=== PATIENT | male | born 1960 | race Hispanic/Latino ===

== ENCOUNTER 2022-11-17 15:02 | Inpatient (IN) | payer OTHER ==
[2022-11-17 15:32] LABS: Absolute Lymphocytes (CBC) 1.7 K/uL (0.7-4.9); Hematocrit 28.4 % (39.6-49.0); Lymphocytes % 21.8 % (15.3-44.8); MCV 96.6 fL (80-100); MPV 7.3 fL (7.6-11.3); RBC Red Blood Cell Count 2.94 M/uL (4.33-5.43)
[2022-11-17 16:05] LABS: Potassium 3.5 mmol/L (3.5-5.1); Troponin High Sensitivity 45.4 pg/mL (<58.9)
--- NOTE | 2022-11-17 16:16 | RAD REPORT ---
EXAM DESCRIPTION: Herminia Single View11/17/2022 4:05 pm CLINICAL HISTORY: Chest pain COMPARISON: 2013 FINDINGS: Mild bilateral interstitial lung opacities. The heart is borderline enlarged IMPRESSION: Mild bilateral interstitial lung opacities probably mild interstitial pulmonary edema
--- NOTE | 2022-11-17 16:33 | EDPHYS ---
Physician Documentation [facility] Name: Gonzalez Adams Age: 62 yrs Sex: Male : 1960 Arrival Date: 11/17/2022 Time: 15:03 Bed 2 Private MD: ED Physician Sohail Peña HPI: 11/17 17:54 This 62 yrs old Male presents to ER via EMS with complaints of chest pain. kb 17:54 The patient or guardian reports chest pain that is located primarily in the substernal kb area. Onset: yesterday. The pain does not radiate. Associated signs and symptoms: The patient has no apparent associated signs or symptoms. The chest pain is described as a pressure. Duration: The patient or guardian reports a single episode. Modifying factors: The symptoms are alleviated by nothing. the symptoms are aggravated by nothing. Severity of pain: At its worst the pain was moderate in the emergency department the pain is unchanged. The patient has not experienced similar symptoms in the past. The patient has not recently seen a physician. Pt reports chest pain that started after dialysis yesterday. Pt had EKG yesterday that showed A.fib with SVR, the nurse spoke with the dr and was told to monitor him and send him to the ER if chest pain develops. Pt was sent to ER today because he told the nurse about the chest pain. . Historical: - Allergies: 15:08 No Known Allergies; ph - Home Meds: 15:08 ascorbic acid (vitamin C) 500 mg tab twice a day [Active]; aspirin 81 mg Oral cap 1 cap ph once daily [Active]; atorvastatin 80 mg oral tab 1 tab once daily [Active]; insulin glargine 100 unit/mL (3 mL) Sub-Q inpn 10 unit nightly [Active]; clopidogrel 75 mg oral tab 1 tab once daily [Active]; ergocalciferol (vitamin D2) (bulk) miscellaneous [Active]; fluoxetine 10 mg Oral cap 1 cap once daily [Active]; levetiracetam 500 mg oral tab 1 tab 2 times per day [Active]; metoprolol succinate 25 mg oral CSpX give 12.5 mg daily on Tue, [place], Sat, and Sun [Active]; ondansetron HCl 4 mg Oral tab 1 tab every 6 hours [Active]; Renvela 800 mg oral tab 2 tabs 3 times per day [Active]; - PMHx: 15:08 CKD stage 5; Depressive disorder; Hypertensive disorder; NSTEMI; CVA; w/ L sided ph deficits; CHF; Seizure; Hypercholesterolemia; Diabetes mellitus; Atrial Flutter; PVD; - Immunization history:: Adult Immunizations unknown. - Social history:: Smoking status: Patient denies any tobacco usage or history of. ROS: 17:54 Constitutional: Negative for fever, chills, and weight loss. kb 17:54 Cardiovascular: Positive for chest pain. 17:54 All other systems are negative. Exam: 15:43 Constitutional: This is a well developed, well nourished patient who is awake, alert, kb and in no acute distress. Head/Face: Normocephalic, atraumatic. ENT: Moist Mucous membranes Respiratory: Respirations even and unlabored. No increased work of breathing. Talking in full sentences Abdomen/GI: Soft, non-tender. No distention Skin: Warm, dry with normal turgor. Normal color. MS/ Extremity: Pulses equal, no cyanosis. Neurovascular intact. Full, normal range of motion. Neuro: Awake and alert, GCS 15, oriented to person, place, time, and situation. Moves all extremities. Normal gait. Psych: Awake, alert, with orientation to person, place and time. Behavior, mood, and affect are within normal limits. 15:43 Cardiovascular: Rate: bradycardic, Rhythm: irregularly irregular, Pulses: no pulse deficits are appreciated. 15:43 ECG was reviewed by the Attending Physician. Vital Signs: 15:03 BP 134 / 67; Pulse 47; Resp 16; Temp 97.5; Pulse Ox 100% on R/A; ph 15:07 Weight 83.91 kg; Height 5 ft. 10 in. (177.80 cm); Pain 0/10; ph 15:48 BP 135 / 65; Pulse 55; Resp 18; Pulse Ox 100% on R/A; ph 17:00 BP 144 / 83; Pulse 63; Resp 18; Pulse Ox 100% on R/A; ph 18:00 BP 149 / 83; Pulse 71; Resp 18; Pulse Ox 98% on R/A; ph 18:52 BP 139 / 80; Pulse 70; Resp 18; Pulse Ox 99% on R/A; ph 19:59 BP 137 / 77; Pulse 71; Resp 18; Pulse Ox 100% on R/A; jb4 15:07 Body Mass Index 26.54 (83.91 kg, 177.80 cm) ph MDM: 15:05 Patient medically screened. kb 16:31 Differential diagnosis: abnormal EKG, acute myocardial infarction, coronary artery kb disease. The patient was not given aspirin in the Emergency Department. Patient reports taking aspirin within the past 24 hours. Data reviewed: vital signs, nurses notes. Consideration of Admission/Observation Patient was admitted/placed on observation. Management of patient was discussed with the following: Hospitalist: Dr Mccloud accepts pt for admission. Historians other than the Patient: EMS: [facility]. Care significantly affected by the following chronic conditions: Diabetes, Hypertension, ESRD. Counseling: I had a detailed discussion with the patient and/or guardian regarding: the historical points, exam findings, and any diagnostic results supporting the discharge/admit diagnosis, lab results, radiology results, the need for further work-up and treatment in the hospital. 11/17 15:05 Order name: Basic Metabolic Panel; Complete Time: 16:24 kb 11/17 15:05 Order name: CBC with Diff; Complete Time: 15:34 kb 11/17 15:05 Order name: NT PRO-BNP; Complete Time: 16:24 kb 11/17 15:05 Order name: Troponin HS; Complete Time: 16:24 kb 11/17 15:05 Order name: XRAY Chest (1 view); Complete Time: 16:18 kb 11/17 16:31 Order name: SARS RAPID; Complete Time: 17:00 kb 11/17 15:05 Order name: EKG; Complete Time: 15:06 kb 11/17 15:05 Order name: Cardiac monitoring; Complete Time: 15:19 kb 11/17 15:05 Order name: EKG - Nurse/Tech; Complete Time: 15:48 kb 11/17 15:05 Order name: IV Saline Lock; Complete Time: 15:48 kb 11/17 15:05 Order name: Labs collected and sent; Complete Time: 15:48 kb 11/17 15:05 Order name: O2 Per Protocol; Complete Time: 15:19 kb 11/17 15:05 Order name: O2 Sat Monitoring; Complete Time: 15:19 kb EC:43 Rate is 51 beats/min. Rhythm is irregularly irregular. QRS [place] is Normal. QRS interval kb is normal at 100 msec. QT interval is normal at 455 msec. Clinical impression: Atrial Fibrillation. Administered Medications: No medications were administered Disposition Summary: 11/17/22 16:32 Hospitalization Ordered Hospitalization Status: Inpatient Admission kb Provider: Mac Mccloud Location: Telemetry/MedSurg (Inpatient) kb Condition: Stable kb Problem: new kb Symptoms: are unchanged kb Bed/Room Type: Standard Room Assignment: 407(11/17/22 19:42) mw Diagnosis - Chest pain, unspecified kb - Unspecified atrial fibrillation kb Forms: - Medication Reconciliation Form kb - SBAR form kb Signatures: Dispatcher [employer] EDJulia Stock FNP-C FNP-Ckb Webb, Martha, RN RN Bharati Shukla RN RN ph Corrections: (The following items were deleted from the chart) 19:42 16:32 kb mw
--- NOTE | 2022-11-17 16:33 | ER ---
Nurse's Notes [facility] Name: Gonzalez Adams Age: 62 yrs Sex: Male : 1960 Arrival Date: 11/17/2022 Time: 15:03 Bed 2 Private MD: Diagnosis: Chest pain, unspecified;Unspecified atrial fibrillation Presentation: 11/17 15:03 Chief complaint: EMS states: Pt from [place], had dialysis yesterday w/ normal amount ph of fluid removed, after returning from dialysis EKG showed that pt was in a-fib, pt reports having chest pain yesterday as well, denies pain at this time, 12 lead showed a-fib w/ rate 40s-60s, BP WNL, has hx of atrial flutter. Coronavirus screen: Vaccine status: Patient reports receiving the 2nd dose of the covid vaccine. Ebola Screen: No symptoms or risks identified at this time. 15:03 Method Of Arrival: EMS: [facility] 15:07 Initial Sepsis Screen: Does the patient meet any 2 criteria? No. Patient's initial ph sepsis screen is negative. Does the patient have a suspected source of infection? No. Patient's initial sepsis screen is negative. Risk Assessment: Do you want to hurt yourself or someone else? Patient reports no desire to harm self or others. Onset of symptoms was November 17, 2022. 15:07 Acuity: ROSA 3 ph Triage Assessment: 15:17 General: Appears in no apparent distress. Behavior is calm, cooperative, appropriate ph for age, Denies fever, feeling ill. Pain: Denies pain. Neuro: Level of Consciousness is awake, alert, obeys commands, Oriented to person, place, time, situation. Cardiovascular: Capillary refill < 3 seconds in bilateral fingers Patient's skin is warm and dry. Respiratory: Airway is patent Respiratory effort is even, unlabored, Respiratory pattern is regular, symmetrical. GI: No signs and/or symptoms were reported involving the gastrointestinal system. Derm: Skin is pink, warm \T\ dry. Historical: - Allergies: 15:08 No Known Allergies; ph - Home Meds: 15:08 ascorbic acid (vitamin C) 500 mg tab twice a day [Active]; aspirin 81 mg Oral cap 1 cap ph once daily [Active]; atorvastatin 80 mg oral tab 1 tab once daily [Active]; insulin glargine 100 unit/mL (3 mL) Sub-Q inpn 10 unit nightly [Active]; clopidogrel 75 mg oral tab 1 tab once daily [Active]; ergocalciferol (vitamin D2) (bulk) miscellaneous [Active]; fluoxetine 10 mg Oral cap 1 cap once daily [Active]; levetiracetam 500 mg oral tab 1 tab 2 times per day [Active]; metoprolol succinate 25 mg oral CSpX give 12.5 mg daily on e, [place], Sat, and Sun [Active]; ondansetron HCl 4 mg Oral tab 1 tab every 6 hours [Active]; Renvela 800 mg oral tab 2 tabs 3 times per day [Active]; - PMHx: 15:08 CKD stage 5; Depressive disorder; Hypertensive disorder; NSTEMI; CVA; w/ L sided ph deficits; CHF; Seizure; Hypercholesterolemia; Diabetes mellitus; Atrial Flutter; PVD; - Immunization history:: Adult Immunizations unknown. - Social history:: Smoking status: Patient denies any tobacco usage or history of. Screenin:18 [facility] ED Fall Risk Assessment (Adult) History of falling in the last 3 months, ph including since admission No falls in past 3 months (0 pts) Confusion or Disorientation No (0 pts) Intoxicated or Sedated No (0 pts) Impaired Gait Yes (1 pt) Mobility Assist Device Used Yes (1 pt) Altered Elimination Yes (1 pt) Score/Fall Risk Level 3 or more points = High Risk Oriented to surroundings, Maintained a safe environment, Hourly rounding (assess needs \T\ fall precautionary measures) done. Abuse screen: Denies threats or abuse. Denies injuries from another. Nutritional screening: No deficits noted. Tuberculosis screening: No symptoms or risk factors identified. Assessment: 15:49 General: SEE TRIAGE ASSESSMENT. ph 17:00 Reassessment: Patient appears in no apparent distress at this time. Patient and/or ph family updated on plan of care and expected duration. Pain level reassessed. Patient is alert, oriented x 3, equal unlabored respirations, skin warm/dry/pink. 18:52 Reassessment: Patient appears in no apparent distress at this time. Patient and/or ph family updated on plan of care and expected duration. Pain level reassessed. Patient is alert, oriented x 3, equal unlabored respirations, skin warm/dry/pink. 19:15 Reassessment: Patient appears in no apparent distress at this time. Patient and/or jb4 family updated on plan of care and expected duration. Pain level reassessed. Patient is alert, oriented x 3, equal unlabored respirations, skin warm/dry/pink. 20:28 Reassessment: Patient appears in no apparent distress at this time. Patient and/or jb4 family updated on plan of care and expected duration. Pain level reassessed. Patient is alert, oriented x 3, equal unlabored respirations, skin warm/dry/pink. Vital Signs: 15:03 BP 134 / 67; Pulse 47; Resp 16; Temp 97.5; Pulse Ox 100% on R/A; ph 15:07 Weight 83.91 kg; Height 5 ft. 10 in. (177.80 cm); Pain 0/10; ph 15:48 BP 135 / 65; Pulse 55; Resp 18; Pulse Ox 100% on R/A; ph 17:00 BP 144 / 83; Pulse 63; Resp 18; Pulse Ox 100% on R/A; ph 18:00 BP 149 / 83; Pulse 71; Resp 18; Pulse Ox 98% on R/A; ph 18:52 BP 139 / 80; Pulse 70; Resp 18; Pulse Ox 99% on R/A; ph 19:59 BP 137 / 77; Pulse 71; Resp 18; Pulse Ox 100% on R/A; jb4 15:07 Body Mass Index 26.54 (83.91 kg, 177.80 cm) ph ED Course: 15:03 Patient arrived in ED. eb 15:03 Bharati Shukla RN is Primary Nurse. ph 15:04 Julia Fallon FNP-C is PHCP. kb 15:04 Sohail Peña MD is Attending Physician. kb 15:08 Triage completed. ph 15:18 Arm band placed on Patient placed in an exam room, on a stretcher, on electronic device monitor, ph on pulse oximetry. 15:19 Patient has correct armband on for positive identification. Placed in gown. Bed in low ph position. Call light in reach. Side rails up X2. Client placed on continuous cardiac and pulse oximetry monitoring. NIBP monitoring applied. Door closed. Noise minimized. Warm blanket given. 15:48 Maintain EMS IV. Dressing intact. Good blood return noted. Site clean \T\ dry. Gauge \T\ ph site: 20 R hand. 16:06 XRAY Chest (1 view) In Process Unspecified. EDMS 16:32 Mac Mccloud MD is Hospitalizing Provider. kb 18:52 No provider procedures requiring assistance completed. Patient admitted, IV remains in ph place. Administered Medications: No medications were administered Medication: 15:18 VIS not applicable for this client. ph Outcome: 16:32 Decision to Hospitalize by Provider. kb 20:28 Admitted to Tele accompanied by tech, via stretcher, room 407, with chart, Report jb4 called to TERRI Portillo 20:28 Condition: stable 20:28 Discharge instructions given to patient, Instructed on the need for admit, Demonstrated understanding of instructions. 20:29 Patient left the ED. mohan Signatures: Dispatcher [employer] EDTN Julia Fallon, SPARK TESTER-C ALE-Bharati Collazo RN RN Zain Traore RN RN jb4 Batool Rosa
[2022-11-17 16:59] LABS: SARS-CoV-2 Antigen Rapid Res Negative (Negative)
[2022-11-17] MEDS ORDERED: ALBUTEROL 2.5 MG/3 ML NEB SOL NEB PRN (20:21)
[2022-11-17] MEDS ORDERED: ACETAMINOPHEN 500 MG TAB PO PRN (20:21)
--- NOTE | 2022-11-17 20:40 | P.HP ---
Certification for Inpatient Patient admitted to: Observation With expected LOS: <2 Midnights Patient will require the following post-hospital care: None Practitioner: I am a practitioner with admitting privileges, knowledge of patient current condition, hospital course, and medical plan of care. Services: Services provided to patient in accordance with Admission requirements found in Title 42 Section 412.3 of the Code of Federal Regulations Patient History Date of Service: 11/17/22 Reason for admission: CP r/o ACS; afib with SVR History of Present Illness: Patient is a 62-year-old gentleman who has a history of a stroke and lives at [facility] [place] who came into the hospital for further evaluation. Patient's not really able to give much information. Not really sure how they were able to tell he was having chest pain. He did have atrial fibrillation with slow ventricular response. His heart rate was in the 40s to 50s. Patient sent to the hospital for further evaluation. In the emergency room patient's troponins have been negative. Patient's heart rate has been stable. At this time, patient will be admitted for further treatment. Allergies No Known Allergies Allergy (Verified 06/09/19 15:12) Home Medications: Aspirin [Aspirin EC 81 MG] 81 mg PO DAILY 09/02/14 Clopidogrel Bisulfate [Plavix*] 75 mg PO DAILY #30 tablet 09/08/14 Atorvastatin Calcium [Lipitor*] 80 mg PO DAILY 06/09/19 Ascorbic Acid [Vitamin C] 500 mg PO BID 11/17/22 Ergocalciferol (Vitamin D2) [Drisdol] 1,250 mcg PO SEECOM 11/17/22 Fluoxetine HCl 10 mg PO DAILY 11/17/22 Folic Acid/Vit B Complex and C [Renal Vitamin Tablet] 0.8 mg PO DAILY 11/17/22 Insulin Glargine,Hum.rec.anlog [Jarrettaglar Kwikpen U-100] 10 unit SQ BEDTIME 11/17/22 Metoprolol Succinate 25 mg PO DAILY 11/17/22 Ondansetron HCl 4 mg PO Q6H PRN 11/17/22 Sevelamer Carbonate [Renvela] 2 tab PO TID 11/17/22 levETIRAcetam [Levetiracetam] 500 mg PO BID 11/17/22 - Past Medical/Surgical History Diabetic: Yes -: HTN -: HLD -: HX OF CVA/stroke -: CKD -: ANEMIA -: LYMPHOMA -: OBESITY -: DYSPHAGIA -: CHOLECYSTECTOMY -: PEG tube placement -: vascular surg. right leg -: hemodialysis - Family History Father Family History: Reviewed- Non-Contributory - Social History Smoking Status: Former smoker Alcohol use: No CD- Drugs: No Review of Systems 10-point ROS is otherwise unremarkable Physical Examination - Vital Signs Temperature: 97.5 F Blood Pressure: 149/83 Pulse: 71 Respirations: 18 - Physical Exam General: Alert, In no apparent distress, Oriented x3, Demented, Unresponsive HEENT: Atraumatic, PERRLA, Mucous membr. moist/pink, EOMI, Sclerae nonicteric Neck: Supple, 2+ carotid pulse no bruit, No LAD, Without JVD or thyroid abnormality Respiratory: Clear to auscultation bilaterally, Normal air movement Cardiovascular: No murmurs, Irregular heart rate/rhythm Gastrointestinal: Normal bowel sounds, Soft and benign, Non-distended, No tenderness Musculoskeletal: No tenderness Integumentary: No rashes Neurological: Sensation intact, Abnormal gait, Abnormal speech, Abnormal strength, Abnormal cranial nerve function - Studies Laboratory Data (last 24 hrs) 11/17/22 15:25: WBC 7.60, Hgb 9.5 L, Hct 28.4 L, Plt Count 322 11/17/22 15:25: Sodium 141, Potassium 3.5, BUN 30 H, Creatinine 6.15 H*, Glucose 121 H Assessment & Plan - Problems (Diagnosis) (1) Chest pain, rule out acute myocardial infarction Current Visit: Yes Status: Acute (2) Atrial fibrillation with slow ventricular response Current Visit: Yes Status: Acute (3) CVA (cerebral vascular accident) Current Visit: Yes Status: Acute (4) Seizure Current Visit: Yes Status: Acute (5) DM2 (diabetes mellitus, type 2) Current Visit: Yes Status: Acute (6) H/O lymphoma Current Visit: Yes Status: Acute (7) Diabetes mellitus Onset Date: 08/24/14 Current Visit: No Status: Acute (8) Hypertension Onset Date: 08/24/14 Current Visit: No Status: Acute - Plan -High-sensitivity troponin -Cardiology consultation -Echocardiogram and further evaluation per cardiology recommendation -Repeat EKG -Work-up for other etiologies of cardiac chest pain if troponins remain negative -Lipid profile -Antiepileptic -Feed with assistance - Discharge Plan: Halfway Plan to discharge in: Greater than 2 days - Advance Directives Does patient have a Living Will: No Does patient have a Durable POA for Healthcare: No - Code Status/Comfort Care Code Status Assessed: Yes Code Status: Full Code Critical Care: No Time Spent Managing PTS Care (In Minutes): 45
[2022-11-17] MEDS: INSULIN -REGULAR HUMAN 50 UNIT/0.5 ML ML SQ SCH (21:00)
[2022-11-17] MEDS: HEPARIN 5000 UNIT/ML 1 ML VIAL SQ SCH (21:40)
[2022-11-17] MEDS: ATORVASTATIN 40 MG TAB PO SCH (21:41)
[2022-11-17 22:04] VITALS: BMI 26.9
[2022-11-17] MEDS ORDERED: ONDANSETRON 4 MG/2 ML VIAL IV PRN (23:45)
[2022-11-18 04:14] LABS: Absolute Lymphocytes (CBC) 0.8 K/uL (0.7-4.9); Hematocrit 31.2 % (39.6-49.0); Lymphocytes % 6.9 % (15.3-44.8); MCV 97.9 fL (80-100); MPV 7.4 fL (7.6-11.3); RBC Red Blood Cell Count 3.18 M/uL (4.33-5.43)
[2022-11-18 04:49] LABS: Magnesium 2.4 mg/dL (1.6-2.4); Phosphorus 3.1 mg/dL (2.5-4.9); Potassium 4.4 mmol/L (3.5-5.1); Thyroid Stimulating Hormone 1.41 uIU/mL (0.358-3.740)
[2022-11-18 04:53] LABS: Troponin High Sensitivity 247.7 pg/mL (<58.9)
[2022-11-18] MEDS: INSULIN -REGULAR HUMAN 50 UNIT/0.5 ML ML SQ SCH ×4 (07:30→20:30)
[2022-11-18] MEDS: HEPARIN 5000 UNIT/ML 1 ML VIAL SQ SCH ×2 (08:26→20:29)
[2022-11-18] MEDS: ASPIRIN 81 MG CHEWABLE TABLET PO SCH (08:26)
[2022-11-18] MEDS ORDERED: HOME MED 1 EA UNK (Ondansetron Hcl [Ondansetron Hcl] 4 MG Tablet) PO PRN (14:09)
--- NOTE | 2022-11-18 14:25 | P.PN ---
Subjective Date of Service: 11/18/22 I have tried reaching family but have been unsuccessful. Tried to contact [facility] and waiting for callback. First 2 troponins were negative but repeat this AM was positive. Currently, we are awaiting cardiology input. I will go ahead and repeat the troponin as well. If this is negative and we will the setting of the first 2 being negative we can possibly discharge him home if cardiology is agreeable. Hopefully, I can talk with nursing facility and gets more information. Review of Systems 10-point ROS is otherwise unremarkable Physical Examination - Vital Signs Temperature: 97.5 F Blood Pressure: 149/83 Pulse: 71 Respirations: 18 Pulse Ox (%): 97 - Physical Exam General: Alert, In no apparent distress, Demented Respiratory: Clear to auscultation bilaterally, Normal air movement Cardiovascular: Normal S1 S2, Irregular heart rate/rhythm, Systolic murmur Gastrointestinal: Normal bowel sounds, Soft and benign, Non-distended, No tenderness Musculoskeletal: No clubbing, No swelling, No tenderness Neurological: Abnormal speech, Abnormal strength - Studies Laboratory Data (last 24 hrs) 11/17/22 15:25: WBC 7.60, Hgb 9.5 L, Hct 28.4 L, Plt Count 322 11/17/22 15:25: Sodium 141, Potassium 3.5, BUN 30 H, Creatinine 6.15 H*, Glucose 121 H Medications List Reviewed: Yes Assessment & Plan - Problems (Diagnosis) (1) Chest pain, rule out acute myocardial infarction Current Visit: Yes Status: Acute (2) Atrial fibrillation with slow ventricular response Current Visit: Yes Status: Acute (3) CVA (cerebral vascular accident) Current Visit: Yes Status: Acute (4) Seizure Current Visit: Yes Status: Acute (5) DM2 (diabetes mellitus, type 2) Current Visit: Yes Status: Acute (6) H/O lymphoma Current Visit: Yes Status: Acute (7) Diabetes mellitus Onset Date: 08/24/14 Current Visit: No Status: Acute (8) Hypertension Onset Date: 08/24/14 Current Visit: No Status: Acute - Plan -High-sensitivity troponin positive this a.m. -Cardiology consultation pending -Nephrology consult pending -Echocardiogram and further evaluation per cardiology recommendation -Repeat EKG -Plan to discuss patient's case with family try to contact- and daughter-as well as [facility]. I am placed on hold and I have been able to get in touch with anyone to discuss his care. If no aggressive intervention he may be able to go home. -Antiepileptic -Feed with assistance -cardiac cath in AM Discharge Plan: Long Term Plan to discharge in: Greater than 2 days - Advance Directives Does patient have a Living Will: No Does patient have a Durable POA for Healthcare: No - Code Status/Comfort Care Code Status: Full Code Critical Care: No Time Spent Managing PTS Care (In Minutes): 55
--- NOTE | 2022-11-18 15:52 | P.CNS ---
Date of Consult: 11/18/22 Chief Complaint: CP r/o ACS; afib with SVR Allergies No Known Allergies Allergy (Verified 06/09/19 15:12) Home Medications: Aspirin [Aspirin EC 81 MG] 81 mg PO DAILY 09/02/14 Clopidogrel Bisulfate [Plavix*] 75 mg PO DAILY #30 tablet 09/08/14 Atorvastatin Calcium [Lipitor*] 80 mg PO DAILY 06/09/19 Ascorbic Acid [Vitamin C] 500 mg PO BID 11/17/22 Ergocalciferol (Vitamin D2) [Drisdol] 1,250 mcg PO SEECOM 11/17/22 Fluoxetine HCl 10 mg PO DAILY 11/17/22 Folic Acid/Vit B Complex and C [Renal Vitamin Tablet] 0.8 mg PO DAILY 11/17/22 Insulin Glargine,Hum.rec.anlog [Basaglar Kwikpen U-100] 10 unit SQ BEDTIME 11/17/22 Metoprolol Succinate 25 mg PO DAILY 11/17/22 Ondansetron HCl 4 mg PO Q6H PRN 11/17/22 Sevelamer Carbonate [Renvela] 2 tab PO TID 11/17/22 levETIRAcetam [Levetiracetam] 500 mg PO BID 11/17/22 - Past Medical/Surgical History Diabetic: Yes -: HTN -: HLD -: HX OF CVA/stroke -: CKD -: ANEMIA -: LYMPHOMA -: OBESITY -: DYSPHAGIA -: CHOLECYSTECTOMY -: PEG tube placement -: vascular surg. right leg -: hemodialysis - Family History Father Family History: Reviewed- Non-Contributory - Social History Alcohol use: No CD- Drugs: No Caffeine use: Yes Place of Residence: [place] Physical Examination Temp Pulse Resp BP Pulse Ox 97.5 F 71 18 149/83 H 97 11/18/22 14:25 11/18/22 14:25 11/18/22 14:25 11/18/22 14:25 11/18/22 14:25 Laboratory Data (last 24 hrs) 11/17/22 15:25: Sodium 141, Potassium 3.5, BUN 30 H, Creatinine 6.15 H*, Glucose 121 H
[2022-11-18] MEDS ORDERED: FUROSEMIDE 40 MG/4 ML VIAL IV STA (16:09)
--- NOTE | 2022-11-18 17:40 | RAD REPORT ---
EXAM DESCRIPTION: US - Renal Ultrasound-Complete - 11/18/2022 5:29 pm CLINICAL HISTORY: maricel vs ckd, assess for hydroneph, ckd changes, BPH COMPARISON: Renal Ultrasound-Complete dated 10/04/2017; CT ABD PELVIS W CONTRAST dated 08/30/2014 FINDINGS: Increased cortical echogenicity bilaterally. Poorly assessed renal sinuses bilaterally. No definite hydronephrosis. Limited due to poor acoustic windows. The right kidney measures 9.9 cm. Hypoechoic lesion at the lower pole the right kidney measuring 1.9 x 1.8 cm. This is increased through transmission. This most likely represents a cyst which was also p resent on the CT from 08/30/2014. No large renal calculi identified. The left kidney measures 8 cm. Large left renal cyst measuring 9.2 cm in maximal dimension. This has some layering debris. . A simple appearing left upper pole renal cyst noted measuring 5 cm noted. No large renal calculi Bladder wall appears thick though is underdistended. IMPRESSION: 1. Limited by poor acoustic windows. Grossly, no hydronephrosis is noted. 2. Increased echogenicity of the cortices bilaterally suggesting medical renal disease. 3. Bilateral renal lesions noted which are most likely cysts. The right renal lesion is not as well a ssessed on this ultrasound but a cyst was present at a similar location on prior CT from 08/30/2014 . 4. Nonspecific mild bladder wall thickening (versus underdistention). If indeed thickened, this could be secondary to chronic bladder outlet obstruction.
[2022-11-18] MEDS: SEVELAMER CARBONATE 800 MG TABLET PO SCH (20:28)
[2022-11-18] MEDS: levETIRAcetam 500 MG TAB PO SCH (20:28)
[2022-11-18] MEDS: ATORVASTATIN 40 MG TAB PO SCH (20:28)
[2022-11-18] MEDS: INSULIN GLARGINE 100 UNIT/ML SQ SCH (20:30)
[2022-11-19] MEDS: INSULIN -REGULAR HUMAN 50 UNIT/0.5 ML ML SQ SCH ×4 (07:30→21:00)
[2022-11-19 07:59] LABS: Absolute Lymphocytes (CBC) 1.3 K/uL (0.7-4.9); Hematocrit 29.4 % (39.6-49.0); Lymphocytes % 14.5 % (15.3-44.8); MCV 97.7 fL (80-100); MPV 7.4 fL (7.6-11.3)
[2022-11-19 08:13] LABS: Potassium 4.2 mmol/L (3.5-5.1)
[2022-11-19] MEDS ORDERED: METOPROLOL XL 25 MG TAB PO SCH (09:00)
[2022-11-19] MEDS: HEPARIN 5000 UNIT/ML 1 ML VIAL SQ SCH (09:00)
[2022-11-19] MEDS: levETIRAcetam 500 MG TAB PO SCH ×2 (09:00→21:39)
[2022-11-19] MEDS: SEVELAMER CARBONATE 800 MG TABLET PO SCH ×3 (09:00→21:40)
[2022-11-19] MEDS: FLUOXETINE 10 MG CAP PO SCH (09:00)
[2022-11-19] MEDS ORDERED: ASPIRIN EC 81 MG TAB PO SCH (09:00)
[2022-11-19] MEDS ORDERED: ATORVASTATIN 20 MG TAB PO SCH (09:00)
[2022-11-19] MEDS: ASPIRIN 81 MG CHEWABLE TABLET PO SCH (09:35)
[2022-11-19] MEDS: CLOPIDOGREL 75 MG TABLET PO SCH (09:35)
--- NOTE | 2022-11-19 14:38 | P.PN ---
Subjective Date of Service: 11/19/22 Chief Complaint: CP r/o ACS; afib with SVR No acute events overnight. He states that he had a cardiac catheterization at [facility] last year and was told that he needs a CABG. However, he was told that he was not a good surgical candidate. Review of Systems 10-point ROS is otherwise unremarkable Cardiovascular: Chest Pain Physical Examination - Vital Signs Temperature: 97.7 F Blood Pressure: 135/65 Pulse: 55 Respirations: 16 Pulse Ox (%): 97 - Physical Exam General: Alert, In no apparent distress, Oriented x3 HEENT: Atraumatic, Mucous membr. moist/pink, EOMI, Sclerae nonicteric Neck: JVD not distended Respiratory: Clear to auscultation bilaterally, Normal air movement Cardiovascular: No gallops, No rubs, No murmurs, Edema (1-2+ BLE), Irregular heart rate/rhythm Gastrointestinal: Normal bowel sounds, Soft and benign, Non-distended, No tenderness, No rebound, No guarding Musculoskeletal: No clubbing Integumentary: No rashes Neurological: Normal speech, Cranial nerves 3-12 intact, Normal affect - Studies Medications List Reviewed: Yes Assessment And Plan - Plan # Chest Pain, concern for Acute Coronary Syndrome (Non-ST Segment Elevation Myocardial Infarction) # Coronary Artery Disease # History of Cerebrovascular Accident # Hypertension # Dyslipidemia - Evaluation thus far: - EKG: without reported STEMI criteria, trend - Serial troponin: 45.4 -> 47.3 -> 247.7 -> 2507.4 - Ordered transthoracic echocardiogram - Chest x-ray = "Mild bilateral interstitial lung opacities probably mild interstitial pulmonary edema" - Management plan: - Consult Cardiology - recommendations appreciated - Per Dr. Rolle hold off on cath given recent procedure at [facility] - Continue aspirin, atorvastatin, clopidogrel - Hold beta-randall given slow ventricular response - Hold COBY-inhibitor/ARB given ESRD # Hypervolemia secondary to Acute Congestive Heart Failure vs End-Stage Renal Disease on MWF iHD # Anemia of Chronic Kidney Disease - Nephrology consulted - recommendations appreciated - Renal ultrasound = "1. Limited by poor acoustic windows. Grossly, no hydronephrosis is noted. 2. Increased echogenicity of the cortices bilaterally suggesting medical renal disease. 3. Bilateral renal lesions noted which are most likely cysts. The right renal lesion is not as well assessed on this ultrasound but a cyst was present at a similar location on prior CT from 08/30/2014. 4. Nonspecific mild bladder wall thickening (versus underdistention). If indeed thickened, this could be secondary to chronic bladder outlet obstruction." - Continue sevelamer - Volume removal via hemodialysis - Monitor creatinine and urine output - Renally dose medications # Atrial Fibrillation with Slow Ventricular Response His [id number] = 5 (CHF=1, HTN=1, DM=1, CVA=1, CAD=1), which warrants anticoagulation. - Cardiology consulted - recommendations appreciated - Started apixaban # Type II Diabetes Mellitus - Continue insulin regimen # Seizure Disorder - Continue home levetiracetam # History of Lymphoma - Outpatient follow-up Conner Garcia M.D.
[2022-11-19] MEDS ORDERED: ALBUTEROL 2.5 MG/3 ML NEB SOL NEB PRN (16:00)
--- NOTE | 2022-11-19 16:59 | P.CNS ---
Date of Consult: 11/19/22 Reason for Consult: ESRD Requesting Physician: Conner Garcia Chief Complaint: CP r/o ACS; afib with SVR History of Present Illness: Patient is a 62-year-old gentleman who has a history of a stroke and lives at [facility] who came into the hospital for further evaluation. Patient's not really able to give much information. Not really sure how they were able to tell he was having chest pain. He did have atrial fibrillation with slow ventricular response. His heart rate was in the 40s to 50s. Patient sent to the hospital for further evaluation. In the emergency room patient's troponins have been negative. Patient's heart rate has been stable. At this time, patient will be admitted for further treatment. Allergies No Known Allergies Allergy (Verified 06/09/19 15:12) Home medications list reviewed: Yes Home Medications: Aspirin [Aspirin EC 81 MG] 81 mg PO DAILY 09/02/14 Clopidogrel Bisulfate [Plavix*] 75 mg PO DAILY #30 tablet 09/08/14 Atorvastatin Calcium [Lipitor*] 80 mg PO DAILY 06/09/19 Ascorbic Acid [Vitamin C] 500 mg PO BID 11/17/22 Ergocalciferol (Vitamin D2) [Drisdol] 1,250 mcg PO SEECOM 11/17/22 Fluoxetine HCl 10 mg PO DAILY 11/17/22 Folic Acid/Vit B Complex and C [Renal Vitamin Tablet] 0.8 mg PO DAILY 11/17/22 Insulin Glargine,Hum.rec.anlog [Basaglar Kwikpen U-100] 10 unit SQ BEDTIME 11/17/22 Metoprolol Succinate 25 mg PO DAILY 11/17/22 Ondansetron HCl 4 mg PO Q6H PRN 11/17/22 Sevelamer Carbonate [Renvela] 2 tab PO TID 11/17/22 levETIRAcetam [Levetiracetam] 500 mg PO BID 11/17/22 - Past Medical/Surgical History Diabetic: Yes -: HTN -: HLD -: HX OF CVA/stroke -: ESRD on HD followed by Dr. Zhang -: ANEMIA -: LYMPHOMA -: OBESITY -: DYSPHAGIA -: CHOLECYSTECTOMY -: PEG tube placement -: vascular surg. right leg -: hemodialysis - Family History Father Family History: Reviewed- Non-Contributory - Social History Alcohol use: No CD- Drugs: No Caffeine use: Yes [facility] Review of Systems 10-point ROS is otherwise unremarkable General: Weakness Respiratory: SOB with Excertion Physical Examination Temp Pulse Resp BP Pulse Ox 97.7 F 55 16 135/65 97 11/19/22 14:59 11/19/22 14:59 11/19/22 14:59 11/19/22 14:59 11/19/22 14:59 General: In no apparent distress, Oriented x3, Cooperative HEENT: Atraumatic Neck: Supple Respiratory: Clear to auscultation bilaterally Cardiovascular: No edema Gastrointestinal: Soft and benign, Non-distended Musculoskeletal: No clubbing, No contractures Integumentary: No rashes, No cyanosis Neurological: Normal speech Blood work reviewed in the chart. Imagings Data: EXAM DESCRIPTION: US - Renal Ultrasound-Complete - 11/18/2022 5:29 pm CLINICAL HISTORY: maricel vs ckd, assess for hydroneph, ckd changes, BPH COMPARISON: Renal Ultrasound-Complete dated 10/04/2017; CT ABD PELVIS W CONTRAST dated 08/30/2014 FINDINGS: Increased cortical echogenicity bilaterally. Poorly assessed renal sinuses bilaterally. No definite hydronephrosis. Limited due to poor acoustic windows. The right kidney measures 9.9 cm. Hypoechoic lesion at the lower pole the right kidney measuring 1.9 x 1.8 cm. This is increased through transmission. This most likely represents a cyst which was also present on the CT from 08/30/2014. No large renal calculi identified. The left kidney measures 8 cm. Large left renal cyst measuring 9.2 cm in maximal dimension. This has some layering debris. . A simple appearing left upper pole renal cyst noted measuring 5 cm noted. No large renal calculi Bladder wall appears thick though is underdistended. IMPRESSION: 1. Limited by poor acoustic windows. Grossly, no hydronephrosis is noted. 2. Increased echogenicity of the cortices bilaterally suggesting medical renal disease. 3. Bilateral renal lesions noted which are most likely cysts. The right renal lesion is not as well assessed on this ultrasound but a cyst was present at a similar location on prior CT from 08/30/2014 . 4. Nonspecific mild bladder wall thickening (versus underdistention). If indeed thickened, this could be secondary to chronic bladder outlet obstruction. EXAM DESCRIPTION: RADChest Single View11/17/2022 4:05 pm CLINICAL HISTORY: Chest pain COMPARISON: 2013 FINDINGS: Mild bilateral interstitial lung opacities. The heart is borderline enlarged IMPRESSION: Mild bilateral interstitial lung opacities probably mild interstitial pulmonary edema Conclusions/Impression: ESRD on HD -HD TIW HTN with CKD/ CHF -Consider ARB therapy as needed Diastolic CHF, chronic -HD with UF -Low sodium diet DM II with CKD -Continue Lantus -RISS Anemia in CKD -Retacrit X1 CKD MBD -Continue Renvela -Start Calcitriol Thank you kindly for the consultation.
--- NOTE | 2022-11-19 19:58 | CON ---
Date of Consultation: 11/19/2022 Reason For Consultation: Elevated troponin. History Of Present Illness: This is a 62-year-old male with history of CVA and known coronary artery disease that apparently is multivessel, dyslipidemia, hypertension, end-stage renal disease on hemod ialysis. He presented to the emergency room with chest pain. He was in atrial fibrillation, slow ve ntricular rate. Initially troponin was elevated; however, it went up to 2000 range. Past Medical History: As outlined above in HPI. Medications: Refer to reconciliation sheet for detailed list. Allergies: NO KNOWN DRUG ALLERGIES. Family History: No premature coronary artery disease or cancer. Social History: He is an ex-smoker. Does not drink or use any drugs. Review of Systems: All systems reviewed and they are negative except for mentioned in HPI. Physical Examination: Vital Signs: Temperature is 97.1, pulse 55, breathing at 16, blood pressure 155/70, and saturating 9 7% on room air. General: A pleasant middle-aged male, in no apparent distress. Head And Neck: Pupils are equal and reactive to light. Intact eye movements. No cervical lymphaden opathy. Positive JVD. Lungs: Decreased breathing sounds bilaterally. No rhonchi, wheezing, or crackles. Heart: Irregularly irregular. No extra sounds. Abdomen: Soft, nontender. Bowel sounds positive. No organomegaly. No masses or hernia. No rigidi ty or rebound. Extremities: No clubbing or cyanosis. Intact pulses. Skin: No rash. Neurologic: Alert, awake, and oriented x3. No new acute focal deficits appreciated. Investigations: Troponin peaked at 2507. Assessment And Recommendation: 1.Non-ST elevation myocardial infarction. Recommend IV heparin and baby aspirin. Discontinue the a pixaban and initially we were planning to do coronary angiogram on him; however, the patient will nee d coronary artery bypass surgery as reported by the family. I will have a long discussion with the joe pack when they are available and understand why the bypass has not been done yet. Meanwhile, add me toprolol 25 mg twice a day. 2.End-stage renal disease, on hemodialysis. Continue current management. 3.Dyslipidemia. Continue statin. 4.Atrial fibrillation, rate is controlled. He is on anticoagulation. I will heparinize him instead of the Eliquis in case a heart surgery is to be planned soon. SR/MODL Voice ID: [id number] Report ID: [id number]
[2022-11-19] MEDS: DOCUSATE NA 100 MG CAP PO SCH (21:00)
[2022-11-19] MEDS ORDERED: APIXABAN 2.5 MG TABLET PO SCH (21:00)
[2022-11-19] MEDS: ATORVASTATIN 80 MG TAB PO SCH (21:40)
[2022-11-19] MEDS: NEPRO SHAKE 237 ML CAN PO SCH (21:40)
[2022-11-19] MEDS: INSULIN GLARGINE 100 UNIT/ML SQ SCH (21:41)
[2022-11-20 04:36] LABS: Potassium 3.5 mmol/L (3.5-5.1)
[2022-11-20 06:07] LABS: Magnesium 2.4 mg/dL (1.6-2.4); Phosphorus 2.8 mg/dL (2.5-4.9)
[2022-11-20] MEDS ORDERED: HEPARIN/D5W 25,000 UNIT/500 ML BAG IV SCH (07:00)
[2022-11-20] MEDS: INSULIN -REGULAR HUMAN 50 UNIT/0.5 ML ML SQ SCH ×4 (07:30→20:40)
--- NOTE | 2022-11-20 08:37 | ECHO ---
HEIGHT: 5 ft 10 in WEIGHT: 188 lb 0 oz DATE OF STUDY: 11/19/[address]: Karin Slade 2-DIMENSIONAL: YES M.MODE: YES DOPPLER: YES COLOR FLOW: YES TDS: PORTABLE: YES DEFINITY: BUBBLE STUDY: DIAGNOSIS: ATRIAL FIBRILLATION CARDIAC HISTORY: CATHERIZATION: YES SURGERY: NO PROSTHETIC VALVE: NO PACEMAKER: NO MEASUREMENTS (cm) DIASTOLIC (NORMALS) SYSTOLIC (NORMALS) IVSd 1.1 (0.6-1.2) LA Diam 4.1 (1.9-4.0) LVEF 50-55% LVIDd 5.3 (3.5-5.7) LVIDs 4.0 (2.0-3.5) %FS 23% LVPWd 1.2 (0.6-1.2) Ao Diam 2.6 (2.0-3.7) 2 DIMENSIONAL ASSESSMENT: RIGHT ATRIUM: NORMAL LEFT ATRIUM: ENLARGED RIGHT VENTRICLE: NORMAL LEFT VENTRICLE: DEPRESSED EJECTION FRACTION TRICUSPID VALVE: TRICUSPID REGURGITATION MITRAL VALVE: MILD MITRAL REGURGITATION PULMONIC VALVE: NORMAL AORTIC VALVE: MILD AORTIC INSUFFICIENCY PERICARDIAL EFFUSION: NONE AORTIC ROOT: NORMAL LEFT VENTRICULAR WALL MOTION: MILD GIUSEPPE SEPTAL HYPOKINESIS DOPPLER/COLOR FLOW: SEE BELOW COMMENTS: 1. LOW NORMAL LEFT VENTRICULAR EJECTION FRACTION 50-55% 2. DISTAL GIUSEPPE SEPTAL HYPOKINESIS 3. LEFT ATRIAL ENLARGEMENT 4. DIASTOLIC DYSFUNCTION 5. MILD MITRAL REGURGITATION 6. TRACE TRICUSPID REGURGITATION/ TRACE AORTIC INSUFFICIENCY TECHNOLOGIST: NANDINI PEREZ
[2022-11-20] MEDS ORDERED: CALCITROL 0.25 MCG CAP PO SCH (09:00)
[2022-11-20] MEDS: NEPRO SHAKE 237 ML CAN PO SCH ×3 (09:00→21:32)
[2022-11-20] MEDS ORDERED: MULTIVITAMINS,THERAPEUT 1 TAB PO SCH (09:00)
[2022-11-20] MEDS ORDERED: EPOETIN ALFA 10,000 UNIT/ML VIAL SQ SCH (09:00)
[2022-11-20] MEDS: METOPROLOL TAR 25 MG TAB PO SCH ×2 (10:34→18:35)
[2022-11-20] MEDS: ASPIRIN 81 MG CHEWABLE TABLET PO SCH (10:34)
[2022-11-20] MEDS: levETIRAcetam 500 MG TAB PO SCH ×2 (10:34→20:35)
[2022-11-20] MEDS: SEVELAMER CARBONATE 800 MG TABLET PO SCH ×3 (10:35→20:35)
[2022-11-20] MEDS: DOCUSATE NA 100 MG CAP PO SCH ×2 (10:35→20:35)
[2022-11-20] MEDS: CLOPIDOGREL 75 MG TABLET PO SCH (10:59)
[2022-11-20] MEDS: FLUOXETINE 10 MG CAP PO SCH (10:59)
[2022-11-20 12:10] LABS: Absolute Lymphocytes (CBC) 1.4 K/uL (0.7-4.9); Hematocrit 32.3 % (39.6-49.0); Lymphocytes % 15.6 % (15.3-44.8); MPV 7.2 fL (7.6-11.3); RBC Red Blood Cell Count 3.29 M/uL (4.33-5.43)
[2022-11-20 12:16] LABS: Protime INR 1.22
[2022-11-20 16:26] VITALS: BP 146/72; TEMP 97.4
--- NOTE | 2022-11-20 16:57 | P.PN ---
Date of Service: 11/20/22 Vital Signs Temp Pulse Resp BP Pulse Ox 97.4 F 49 L 14 146/72 H 97 11/20/22 16:00 11/20/22 16:00 11/20/22 16:00 11/20/22 16:00 11/20/22 16:00 Medications Acetaminophen (Acetaminophen 500 Mg Tab) 500 mg PO Q4HP PRN PRN Reason: Pain scale 2-4 (Mild) Albuterol Sulfate (Albuterol 2.5 Mg/3 Ml Neb [place]) 2.5 mg NEB [id number] PRN PRN Reason: SHORTNESS OF BREATH Aspirin (Aspirin 81 Mg Chewable Tablet) 81 mg PO DAILY COUNTS INCLUDE 234 BEDS AT THE [facility] Last Admin: 11/20/22 10:34 Dose: 81 mg Atorvastatin Calcium (Atorvastatin 80 Mg Tab) 80 mg PO BEDTIME COUNTS INCLUDE 234 BEDS AT THE [facility] Last Admin: 11/19/22 21:40 Dose: 80 mg Calcitriol (Calcitrol 0.25 Mcg Cap) 0.5 mcg PO DAILY COUNTS INCLUDE 234 BEDS AT THE [facility] Last Admin: 11/20/22 10:34 Dose: 0.5 mcg Clopidogrel Bisulfate (Clopidogrel 75 Mg Tablet) 75 mg PO DAILY COUNTS INCLUDE 234 BEDS AT THE [facility] Last Admin: 11/20/22 10:59 Dose: 75 mg Docusate Sodium (Docusate Na 100 Mg Cap) 100 mg PO BID COUNTS INCLUDE 234 BEDS AT THE [facility] Last Admin: 11/20/22 10:35 Dose: 100 mg Enteral Nutritional Formula (Nepro Shake 237 Ml Can) 237 ml PO TID COUNTS INCLUDE 234 BEDS AT THE [facility] Last Admin: 11/20/22 14:00 Dose: 237 ml Fluoxetine HCl (Fluoxetine 10 Mg Cap) 10 mg PO DAILY COUNTS INCLUDE 234 BEDS AT THE [facility] Last Admin: 11/20/22 10:59 Dose: 10 mg Heparin Sodium (Porcine) (Heparin 1,000 Unit/Ml Vial) 0 unit IV PRN PRN PRN Reason: Heparin Re-Bolus Per Protocol Last Admin: 11/20/22 14:09 Dose: 5,000 unit Heparin Sodium/Dextrose (Heparin Drip 25,000 Units/5oo Ml Premix) 25,000 unit in 500 mls @ 20 mls/hr [place] [facility] Last Admin: 11/20/22 14:10 Dose: 500 mls Insulin Glargine (Insulin Glargine 100 Unit/Ml) 10 unit SQ BEDTIME COUNTS INCLUDE 234 BEDS AT THE [facility] Last Admin: 11/19/22 21:41 Dose: 10 unit Insulin Human Regular (Insulin -Regular Human 50 Unit/0.5 Ml Ml) 0 unit SQ ACHS COUNTS INCLUDE 234 BEDS AT THE [facility]; Protocol Last Admin: 11/20/22 11:30 Dose: Not Given Levetiracetam (Levetiracetam 500 Mg Tab) 500 mg PO BID COUNTS INCLUDE 234 BEDS AT THE [facility] Last Admin: 11/20/22 10:34 Dose: 500 mg Metoprolol Tartrate (Metoprolol Tar 25 Mg Tab) 25 mg PO BID 6AM 6PM COUNTS INCLUDE 234 BEDS AT THE [facility] Last Admin: 11/20/22 10:34 Dose: 25 mg Ondansetron HCl (Ondansetron 4 Mg/2 Ml Vial) 4 mg IV Q6H PRN PRN Reason: NAUSEA / VOMITING Last Admin: 11/17/22 23:49 Dose: 4 mg Sevelamer Carbonate (Sevelamer Carbonate 800 Mg Tablet) 1,600 mg PO TID COUNTS INCLUDE 234 BEDS AT THE [facility] Last Admin: 11/20/22 14:07 Dose: 1,600 mg Sodium Chloride (Flush Normal Saline 10 Ml) 10 ml IV BID COUNTS INCLUDE 234 BEDS AT THE [facility] Last Admin: 11/20/22 09:00 Dose: 10 ml Vitamin B Complex/Vit C/Folic Acid (Multivitamins,Therapeut 1 Tab) 1 tab PO DAILY COUNTS INCLUDE 234 BEDS AT THE [facility] Last Admin: 11/20/22 10:35 Dose: 1 tab Assessment/ Plan: Nephrology No CP or Dyspnea Fair appetite No acute events overnight Vitals, medications, blood work and imaging reviewed in the chart. General: In no apparent distress, Oriented x3, Cooperative HEENT: Atraumatic Neck: Supple Respiratory: Clear to auscultation bilaterally Cardiovascular: No edema Gastrointestinal: Soft and benign, Non-distended Musculoskeletal: No clubbing, No contractures Integumentary: No rashes, No cyanosis Neurological: Normal speech Blood work reviewed in the chart. Imagings Data: EXAM DESCRIPTION: US - Renal Ultrasound-Complete - 11/18/2022 5:29 pm CLINICAL HISTORY: maricel vs ckd, assess for hydroneph, ckd changes, BPH COMPARISON: Renal Ultrasound-Complete dated 10/04/2017; CT ABD PELVIS W CONTRAST dated 08/30/2014 FINDINGS: Increased cortical echogenicity bilaterally. Poorly assessed renal sinuses bilaterally. No definite hydronephrosis. Limited due to poor acoustic windows. The right kidney measures 9.9 cm. Hypoechoic lesion at the lower pole the right kidney measuring 1.9 x 1.8 cm. This is increased through transmission. This most likely represents a cyst which was also present on the CT from 08/30/2014. No large renal calculi identified. The left kidney measures 8 cm. Large left renal cyst measuring 9.2 cm in maximal dimension. This has some layering debris. . A simple appearing left upper pole renal cyst noted measuring 5 cm noted. No large renal calculi Bladder wall appears thick though is underdistended. IMPRESSION: 1. Limited by poor acoustic windows. Grossly, no hydronephrosis is noted. 2. Increased echogenicity of the cortices bilaterally suggesting medical renal disease. 3. Bilateral renal lesions noted which are most likely cysts. The right renal lesion is not as well assessed on this ultrasound but a cyst was present at a similar location on prior CT from 08/30/2014 . 4. Nonspecific mild bladder wall thickening (versus underdistention). If indeed thickened, this could be secondary to chronic bladder outlet obstruction. EXAM DESCRIPTION: [place] Single View11/17/2022 4:05 pm CLINICAL HISTORY: Chest pain COMPARISON: 2013 FINDINGS: Mild bilateral interstitial lung opacities. The heart is borderline enlarged IMPRESSION: Mild bilateral interstitial lung opacities probably mild interstitial pulmonary edema Conclusions/Impression: ESRD on HD -HD TIW HTN with CKD/ CHF -Start Losartan 25mg BID -Caution with beta blockade due to bradycardia Diastolic CHF, chronic -HD with UF TIW -Low sodium diet DM II with CKD -Continue Lantus -RISS Anemia in CKD -Retacrit PRN CKD MBD -Continue Renvela -Continue Calcitriol
--- NOTE | 2022-11-20 17:06 | EKG ---
Test Date: 2022-11-17 Test Time: 15:39:21 Bureau Chief: PH MEASUREMENT RESULTS: Intervals: Rate: 51 NC: QRSD: 100 QT: 494 QTc: 455 Suring: P: NC: QRS: -5 T: 94 INTERPRETIVE STATEMENTS: Atrial fibrillation with slow ventricular response ST & T wave abnormality, consider lateral ischemia or digitalis effect Abnormal ECG No previous ECG available for comparison Electronically Signed On 11-20-22 16:59:18 PROGRAM ASSOCIATE by Gonzalo Rolle
--- NOTE | 2022-11-20 20:06 | P.PN ---
Subjective Date of Service: 11/20/22 Chief Complaint: CP r/o ACS; afib with SVR No acute events overnight. He denies any chest pain, palpitations, or shortness of breath. Per Dr. Rolle, he recommends transfer back to [facility] for Cardiothoracic Surgery evaluation and re-consideration for CABG, since his last evaluation was November 2021. Review of Systems 10-point ROS is otherwise unremarkable Physical Examination - Vital Signs Temperature: 97.4 F Blood Pressure: 146/72 Pulse: 49 Respirations: 14 Pulse Ox (%): 97 - Studies Medications List Reviewed: Yes Assessment And Plan - Plan - Physical Exam General: Alert, In no apparent distress, Oriented x3 HEENT: Atraumatic, Mucous membr. moist/pink, Sclerae nonicteric Neck: JVD not distended Respiratory: Clear to auscultation bilaterally, Normal air movement Cardiovascular: No gallops, No rubs, No murmurs, Edema (1-2+ BLE), Irregular heart rate/rhythm Gastrointestinal: Soft and benign, Non-distended, No tenderness Musculoskeletal: No clubbing Integumentary: No rashes Neurological: Normal speech, Normal affect # Chest Pain, concern for Acute Coronary Syndrome (Non-ST Segment Elevation Myocardial Infarction) # Coronary Artery Disease # History of Cerebrovascular Accident # Hypertension # Dyslipidemia - Evaluation thus far: - EKG: without reported STEMI criteria, trend - Serial troponin: 45.4 -> 47.3 -> 247.7 -> 2507.4 - Ordered transthoracic echocardiogram - Chest x-ray = "Mild bilateral interstitial lung opacities probably mild interstitial pulmonary edema" - Management plan: - Consult Cardiology - recommendations appreciated - Per Dr. Rolle, recommended transfer to [facility] for Cardiothoracic Surgery evaluation - I discussed with him and his family, who are in agreement - transfer request has been initiated - Continue aspirin, atorvastatin, clopidogrel - Hold beta-randall given slow ventricular response - Hold COBY-inhibitor/ARB given ESRD # Hypervolemia secondary to Acute Congestive Heart Failure vs End-Stage Renal Disease on MWF iHD # Anemia of Chronic Kidney Disease - Nephrology consulted - recommendations appreciated - Renal ultrasound = "1. Limited by poor acoustic windows. Grossly, no hydronephrosis is noted. 2. Increased echogenicity of the cortices bilaterally suggesting medical renal disease. 3. Bilateral renal lesions noted which are most likely cysts. The right renal lesion is not as well assessed on this ultrasound but a cyst was present at a similar location on prior CT from 08/30/2014. 4. Nonspecific mild bladder wall thickening (versus underdistention). If indeed thickened, this could be secondary to chronic bladder outlet obstruction." - Continue sevelamer - Volume removal via hemodialysis - Monitor creatinine and urine output - Renally dose medications # Atrial Fibrillation with Slow Ventricular Response His [id number] = 5 (CHF=1, HTN=1, DM=1, CVA=1, CAD=1), which warrants anticoagulation. - Cardiology consulted - recommendations appreciated - Started apixaban # Type II Diabetes Mellitus - Continue insulin regimen # Seizure Disorder - Continue home levetiracetam # History of Lymphoma - Outpatient follow-up Conner Garcia M.D.
[2022-11-20] MEDS: ATORVASTATIN 80 MG TAB PO SCH (20:35)
[2022-11-20] MEDS ORDERED: LOSARTAN POTASSIUM 50 MG TABLET PO SCH (21:00)
[2022-11-20] MEDS: INSULIN GLARGINE 100 UNIT/ML SQ SCH (21:32)
--- NOTE | 2022-11-20 22:21 | P.DS ---
Admission Date: 11/17/22 Discharge Date: 11/20/22 Disposition: TRANSFER TO [facility] Reason for Admission: CP r/o ACS; afib with SVR Consultations: Cardiology Nephrology Procedures: CXR 11/17/22 EXAM DESCRIPTION: Herminia Single View11/17/2022 4:05 pm CLINICAL HISTORY: Chest pain COMPARISON: 2013 FINDINGS: Mild bilateral interstitial lung opacities. The heart is borderline enlarged IMPRESSION: Mild bilateral interstitial lung opacities probably mild interstitial pulmonary edema Renal US 11/18/22 COMPARISON: Renal Ultrasound-Complete dated 10/04/2017; CT ABD PELVIS W CONTRAST dated 08/30/2014 FINDINGS: Increased cortical echogenicity bilaterally. Poorly assessed renal sinuses bilaterally. No definite hydronephrosis. Limited due to poor acoustic windows. The right kidney measures 9.9 cm. Hypoechoic lesion at the lower pole the right kidney measuring 1.9 x 1.8 cm. This is increased through transmission. This most likely represents a cyst which was also present on the CT from 08/30/2014. No large renal calculi identified. The left kidney measures 8 cm. Large left renal cyst measuring 9.2 cm in maximal dimension. This has some layering debris. . A simple appearing left upper pole renal cyst noted measuring 5 cm noted. No large renal calculi Bladder wall appears thick though is underdistended. IMPRESSION: 1. Limited by poor acoustic windows. Grossly, no hydronephrosis is noted. 2. Increased echogenicity of the cortices bilaterally suggesting medical renal disease. 3. Bilateral renal lesions noted which are most likely cysts. The right renal lesion is not as well assessed on this ultrasound but a cyst was present at a similar location on prior CT from 08/30/2014 . 4. Nonspecific mild bladder wall thickening (versus underdistention). If indeed thickened, this could be secondary to chronic bladder outlet obstruction. Dictated By: Han Mosher MD 11/18/22 [id number] Echo 11/19/22 COMMENTS: 1. LOW NORMAL LEFT VENTRICULAR EJECTION FRACTION 50-55% 2. DISTAL GIUSEPPE SEPTAL HYPOKINESIS 3. LEFT ATRIAL ENLARGEMENT 4. DIASTOLIC DYSFUNCTION 5. MILD MITRAL REGURGITATION 6. TRACE TRICUSPID REGURGITATION/ TRACE AORTIC INSUFFICIENCY Brief History of Present Illness: HPI Patient is a 62-year-old gentleman who has a history of a stroke and lives at [facility] who came into the hospital for further evaluation. Patient's not really able to give much information. Not really sure how they were able to tell he was having chest pain. He did have atrial fibrillation with slow ventricular response. His heart rate was in the 40s to 50s. Patient sent to the hospital for further evaluation. In the emergency room patient's troponins have been negative. Patient's heart rate has been stable. At this time, patient will be admitted for further treatment. Hospital Course: Patient with history of CAD, CVA, ESRD, hypertension, hyperlipidemia, A. fib on chronic anticoagulation, insulin-dependent diabetes, seizure disorder presented to the emergency department for chest pain, troponin trended up from 45.4- 2507.4, case was discussed with cardiology and family. Family reports patient was previously instructed that he needed a CABG, cardiology recommended transfer to tertiary center for bypass surgery. Attending physician spoke with cardiology at [facility] who is excepted the patient for further evaluation/management at [facility]. Patient to continue with further care at [facility]. # Chest Pain, concern for Acute Coronary Syndrome (Non-ST Segment Elevation Myocardial Infarction) # Coronary Artery Disease # History of Cerebrovascular Accident # Hypertension # Dyslipidemia - Evaluation thus far: - EKG: without reported STEMI criteria, trend - Serial troponin: 45.4 -> 47.3 -> 247.7 -> 2507.4 - Ordered transthoracic echocardiogram - Chest x-ray = "Mild bilateral interstitial lung opacities probably mild interstitial pulmonary edema" - Management plan: - Consult Cardiology - recommendations appreciated - Per Dr. Rolle, recommended transfer to [facility] for Cardiothoracic Surgery evaluation - I discussed with him and his family, who are in agreement - Patient now accepted by cardiology Dr. Klein at [facility]. - Continue aspirin, atorvastatin, clopidogrel - Hold beta-randall given slow ventricular response - Hold COBY-inhibitor/ARB given ESRD # Hypervolemia secondary to Acute Congestive Heart Failure vs End-Stage Renal Di sease on MWF iHD # Anemia of Chronic Kidney Disease - Nephrology consulted - recommendations appreciated - Renal ultrasound = "1. Limited by poor acoustic windows. Grossly, no hydronephrosis is noted. 2. Increased echogenicity of the cortices bilaterally suggesting medical renal disease. 3. Bilateral renal lesions noted which are most likely cysts. The right renal lesion is not as well assessed on this ultrasound but a cyst was present at a similar location on prior CT from 08/30/2014. 4. Nonspecific mild bladder wall thickening (versus underdistention). If indeed thickened, this could be secondary to chronic bladder outlet obstruction." - Continue sevelamer - Volume removal via hemodialysis - Monitor creatinine and urine output - Renally dose medications # Atrial Fibrillation with Slow Ventricular Response His [id number] = 5 (CHF=1, HTN=1, DM=1, CVA=1, CAD=1), which warrants anticoagulation. - Cardiology consulted - recommendations appreciated - Started apixaban # Type II Diabetes Mellitus - Continue insulin regimen # Seizure Disorder - Continue home levetiracetam # History of Lymphoma - Outpatient follow-up Vital Signs/Physical Exam: Temp Pulse Resp BP Pulse Ox 97.4 F 49 L 14 146/72 H 97 11/20/22 20:08 11/20/22 20:08 11/20/22 20:08 11/20/22 20:08 11/20/22 20:08 Laboratory Data at Discharge: WBC 9.10 K/uL (4.3-10.9) 11/20/22 12:03 Hgb 10.6 g/dL (13.6-17.9) L 11/20/22 12:03 Hct 32.3 % (39.6-49.0) L 11/20/22 12:03 Plt Count 338 K/uL (152-406) 11/20/22 12:03 PT 13.4 SECONDS (9.5-12.5) H 11/20/22 12:03 INR 1.22 11/20/22 12:03 APTT 102.7 SECONDS (24.3-36.9) H* 11/20/22 18:31 Sodium 143 mmol/L (136-145) 11/20/22 03:17 Potassium 3.5 mmol/L (3.5-5.1) D 11/20/22 03:17 BUN 40 mg/dL (7-18) H 11/20/22 03:17 Creatinine 6.58 mg/dL (0.70-1.30) H* 11/20/22 03:17 Glucose 79 mg/dL (74-106) 11/20/22 03:17 Phosphorus 2.8 mg/dL (2.5-4.9) 11/20/22 03:17 Magnesium 2.4 mg/dL (1.6-2.4) 11/20/22 03:17 Triglycerides 94 mg/dL (<150) 11/18/22 03:58 Cholesterol 61 mg/dL (<200) 11/18/22 03:58 HDL Cholesterol 35 mg/dL (40-60) L 11/18/22 03:58 Cholesterol/HDL Ratio 1.74 11/18/22 03:58 Home Medications: Aspirin [Aspirin EC 81 MG] 81 mg PO DAILY 09/02/14 Clopidogrel Bisulfate [Plavix*] 75 mg PO DAILY #30 tablet 09/08/14 Atorvastatin Calcium [Lipitor*] 80 mg PO DAILY 06/09/19 Ascorbic Acid [Vitamin C] 500 mg PO BID 11/17/22 Ergocalciferol (Vitamin D2) [Drisdol] 1,250 mcg PO SEECOM 11/17/22 Fluoxetine HCl 10 mg PO DAILY 11/17/22 Folic Acid/Vit B Complex and C [Renal Vitamin Tablet] 0.8 mg PO DAILY 11/17/22 Insulin Glargine,Hum.rec.anlog [Kay Zaman U-100] 10 unit SQ BEDTIME 11/17/22 Metoprolol Succinate 25 mg PO DAILY 11/17/22 Ondansetron HCl 4 mg PO Q6H PRN 11/17/22 Sevelamer Carbonate [Renvela] 2 tab PO TID 11/17/22 levETIRAcetam [Levetiracetam] 500 mg PO BID 11/17/22 Followup: Hiram Rich MD [Primary Care Provider] -
[2022-11-20 22:56] VITALS: O2SAT 97
== END 2022-11-21 00:05 | disposition short-term general hospital (02) | DRG 280 ==
LOC: ER 15:02 → ERHOLD 19:33 → 4TH 20:11
PROVIDERS: ADMIT Hospitalist; ATTEND Internal Medicine
PROC: 5A1D70Z Performance of Urinary Filtration, Intermittent, Less than 6 Hours Per Day (ICD-10-PCS; principal; 2022-11-19)
DX: I21.4 Non-ST elevation (NSTEMI) myocardial infarction (principal); I50.33 Acute on chronic diastolic (congestive) heart failure; N18.6 End stage renal disease; I13.2 Hypertensive heart and chronic kidney disease with heart failure and with stage 5 chronic kidney disease, or end stage renal disease; I48.91 Unspecified atrial fibrillation; E11.22 Type 2 diabetes mellitus with diabetic chronic kidney disease; D63.1 Anemia in chronic kidney disease; N28.1 Cyst of kidney, acquired; E78.5 Hyperlipidemia, unspecified; G40.909 Epilepsy, unspecified, not intractable, without status epilepticus; I25.10 Atherosclerotic heart disease of native coronary artery without angina pectoris; I25.2 Old myocardial infarction; Z79.4 Long term (current) use of insulin; Z99.2 Dependence on renal dialysis; Z86.73 Personal history of transient ischemic attack (TIA), and cerebral infarction without residual deficits; Z79.02 Long term (current) use of antithrombotics/antiplatelets; Z79.82 Long term (current) use of aspirin; Z85.72 Personal history of non-Hodgkin lymphomas; Z90.49 Acquired absence of other specified parts of digestive tract; Z87.891 Personal history of nicotine dependence; Z79.899 Other long term (current) drug therapy; Z20.822 Contact with and (suspected) exposure to COVID-19
CPT/HCPCS: 36415; 71045; 76770; 80048; 80061; 82306; 82550; 82947; 83036; 83735; 83880; 83970; 84100; 84443; 84484; 85025; 85610; 85730; 87811; 90935; 93005; 93306; 94760; 99285; J1644; J2250; J2405

== ENCOUNTER 2023-09-10 14:22 | Inpatient (IN) | payer OTHER ==
--- OUTSIDE RECORDS SUMMARY | 2023-09-10 14:38 | XMS REPORT | Continuity of Care Document ---
:1960 Author Organization [facility] t Address [address] [place] [address] [address] [place] [address] Care Team Providers Name Role Phone Jose Cruz Infante MD Primary Care Physician GUDELIA RIVERA Attending Clinician Unavailable CAREN SHEPHERD Attending Clinician Unavailable CAREN SHEPHERD Attending Clinician Unavailable Doctor Unassigned, [place] Attending Clinician Unavailable Germain Peralta MD Attending Clinician Isabel Williamson RN Attending Clinician Unavailable GERMAIN PERALTA Attending Clinician Unavailable Ernie WIGGINS, Arleen Lebron Attending Clinician Jermaine Martinez Attending Clinician [phone] Bernardino Wolff MD Attending Clinician JOSE CRUZ INFANTE Attending Clinician Unavailable Cruzito Carmen MD Attending Clinician Laura Newsome DO Attending Clinician SHANE MCNEILL Attending Clinician Unavailable Pam Guadalupe Attending Clinician Cynthia WIGGINS, Baljinder Rodriguez Attending Clinician Antionette WIGGINS, Teresa Patton Attending Clinician [phone] Marium WIGGINS, Shane [place] Attending Clinician Arelis WIGGINS, Jose Cruz Attending Clinician Candida WIGGINS, Ar Attending Clinician BALJINDER MARIE Attending Clinician Jennifer swetha Chou RN, Jina Boswell Attending Clinician Unavailable Thakkar PAC, Kenna S Attending Clinician Tyler WIGGINS, Jonathan Attending Clinician Enoch WOODS Attending Clinician Unavailable Peggy PAC, Enoch Navarro Attending Clinician ADDISON VELEZ Attending Clinician Unavailable 2, Adc Lab Attending Clinician Unavailable Martin NAVARRETESWMichelle Attending Clinician RODRIGUE AQUINO Attending Clinician Unavailable MODESTO SANDOVAL Attending Clinician Unavailable Alber WIGGINS, Modesto Garcia Attending Clinician CRUZITO CARMEN Attending Clinician Unavailable Gudelia Rivera MD Attending Clinician Jasmeet Aguillon Attending Clinician JASMEET PANDA Attending Clinician Unavailable Rodrigue Yeboah Attending Clinician ANAMARIA CHURCH Attending Clinician Unavailable Faculty, Vascular Surg Attending Clinician Unavailable Paige Lloyd NP Attending Clinician ERIKA ZAMORA K.H. Attending Clinician Unavailable EMILIANO DE LA GARZA JR Attending Clinician Unavailable Rajiv Victor MD Attending Clinician KEVIN ARANDA Attending Clinician Unavailable Shashank Myrick DO Attending Clinician Mike Saxena MD Attending Clinician Ranjit WIGGINS, Anamaria Attending Clinician Norberto Gtz MD Attending Clinician NORBERTO GTZ Attending Clinician Unavailable Winsome Trevizo DO Attending Clinician Lon RAMIREZW, Johanny Attending Clinician Visit, [facility] Nurse Attending Clinician Unavailable Neurology Attending Clinician Unavailable Becky WIGGINS, Anmol Attending Clinician ANMOL PENA Attending Clinician Unavailable Taiwo Steele RN Attending Clinician Unavailable Margarita WIGGINS, Gisele Gilbert Attending Clinician Jenna Gandhi Attending Clinician Ajibade_O_AH Attending Clinician Unavailable Juan Manuel WIGGINS, Tim Attending Clinician Capri Curtis Attending Clinician Unavailable Alejandro Mccall MD Attending Clinician Lab, Pcp Covid Attending Clinician Unavailable Only, [facility] Test Attending Clinician Unavailable Yasmine WIGGINS, David Talbot Attending Clinician Unknown, Attending Attending Clinician Unavailable Alem Morrell MD Attending Clinician Kaitlynn WIGGINS, Emiliano Ervin Attending Clinician Letha Doss MD Attending Clinician Yayo Fuentes DO Attending Clinician Rey WIGGINS, Johny Attending Clinician Ige-Odunuga_J_AH Attending Clinician Unavailable Odalis Almazan RN Attending Clinician Evelina Draper MD Attending Clinician Joseph Hanley Attending Clinician Alfredo WIGGINS, Caprice Attending Clinician Curt Goodwin MD Attending Clinician GUDELIA RIVERA Admitting Clinician Unavailable CAREN SHEPHERD Admitting Clinician Unavailable BERNARDINO WOLFF Admitting Clinician Unavailable Bernardino Wolff MD Admitting Clinician BALJINDER MARIE Admitting Clinician Jennifer swetha Marie MD, Baljinder Rodriguez Admitting Clinician JONATHAN CORTEZ Admitting Clinician Unavailable Tyler WIGGINS, Jonathan Admitting Clinician Miguel WIGGINS, Gudelia Admitting Clinician Hemanth WIGGINS, Mike Admitting Clinician Tresa WIGGINS, Norberto Martin Admitting Clinician Ajibade_O_AH Admitting Clinician Unavailable SELAM, LETHA Admitting Clinician Unavailable Selam WIGGINS, Letha Admitting Clinician Ige-Odunuga_J_AH Admitting Clinician Unavailable Bonny WIGGINS, March Cong Admitting Clinician Curt Goodwin MD Admitting Clinician Payers Payer Name Policy Type Policy Number Effective Date Expiration Date S denise [employer] [place] [id number] 2019 PLUS CLASSIC/VALUE 00:00:00 [place] [place] - [id number] [place] 00:00[place]00 (MEDICARE REPLACEMENT/ADVANT AGE - HMO) Problems Condition Condition Condition Status Onset Resolution Last Treating Co mments Source Name Details Category Date Date Treatment Clinician Date Symptomati Symptomati Disease Active Overview : Univers c c 11-20 Formattin ity of bradycardi bradycardi 00:00: g of this [place] a a 00 note Medical might be Branch different from the original. Added automatic ally from request for surgery [id number] Weakness Weakness Disease Active Unive rs 2-14 ity of 00:00: Medical Branch Dizziness Dizziness Disease Active Uni vers 2-09 ity of 00:00: [place] [facility] Need for Need for Disease Active Unive rs hepatitis hepatitis 1-20 ity of C C 00:00: [place] screening screening 00 Medi nidia test test Branch Eye exam, Eye exam, Disease Active 2020-10 Uni vers routine routine 0-23 ity of 00:00: [place] 00 Medical Branch Wheelchair Wheelchair Disease Active 2020-10 U nivers bound bound 0-14 ity of 00:00: [place] [facility] Wheelchair Wheelchair Disease Active 2020-10 U nivers bound bound 0-14 ity of 00:00: [place] [facility] PAD PAD Disease Active Univers (periphera (periphera 4-22 it y of l artery l artery 00:00: [place] disease) disease) 00 Medica l Branch Cellulitis Cellulitis Disease Active U nivers of great of great 4-15 ity of toe, left toe, left 00:00[place] Diabetic Diabetic Disease Active Unive rs ulcer of ulcer of 4-15 ity of heel heel 00:00: [place] associated associated 00 Me dical with with Branch diabetes diabetes mellitus mellitus due to due to underlying underlying condition, condition, with fat with fat layer layer exposed, exposed, unspecifie unspecifie d d laterality laterality Non-healin Non-healin Disease Active U nivers g ulcer of g ulcer of 4-15 it y of foot, foot, 00:00: [place] left, with left, with 00 Me dical fat layer fat layer Bran ch exposed exposed Seizure Seizure Disease Active Univers 3-11 ity of 00:00: [place] [facility] Multiple Multiple Disease Active Unive rs falls falls 3-11 ity of 00:00: [place] [facility] Chronic Chronic Disease Active Univers atrial atrial 3-11 ity of flutter flutter 00:00: [place] [facility] Left-sided Left-sided Disease Active U nivers weakness weakness 3-11 ity of 00:00: [place] [facility] Abnormalit Abnormalit Disease Active U nivers y of gait y of gait 3-11 ity of as late as late 00:00: [place] effect of effect of 00 Medi nidia cerebrovas cerebrovas Br anch cular cular accident accident (CVA) (CVA) ESRD (end ESRD (end Disease Active Uni vers stage stage 1-21 ity of renal renal 00:00: [place] disease) disease) 00 Medica l on on Branch dialysis dialysis NSTEMI NSTEMI Disease Active Univers (non-ST (non-ST 1-21 ity of elevated elevated 00:00: [place] myocardial myocardial 00 Me dical infarction infarction Br anch ) ) Lightheade Lightheade Disease Active U nivers d d 1-20 ity of 00:00: [place] 00 Medical Branch Subdural Subdural Disease Active Unive rs hematoma hematoma 9-18 ity of 00:00: [place] 00 Medical Branch Wound Wound Disease Active Univers infection infection 9-03 ity of 00:00: [place] [facility] Gangrene Gangrene Disease Active Overview: Un sharita of right of right 8-11 Formattin ity of foot foot 00:00: g of this [place] 00 note Medical might be Branch different from the original. Added automatic ally from request for surgery [id number] Wound Wound Disease Active Univers dehiscence dehiscence 7-14 it y of 00:00: [place] 00 Medical Branch Osteomyeli Osteomyeli Disease Active U nivers tis tis 4-22 ity of 00:00: [place] [facility] Pain of Pain of Disease Active Overview: Univ ers toe of toe of 4-21 Formattin ity of right foot right foot 00:00: g of this [place] 00 note Medical might be Branch different from the original. Added automatic ally from request for surgery [id number] Diabetic Diabetic Disease Active Unive rs wet wet 7- ity of gangrene gangrene 00:00: [place] of the of the 00 Medical foot foot Branch PVD PVD Disease Active Overview: Univer s (periphera (periphera 7- Formattin ity of l vascular l vascular 00:00: g of this [place] disease) disease) 00 note Medica l might be Branch different from the original. Added automatic ally from request for surgery [id number] Obesity Obesity Disease Active Univers (BMI (BMI 3-13 ity of 30-39.9) 30-39.9) 00:00: [place] 00 Medical Branch Obesity Obesity Disease Active Univers 3-13 ity of 00:00: [place] 00 Medical Branch Intracrani Intracrani Disease Active U nivers al al 3-11 ity of hemorrhage hemorrhage 00:00: [place] Nontraumat Nontraumat Disease Active U nivers ic acute ic acute 3-11 ity of hemorrhage hemorrhage 00:00: [place] of basal of basal 00 Medica l ganglia ganglia Branch Demand Demand Disease Active Univers ischemia ischemia 311 ity of of of 00:00: [place] myocardium myocardium 00 Me dical Branch CKD CKD Disease Recurre Univers (chronic (chronic nce 3 ity of kidney kidney 00:00: [place] disease) disease) 00 Medica l stage 5, stage 5, Branch GFR less GFR less than 15 than 15 ml/min ml/min Diabetes Diabetes Disease Active Unive rs mellitus mellitus 3-11 ity of due to due to 00:00: [place] underlying underlying 00 Me dical condition condition Bran ch with with hyperosmol hyperosmol arity arity without without coma, with coma, with long-term long-term current current use of use of insulin insulin Stroke Stroke Disease Recurre Overview: Unive rs nce 3- Formattin ity of 00:00: g of this 00 note Medical might be Branch different from the original. left sided deficit At risk At risk Disease Active Univers for for 311 ity of intracrani intracrani 00:00: [place] 00 Medical hemorrhage hemorrhage Br anch Essential Essential Disease Active Uni vers hypertensi hypertensi 3-11 it y of on on 00:00: [place] 00 Medical Branch At risk At risk Disease Active Univers for for 311 ity of intracrani intracrani 00:00: [place] 00 Medical hemorrhage hemorrhage Br anch Allergies, Adverse Reactions, Alerts Allergy Allergy Status Severity Reaction(s) Onset Inactive Treating Comm ents Source Name Type Date Date Clinician NO KNOWN Drug Active Univers ALLERGIE Class ity of S [facility] Social History Social Habit Start Date Stop Date Quantity Comments Source History SDOH Social Unive rsity of [facility] Med ical Together Branch History SDOH Social Unive rsity of [facility] Medical Branch History SDOH Social Unive rsity of [facility] Medical Membership Branch History SDOH Social Unive rsity of [facility] Medical Meetings Branch Gender identity Universit y of [facility] Sexual orientation Method ist Hospital Exposure to 2022-12-24 2023-01-03 Not sure University of SARS-CoV-2 (event) 00:00:00 11:04:00 [place] [facility] Alcohol intake 2022-12-11 2022-12-11 Ex-drinker University of 00:00:00 00:00:00 (finding) [place] [facility] History SDOH 2022-11-21 2022-11-21 5 University o f Financial 00:00:00 00:00:00 [place] [facility] History SDOH Food 2022-11-21 2022-11-21 1 Univers ity of Worry 00:00:00 00:00:00 [place] [facility] History SDOH Food 2022-11-21 2022-11-21 1 Univers ity of Scarcity 00:00:00 00:00:00 [place] [facility] History SDOH 2022-11-21 2022-11-21 2 University o f Transport Med 00:00:00 00:00:00 [place] Medic al Branch History SDOH 2022-11-21 2022-11-21 2 University o f Transport Non-Med 00:00:00 00:00:00 [place] M edical [facility] History SDOH 2022-11-21 2022-11-21 1 University o f Alcohol Frequency 00:00:00 00:00:00 [place] M edical Branch History SDOH 2022-11-21 2022-11-21 0 University o f Alcohol Std Drinks 00:00:00 00:00:00 [place] [facility] History SDOH 2022-11-21 2022-11-21 1 University o f Alcohol Binge 00:00:00 00:00:00 [place] Medic al Branch History SDOH Social 2022-11-21 2022-11-21 5 Unive rsity of Connections Phone 00:00:00 00:00:00 [place] M edical Branch History SDOH Social 2022-11-21 2022-11-21 3 Unive rsity of Connections Living 00:00:00 00:00:00 [place] [facility] History SDOH 2022-11-21 2022-11-21 0 University o f Physical Activity 00:00:00 00:00:00 [facility] edical DPW Branch History SDOH 2022-11-21 2022-11-21 0 University o f Physical Activity 00:00:00 00:00:00 [facility] edical MPS Branch History of Social 2021-08-03 2021-08-03 Univers ity of function 00:00:00 00:00:00 [facility] Education 2020-10-04 2020-10-04 7 University of 00:00:00 00:00:00 [facility] Tobacco use and 2019-10-27 2019-10-27 Smokeless tobacco Un iversity of exposure 00:00:00 00:00:00 non-user [facility] Tobacco Comment 2019-10-22 2019-10-22 quit 30 years Univer sity of 00:00:00 00:00:00 ago, occasional [place] Med ical smoker Branch History of tobacco 1999-10-27 Cigarette Smoker University of use 00:00:00 [facility] Sex Ass[birth year] At [birth year] [facility] 00:00:[facility] 00:[facility]00 [facility] Smoking Status Start Date Stop Date Source Tobacco smoking [facility] consumption unknown Ex-smoker 2019-10-27 00:00:00 2019-10-27 [place] [facility] [place] 00:00:00 [facility] Medications Ordered Filled Start Stop Current Ordering Indication Dosage Frequency Signature Comments Components Source Medication Medication Date Date Medication? Clinician (SIG) Name Name NaCl 0.9% 202- No 5mL 5 mL, Slow U nivers (NS) 11-28-08 IV Push, ity of injection 5 21:00: 21:00 ONCE, 1 [place] mL 00 :00 dose, On Medical 11/28/22 Branch at 1500, Routine heparin Yes 2000U 2,000 Univers 1,000 2-08 Units, ity of unit/mL (10 20:45: Slow IV Martin as mL) - 46 Push, PRN Medical dialysis - SEE Branch catheter INSTRUCTIO care NS, Starting on 11/28/22 at 1445, Until Discontinu ed, Routine, dialysis catheter care heparin 2022- No 2000U PRN - SEE Uni vers 1,000 11-28-09 INSTRUCTIO ity of unit/mL (10 20:45: 07:19 NS, [place] mL) - 46 :41 Starting Medical dialysis on Sat Branch catheter 11/28/22 at care 1445, Until [place] 11/29/22 at 0119, Routine
For Priming of Ports:&nbs p; &n bsp; After initial saline flush, prime each port with heparin according to the priming volume listed on each catheter port for catheter lock.<br&g t; aspirin 81 2022-2022- No [id number] 81mg Take 1 Univers mg chewable 2-08 05-10 tablet by it y of tablet 00:00: 04:59 mouth [place] 00 :00 daily for Medical 90 days. Branch clopidogreL 2022-2022- No [id number] 75mg Take 1 Univers (PLAVIX) 75 2-08 05-10 tablet by it y of mg tablet 00:00: 04:59 mouth [place] 00 :00 daily for Medical 90 days. Branch aspirin 81 2022- No [id number] 81mg Take 1 Univers mg chewable 2-08 05-10 tablet by it y of tablet 00:00: 04:59 mouth [place] 00 :00 daily for Medical 90 days. Branch clopidogreL 2022-2022- No [id number] 75mg Take 1 Univers (PLAVIX) 75 2-08 05-10 tablet by it y of mg tablet 00:00: 04:59 mouth [place] 00 :00 daily for Medical 90 days. Branch aspirin 81 2022- No [id number] 81mg Take 1 Univers mg chewable 2-08 05-10 tablet by it y of tablet 00:00: 04:59 mouth [place] 00 :00 daily for Medical 90 days. Branch clopidogreL 2022-2022- No [id number] 75mg Take 1 Univers (PLAVIX) 75 2-08 05-10 tablet by it y of mg tablet 00:00: 04:59 mouth [place] 00 :00 daily for Medical 90 days. Branch aspirin 81 2022-2022- No [id number] 81mg Take 1 Univers mg chewable 2-08 05-10 tablet by it y of tablet 00:00: 04:59 mouth [place] 00 :00 daily for Medical 90 days. Branch clopidogreL 2022-2022- No [id number] 75mg Take 1 Univers (PLAVIX) 75 2-08 05-10 tablet by it y of mg tablet 00:00: 04:59 mouth [place] 00 :00 daily for Medical 90 days. Branch aspirin 81 2022-2022- No [id number] 81mg Take 1 Univers mg chewable 2-08 05-10 tablet by it y of tablet 00:00: 04:59 mouth [place] 00 :00 daily for Medical 90 days. Branch clopidogreL 2022- No [id number] 75mg Take 1 Univers (PLAVIX) 75 2-08 05-10 tablet by it y of mg tablet 00:00: 04:59 mouth [place] 00 :00 daily for Medical 90 days. Branch aspirin 81 2022- No [id number] 81mg Take 1 Univers mg chewable 2-08 05-10 tablet by it y of tablet 00:00: 04:59 mouth [place] 00 :00 daily for Medical 90 days. Branch clopidogreL 2022- No [id number] 75mg Take 1 Univers (PLAVIX) 75 2-08 05-10 tablet by it y of mg tablet 00:00: 04:59 mouth [place] 00 :00 daily for Medical 90 days. Branch aspirin 81 2022- No [id number] 81mg Take 1 Univers mg chewable 2-08 05-10 tablet by it y of tablet 00:00: 04:59 mouth [place] 00 :00 daily for Medical 90 days. Branch clopidogreL 2022- No [id number] 75mg Take 1 Univers (PLAVIX) 75 2-08 05-10 tablet by it y of mg tablet 00:00: 04:59 mouth [place] 00 :00 daily for Medical 90 days. Branch cholecalcif 2022-2022- No [id number] 1000U Take 1 Univers jose d, 2-05 23-11 tablet by ity of vitamin D3, 00:00: 05:59 [place] 25 mcg 00 :00 daily for Medical (1,000 30 days. Branch unit) tablet vitamin 2022-2022- No [id number] 1000ug Take 1 Univers B-12 1,000 2- 03-11 tablet by ity of mcg tablet 00:00: 05:59 mouth [place] 00 :00 daily for Medical 30 days. Branch cholecalcif 2022- No [id number] 1000U Take 1 Univers jose d, 2-08 03-11 tablet by ity of vitamin D3, 00:00: 05:59 [place] 25 mcg 00 :00 daily for Medical (1,000 30 days. Branch unit) tablet vitamin 2022-0 2022- No [id number] 1000ug Take 1 Univers B-12 1,000 2-08 03-11 tablet by ity of mcg tablet 00:00: 05:59 mouth [place] 00 :00 daily for Medical 30 days. [place] cholecalcif 2022-0 2022- No [id number] 1000U Take 1 Univers jose d, 11-28 tablet by ity of vitamin D3, 00:00: 05:59 mouth [place] 25 mcg 00 :00 daily for Medical (1,000 30 days. Branch unit) tablet vitamin 2022-0 2022- No [id number] 1000ug Take 1 Univers B-12 1,000 11-28 tablet by ity of mcg tablet 00:00: 05:59 mouth [place] 00 :00 daily for Medical 30 days. [place] cholecalcif 2022-0 2022- No [id number] 1000U Take 1 Univers jose d, 11-28 tablet by ity of vitamin D3, 00:00: 05:59 mouth [place] 25 mcg 00 :00 daily for Medical (1,000 30 days. Branch unit) tablet vitamin 2022-0 2022- No [id number] 1000ug Take 1 Univers B-12 1,000 11-28 tablet by ity of mcg tablet 00:00: 05:59 mouth [place] 00 :00 daily for Medical 30 days. [place] cholecalcif 2022-0 2022- No [id number] 1000U Take 1 Univers jose d, 11-28 tablet by ity of vitamin D3, 00:00: 05:59 mouth [place] 25 mcg 00 :00 daily for Medical (1,000 30 days. Branch unit) tablet vitamin 2022-0 2022- No [id number] 1000ug Take 1 Univers B-12 1,000 11-28 tablet by ity of mcg tablet 00:00: 05:59 mouth [place] 00 :00 daily for Medical 30 days. [place] metoprolol 2022-0 Yes 25mg 25 mg, Unive rs succinate 2-07 Oral, ity of XL (TOPROL 15:00: DAILY, [place] XL) tablet 00 First dose Med ical 25 mg (after Branch last modificati on) on Sat11/27/22 at 0900, Until Discontinu ed, Routine metoprolol 2022-0 Yes 25mg 25 mg, Unive rs succinate 2-07 Oral, ity of XL (TOPROL 15:00: DAILY, [place] XL) tablet 00 First dose Med ical 25 mg (after Branch last modificati on) on Sat11/27/22 at 0900, Until Discontinu ed, Routine metoprolol 2022- No 25mg 25 mg, Univ ers succinate 11-27 Oral, ity of XL (TOPROL 15:00: 07:19 DAILY, [place] XL) tablet 00 :41 First dose Med ical 25 mg (after Branch last modificati on) on Sat11/27/22 at 0900, Until Discontinu ed, Routine heparin Yes 2000U PRN - SEE [facility] ers 1,000 2- INSTRUCTIO ity of unit/mL (10 15:36: NS, [place] mL) - 06 Starting Medical dialysis on [facility] Branch catheter 11/26/22 at care 0936, Until Discontinu ed, Routine
For Priming of Ports:&nbs p; &n bsp; After initial saline flush, prime each port with heparin according to the priming volume listed on each catheter port for catheter lock.
heparin Yes 2000U PRN - SEE [facility] ers 1,000 2-06 INSTRUCTIO ity of unit/mL (10 15:36: NS, [place] mL) - 06 Starting Medical dialysis on Mon Branch catheter 11/26/22 at care 0936, Until Discontinu ed, Routine
For Priming of Ports:&nbs p; &n bsp; After initial saline flush, prime each port with heparin according to the priming volume listed on each catheter port for catheter lock.
heparin 2022- No 2000U PRN - SEE Uni vers 1,000 2-03 22-09 INSTRUCTIO ity of unit/mL (10 15:36: 07:19 NS, [place] mL) - 06 :41 Starting Medical dialysis on Mon Branch catheter 11/26/22 at care 0936, Until [place] 11/29/22 at 0119, Routine
For Priming of Ports:&nbs p; &n bsp; After initial saline flush, prime each port with heparin according to the priming volume listed on each catheter port for catheter lock.<br&g t; Sliding Yes Subcutaneo Univ ers Scale 2-05 us, TID ity of Insulin - 14:00: MEALS+HS, [place] as Lispro 00 First dose Medical (HumaLOG) + on [facility] 11/25/22 at Testing 0800, Until Discontinu ed, Routine [facility] ers Scale 2-05 us, TID ity of Insulin - 14:00: MEALS+HS, [place] as Lispro 00 First dose Medical (HumaLOG) + on [facility] 11/25/22 at Testing 0800, Until Discontinu ed, Routine Sliding 2022- No Subcutaneo [facility] vers Scale 2-05 02-09 us, TID ity of Insulin - 14:00: 07:19 MEALS+HS, [place] Lispro 00 :41 First dose Medical (HumaLOG) + on [facility]sbg 11/25/22 at Testing 0800, Until Discontinu ed, Routine heparin Yes 5000U 5,000 Univers (porcine) 2-05 Units, ity of injection 02:00: Subcutaneo [place] 5,000 Units 00 us, Q12H, Med ical First dose Branch on 11/24/22 at 2000, Until Discontinu ed, Routine heparin Yes 5000U 5,000 Univers (porcine) 2-05 Units, ity of injection 02:00: Subcutaneo [place] 5,000 Units 00 us, Q12H, Med ical First dose Branch on 11/24/22 at 1999, Until Discontinu ed, Routine heparin 2022- No 5000U 5,000 Univers (porcine) 2-05 -09 Units, ity of injection 02:00: 07:19 Subcutaneo [place] 5,000 Units 00 :41 us, Q12H, Med ical First dose Branch on 11/24/22 at 1999, Until Discontinu ed, Routine metoprolol 2022- No 12.5mg 12.5 mg, Univers succinate 11-24-06 Oral, ity of XL (TOPROL 15:15: 16:51 DAILY, [place] XL) tablet 00 :10 First dose Med ical 12.5 mg on Sat Branch 11/24/22 at 0915, Until Discontinu ed, Routine epoetin 2022- No 8000U 8,000 Univers gertrude-epbx 11-24-04 Units, ity of (RETACRIT) 14:00: 15:31 Slow IV [place] as injection 00 :00 Push, Medical 8,000 Units DIALYSIS Bran ch ONCE - ERENDIRA DSU, 1 dose, On 11/24/22 at 0800, Routine
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 Restricted medication : NAT KRUGER lidocaine 2022- No ONCE INTRA U nivers 1% (PF) 11-23 PROCEDURE, ity o f (XYLOCAINE) 14:26: 15:41 [place] injection 02 :44 on Fri Medical 11/23/22 at Branch 0826, Until 11/23/22 at 0941, Routine, CV Intraproce dure lidocaine 2022- No ONCE INTRA U nivers 1% (PF) 11-23 PROCEDURE, ity o f (XYLOCAINE) 14:26: 15:41 Starting [place] injection 02 :44 on Fri Medical 11/23/22 at Branch 0826, Until 11/23/22 at 0941, Routine, CV Intraproce dure NaCl 0.9% 2022- No 5mL 5 mL, Slow U nivers (NS) 11-22 IV Push, ity of injection 5 22:30: 02:03 ONCE, 1 [place] mL 00 :00 dose, On Medical [place] 11/22/22 Branch at 1630, Routine heparin Yes 2000U PRN - SEE Univ ers 1,000 2- INSTRUCTIO ity of unit/mL (10 22:19: NS, [place] mL) - 45 Starting Medical dialysis on [place] catheter 11/22/22 at care 1619, Until Discontinu ed, Routine
For Priming of Ports:&nbs p; &n bsp; After initial saline flush, prime each port with heparin according to the priming volume listed on each catheter port for catheter lock.
heparin Yes 2000U PRN - SEE Univ ers 1,000 2-02 INSTRUCTIO ity of unit/mL (10 22:19: NS, [place] mL) - 45 Starting Medical dialysis on [place] Branch catheter 11/22/22 at care 1619, Until Discontinu ed, Routine
For Priming of Ports:&nbs p; &n bsp; After initial saline flush, prime each port with heparin according to the priming volume listed on each catheter port for catheter lock.
heparin 2022- No 2000U PRN - SEE Uni vers 1,000 11-22 INSTRUCTIO ity of unit/mL (10 22:19: 07:19 NS, [place] mL) - 45 :41 Starting Medical dialysis on [place] [facility] catheter 11/22/22 at care 1619, Until [place] 11/29/22 at 0119, Routine
For Priming of Ports:&nbs p; &n bsp; After initial saline flush, prime each port with heparin according to the priming volume listed on each catheter port for catheter lock.<br&g t; epoetin 2022- No 8000U 8,000 [facility] gertrude-epbx 11-22 Units, ity of (RETACRIT) 21:15: 23:15 Slow IV [place] injection 00 :00 Push, Medical 8,000 Units DIALYSIS Bran ch ONCE - ERENDIRA DSU, 1 dose, On [place] 11/22/22 at 1515, Routine
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 Restricted medication : NAT KRUGER vitamin Yes 1000ug 1,000 mcg, Un [facility] B-12 11-22 Oral, ity of (CYANOCOBAL 15:00: DAILY[place] GARCIA[place] 00 First dose Medical tablet on [place] [facility] 1,000 mcg 11/22/22 at 0900, Until Discontinu ed, Routine vitamin Yes 1000ug 1,000 mcg, Un [facility] B-12 11-22 Oral, ity of (CYANOCOBAL 15:00: DAILY[place] GARC[place] 00 First dose Medical tablet on [place] [facility] 1,000 mcg 11/22/22 at 0900, Until Discontinu ed, Routine vitamin 0 2022- No 1000ug 1,000 mcg, U nivers B-12 11-22 Oral, ity of (CYANOCOBAL 15:00: 07:19 DAILY, [place] GARCIA) 00 :41 First dose Medical tablet on [place] [facility] 1,000 mcg 11/22/22 at 0900, Until Discontinu ed, Routine D5W IV 2022- No 1000mL at 50 Univers infusion 11-22 0204 mL/hr, IV ity o f 1,000 mL 14:00: 15:55 Infusion, [place] 00 :04 CONTINUOUS Medical , Starting Branch on [place] 11/22/22 at 0800, Until 11/24/22 at 0955, Routine magnesium No 4g 4 g, IV Univ ers sulfate in 11-22 Piggyback, it y of water 4 12:54: 17:02 at 25 [place] gram/50 mL 00 :00 mL/hr Medical (8 %) IV Administer Branc h Piggyback 4 over 120 g Minutes, ONCE, 1 dose, On [facility] 11/22/22 at 0700, Routine atorvastati Yes 80mg 80 mg, Univ ers n (LIPITOR) 11-22 Oral, QHS, it y of tablet 80 03:00: First dose [place] mg [address] [facility] 11/21/22 at Branch 2100, Until Discontinu ed, Routine atorvastati Yes 80mg 80 mg, Univ ers n (LIPITOR) 11-22 Oral, QHS, it y of tablet 80 03:00: First dose [place] mg 00 on Sat [facility] 11/21/22 at Branch 2100, Until Discontinu ed, Routine atorvastati 2022- No 80mg 80 mg, Uni vers n (LIPITOR) 11-2209 Oral, QHS, i ty of tablet 80 03:00: 07:19 First dose [place] mg 00 :[address] [facility] 11/21/22 at Branch 2100, Until Discontinu ed, Routine perflutren 2022- No [id number] 2mL 2 mL, IV Univers lipid 11-21 Push, ity of microsphere 18:15: 18:15 ONCE, 1 [place] 00 :[place] dose, On Medical (DEFINITY) Sat11/21/22 Bra nch injection 2 at 1215, mL Routine clopidogreL Yes 75mg 75 mg, Univ ers (PLAVIX) 75 11-21 Oral, ity of mg tablet 15:00: DAILY, [place] 75 mg 00 First dose Medical on Sat11/21/22 at 0900, Until Discontinu ed, Routine cholecalcif 3-0 Yes 1000U 1,000 [facility] ers jose d 2 Units, ity of (vitamin 15:00: Oral, [place] D3) tablet 00 DAILY, Medical 1,000 Units First dose Br anch on Sat11/21/22 at 0900, Until Discontinu ed, Routine aspirin 3-0 Yes 81mg 81 mg, Univers chewable 11-21 Oral, ity of tablet 81 15:00: DAILY, [place] mg 00 First dose Medical on Sat11/21/22 at 0900, Until Discontinu ed, Routine clopidogreL 2022-0 Yes 75mg 75 mg, [facility] ers (PLAVIX) 75 11-21 Oral, ity of mg tablet 15:00: DAILY, [place] 75 mg 00 First dose Medical on Sat11/21/22 at 0900, Until Discontinu ed, Routine cholecalcif 2022-0 Yes 1000U 1,000 [facility] jose d 11-21 Units, ity of (vitamin 15:00: Oral, [place] D3) tablet 00 DAILY, Medical 1,000 Units First dose Br anch on Sat11/21/22 at 0900, Until Discontinu ed, Routine aspirin 2022-0 Yes 81mg 81 mg, Univers chewable 11-21 Oral, ity of tablet 81 15:00: DAILY, [place] mg 00 First dose Medical on Sat11/21/22 at 0900, Until Discontinu ed, Routine clopidogreL 2022-0 2022- No 75mg 75 mg, Uni vers (PLAVIX) 75 11-21- Oral, ity of mg tablet 15:00: 07:19 DAILY, [place] 75 mg 00 :41 First dose Medical on Sat11/21/22 at 0900, Until Discontinu ed, Routine cholecalcif 3-0 2023- No 1000U 1,000 Uni vers jose d 11-21-09 Units, ity of (vitamin 15:00: 07:19 Oral, [place] D3) tablet 00 :41 DAILY, Medical 1,000 Units First dose Br anch on Sat11/21/22 at 0900, Until Discontinu ed, Routine aspirin 2023-0 2023- No 81mg 81 mg, Univers chewable 201 02-09 Oral, ity of tablet 81 15:00: 07:19 DAILY, [place] mg 00 :41 First dose Medical on Sat [place] 11/21/22 at 0900, Until Discontinu ed, Routine sevelamer 3-0 Yes 1600mg 1,600 mg, U nivers (RENVELA) 11-21 Oral, TID ity o f tablet 14:00: MEALS, [place] 1,600 mg 00 First dose Medic al on Sat [place] 11/21/22 at 0800, Until Discontinu ed, Routine levETIRAcet 2022-0 Yes 500mg 500 mg, Un sharita am (KEPPRA) 11-21 Oral, BID, it y of tablet 500 14:00: First dose [place] mg 00 on Sat [facility] 11/21/22 at Branch 0800, Until Discontinu ed, Routine sevelamer 2022-0 Yes 1600mg 1,600 mg, U nivers (RENVELA) 11-21 Oral, TID ity o f tablet 14:00: MEALS, [place] 1,600 mg 00 First dose Medic al on Sat [place] 11/21/22 at 0800, Until Discontinu ed, Routine levETIRAcet 2022-0 Yes 500mg 500 mg, Un sharita am (KEPPRA) 11-21 Oral, BID, it y of tablet 500 14:00: First dose [place] mg 00 on Sat [facility] 11/21/22 at Branch 0800, Until Discontinu ed, Routine sevelamer 2022-0 2023- No 1600mg 1,600 mg, Univers (RENVELA) 11-21 Oral, TID ity of tablet 14:00: 07:19 MEALS, [place] 1,600 mg 00 :41 First dose Medic al on Sat [place] 11/21/22 at 0800, Until Discontinu ed, Routine levETIRAcet 3-0 2023- No 500mg 500 mg, U nivers am (KEPPRA) 11-21 Oral, BID, i ty of tablet 500 14:00: 07:19 First dose [place] mg 00 :41 on Sat [facility] 11/21/22 at Branch 0800, Until Discontinu ed, Routine atropine 2022-0 Yes 1mg 1 mg, IV Unive rs injection 1 11-21 Push, PRN, it y of mg 09:24: Starting [place] 45 on Sat Medical 11/21/22 at Branch 0324, Until Discontinu ed, Routine, Symptomati c Bradycardi a atropine Yes 1mg 1 mg, IV Unive rs injection 1 11-21 Push, PRN, it y of mg 09:24: Starting [place] 45 on Sat Medical 11/21/22 at Branch 0324, Until Discontinu ed, Routine, Symptomati c Bradycardi a atropine 0 2022- No 1mg 1 mg, IV Univ ers injection 1 11-21 02- Push, PRN, i ty of mg 09:24: 07:19 Starting [place] 45 :41 on Sat [facility] 11/21/22 at Branch 0324, Until [place] 11/29/22 at 0119, Routine, Symptomati c Bradycardi a heparin 2022- No 1000U/h 1,000 Unive rs 25,000 11-21 02-03 Units/hr ity of Units/250 08:57: 16:30 (10 [place] mL 57 :17 mL/hr), IV Medical (Premixed Infusion, Branc h Bag) in TITRATE, 0.45 % NS Parameters in Admin. Instr., Starting on Sat11/21/22 at 0257
CA UTION - If LMWH given in ER, AVOID bolus and start next dose/drip 12 hrs after ER dosage.&nb sp; M ust program rate using programmab le infusion pump.&nbsp ; Vilma ck with the ordering provider first prior to any administra tion should the patient be on existing/a dditional anticoagul ant therapy.&n bsp; Range, Dosing and Testing&nb sp; - aPTT < 40: & nbsp;Bolus 3000 units, increase rate 100 units/hr.& nbsp;- aPTT 40-49:&nbs p; In crease rate 50 units/hr. - aPTT 50-70:&nbs p; NO CHANGE.&am p;nbsp;- aPTT 71-85:&nbs p; De crease rate 50 units/hr.& nbsp;- aPTT 86-100:&nb sp; H old 30 minutes, decrease rate 100 units/hr.& nbsp;- aPTT 101-150:&n bsp; Hold 60 minutes, decrease rate 150 units/hr.& nbsp;- aPTT > 150: Hold 60 minutes, decrease rate 300 units/hr.& nbsp;&nbsp ;Check aPTT 6 hours after initiation , then Q6H after every change, aPTT Q12H once therapeuti c levels are reached.&n bsp; DO NOT ADJUST INITIAL BOLUS OR INITIAL INFUSION RATE.
heparin 2022- No 3000U FOR Univers (1,000 11-21 REBOLUSING ity of unit/mL, 10 07:57: 16:30 , Starting [place] mL vial) 57 :17 on Sat Medical for 11/21/22 at Branch Rebolusing 0157, Until Sat11/23/22 at 1030, Routine
Dosing based on aPTT testing parameters (refer to continuous heparin drip order).
dextrose Yes 250mL 250 mL, IV Un sharita 10% (D10W) 11-21 Infusion, ity of bolus 07:55: PRN - SEE [place] infusion 45 INSTRUCTIO Medic al 250 mL , Branch Administer over 60 Minutes, Other, If blood glucose is < or = 70 mg/dL and patient is unable to swallow or has mental status changes, Starting on Sat11/21/22 at 0155
If blood glucose is < or = 70 mg/dL and patient is unable to swallow or has mental status changes (Give glucagon order if patient needs fluid restrictio n): IF IV access available: Dextrose 10%. 1. 125 mL (? bag) of D10W IV infusion - equivalent to 12.5 g dextrose 2. Blood glucose - draw blood glucose 15 minutes after D10W Administra tion. 3. If blood glucose is < 80 mg/dL, repeat.
dextrose Yes 250mL 250 mL, IV Un [place] 10% (D10W) 11-21 Infusion, ity of bolus 07:55: PRN - SEE [place] infusion 45 INSTRUCTIO Medic al 250 mL NS, Branch Administer over 60 Minutes, Other, If blood glucose is < or = 70 mg/dL and patient is unable to swallow or has mental status changes, Starting on Sat11/21/22 at 0155
If blood glucose is < or = 70 mg/dL and patient is unable to swallow or has mental status changes (Give glucagon order if patient needs fluid restrictio n): IF IV access available: Dextrose 10%. 1. 125 mL (? bag) of D10W IV infusion - equivalent to 12.5 g dextrose 2. Blood glucose - draw blood glucose 15 minutes after D10W Administra tion. 3. If blood glucose is < 80 mg/dL, repeat.
dextrose 2022-0 2022- No 250mL 250 mL, IV U nivers 10% (D10W) 11-21 02- Infusion, ity of bolus 07:55: 07:19 PRN - SEE [place] infusion 45 :41 INSTRUCTIO Medic al 250 mL NS, Branch Administer over 60 Minutes, Other, If blood glucose is < or = 70 mg/dL and patient is unable to swallow or has mental status changes, Starting on Sat11/21/22 at 0155
If blood glucose is < or = 70 mg/dL and patient is unable to swallow or has mental status changes (Give glucagon order if patient needs fluid restrictio n): IF IV access available: Dextrose 10%. 1. 125 mL (? bag) of D10W IV infusion - equivalent to 12.5 g dextrose 2. Blood glucose - draw blood glucose 15 minutes after D10W Administra tion. 3. If blood glucose is < 80 mg/dL, repeat.
glucagon 2022-0 Yes 1mg 1 mg, Univers (GLUCAGEN 11-21 Intramuscu ity of DIAGNOSTIC 07:55: lar, PRN, [place] KIT) 43 Starting Medical injection 1 on Sat Branch mg 11/21/22 at 0155, Until Discontinu ed, JOSE, Blood Glucose < or = 70 mg/dL and patient is NPO, unable to swallow or has mental changes. glucagon 2022-0 Yes 1mg 1 mg, Univers (GLUCAGEN 11-21 Intramuscu ity of DIAGNOSTIC 07:55: lar, PRN, [place] KIT) 43 Starting Medical injection 1 on Wed Branch mg 11/21/22 at 0155, Until Discontinu ed, JOSE, Blood Glucose < or = 70 mg/dL and patient is NPO, unable to swallow or has mental changes. glucagon 2022-0 2022- No 1mg 1 mg, Univers (GLUCAGEN 11-2109 Intramuscu ity of DIAGNOSTIC 07:55: 07:19 lar, PRN, [place] KIT) 43 :41 Starting Medical injection 1 on Sat Branch mg 11/21/22 at 0155, Until [place] 11/29/22 at 0119, JOSE, Blood Glucose < or = 70 mg/dL and patient is NPO, unable to swallow or has mental changes. acetaminoph 0 Yes 650mg 650 mg, Un shairta en 11-21 Oral, ity of (TYLENOL) 07:54: Q6HPRN, [place] tablet 650 11 Starting Medic al mg on Sat Branch 11/21/22 at 0154, Until Discontinu ed, Routine, Pain (scale 1-3) acetaminoph 0 Yes 650mg 650 mg, Un sharita en 11-21 Oral, ity of (TYLENOL) 07:54: Q6HPRN, [place] tablet 650 11 Starting Medic al mg on Sat Branch 11/21/22 at 0154, Until Discontinu ed, Routine, Pain (scale 1-3) acetaminoph 0 2022- No 650mg 650 mg, U nivers en 11-2109 Oral, ity of (TYLENOL) 07:54: 07:19 Q6HPRN, [place] tablet 650 11 :41 Starting Medic al mg on Sat Branch 11/21/22 at 0154, Until [place] 11/29/22 at 0119, Routine, Pain (scale 1-3) metoprolol 2021-0 Yes 12.5mg Take 0.5 U nivers succinate 2-25 tablets by ity of XL 25 mg 24 00:00: mouth [place] hr tablet 00 daily. Medical Branch clopidogreL 2021-0 Yes 75mg Take 1 Univ ers 75 mg 2-25 tablet by ity of tablet 00:00: mouth [place] 00 daily. Medical Branch metoprolol 2021-0 Yes 12.5mg Take 0.5 U nivers succinate 2-25 tablets by ity of XL 25 mg 24 00:00: mouth [place] hr tablet 00 daily. Medical Branch clopidogreL 2-0 Yes 75mg Take 1 Univ ers 75 mg 2-25 tablet by ity of tablet 00:00: mouth [place] 00 daily. Medical Branch metoprolol 2021-0 Yes 12.5mg Take 0.5 U nivers succinate 2-25 tablets by ity of XL 25 mg 24 00:00: mouth [place] hr tablet 00 daily. Medical Branch clopidogreL 2021-0 Yes 75mg Take 1 Univ ers 75 mg 2-25 tablet by ity of tablet 00:00: mouth [place] 00 daily. Medical Branch metoprolol 2021-0 Yes 12.5mg Take 0.5 U nivers succinate 2-25 tablets by ity of XL 25 mg 24 00:00: mouth [place] hr tablet 00 daily. Medical Branch clopidogreL 2021-0 Yes 75mg Take 1 Univ ers 75 mg 2-25 tablet by ity of tablet 00:00: mouth [place] 00 daily. Medical Branch metoprolol 2021-0 Yes 12.5mg Take 0.5 U nivers succinate 2-25 tablets by ity of XL 25 mg 24 00:00: mouth [place] hr tablet 00 daily. Medical Branch clopidogreL 2021-0 Yes 75mg Take 1 Univ ers 75 mg 2-25 tablet by ity of tablet 00:00: mouth [place] 00 daily. Medical Branch metoprolol 2021-0 Yes 12.5mg Take 0.5 U nivers succinate 2-25 tablets by ity of XL 25 mg 24 00:00: mouth [place] hr tablet 00 daily. Medical Branch clopidogreL 2-0 Yes 75mg Take 1 Univ ers 75 mg 2-25 tablet by ity of tablet 00:00: mouth [place] 00 daily. Medical Branch metoprolol 2021-0 Yes 12.5mg Take 0.5 U nivers succinate 2-25 tablets by ity of XL 25 mg 24 00:00: mouth [place] hr tablet 00 daily. Medical Branch clopidogreL 2-0 Yes 75mg Take 1 Univ ers 75 mg 2-25 tablet by ity of tablet 00:00: mouth [place] 00 daily. Medical Branch metoprolol 2021-0 Yes 12.5mg Take 0.5 U nivers succinate 2-25 tablets by ity of XL 25 mg 24 00:00: mouth [place] hr tablet 00 daily. Medical Branch clopidogreL 2-0 Yes 75mg Take 1 Univ ers 75 mg 2-25 tablet by ity of tablet 00:00: mouth [place] 00 daily. Medical Branch metoprolol 2-0 Yes 12.5mg Take 0.5 U nivers succinate 2-25 tablets by ity of XL 25 mg 24 00:00: mouth [place] hr tablet 00 daily. Medical Branch clopidogreL 2-0 Yes 75mg Take 1 Univ ers 75 mg 2-25 tablet by ity of tablet 00:00: mouth [place] 00 daily. Medical Branch metoprolol 2021-0 Yes 12.5mg Take 0.5 U nivers succinate 2-25 tablets by ity of XL 25 mg 24 00:00: mouth [place] hr tablet 00 daily. Medical Branch clopidogreL 2021-0 Yes 75mg Take 1 Univ ers 75 mg 2-25 tablet by ity of tablet 00:00: mouth [place] 00 daily. Medical Branch metoprolol 2021-0 Yes 12.5mg Take 0.5 U nivers succinate 2-25 tablets by ity of XL 25 mg 24 00:00: mouth [place] hr tablet 00 daily. Medical Branch clopidogreL 2-0 Yes 75mg Take 1 Univ ers 75 mg 2-25 tablet by ity of tablet 00:00: mouth [place] 00 daily. Medical Branch metoprolol 2-0 Yes 12.5mg Take 0.5 U nivers succinate 2-25 tablets by ity of XL 25 mg 24 00:00: mouth [place] hr tablet 00 daily. Medical Branch clopidogreL 2-0 Yes 75mg Take 1 Univ ers 75 mg 2-25 tablet by ity of tablet 00:00: mouth [place] 00 daily. Medical Branch metoprolol 2-0 Yes 12.5mg Take 0.5 U nivers succinate 2-25 tablets by ity of XL 25 mg 24 00:00: mouth [place] hr tablet 00 daily. Medical Branch clopidogreL 2-0 Yes 75mg Take 1 Univ ers 75 mg 2-25 tablet by ity of tablet 00:00: mouth [place] 00 daily. Medical Branch metoprolol 2-0 Yes 12.5mg Take 0.5 U nivers succinate 2-25 tablets by ity of XL 25 mg 24 00:00: mouth [place] hr tablet 00 daily. Medical Branch clopidogreL 2021-0 Yes 75mg Take 1 Univ ers 75 mg 2-25 tablet by ity of tablet 00:00: mouth [place] 00 daily. Medical Branch metoprolol 2021-0 Yes 12.5mg Take 0.5 U nivers succinate 2-25 tablets by ity of XL 25 mg 24 00:00: mouth [place] hr tablet 00 daily. Medical Branch clopidogreL 2021-0 Yes 75mg Take 1 Univ ers 75 mg 2-25 tablet by ity of tablet 00:00: mouth [place] 00 daily. Medical Branch metoprolol 2021-0 Yes 12.5mg Take 0.5 U nivers succinate 2-25 tablets by ity of XL 25 mg 24 00:00: mouth [place] hr tablet 00 daily. Medical Branch clopidogreL 2021-0 Yes 75mg Take 1 Univ ers 75 mg 2-25 tablet by ity of tablet 00:00: mouth [place] 00 daily. Medical Branch metoprolol 2021-0 Yes 12.5mg Take 0.5 U nivers succinate 2-25 tablets by ity of XL 25 mg 24 00:00: mouth [place] hr tablet 00 daily. Medical Branch clopidogreL 2021-0 Yes 75mg Take 1 Univ ers 75 mg 2-25 tablet by ity of tablet 00:00: mouth [place] 00 daily. Medical Branch metoprolol 2021-0 Yes 12.5mg Take 0.5 U nivers succinate 2-25 tablets by ity of XL 25 mg 24 00:00: mouth [place] hr tablet 00 daily. Medical Branch clopidogreL 2021-0 Yes 75mg Take 1 Univ ers 75 mg 2-25 tablet by ity of tablet 00:00: mouth [place] 00 daily. Medical Branch clopidogreL 2021-0 2021- No 75mg Take 1 Uni vers 75 mg 2-25 -24 tablet by ity of tablet 00:00: 00:00 mouth [place] 00 :00 daily. Medical Branch KCL 2021-0 2021- No 40meq 40 mEq, Univers (KLOR-CON -14 12- Oral, ity of M20) tablet 14:00: 15:31 ONCE, 1 [place] 40 mEq 00 :00 dose, On Medical [place] Branch 12/14/21 at 0800, Routine sevelamer 2021-0 Yes 1600mg Take 2 Univ ers 800 mg 2-24 tablets by ity of tablet 00:00: mouth 3 [place] 00 (three) Medical times Branch daily with meals. atorvastati 2022-0 Yes 80mg Take 1 Univ ers n 80 mg 2-24 tablet by ity of tablet 00:00: mouth at [place] bedtime. Medical Branch sevelamer 2022-0 Yes 1600mg Take 2 Univ ers 800 mg 2-24 tablets by ity of tablet 00:00: mouth 3 (three) Medical times Branch daily with meals. atorvastati 2022-0 Yes 80mg Take 1 Univ ers n 80 mg 2-24 tablet by ity of tablet 00:00: mouth at [place] bedtime. Medical Branch sevelamer 2022-0 Yes 1600mg Take 2 Univ ers 800 mg 2-24 tablets by ity of tablet 00:00: mouth 3 (three) Medical times Branch daily with meals. atorvastati 2022-0 Yes 80mg Take 1 Univ ers n 80 mg 2-24 tablet by ity of tablet 00:00: mouth at [place] bedtime. Medical Branch sevelamer 2022-0 Yes 1600mg Take 2 Univ ers 800 mg 2-24 tablets by ity of tablet 00:00: mouth 3 (three) Medical times Branch daily with meals. atorvastati 2022-0 Yes 80mg Take 1 Univ ers n 80 mg 2-24 tablet by ity of tablet 00:00: mouth at [place] bedtime. Medical Branch sevelamer 2022-0 Yes 1600mg Take 2 Univ ers 800 mg 2-24 tablets by ity of tablet 00:00: mouth [place] (three) Medical times Branch daily with meals. atorvastati 2022-0 Yes 80mg Take 1 Univ ers n 80 mg 2-24 tablet by ity of tablet 00:00: mouth at [place] bedtime. Medical Branch sevelamer 2022-0 Yes 1600mg Take 2 Univ ers 800 mg 2-24 tablets by ity of tablet 00:00: mouth 3 (three) Medical times Branch daily with meals. atorvastati 2022-0 Yes 80mg Take 1 Univ ers n 80 mg 2-24 tablet by ity of tablet 00:00: mouth at [place] [id number] bedtime. Medical Branch sevelamer 2022-0 Yes 1600mg Take 2 Univ ers 800 mg 2-24 tablets by ity of tablet 00:00: mouth 3 (three) Medical times Branch daily with meals. atorvastati 2022-0 Yes 80mg Take 1 Univ ers n 80 mg 2-24 tablet by ity of tablet 00:00: mouth at [place] bedtime. Medical Branch sevelamer 2022-0 Yes 1600mg Take 2 Univ ers 800 mg 2-24 tablets by ity of tablet 00:00: mouth 3 (three) Medical times Branch daily with meals. atorvastati 2022-0 Yes 80mg Take 1 Univ ers n 80 mg 2-24 tablet by ity of tablet 00:00: mouth at [place] bedtime. Medical Branch sevelamer 2022-0 Yes 1600mg Take 2 Univ ers 800 mg 2-24 tablets by ity of tablet 00:00: mouth 3 (three) Medical times Branch daily with meals. atorvastati 2022-0 Yes 80mg Take 1 Univ ers n 80 mg 2-24 tablet by ity of tablet 00:00: mouth at [place] bedtime. Medical Branch sevelamer 2022-0 Yes 1600mg Take 2 Univ ers 800 mg 2-24 tablets by ity of tablet 00:00: mouth (three) Medical times Branch daily with meals. atorvastati 2022-0 Yes 80mg Take 1 Univ ers n 80 mg 2-24 tablet by ity of tablet 00:00: mouth at [place] bedtime. Medical Branch sevelamer 2022-0 Yes 1600mg Take 2 Univ ers 800 mg 2-24 tablets by ity of tablet 00:00: mouth (three) Medical times Branch daily with meals. atorvastati 2022-0 Yes 80mg Take 1 Univ ers n 80 mg 2-24 tablet by ity of tablet 00:00: mouth at [place] bedtime. Medical Branch sevelamer 2022-0 Yes 1600mg Take 2 Univ ers 800 mg 2-24 tablets by ity of tablet 00:00: mouth 3 (three) Medical times Branch daily with meals. atorvastati 2022-0 Yes 80mg Take 1 Univ ers n 80 mg 2-24 tablet by ity of tablet 00:00: mouth at [place] [address] bedtime. Medical Branch sevelamer 2022-0 Yes 1600mg Take 2 Univ ers 800 mg 2-24 tablets by ity of tablet 00:00: mouth 3 (three) Medical times Branch daily with meals. atorvastati 2021-0 Yes 80mg Take 1 Univ ers n 80 mg 2-24 tablet by ity of tablet 00:00: mouth at [place] bedtime. Medical Branch sevelamer 2021-0 Yes 1600mg Take 2 Univ ers 800 mg 2-24 tablets by ity of tablet 00:00: mouth 3 (three) Medical times Branch daily with meals. atorvastati 2021-0 Yes 80mg Take 1 Univ ers n 80 mg 2-24 tablet by ity of tablet 00:00: mouth at [place] bedtime. Medical Branch sevelamer 2021-0 Yes 1600mg Take 2 Univ ers 800 mg 2-24 tablets by ity of tablet 00:00: mouth 3 (three) Medical times Branch daily with meals. atorvastati 2021-0 Yes 80mg Take 1 Univ ers n 80 mg 2-24 tablet by ity of tablet 00:00: mouth at [place] bedtime. Medical Branch sevelamer 2021-0 Yes 1600mg Take 2 Univ ers 800 mg 2-24 tablets by ity of tablet 00:00: mouth 3 (three) Medical times Branch daily with meals. atorvastati 2021-0 Yes 80mg Take 1 Univ ers n 80 mg 2-24 tablet by ity of tablet 00:00: mouth at [place] bedtime. Medical Branch sevelamer 2021-0 Yes 1600mg Take 2 Univ ers 800 mg 2-24 tablets by ity of tablet 00:00: mouth 3 (three) Medical times Branch daily with meals. atorvastati 2021-0 Yes 80mg Take 1 Univ ers n 80 mg 2-24 tablet by ity of tablet 00:00: mouth at [place] bedtime. Medical Branch sevelamer 2021-0 Yes 1600mg Take 2 Univ ers 800 mg 2-24 tablets by ity of tablet 00:00: mouth 3 (three) Medical times Branch daily with meals. atorvastati 2-0 Yes 80mg Take 1 Univ ers n 80 mg 2-24 tablet by ity of tablet 00:00: mouth at [place] [address] bedtime. Medical Branch epoetin 2021- No 8000U 8,000 [facility] gertrude-epbx -13 12-23 Units, ity of (RETACRIT) 15:30: 18:37 Slow IV [place] injection 00 :00 Push, Medical 8,000 Units DIALYSIS Bran ch ONCE - ERENDIRA DSU, 1 dose, On Sat12/13/21 at 0930, Routine
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 Restricted medication : JOHNY KOWALSKI metoprolol 0 Yes 12.5mg 12.5 mg, U nivers succinate 2-22 Oral, ity of XL (TOPROL 15:00: DAILY, [place] XL) tablet 00 First dose Med ical 12.5 mg on Sat12/12/21 at 0900, Until Discontinu ed, Routine insulin 2021-0 Yes 8U 8 Units, Univer s glargine 12-12 Subcutaneo ity o f (LANTUS 03:00: us, [facility], [place] U-100) 00 First dose Medical injection 8 (after Branch Units last modificati on) on Sat12/11/21 at 2100, Until Discontinu ed insulin 2021-0 Yes 8U 8 Units, Univer s glargine 12-12 Subcutaneo ity o f (LANTUS 03:00: us, [facility], [place] U-100) 00 First dose Medical injection 8 (after Branch Units last modificati on) on Sat12/11/21 at 2100, Until Discontinu ed metoprolol 0 Yes 12.5mg 12.5 mg, U nivers tartrate 2-20 Oral, BID, ity o f (LOPRESSOR) 02:00: First dose [place] tablet 12.5 00 (after Medica l mg last Branch modificati on) on Sat12/09/21 at 2000, Until Discontinu ed, Routine metoprolol 0 2021- No 12.5mg 12.5 mg, Univers tartrate 2-20 02-21 Oral, BID, ity of (LOPRESSOR) 02:00: 22:33 First dose [place] tablet 12.5 00 :22 (after Medica l mg last Branch modificati on) on Sat12/09/21 at 2000, Until Discontinu ed, Routine clopidogreL 2021-0 Yes 75mg 75 mg, Univ ers (PLAVIX) 75 2-19 Oral, ity of mg tablet 15:15: DAILY, [place] 75 mg 00 First dose Medical on Sat Branch 12/09/21 at 0915, Until Discontinu ed, Routine clopidogreL Yes 75mg 75 mg, Univ ers (PLAVIX) 75 19 Oral, ity of mg tablet 15:15: DAILY, [place] 75 mg 00 First dose Medical on Sat Branch 12/09/21 at 0915, Until Discontinu ed, Routine clopidogreL 2021- No 300mg 300 mg, U nivers (PLAVIX) 12-08 Oral, ity of 300 mg 20:45: 03:59 ONCE, 1 [place] tablet 300 00 :00 dose, On Medic al mg Sat Branch 12/08/21 at 1445, Routine sulfur 2021- No [id number] 5mL 5 mL, Univ ers hexafluorid 12-08 Intravenou i ty of e microsphr 17:15: 17:15 s, ONCE, 1 [place] (LUMASON) 00 :00 dose, On Medica l injection 5 Fri Branch 12/08/21 at 1115, Routine
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 Restricted medication : EDGAR CONN sevelamer Yes 1600mg 1,600 mg, U nivers (RENVELA) 2-16 Oral, TID ity o f tablet 18:00: MEALS, [place] 1,600 mg 00 First dose Medic al (after Branch last modificati on) on Sat12/06/21 at 1200, Until Discontinu ed, Routine sevelamer Yes 1600mg 1,600 mg, U nivers (RENVELA) 2-16 Oral, TID ity o f tablet 18:00: MEALS, [place] 1,600 mg 00 First dose Medic al (after Branch last modificati on) on Sat12/06/21 at 1200, Until Discontinu ed, Routine mupirocin 2021- No Nasal, Unive rs (BACTROBAN 16 02-17 Q12H, 10 ity of NASAL OINT) 14:00: 22:20 doses, [place] 2 % nasal 00 :49 First dose Medi nidia ointment on Sat Branch 12/06/21 at 0800, Last dose on Sat12/10/21 at 2000, Routine heparin 2021-0 Yes 2000U PRN - SEE Univ ers 1,000 2-16 INSTRUCTIO ity of unit/mL 13:55: NS, [place] injection 53 Starting Medica l 2,000 Units on Sat12/06/21 at 0755, Until Discontinu ed, Routine
For Priming of Ports:&nbs p; &n bsp; After initial saline flush, prime each port with heparin according to the priming volume listed on each catheter port for catheter lock.
heparin Yes 2000U PRN - SEE Univ ers 1,000 12-06 INSTRUCTIO ity of unit/mL 13:55: NS, [place] injection 53 Starting Medica l 2,000 Units on Sat12/06/21 at 0755, Until Discontinu ed, Routine
For Priming of Ports:&nbs p; &n bsp; After initial saline flush, prime each port with heparin according to the priming volume listed on each catheter port for catheter lock.
atorvastati Yes 80mg 80 mg, Univ ers n (LIPITOR) 216 Oral, QHS, it y of tablet 80 03:00: First dose [place] mg 00 (after Medical last Branch modificati on) on Sat12/05/21 at 2100, Until Discontinu ed, Routine atorvastati Yes 80mg 80 mg, Univ ers n (LIPITOR) -16 Oral, QHS, it y of tablet 80 03:00: First dose [place] mg 00 (after Medical last Branch modificati on) on Sat12/05/21 at 2100, Until Discontinu ed, Routine insulin 2021- No 10U 10 Units, [facility] ers glargine 12-06 Subcutaneo ity of (LANTUS 03:00: 14:58 us, QHS, [place] U-100) 00 :09 First dose Medical injection on Sat 10 Units 12/05/21 at 2100, Until Discontinu ed metoprolol 2021- No 25mg 25 mg, Univ ers tartrate 12-06 Oral, BID, ity of (LOPRESSOR) 02:00: 19:28 First dose [place] tablet 25 00 :40 on Sat Medical mg 2/15/22 at Branch 2000, Until Discontinu ed, Routine iohexol 2021- No Intravenou Uni vers (OMNIPAQUE 12-05- s, TITRATE it y of 300-100 mL) 19:38: 19:38 - FOR [place] injection 33 :33 PROCEDURE Medic al USE, 1 Branch dose, Starting on Sat12/05/21 at 1338, Until Sat12/05/21 at 1338, Routine heparin 2021- No TITRATE - Univ ers 1,000 12-05 FOR ity of unit/mL 18:44: 18:44 PROCEDURE [place] injection 15 :15 USE, 1 Medical dose, Branch Starting on Sat12/05/21 at 1244, Until Sat12/05/21 at 1244, Routine, CV Intraproce dure lidocaine 2021- No TITRATE - Un shar[facility] 1% (PF) 12-05 FOR ity of (XYLOCAINE) 18:05: 18:05 PROCEDURE [place] injection 57 :57 USE, 1 Medical dose, Branch Starting on Sat12/05/21 at 1205, Until Sat12/05/21 at 1205, Routine, CV Intraproce dure midazolam 2021- No TITRATE - Un shar[facility] (VERSED) 12-05 FOR ity of injection 18:02: 18:02 PROCEDURE [place] 35 :35 USE, 1 Medical dose, Branch Starting on Sat12/05/21 at 1202, Until Sat12/05/21 at 1202, Routine, CV Intraproce dure FENTanyl PF 2021- No TITRATE - Univers (SUBLIMAZE 12-05 FOR ity of (PF)) 18:02: 18:02 PROCEDURE [place] injection 21 :21 USE, 1 Medical dose, Branch Starting on Sat12/05/21 at 1202, Until Sat12/05/21 at 1202, Routine, CV Intraproce dure FLUoxetine Yes 20mg 20 mg, Unive rs (PROZAC) 2-15 Oral, ity of capsule 20 15:00: DAILY, [place] mg 00 First dose Medical on Sat Branch 12/05/21 at 0900, Until Discontinu ed, Routine aspirin Yes 81mg 81 mg, Univers chewable 2-15 Oral, ity of tablet 81 15:00: DAILY, [place] mg 00 First dose Medical on [facility] 12/05/21 at 0900, Until Discontinu ed, Routine polyethylen Yes 17g 17 g, Unive rs e glycol 2-15 Oral, ity of 3350 powder 15:00: DAILY, [place] 17 g 00 First dose Medical on [facility] 12/05/21 at 0900, Until Discontinu ed, Routine sennosides Yes 8.6mg 8.6 mg, Uni vers (SENOKOT) 2-15 Oral, ity of tablet 8.6 15:00: DAILY, [place] mg 00 First dose Medical on [facility] 12/05/21 at 0900, Until Discontinu ed, Routine FLUoxetine Yes 20mg 20 mg, Unive rs (PROZAC) 2-15 Oral, ity of capsule 20 15:00: DAILY, [place] mg 00 First dose Medical on [facility] 12/05/21 at 0900, Until Discontinu ed, Routine aspirin Yes 81mg 81 mg, Univers chewable 2-15 Oral, ity of tablet 81 15:00: DAILY, [place] mg 00 First dose Medical on [facility] 12/05/21 at 0900, Until Discontinu ed, Routine polyethylen Yes 17g 17 g, Unive rs e glycol 2-15 Oral, ity of 3350 powder 15:00: DAILY, [place] 17 g 00 First dose Medical on [facility] 12/05/21 at 0900, Until Discontinu ed, Routine sennosides Yes 8.6mg 8.6 mg, Uni vers (SENOKOT) 2-15 Oral, ity of tablet 8.6 15:00: DAILY, [place] mg 00 First dose Medical on [facility] 12/05/21 at 0900, Until Discontinu ed, Routine levETIRAcet Yes 500mg 500 mg, Un sharita am (KEPPRA) 2-15 Oral, BID, it y of tablet 500 14:00: First dose [place] mg 00 on [facility] 12/05/21 at Branch 0800, Until Discontinu ed, Routine calcium 2022-0 Yes 667mg 667 mg, Univer s acetate(severino 2-15 Oral, TID ity of sphat bind) 14:00: MEALS, [place] (PHOSLO) 00 First dose Medic al capsule 667 on [facility] mg 12/05/21 at 0800, Until Discontinu ed, Routine levETIRAcet Yes 500mg 500 mg, Un sharita am (KEPPRA) 2-15 Oral, BID, it y of tablet 500 14:00: First dose [place] mg 00 on [facility] 12/05/21 at Branch 0800, Until Discontinu ed, Routine calcium Yes 667mg 667 mg, Univer s acetate(severino 2-15 Oral, TID ity of sphat bind) 14:00: MEALS, [place] (PHOSLO) 00 First dose Medic al capsule 667 on [facility] mg 12/05/21 at 0800, Until Discontinu ed, Routine KCL 2021- No 40meq 40 mEq, Univers (KLOR-CON 12-05-15 Oral, ity of M20) tablet 07:45: 07:03 ONCE, 1 [place] 40 mEq 00 :00 dose, On [facility] 12/05/21 at 0145, Routine aspirin 2021- No 325mg 325 mg, Unive rs tablet 325 12-05-15 Oral, ity of mg 07:15: 07:03 ONCE, 1 [place] 00 :00 dose, On [facility] 12/05/21 at 0115, Routine HEPARIN 2021- No 4000U 4,000 Univers SODIUM 12-05-15 Units, IV ity of (PORCINE) 06:15: 07:10 Push, [place] 1,000 00 :00 ONCE, 1 Medical UNIT/ML dose, On [place] BOLUS ACS Tu ORDER SET 12/05/21 at 0015, JOSE heparin 2021- No 12U/kg/ 12 Univer s 25,000 12-05 02-15 h Units/kg/h ity of Units/250 06:06: 13:04 r ?75.5 kg [place] mL 03 :50 (9.06 Medical (Premixed mL/hr), IV Bran ch Bag) in Infusion, 0.45 % NS TITRATE, Parameters in Admin. Instr., Starting on Sat12/05/21 at 0006
CA UTION - If LMWH given in ER, AVOID bolus and start next dose/drip 12 hrs after ER dosage.&nb sp; M ust program rate using programmab le infusion pump.&nbsp ;&nbsp ;Check with the ordering provider first prior to any administra tion should the patient be on existing/a dditional anticoagul ant therapy.&n bsp; Range, Dosing and Testing&nb sp;&nb sp;- aPTT < 40: & nbsp;Bolus 3000 units, increase rate 100 units/hr.& nbsp;- aPTT 40-49:&nbs p; In crease rate 50 units/hr. - aPTT 50-70:&nbs p; NO CHANGE.&nb sp;- aPTT 71-85:&nbs p; De crease rate 50 units/hr.& nbsp;- aPTT 86-100:&nb sp; H old 30 minutes, decrease rate 100 units/hr.& nbsp;- aPTT 101-150:&n bsp; Hold 60 minutes, decrease rate 150 units/hr.& nbsp;- aPTT > 150: Hold 60 minutes, decrease rate 300 units/hr.& nbsp;&nbsp ;Check aPTT 6 hours after initiation , then Q6H after every change, aPTT Q12H once therapeuti c levels are reached.&n bsp; DO NOT ADJUST INITIAL BOLUS OR INITIAL INFUSION RATE.
ondansetron 2-0 Yes 4mg 4 mg, Unive rs (ZOFRAN-ODT 2-15 Oral, ity of ) 04:42: Q8HPRN, [place] disintegrat 12 Starting Medi nidia ing tablet on Sat Branch 4 mg 12/04/21 at 2242, Until Discontinu ed, Routine, Nausea and Vomiting (N/V) ondansetron 2021-0 Yes 4mg 4 mg, Unive rs (ZOFRAN-ODT 2-15 Oral, ity of ) 04:42: Q8HPRN, [place] disintegrat 12 Starting Medi nidia ing tablet on Mon Branch 4 mg 12/04/21 at 2242, Until Discontinu ed, Routine, Nausea and Vomiting (N/V) acetaminoph Yes 650mg 650 mg, Un sharita en 2-15 Oral, ity of (TYLENOL) 04:19: Q6HPRN, [place] tablet 650 41 Starting Medic al mg on Mon Branch 12/04/21 at 2219, Until Discontinu ed, Routine, Pain (scale 1-3) acetaminoph Yes 650mg 650 mg, Un sharita en 2-15 Oral, ity of (TYLENOL) 04:19: Q6HPRN, [place] tablet 650 41 Starting Medic al mg on Mon Branch 12/04/21 at 2219, Until Discontinu ed, Routine, Pain (scale 1-3) atorvastati 2021- No [id number] 40mg Take 1 Univers n 40 mg 2-10 05-12 tablet by ity of tablet 00:00: 04:59 mouth at [place] 00 :00 bedtime Medical for 90 Branch days. atorvastati 2021- No [id number] 40mg Take 1 Univers n 40 mg 2-10 05-12 tablet by ity of tablet 00:00: 04:59 mouth at [place] 00 :00 bedtime Medical for 90 Branch days. atorvastati 2021- No [id number] 40mg Take 1 Univers n 40 mg 2-10 05-12 tablet by ity of tablet 00:00: 04:59 mouth at [place] 00 :00 bedtime Medical for 90 Branch days. atorvastati 2021- No [id number] 40mg Take 1 Univers n 40 mg 2-10 05-12 tablet by ity of tablet 00:00: 04:59 mouth at [place] 00 :00 bedtime Medical for 90 Branch days. atorvastati 2021- No [id number] 40mg Take 1 Univers n 40 mg 2-10 05-12 tablet by ity of tablet 00:00: 04:59 mouth at [place] 00 :00 bedtime Medical for 90 Branch days. FLUoxetine 2021- No [id number] 20mg Take 1 Univers 20 mg 2-10 04-12 capsule by ity of capsule 00:00: 04:59 mouth [place] 00 :00 daily for Medical 60 days. [place] FLUoxetine 2021- No [id number] 20mg Take 1 Univers 20 mg 2-10 04-12 capsule by ity of capsule 00:00: 04:59 mouth [place] 00 :00 daily for Medical 60 days. [place] FLUoxetine 2021- No [id number] 20mg Take 1 [facility] 20 mg 2-10 -12 capsule by ity of capsule 00:00: 04:59 mouth [place] 00 :00 daily for Medical 60 days. [place] FLUoxetine 2021- No [id number] 20mg Take 1 Univers 20 mg 2-10 04-12 capsule by ity of capsule 00:00: 04:59 mouth [place] 00 :00 daily for Medical 60 days. [place] FLUoxetine 2021- No [id number] 20mg Take 1 [facility] 20 mg 2-10 -12 capsule by ity of capsule 00:00: 04:59 mouth [place] 00 :00 daily for Medical 60 days. [place] FLUoxetine 2021- No [id number] 20mg Take 1 [facility] 20 mg 2-10 04-12 capsule by ity of capsule 00:00: 04:59 mouth [place] 00 :00 daily for Medical 60 days. [place] FLUoxetine 2021- No [id number] 20mg Take 1 [facility] 20 mg 2-10 -12 capsule by ity of capsule 00:00: 04:59 mouth [place] 00 :00 daily for Medical 60 days. [place] FLUoxetine 2021- No [id number] 20mg Take 1 [facility] 20 mg 2-10 -12 capsule by ity of capsule 00:00: 04:59 mouth [place] 00 :00 daily for Medical 60 days. [place] FLUoxetine 2021- No [id number] 20mg Take 1 [facility] 20 mg 2-10 04-12 capsule by ity of capsule 00:00: 04:59 mouth [place] 00 :00 daily for Medical 60 days. [place] atorvastati 2021- No [id number] 40mg Take 1 Univers n 40 mg 2-10 02-24 tablet by ity of tablet 00:00: 00:00 mouth at [place] 00 :00 bedtime Medical for 90 Branch days. Insulin Yes [id number] 10U inject 10 Un shar[facility] Glargine 1-21 Units ity of (BASAGLAR 00:00: under the [place] KWIKPEN 00 skin at Medical U-100 bedtime. Branch INSULIN) 100 unit/mL (3 mL) injection Insulin Yes [id number] 10U inject 10 Un [facility] Glargine 1-21 Units ity of (BASAGLAR 00:00: under the [place] KWIKPEN 00 skin at Medical U-100 bedtime. Branch INSULIN) 100 unit/mL (3 mL) injection Insulin Yes [id number] 10U inject 10 Un [facility] Glargine 1-21 Units ity of (BASAGLAR 00:00: under the [place] KWIKPEN 00 skin at Medical U-100 bedtime. Branch INSULIN) 100 unit/mL (3 mL) injection Insulin Yes [id number] 10U inject 10 Un [facility] Glargine 1-21 Units ity of (BASAGLAR 00:00: under the [place] KWIKP[place] 00 skin at Medical U-100 bedtime. Branch INSULIN) 100 unit/mL (3 mL) injection Insulin Yes [id number] 10U inject 10 Un [facility] Glargine 1-21 Units ity of (BASAGLAR 00:00: under the [place] KWIKPEN 00 skin at Medical U-100 bedtime. Branch INSULIN) 100 unit/mL (3 mL) injection Insulin Yes [id number] 10U inject 10 Un [facility] Glargine 1-21 Units ity of (BASAGLAR 00:00: under the [place] KWIKPEN 00 skin at Medical U-100 bedtime. Branch INSULIN) 100 unit/mL (3 mL) injection Insulin Yes [id number] 10U inject 10 Un [place] Glargine 1-21 Units ity of (BASAGLAR 00:00: under the [place] KWIKP[place] 00 skin at Medical U-100 bedtime. Branch INSULIN) 100 unit/mL (3 mL) injection Insulin Yes [id number] 10U inject 10 Un [facility] Glargine 1-21 Units ity of (BASAGLAR 00:00: under the [place] KWIKPEN 00 skin at Medical U-100 bedtime. Branch INSULIN) 100 unit/mL (3 mL) injection Insulin Yes [id number] 10U inject 10 Un [facility] Glargine 1-21 Units ity of (BASAGLAR 00:00: under the [place] KWIKPEN 00 skin at Medical U-100 bedtime. Branch INSULIN) 100 unit/mL (3 mL) injection Insulin Yes [id number] 10U inject 10 Un [place] Glargine 1-21 Units ity of (BASAGLAR 00:00: under the [place] KWIKPEN 00 skin at Medical U-100 bedtime. Branch INSULIN) 100 unit/mL (3 mL) injection Insulin Yes [id number] 10U inject 10 Un sa[place] Glargine 1-21 Units ity of (BASAGLAR 00:00: under the [place] KWIKPEN 00 skin at Medical U-100 bedtime. Branch INSULIN) 100 unit/mL (3 mL) injection Insulin Yes [id number] 10U inject 10 Un [place] Glargine 1-21 Units ity of (BASAGLAR 00:00: under the [place] KWIKPEN 00 skin at Medical U-100 bedtime. Branch INSULIN) 100 unit/mL (3 mL) injection Insulin Yes [id number] 10U inject 10 Un [place] Glargine 1-21 Units ity of (BASAGLAR 00:00: under the [place] KWIKPEN 00 skin at Medical U-100 bedtime. Branch INSULIN) 100 unit/mL (3 mL) injection Insulin Yes [id number] 10U inject 10 Un [facility] Glargine 1-21 Units ity of (BASAGLAR 00:00: under the [place] KWIKPEN 00 skin at Medical U-100 bedtime. Branch INSULIN) 100 unit/mL (3 mL) injection Insulin Yes [id number] 10U inject 10 Un [place] Glargine 1-21 Units ity of (BASAGLAR 00:00: under the [place] KWIKPEN 00 skin at Medical U-100 bedtime. Branch INSULIN) 100 unit/mL (3 mL) injection Insulin Yes [id number] 10U inject 10 Un [place] Glargine 1-21 Units ity of (BASAGLAR 00:00: under the [place] KWIKPEN 00 skin at Medical U-100 bedtime. Branch INSULIN) 100 unit/mL (3 mL) injection Insulin Yes [id number] 10U inject 10 Un [place] Glargine 1-21 Units ity of (BASAGLAR 00:00: under the [place] KWIKPEN 00 skin at Medical U-100 bedtime. Branch INSULIN) 100 unit/mL (3 mL) injection Insulin Yes [id number] 10U inject 10 Un [place] Glargine 1-21 Units ity of (BASAGLAR 00:00: under the [place] 00 skin at Medical U-100 bedtime. Branch INSULIN) 100 unit/mL (3 mL) injection Insulin Yes [id number] 10U inject 10 Un [place] Glargine 1-21 Units ity of (BASAGLAR 00:00: under the [place] 00 skin at Medical U-100 bedtime. Branch INSULIN) 100 unit/mL (3 mL) injection Insulin Yes [id number] 10U inject 10 Un [place] Glargine 1-21 Units ity of (BASAGLAR 00:00: under the [place] KWIKPEN 00 skin at Medical U-100 bedtime. Branch INSULIN) 100 unit/mL (3 mL) injection Insulin Yes [id number] 10U inject 10 Un [place] Glargine 1-21 Units ity of (BASAGLAR 00:00: under the [place]WIKPEN 00 skin at Medical U-100 bedtime. Branch INSULIN) 100 unit/mL (3 mL) injection Insulin Yes [id number] 10U inject 10 Un [place] Glargine 1-21 Units ity of (BASAGLAR 00:00: under the [place]WIKP[place] 00 skin at Medical U-100 bedtime. Branch INSULIN) 100 unit/mL (3 mL) injection Insulin Yes [id number] 10U inject 10 Un [facility] Glargine 1-21 Units ity of (BASAGLAR 00:00: under the [place] KWIKPEN 00 skin at Medical U-100 bedtime. Branch INSULIN) 100 unit/mL (3 mL) injection lanolin Yes [id number] Apply to U nivers alcohol-mo- 1-20 area(s) 2 ity of w.pet-ceres 00:00: (two) [place] Crea cream 00 times Medical daily. Branch levETIRAcet 2022-0 Yes [id number] 500mg Take 1 Univers am 500 mg 1-20 tablet by ity o f tablet 00:00: mouth 2 [place] 00 (two) Medical times Branch daily. lanolin 2022-0 Yes [id number] Apply to U nivers alcohol-mo- 1-20 area(s) 2 ity of w.pet-ceres 00:00: (two) [place] Crea cream 00 times Medical daily. Branch levETIRAcet 2-0 Yes [id number] 500mg Take 1 Univers am 500 mg 1-20 tablet by ity o f tablet 00:00: mouth 2 (two) Medical times Branch daily. lanolin 2022-0 Yes [id number] Apply to U nivers alcohol-mo- 1-20 area(s) 2 ity of w.pet-ceres 00:00: (two) [place] Crea cream 00 times Medical daily. Branch levETIRAcet 2-0 Yes [id number] 500mg Take 1 Univers am 500 mg 1-20 tablet by ity o f tablet 00:00: mouth 2 (two) Medical times Branch daily. lanolin 2-0 Yes [id number] Apply to U nivers alcohol-mo- 1-20 area(s) 2 ity of w.pet-ceres 00:00: (two) [place] Crea cream 00 times Medical daily. Branch levETIRAcet 2-0 Yes [id number] 500mg Take 1 [facility] am 500 mg 1-20 tablet by ity o f tablet 00:00: mouth 2 (two) Medical times Branch daily. lanolin 2022-0 Yes [id number] Apply to U nivers alcohol-mo- 1-20 area(s) 2 ity of w.pet-ceres 00:00: (two) [place] Crea cream 00 times Medical daily. Branch levETIRAcet 2022-0 Yes [id number] 500mg Take 1 [facility] am 500 mg 1-20 tablet by ity o f tablet 00:00: mouth 2 00 (two) Medical times Branch daily. lanolin 2022-0 Yes [id number] Apply to U nivers alcohol-mo- 1-20 area(s) 2 ity of w.pet-ceres 00:00: (two) [place] Crea cream 00 times Medical daily. Branch levETIRAcet 2022-0 Yes [id number] 500mg Take 1 [facility] am 500 mg 1-20 tablet by ity o f tablet 00:00: mouth 2 [place] 00 (two) Medical times Branch daily. lanolin 2022-0 Yes [id number] Apply to U nivers alcohol-mo- 1-20 area(s) 2 ity of w.pet-ceres 00:00: (two) [place] Crea cream 00 times Medical daily. Branch levETIRAcet 2-0 Yes [id number] 500mg Take 1 [facility] am 500 mg 1-20 tablet by ity o f tablet 00:00: mouth 2 (two) Medical times Branch daily. lanolin 2022-0 Yes [id number] Apply to U nivers alcohol-mo- 1-20 area(s) 2 ity of w.pet-ceres 00:00: (two) [place] Crea cream 00 times Medical daily. Branch levETIRAcet 2-0 Yes [id number] 500mg Take 1 [facility] am 500 mg 1-20 tablet by ity o f tablet 00:00: mouth 2 (two) Medical times Branch daily. lanolin 2-0 Yes [id number] Apply to U nivers alcohol-mo- 1-20 area(s) 2 ity of w.pet-ceres 00:00: (two) [place] Crea cream 00 times Medical daily. Branch levETIRAcet 2-0 Yes [id number] 500mg Take 1 [facility] am 500 mg 1-20 tablet by ity o f tablet 00:00: mouth 2 (two) Medical times Branch daily. lanolin 2022-0 Yes [id number] Apply to U nivers alcohol-mo- 1-20 area(s) 2 ity of w.pet-ceres 00:00: (two) [place] Crea cream 00 times Medical daily. Branch levETIRAcet 2022-0 Yes [id number] 500mg Take 1 [facility] am 500 mg 1-20 tablet by ity o f tablet 00:00: mouth 2 00 (two) Medical times Branch daily. lanolin 2022-0 Yes [id number] Apply to U nivers alcohol-mo- 1-20 area(s) 2 ity of w.pet-ceres 00:00: (two) [place] Crea cream 00 times Medical daily. Branch levETIRAcet 2022-0 Yes [id number] 500mg Take 1 [facility] am 500 mg 1-20 tablet by ity o f tablet 00:00: mouth 2 [place] 00 (two) Medical times Branch daily. lanolin 2022-0 Yes [id number] Apply to U nivers alcohol-mo- 1-20 area(s) 2 ity of w.pet-ceres 00:00: (two) [place] Crea cream 00 times Medical daily. Branch levETIRAcet 2-0 Yes [id number] 500mg Take 1 [facility] am 500 mg 1-20 tablet by ity o f tablet 00:00: mouth 2 (two) Medical times Branch daily. lanolin 2022-0 Yes [id number] Apply to U nivers alcohol-mo- 1-20 area(s) 2 ity of w.pet-ceres 00:00: (two) [place] Crea cream 00 times Medical daily. Branch levETIRAcet 2-0 Yes [id number] 500mg Take 1 [facility] am 500 mg 1-20 tablet by ity o f tablet 00:00: mouth 2 (two) Medical times Branch daily. lanolin 2-0 Yes [id number] Apply to U nivers alcohol-mo- 1-20 area(s) 2 ity of w.pet-ceres 00:00: (two) [place] Crea cream 00 times Medical daily. Branch levETIRAcet 2-0 Yes [id number] 500mg Take 1 [facility] am 500 mg 1-20 tablet by ity o f tablet 00:00: mouth 2 (two) Medical times Branch daily. lanolin 2022-0 Yes [id number] Apply to U nivers alcohol-mo- 1-20 area(s) 2 ity of w.pet-ceres 00:00: (two) [place] Crea cream 00 times Medical daily. Branch levETIRAcet 2022-0 Yes [id number] 500mg Take 1 [facility] am 500 mg 1-20 tablet by ity o f tablet 00:00: mouth 2 00 (two) Medical times Branch daily. lanolin 2022-0 Yes [id number] Apply to U nivers alcohol-mo- 1-20 area(s) 2 ity of w.pet-ceres 00:00: (two) [place] Crea cream 00 times Medical daily. Branch levETIRAcet 2022-0 Yes [id number] 500mg Take 1 [facility] am 500 mg 1-20 tablet by ity o f tablet 00:00: mouth 2 [place] 00 (two) Medical times Branch daily. lanolin 2022-0 Yes [id number] Apply to U nivers alcohol-mo- 1-20 area(s) 2 ity of w.pet-ceres 00:00: (two) [place] Crea cream 00 times Medical daily. Branch levETIRAcet 2-0 Yes [id number] 500mg Take 1 [facility] am 500 mg 1-20 tablet by ity o f tablet 00:00: mouth 2 (two) Medical times Branch daily. lanolin 2022-0 Yes [id number] Apply to U nivers alcohol-mo- 1-20 area(s) 2 ity of w.pet-ceres 00:00: (two) [place] Crea cream 00 times Medical daily. Branch levETIRAcet 2-0 Yes [id number] 500mg Take 1 [facility] am 500 mg 1-20 tablet by ity o f tablet 00:00: mouth 2 (two) Medical times Branch daily. lanolin 2-0 Yes [id number] Apply to U nivers alcohol-mo- 1-20 area(s) 2 ity of w.pet-ceres 00:00: (two) [place] Crea cream 00 times Medical daily. Branch levETIRAcet 2-0 Yes [id number] 500mg Take 1 [facility] am 500 mg 1-20 tablet by ity o f tablet 00:00: mouth 2 (two) Medical times Branch daily. lanolin 2022-0 Yes [id number] Apply to U nivers alcohol-mo- 1-20 area(s) 2 ity of w.pet-ceres 00:00: (two) [place] Crea cream 00 times Medical daily. Branch levETIRAcet 2022-0 Yes [id number] 500mg Take 1 [facility] am 500 mg 1-20 tablet by ity o f tablet 00:00: mouth 2 00 (two) Medical times Branch daily. lanolin 2022-0 Yes [id number] Apply to U nivers alcohol-mo- 1-20 area(s) 2 ity of w.pet-ceres 00:00: (two) [place] Crea cream 00 times Medical daily. Branch levETIRAcet 2021-0 Yes [id number] 500mg Take 1 [facility] am 500 mg 1-20 tablet by ity o f tablet 00:00: mouth 2 [place] 00 (two) Medical times Branch daily. lanolin 2021-0 Yes [id number] Apply to U nivers alcohol-mo- 1-20 area(s) 2 ity of w.pet-ceres 00:00: (two) [place] Crea cream 00 times Medical daily. Branch levETIRAcet 0 Yes [id number] 500mg Take 1 [facility] am 500 mg 1-20 tablet by ity o f tablet 00:00: mouth 2 00 (two) Medical times Branch daily. lanolin 2021-0 Yes [id number] Apply to [facility] [place] alcohol-mo- 1-20 area(s) 2 ity of w.pet-ceres 00:00: (two) [place] Crea cream 00 times Medical daily. Branch levETIRAcet 2021-0 Yes [id number] 500mg Take 1 [facility] am 500 mg 1-20 tablet by ity o f tablet 00:00: mouth 2 00 (two) Medical times Branch daily. aspirin 81 2020- Yes 81mg Take 1 Unive rs mg chewable 0-14 tablet by ity of tablet 00:00: mouth [place] 00 daily. Medical Branch aspirin 81 2020- Yes 81mg Take 1 Unive rs mg chewable 0-14 tablet by ity of tablet 00:00: mouth [place] 00 daily. Medical Branch aspirin 81 2020- Yes 81mg Take 1 Unive rs mg chewable 0-14 tablet by ity of tablet 00:00: mouth [place] 00 daily. Medical Branch aspirin 81 2020- Yes 81mg Take 1 Unive rs mg chewable 0-14 tablet by ity of tablet 00:00: mouth [place] 00 daily. Medical Branch aspirin 81 2020- Yes 81mg Take 1 Unive rs mg chewable 0-14 tablet by ity of tablet 00:00: mouth [place] 00 daily. Medical Branch aspirin 81 2020- Yes 81mg Take 1 Unive rs mg chewable 0-14 tablet by ity of tablet 00:00: mouth [place] 00 daily. Medical Branch aspirin 81 2020-1 Yes 81mg Take 1 Unive rs mg chewable 0-14 tablet by ity of tablet 00:00: mouth [place] 00 daily. Medical Branch aspirin 81 2020-10 Yes 81mg Take 1 Unive rs mg chewable 0-14 tablet by ity of tablet 00:00: mouth [place] 00 daily. Medical Branch aspirin 81 2020-10 Yes 81mg Take 1 Unive rs mg chewable 0-14 tablet by ity of tablet 00:00: mouth [place] 00 daily. Medical Branch aspirin 81 2020-10 Yes 81mg Take 1 [facility] mg chewable 0-14 tablet by ity of tablet 00:00: mouth [place] 00 daily. [facility] aspirin 81 2020-10 Yes 81mg Take 1 [facility] mg chewable 0-14 tablet by ity of tablet 00:00: mouth [place] 00 daily. [facility] aspirin 81 2020-10 Yes 81mg Take 1 [facility] mg chewable 0-14 tablet by ity of tablet 00:00: mouth [place] 00 daily. [facility] aspirin 81 2020-10 Yes 81mg Take 1 [facility] mg chewable 0-14 tablet by ity of tablet 00:00: mouth [place] 00 daily. [facility] aspirin 81 2020-10 Yes 81mg Take 1 [facility] mg chewable 0-14 tablet by ity of tablet 00:00: mouth [place] 00 daily. [facility] aspirin 81 2020-10 Yes 81mg Take 1 [facility] mg chewable 0-14 tablet by ity of tablet 00:00: mouth [place] 00 daily. [facility] aspirin 81 2020-10 Yes 81mg Take 1 [facility] mg chewable 0-14 tablet by ity of tablet 00:00: mouth [place] 00 daily. [facility] aspirin 81 2020- Yes 81mg Take 1 [facility] mg chewable 0-14 tablet by ity of tablet 00:00: mouth [place] 00 daily. [facility] aspirin 81 2020- Yes 81mg Take 1 [facility] mg chewable 0-14 tablet by ity of tablet 00:00: mouth [place] 00 daily. [facility] aspirin 81 2020- Yes 81mg Take 1 [facility] mg chewable 0-14 tablet by ity of tablet 00:00: mouth [place] 00 daily. [facility] aspirin 81 2020- Yes 81mg Take 1 [facility] mg chewable 0-14 tablet by ity of tablet 00:00: mouth [place] 00 daily. [facility] aspirin 81 2020-10 Yes 81mg Take 1 [facility] mg chewable 0-14 tablet by ity of tablet 00:00: mouth [place] 00 daily. [facility] aspirin 81 2020-10 Yes 81mg Take 1 [facility] mg chewable 0-14 tablet by ity of tablet 00:00: mouth [place] 00 daily. [facility] aspirin 81 2020-10 Yes 81mg Take 1 [facility] mg chewable 0-14 tablet by ity of tablet 00:00: mouth [place] 00 daily. [facility] aspirin 81 2020-10 Yes 81mg Take 1 [facility] mg chewable 0-14 tablet by ity of tablet 00:00: mouth [place] 00 daily. [facility] ondansetron 0 Yes [id number] 4mg Take 1 [facility] (ZOFRAN 5-30 tablet by ity of ODT) 4 mg 00:00: mouth [place] disintegrat 00 every 8 Medic al ing tablet (eight) Branch hours as needed for Nausea and Vomiting (N/V). ondansetron 0 Yes [id number] 4mg Take 1 [facility] (ZOFRAN 5-30 tablet by ity of ODT) 4 mg 00:00: mouth [place] disintegrat 00 every 8 Medic al ing tablet (eight) Branch hours as needed for Nausea and Vomiting (N/V). ondansetron Yes [id number] 4mg Take 1 [facility] (ZOFRAN 5-30 tablet by ity of ODT) 4 mg 00:00: mouth [place] disintegr[facility] 00 every 8 Medic al ing tablet (eight) Branch hours as needed for Nausea and Vomiting (N/V). ondansetron 0 Yes [id number] 4mg Take 1 [facility] (ZOFRAN 5-30 tablet by ity of ODT) 4 mg 00:00: mouth [place] dis[facility] 00 every 8 Medic al ing tablet (eight) Branch hours as needed for Nausea and Vomiting (N/V). ondansetron 2020-0 Yes [id number] 4mg Take 1 [facility] (ZOFRAN 5-30 tablet by ity of ODT) 4 mg 00:00: mouth [place] disintegr[facility] 00 every 8 Medic al ing tablet (eight) Branch hours as needed for Nausea and Vomiting (N/V). ondansetron 0 Yes [id number] 4mg Take 1 [facility] (ZOFRAN 5-30 tablet by ity of ODT) 4 mg 00:00: mouth [place] disintegrat 00 every 8 Medic al ing tablet (eight) Branch hours as needed for Nausea and Vomiting (N/V). ondansetron 2021-0 Yes [id number] 4mg Take 1 [facility] (ZOFRAN 5-30 tablet by ity of ODT) 4 mg 00:00: mouth [place] disintegrat 00 every 8 Medic al ing tablet (eight) Branch hours as needed for Nausea and Vomiting (N/V). ondansetron 2021-0 Yes [id number] 4mg Take 1 [facility] (ZOFRAN 5-30 tablet by ity of ODT) 4 mg 00:00: mouth [place] disintegrat 00 every 8 Medic al ing tablet (eight) Branch hours as needed for Nausea and Vomiting (N/V). ondansetron 2021-0 Yes [id number] 4mg Take 1 [facility] (ZOFRAN 5-30 tablet by ity of ODT) 4 mg 00:00: mouth [place] disintegrat 00 every 8 Medic al ing tablet (eight) Branch hours as needed for Nausea and Vomiting (N/V). ondansetron 1-0 Yes [id number] 4mg Take 1 [facility] (ZOFRAN 5-30 tablet by ity of ODT) 4 mg 00:00: mouth [place] disintegrat 00 every 8 Medic al ing tablet (eight) Branch hours as needed for Nausea and Vomiting (N/V). ondansetron 2021-0 Yes [id number] 4mg Take 1 [facility] (ZOFRAN 5-30 tablet by ity of ODT) 4 mg 00:00: mouth [place] disintegrat 00 every 8 Medic al ing tablet (eight) Branch hours as needed for Nausea and Vomiting (N/V). ondansetron 2021-0 Yes [id number] 4mg Take 1 [facility] (ZOFRAN 5-30 tablet by ity of ODT) 4 mg 00:00: mouth [place] disintegrat 00 every 8 Medic al ing tablet (eight) Branch hours as needed for Nausea and Vomiting (N/V). ondansetron 2021-0 Yes [id number] 4mg Take 1 [facility] (ZOFRAN 5-30 tablet by ity of ODT) 4 mg 00:00: mouth [place] disintegrat 00 every 8 Medic al ing tablet (eight) Branch hours as needed for Nausea and Vomiting (N/V). ondansetron 2021-0 Yes [id number] 4mg Take 1 [facility] (ZOFRAN 5-30 tablet by ity of ODT) 4 mg 00:00: mouth [place] disintegrat 00 every 8 Medic al ing tablet (eight) Branch hours as needed for Nausea and Vomiting (N/V). ondansetron 2021-0 Yes [id number] 4mg Take 1 [facility] (ZOFRAN 5-30 tablet by ity of ODT) 4 mg 00:00: mouth [place] disintegr[facility] 00 every 8 Medic al ing tablet (eight) Branch hours as needed for Nausea and Vomiting (N/V). ondansetron 2021-0 Yes [id number] 4mg Take 1 [facility] (ZOFRAN 5-30 tablet by ity of ODT) 4 mg 00:00: mouth [place] disintegrat 00 every 8 Medic al ing tablet (eight) Branch hours as needed for Nausea and Vomiting (N/V). ondansetron 2021-0 Yes [id number] 4mg Take 1 [facility] (ZOFRAN 5-30 tablet by ity of ODT) 4 mg 00:00: mouth [place] disintegrat 00 every 8 Medic al ing tablet (eight) Branch hours as needed for Nausea and Vomiting (N/V). ondansetron 1-0 Yes [id number] 4mg Take 1 [facility] (ZOFRAN 5-30 tablet by ity of ODT) 4 mg 00:00: mouth [place] disintegrat 00 every 8 Medic al ing tablet (eight) Branch hours as needed for Nausea and Vomiting (N/V). ondansetron 2021-0 Yes [id number] 4mg Take 1 [facility] (ZOFRAN 5-30 tablet by ity of ODT) 4 mg 00:00: mouth [place] disintegrat 00 every 8 Medic al ing tablet (eight) Branch hours as needed for Nausea and Vomiting (N/V). ondansetron 2021-0 Yes [id number] 4mg Take 1 [facility] (ZOFRAN 5-30 tablet by ity of ODT) 4 mg 00:00: mouth [place] disintegrat 00 every 8 Medic al ing tablet (eight) Branch hours as needed for Nausea and Vomiting (N/V). ondansetron 2021-0 Yes [id number] 4mg Take 1 [facility] (ZOFRAN 5-30 tablet by ity of ODT) 4 mg 00:00: mouth [place] disintegrat 00 every 8 Medic al ing tablet (eight) Branch hours as needed for Nausea and Vomiting (N/V). ondansetron 2020-0 Yes [id number] 4mg Take 1 [facility] (ZOFRAN 5-30 tablet by ity of ODT) 4 mg 00:00: mouth [place] disintegrat 00 every 8 Medic al ing tablet (eight) Branch hours as needed for Nausea and Vomiting (N/V). ondansetron 2020-0 Yes [id number] 4mg Take 1 [facility] (ZOFRAN 5-30 tablet by ity of ODT) 4 mg 00:00: mouth [place] disintegrat 00 every 8 Medic al ing tablet (eight) Branch hours as needed for Nausea and Vomiting (N/V). ondansetron 2020-0 Yes [id number] 4mg Take 1 [facility] (ZOFRAN 5-30 tablet by ity of ODT) 4 mg 00:00: mouth [place] disintegrat 00 every 8 Medic al ing tablet (eight) Branch hours as needed for Nausea and Vomiting (N/V). ergocalcife 2020-0 Yes [id number] [facility]ENN[facility] rol, 3-11 CAPSULA ity of vitamin d2, 00:00: [place]CE [place]250 mcg 00 WEEK [facility] (50,000 Branch unit) capsule calcium 2020-0 Yes [id number] 667mg Take 1 [facility] ers acetate,severino 3-11 capsule by it y of sphat bind, 00:00: mouth 3 [place] 667 mg 00 (three) Medical capsule times Branch daily with meals. ergocalcife 2020-0 Yes [id number] [facility] rol, 3-11 CAPSULA ity of vitamin d2, 00:00: [place]CE [place] 1[place]250 mcg 00 WEEK [facility] (50,000 Branch unit) capsule calcium 2020-0 Yes [id number] 667mg Take 1 [facility] ers acetate,severino 3-11 capsule by it y of sphat bind, 00:00: mouth [facility] [place] 667 mg 00 (three) Medical capsule times Branch daily with meals. ergocalcife 2020-0 Yes [id number] [employer] [employer] rol, 3-11 CAPSULA ity of vitamin d2, 00:00: [place]CE [place] 1,250 mcg 00 WEEK Medical (50,000 Branch unit) capsule calcium 2020-0 Yes 667mg Take 1 [facility] ers acetate,severino 3-11 capsule by it y of sphat bind, 00:00: mouth [place] 667 mg 00 (three) Medical capsule times Branch daily with meals. ergocalcife 0 Yes [id number] [facility] rol, 3-11 CAPSULA ity of vitamin d2, 00:00: [place]CE [place] 1,250 mcg 00 WEEK Medical (50,000 Branch unit) capsule calcium 2020-0 Yes 667mg Take 1 [facility] ers acetate,severino 3-11 capsule by it y of sphat bind, 00:00: mouth [place] 667 mg 00 (three) Medical capsule times Branch daily with meals. ergocalcife 0 Yes [id number] [facility] [employer] rol, 3-11 CAPSULA ity of vitamin d2, 00:00: [place]CE [place] 1,250 mcg 00 WEEK Medical (50,000 Branch unit) capsule calcium 2020-0 Yes 667mg Take 1 [facility] ers acetate,severino 3-11 capsule by it y of sphat bind, 00:00: mouth [place] 667 mg 00 (three) Medical capsule times Branch daily with meals. ergocalcife 0 Yes [id number] [facility] rol, 3-11 CAPSULA ity of vitamin d2, 00:00: ONCE [place] 1,250 mcg 00 WEEK Medical (50,000 Branch unit) capsule calcium 2020-0 Yes 667mg Take 1 [facility] ers acetate,severino 3-11 capsule by it y of sphat bind, 00:00: mouth [place] 667 mg 00 (three) Medical capsule times Branch daily with meals. ergocalcife 0 Yes [id number] [facility] rol, 3-11 CAPSULA ity of vitamin d2, 00:00: ONCE [place] 1,250 mcg 00 WEEK Medical (50,000 Branch unit) capsule calcium 2020-0 Yes 667mg Take 1 [facility] ers acetate,severino 3-11 capsule by it y of sphat bind, 00:00: mouth 3 [place] 667 mg 00 (three) Medical capsule times Branch daily with meals. ergocalcife 2021-0 Yes [id number] [facility] [employer] rol, 3-11 CAPSULA ity of vitamin d2, 00:00: ONCE [place] 1,250 mcg 00 WEEK Medical (50,000 Branch unit) capsule calcium 2020-0 Yes 667mg Take 1 [facility] ers acetate,severino 3-11 capsule by it y of sphat bind, 00:00: mouth [facility] [place] 667 mg 00 (three) Medical capsule times Branch daily with meals. ergocalcife 0 Yes [id number] [facility] rol, 3-11 CAPSULA ity of vitamin d2, 00:00: ONCE [place] 1,250 mcg 00 WEEK Medical (50,000 Branch unit) capsule calcium 2020-0 Yes 667mg Take 1 [facility] ers acetate,severino 3-11 capsule by it y of sphat bind, 00:00: mouth 3 [place] 667 mg 00 (three) Medical capsule times Branch daily with meals. ergocalcife 0 Yes [id number] [facility] rol, 3-11 CAPSULA ity of vitamin d2, 00:00: ONCE [place] 1,250 mcg 00 WEEK Medical (50,000 Branch unit) capsule calcium 2020-0 Yes 667mg Take 1 [facility] ers acetate,severino 3-11 capsule by it y of sphat bind, 00:00: mouth 3 [place] 667 mg 00 (three) Medical capsule times Branch daily with meals. ergocalcife 0 Yes [id number] [facility] [employer] rol, 3-11 CAPSULA ity of vitamin d2, 00:00: ONCE [place] 1,250 mcg 00 WEEK Medical (50,000 Branch unit) capsule calcium 2020-0 Yes 667mg Take 1 [facility] ers acetate,severino 3-11 capsule by it y of sphat bind, 00:00: mouth 3 [place] 667 mg 00 (three) Medical capsule times Branch daily with meals. ergocalcife 2020-0 Yes [id number] [facility] rol, 3-11 CAPSULA ity of vitamin d2, 00:00: ONCE [place] 1,250 mcg 00 WEEK Medical (50,000 Branch unit) capsule calcium 2020-0 Yes 667mg Take 1 [facility] ers acetate,severino 3-11 capsule by it y of sphat bind, 00:00: mouth 3 [place] 667 mg 00 (three) Medical capsule times Branch daily with meals. ergocalcife 2020-0 Yes [id number] [facility] rol, 3-11 CAPSULA ity of vitamin d2, 00:00: ONCE [place] 1,250 mcg 00 WEEK Medical (50,000 Branch unit) capsule calcium 2020-0 Yes [id number] 667mg Take 1 [facility] ers acetate,severino 3-11 capsule by it y of sphat bind, 00:00: mouth 3 [place] 667 mg 00 (three) Medical capsule times Branch daily with meals. ergocalcife 2020-0 Yes [id number] [facility] rol, 3-11 CAPSULA ity of vitamin d2, 00:00: ONCE [place] 1,250 mcg 00 WEEK Medical (50,000 Branch unit) capsule calcium 2020-0 Yes [id number] 667mg Take 1 [facility] ers acetate,severino 3-11 capsule by it y of sphat bind, 00:00: mouth 3 [place] 667 mg 00 (three) Medical capsule times Branch daily with meals. ergocalcife 0 Yes [id number] [facility] rol, 3-11 CAPSULA ity of vitamin d2, 00:00: ONCE [place] 1,250 mcg 00 WEEK Medical (50,000 Branch unit) capsule calcium 2020-0 Yes [id number] 667mg Take 1 [facility] ers acetate,severino 3-11 capsule by it y of sphat bind, 00:00: mouth 3 [place] 667 mg 00 (three) Medical capsule times Branch daily with meals. ergocalcife 2020-0 Yes [id number] [facility] rol, 3-11 CAPSULA ity of vitamin d2, 00:00: ONCE [place] 1,250 mcg 00 WEEK Medical (50,000 Branch unit) capsule calcium 2020-0 Yes [id number] 667mg Take 1 [facility] ers acetate,severino 3-11 capsule by it y of sphat bind, 00:00: mouth 3 [place] 667 mg 00 (three) Medical capsule times Branch daily with meals. ergocalcife 2020-0 Yes [id number] [facility] rol, 3-11 CAPSULA ity of vitamin d2, 00:00: ONCE [place] 1,250 mcg 00 WEEK Medical (50,000 Branch unit) capsule calcium 2020-0 Yes 667mg Take 1 [facility] ers acetate,severino 3-11 capsule by it y of sphat bind, 00:00: mouth 3 [place] 667 mg 00 (three) Medical capsule times Branch daily with meals. ergocalcife 0 Yes [id number] [facility] rol, 3-11 CAPSULA ity of vitamin d2, 00:00: ONCE A [place] 1,250 mcg 00 WEEK Medical (50,000 Branch unit) capsule calcium 2020-0 Yes 667mg Take 1 [facility] ers acetate,severino 3-11 capsule by it y of sphat bind, 00:00: mouth 3 [place] 667 mg 00 (three) Medical capsule times Branch daily with meals. ergocalcife Yes [id number] [facility] rol, 3-11 CAPSULA ity of vitamin d2, 00:00: ONCE A [place] 1,250 mcg 00 WEEK Medical (50,000 Branch unit) capsule calcium 2020-0 Yes 667mg Take 1 [facility] ers acetate,severino 3-11 capsule by it y of sphat bind, 00:00: mouth 3 [place] 667 mg 00 (three) Medical capsule times Branch daily with meals. ergocalcife 0 Yes [id number] [facility] rol, 3-11 CAPSULA ity of vitamin d2, 00:00: ONCE [place] 1,250 mcg 00 WEEK Medical (50,000 Branch unit) capsule calcium 2020-0 Yes 667mg Take 1 [facility] ers acetate,severino 3-11 capsule by it y of sphat bind, 00:00: mouth 3 [place] 667 mg 00 (three) Medical capsule times Branch daily with meals. ergocalcife 0 Yes [id number] [facility] rol, 3-11 CAPSULA ity of vitamin d2, 00:00: ONCE [place] 1,250 mcg 00 WEEK Medical (50,000 Branch unit) capsule calcium 2020-0 Yes 667mg Take 1 [facility] ers acetate,severino 3-11 capsule by it y of sphat bind, 00:00: mouth 3 [place] 667 mg 00 (three) Medical capsule times Branch daily with meals. ergocalcife 2020-0 Yes [id number] [facility] rol, 3-11 CAPSULA ity of vitamin d2, 00:00: ONCE [place] 1,250 mcg 00 WEEK Medical (50,000 Branch unit) capsule calcium 2020-0 Yes [id number] 667mg Take 1 Univ ers acetate,severino 3-11 capsule by it y of sphat bind, 00:00: mouth 3 [place] 667 mg 00 (three) Medical capsule times Branch daily with meals. ergocalcife 0 Yes [id number] [facility] rol, 3-11 CAPSULA ity of vitamin d2, 00:00: ONCE A [place] 1,250 mcg 00 WEEK Medical (50,000 Branch unit) capsule calcium 2020-0 Yes [id number] 667mg Take 1 [facility] ers acetate,severino 3-11 capsule by it y of sphat bind, 00:00: mouth 3 [place] 667 mg 00 (three) Medical capsule times Branch daily with meals. ergocalcife Yes [id number] [facility] rol, 3-11 CAPSULA ity of vitamin d2, 00:00: ONCE [place] 1,250 mcg 00 WEEK Medical (50,000 Branch unit) capsule calcium 2020-0 Yes [id number] 667mg Take 1 Univ ers acetate,severino 3-11 capsule by it y of sphat bind, 00:00: mouth 3 [place] 667 mg 00 (three) Medical capsule times Branch daily with meals. Immunizations Ordered Filled Date Status Comments Source Immunization Name Immunization Name Influenza Virus 2021-08-07 Completed [facility] Vaccine 00:00:00 [facility] Influenza Virus 2021-08-07 Completed [facility] y of Vaccine 00:00:00 [facility] Influenza Virus 2021-08-07 Completed [facility] y of Vaccine 00:00:00 [facility] Influenza Virus 2021-08-07 Completed [facility] y of Vaccine 00:00:00 [facility] Influenza Virus 2021-08-07 Completed [facility] y of Vaccine 00:00:00 [facility] Influenza Virus 2021-08-07 Completed Universit y of Vaccine 00:00:00 [facility] Influenza Virus 2021-08-07 Completed [facility] y of Vaccine 00:00:00 [facility] Influenza Virus 2021-08-07 Completed [facility] y of Vaccine 00:00:00 [place] [facility] Influenza Virus 2021-08-07 Completed [facility] y of Vaccine 00:00:00 [facility] Influenza Virus 2021-08-07 Completed [facility] y of Vaccine 00:00:00 [facility] Influenza Virus 2021-08-07 Completed [facility] y of Vaccine 00:00:00 [facility] Influenza Virus 2021-08-07 Completed [facility]it y of Vaccine 00:00:00 [facility] Influenza Virus 2021-08-07 Completed [facility]it y of Vaccine 00:00:00 [facility] Influenza Virus 2021-08-07 Completed [facility] y of Vaccine 00:00:00 [facility] Influenza Virus 2021-08-07 Completed [facility] y of Vaccine 00:00:00 [facility] Influenza Virus 2021-08-07 Completed Universit y of Vaccine 00:00:00 [facility] Influenza Virus 2021-08-07 Completed [facility]it y of Vaccine 00:00:00 [facility] Influenza Virus 2021-08-07 Completed Univers[facility] y of Vaccine 00:00:00 [facility] Influenza Virus 2021-08-07 Completed Universit y of Vaccine 00:00:00 [facility] Influenza Virus 2021-08-07 Completed Universit y of Vaccine 00:00:00 [facility] Influenza Virus 2021-08-07 Completed Universit y of Vaccine 00:00:00 [facility] Influenza Virus 2021-08-07 Completed Univers[facility] y of Vaccine 00:00:00 [facility] SARS-COV-2 COVID-19 2021-02-17 Completed Unive rsity of PFIZER VACCINE 00:00:00 [facility] [place] [facility] SARS-COV-2 COVID-19 2021-02-17 Completed Unive rsity of PFIZER VACCINE 00:00:00 [facility] [place] [facility] SARS-COV-2 COVID-19 2021-02-17 Completed Unive rsity of PFIZER VACCINE 00:00:00 [facility] [place] [facility] SARS-COV-2 COVID-19 2021-02-17 Completed Unive rsity of PFIZER VACCINE 00:00:00 [facility] [place] [facility] SARS-COV-2 COVID-19 2021-02-17 Completed Unive rsity of PFIZER VACCINE 00:00:00 [facility] [place] [facility] SARS-COV-2 COVID-19 2021-02-17 Completed Unive rsity of PFIZER VACCINE 00:00:00 [place] [facility] SARS-COV-2 COVID-19 2021-02-17 Completed Unive rsity of PFIZER VACCINE 00:00:00 [facility] Branch SARS-COV-2 COVID-19 2021-02-17 Completed Unive rsity of PFIZER VACCINE 00:00:00 [facility] Branch SARS-COV-2 COVID-19 2021-02-17 Completed Unive rsity of PFIZER VACCINE 00:00:00 [facility] Branch SARS-COV-2 COVID-19 2021-02-17 Completed Unive rsity of PFIZER VACCINE 00:00:00 [facility] Branch SARS-COV-2 COVID-19 2021-02-17 Completed Unive rsity of PFIZER VACCINE 00:00:00 [facility] Branch SARS-COV-2 COVID-19 2021-02-17 Completed Unive rsity of PFIZER VACCINE 00:00:00 [facility] Branch SARS-COV-2 COVID-19 2021-02-17 Completed Unive rsity of PFIZER VACCINE 00:00:00 [facility] Branch SARS-COV-2 COVID-19 2021-02-17 Completed Unive rsity of PFIZER VACCINE 00:00:00 [facility] Branch SARS-COV-2 COVID-19 2021-02-17 Completed Unive rsity of PFIZER VACCINE 00:00:00 [facility] Branch SARS-COV-2 COVID-19 2021-02-17 Completed Unive rsity of PFIZER VACCINE 00:00:00 [facility] Branch SARS-COV-2 COVID-19 2021-02-17 Completed Unive rsity of PFIZER VACCINE 00:00:00 [facility] Branch SARS-COV-2 COVID-19 2021-02-17 Completed Unive rsity of PFIZER VACCINE 00:00:00 [facility] Branch SARS-COV-2 COVID-19 2021-02-17 Completed Unive rsity of PFIZER VACCINE 00:00:00 [facility] Branch SARS-COV-2 COVID-19 2021-02-17 Completed Unive rsity of PFIZER VACCINE 00:00:00 [facility] Branch SARS-COV-2 COVID-19 2021-02-17 Completed Unive rsity of PFIZER VACCINE 00:00:00 [facility] Branch SARS-COV-2 COVID-19 2021-02-17 Completed Unive rsity of PFIZER VACCINE 00:00:00 [facility] Branch SARS-COV-2 COVID-19 2021-01-27 Completed Unive rsity of PFIZER VACCINE 00:00:00 [facility] Branch SARS-COV-2 COVID-19 2021-01-27 Completed Unive rsity of PFIZER VACCINE 00:00:00 [facility] [place] [facility] SARS-COV-2 COVID-19 2021-01-27 Completed Unive rsity of PFIZER VACCINE 00:00:00 [facility] Branch SARS-COV-2 COVID-19 2021-01-27 Completed Unive rsity of PFIZER VACCINE 00:00:00 [facility] Branch SARS-COV-2 COVID-19 2021-01-27 Completed Unive rsity of PFIZER VACCINE 00:00:00 [facility] Branch SARS-COV-2 COVID-19 2021-01-27 Completed Unive rsity of PFIZER VACCINE 00:00:00 [facility] Branch SARS-COV-2 COVID-19 2021-01-27 Completed Unive rsity of PFIZER VACCINE 00:00:00 [facility] Branch SARS-COV-2 COVID-19 2021-01-27 Completed Unive rsity of PFIZER VACCINE 00:00:00 [facility] Branch SARS-COV-2 COVID-19 2021-01-27 Completed Unive rsity of PFIZER VACCINE 00:00:00 [facility] Branch SARS-COV-2 COVID-19 2021-01-27 Completed Unive rsity of PFIZER VACCINE 00:00:00 [facility] [place] [facility] SARS-COV-2 COVID-19 2021-01-27 Completed Unive rsity of PFIZER VACCINE 00:00:00 [facility] Branch SARS-COV-2 COVID-19 2021-01-27 Completed Unive rsity of PFIZER VACCINE 00:00:00 [facility] Branch SARS-COV-2 COVID-19 2021-01-27 Completed Unive rsity of PFIZER VACCINE 00:00:00 [facility] Branch SARS-COV-2 COVID-19 2021-01-27 Completed Unive rsity of PFIZER VACCINE 00:00:00 [facility] [place] [facility] SARS-COV-2 COVID-19 2021-01-27 Completed Unive rsity of PFIZER VACCINE 00:00:00 [facility] [place] [facility] SARS-COV-2 COVID-19 2021-01-27 Completed Unive rsity of PFIZER VACCINE 00:00:00 [facility] [place] [facility] SARS-COV-2 COVID-19 2021-01-27 Completed Unive rsity of PFIZER VACCINE 00:00:00 [facility] SARS-COV-2 COVID-19 2021-01-27 Completed Unive rsity of PFIZER VACCINE 00:00:00 [facility] [place] [facility] SARS-COV-2 COVID-19 2021-01-27 Completed Unive rsity of PFIZER VACCINE 00:00:00 [facility] SARS-COV-2 COVID-19 2021-01-27 Completed Unive rsity of PFIZER VACCINE 00:00:00 [facility] SARS-COV-2 COVID-19 2021-01-27 Completed Unive rsity of PFIZER VACCINE 00:00:00 [facility] SARS-COV-2 COVID-19 2021-01-27 Completed Unive rsity of PFIZER VACCINE 00:00:00 [facility] PPD (TB) 2020-12-19 Completed University of 00:00:00 [facility] PPD (TB) 2020-12-19 Completed University of 00:00:00 [facility] PPD (TB) 2020-12-19 Completed University of 00:00:00 [facility] PPD (TB) 2020-12-19 Completed University of 00:00:00 [facility] PPD (TB) 2020-12-19 Completed University of 00:00:00 [facility] PPD (TB) 2020-12-19 Completed University of 00:00:00 [facility] PPD (TB) 2020-12-19 Completed University of 00:00:00 [facility] PPD (TB) 2020-12-19 Completed University of 00:00:00 [facility] PPD (TB) 2020-12-19 Completed University of 00:00:00 [facility] PPD (TB) 2020-12-19 Completed University of 00:00:00 [facility] PPD (TB) 2020-12-19 Completed University of 00:00:00 [facility] PPD (TB) 2020-12-19 Completed [facility] 00:00:00 [facility] PPD (TB) 2020-12-19 Completed [facility] 00:00:00 [facility] PPD (TB) 2020-12-19 Completed [facility] 00[facility]00:00 [facility] PPD (TB) 2020-12-19 Completed [facility] 00:00:00 [facility] PPD (TB) 2020-12-19 Completed [facility] 00:00:00 [facility] PPD (TB) 2020-12-19 Completed [facility] 00:00:00 [facility] PPD (TB) 2020-12-19 Completed [facility] 00:00:00 [facility] PPD (TB) 2020-12-19 Completed [facility] 00:00:00 [facility] PPD (TB) 2020-12-19 Completed [facility] 00:00:00 [facility] PPD (TB) 2020-12-19 Completed [facility] 00:00:00 [facility] PPD (TB) 2020-12-19 Completed [facility] 00:00:00 [facility] Influenza Virus 2020-07-29 Completed [facility]it y [facility] Vaccine 00:00:00 [facility] Influenza Virus 2020-07-29 Completed [facility] Vaccine 00:00:00 [facility] Influenza Virus 2020-07-29 Completed [facility] Vaccine 00:00:00 [facility] Influenza Virus 2020-07-29 Completed [facility] Vaccine 00:00:00 [facility] Influenza Virus 2020-07-29 Completed [facility] Vaccine 00:00:00 [facility] Influenza Virus 2020-07-29 Completed [facility] Vaccine 00:00:00 [facility] Influenza Virus 2020-07-29 Completed [facility] Vaccine 00:00:00 [facility] Influenza Virus 2020-07-29 Completed [facility] Vaccine 00:00:00 [facility] Influenza Virus 2020-07-29 Completed [facility] Vaccine 00:00:00 [facility] Influenza Virus 2020-07-29 Completed [facility] Vaccine 00:00:00 [facility] Influenza Virus 2020-07-29 Completed [facility] Vaccine 00:00:00 [facility] Influenza Virus 2020-07-29 Completed [facility] Vaccine 00:00:00 [facility] Influenza Virus 2020-07-29 Completed [facility] Vaccine 00:00:00 [facility] Influenza Virus 2020-07-29 Completed [facility] Vaccine 00:00:00 [facility] Influenza Virus 2020-07-29 Completed [facility] Vaccine 00:00:00 [facility] Influenza Virus 2020-07-29 Completed [facility] of Vaccine 00:00:00 [facility] Influenza Virus 2020-07-29 Completed [facility] of Vaccine 00:00:00 [facility] Influenza Virus 2020-07-29 Completed [facility] Vaccine 00:00:00 [facility] Influenza Virus 2020-07-29 Completed [facility] Vaccine 00:00:00 [facility] Influenza Virus 2020-07-29 Completed [facility] Vaccine 00:00:00 [facility] Influenza Virus 2020-07-29 Completed [facility] Vaccine 00:00:00 [facility] Influenza Virus 2020-07-29 Completed [facility] Vaccine 00:00:00 [facility] PPD (TB) 2020-01-25 Completed [facility] 00:00:00 [facility] PPD (TB) 2020-01-25 Completed [facility] 00:00:00 [facility] PPD (TB) 2020-01-25 Completed [facility] 00:00:00 [facility] PPD (TB) 2020-01-25 Completed [facility] 00:00:00 [facility] PPD (TB) 2020-01-25 Completed [facility] 00:00:00 [facility] PPD (TB) 2020-01-25 Completed [facility] 00:00:00 [facility] PPD (TB) 2020-01-25 Completed [facility] 00:00:00 [facility] PPD (TB) 2020-01-25 Completed [facility] 00:00:00 [facility] PPD (TB) 2020-01-25 Completed [facility] 00:00:00 [facility] PPD (TB) 2020-01-25 Completed [facility] 00:00:00 [facility] PPD (TB) 2020-01-25 Completed [facility] 00:00:00 [facility] PPD (TB) 2020-01-25 Completed [facility] 00:00:00 [facility] PPD (TB) 2020-01-25 Completed [facility] 00:00:00 [facility] PPD (TB) 2020-01-25 Completed [facility] 00:00:00 [facility] PPD (TB) 2020-01-25 Completed [facility] 00:00:00 [facility] PPD (TB) 2020-01-25 Completed [facility] 00:00:00 [facility] PPD (TB) 2020-01-25 Completed [facility] 00:00:00 [facility] PPD (TB) 2020-01-25 Completed [facility] 00:00:00 [facility] PPD (TB) 2020-01-25 Completed [facility] 00:00:00 [facility] PPD (TB) 2020-01-25 Completed [facility] 00:00:00 [facility] PPD (TB) 2020-01-25 Completed [facility] 00:00:00 [facility] PPD (TB) 2020-01-25 Completed [facility] 00:00:00 [facility] Influenza Virus 2019-08-07 Completed [facility] of Vaccine 00:00:00 [facility] Influenza Virus 2019-08-07 Completed [facility] Vaccine 00:00:00 [facility] Influenza Virus 2019-08-07 Completed [facility] Vaccine 00:00:00 [facility] Influenza Virus 2019-08-07 Completed [facility] of Vaccine 00:00:00 [facility] Influenza Virus 2019-08-07 Completed [facility] Vaccine 00:00:00 [facility] Influenza Virus 2019-08-07 Completed [facility] Vaccine 00:00:00 [facility] Influenza Virus 2019-08-07 Completed [facility] Vaccine 00:00:00 [facility] Influenza Virus 2019-08-07 Completed [facility] of Vaccine 00:00:00 [facility] Influenza Virus 2019-08-07 Completed [facility] Vaccine 00:00:00 [facility] Influenza Virus 2019-08-07 Completed [facility] Vaccine 00:00:00 [facility] Influenza Virus 2019-08-07 Completed [facility] of Vaccine 00:00:00 [facility] Influenza Virus 2019-08-07 Completed [facility] Vaccine 00:00:00 [facility] Influenza Virus 2019-08-07 Completed [facility] Vaccine 00:00:00 [facility] Influenza Virus 2019-08-07 Completed [facility] of Vaccine 00:00:00 [facility] Influenza Virus 2019-08-07 Completed [facility] of Vaccine 00:00:00 [facility] Influenza Virus 2019-08-07 Completed [facility] of Vaccine 00:00:00 [facility] Influenza Virus 2019-08-07 Completed [facility] of Vaccine 00:00:00 [facility] Influenza Virus 2019-08-07 Completed [facility] of Vaccine 00:00:00 [facility] Influenza Virus 2019-08-07 Completed [facility] of Vaccine 00:00:00 [facility] Influenza Virus 2019-08-07 Completed [facility] Vaccine 00:00:00 [facility] Influenza Virus 2019-08-07 Completed [facility] Vaccine 00:00:00 [facility] Influenza Virus 2019-08-07 Completed [facility] of Vaccine 00:00:00 [facility] Hep B, Dialysis 2019-07-29 Completed [facility] of Dosage 00:00:00 [facility] Hep B, Dialysis 2019-07-29 Completed [facility] Dosage 00:00:00 [facility] Hep B, Dialysis 2019-07-29 Completed [facility] of Dosage 00:00:00 [facility] Hep B, Dialysis 2019-07-29 Completed [facility] Dosage 00:00:00 [facility] Hep B, Dialysis 2019-07-29 Completed [facility] Dosage 00:00:00 [facility] Hep B, Dialysis 2019-07-29 Completed [facility] Dosage 00:00:00 [facility] Hep B, Dialysis 2019-07-29 Completed [facility] of Dosage 00:00:00 [facility] Hep B, Dialysis 2019-07-29 Completed [facility] Dosage 00:00:00 [facility] Hep B, Dialysis 2019-07-29 Completed [facility] Dosage 00:00:00 [facility] Hep B, Dialysis 2019-07-29 Completed [facility] of Dosage 00:00:00 [facility] Hep B, Dialysis 2019-07-29 Completed [facility] of Dosage 00:00:00 [facility] Hep B, Dialysis 2019-07-29 Completed [facility] Dosage 00:00:00 [facility] Hep B, Dialysis 2019-07-29 Completed [facility] Dosage 00:00:00 [facility] Hep B, Dialysis 2019-07-29 Completed [facility] of Dosage 00:00:00 [facility] Hep B, Dialysis 2019-07-29 Completed [facility] Dosage 00:00:00 [facility] Hep B, Dialysis 2019-07-29 Completed [facility] Dosage 00:00:00 [facility] Hep B, Dialysis 2019-07-29 Completed [facility] Dosage 00:00:00 [facility] Hep B, Dialysis 2019-07-29 Completed [facility] Dosage 00:00:00 [facility] Hep B, Dialysis 2019-07-29 Completed [facility] Dosage 00:00:00 [facility] Hep B, Dialysis 2019-07-29 Completed [facility] Dosage 00:00:00 [facility] Hep B, Dialysis 2019-07-29 Completed [facility] Dosage 00:00:00 [facility] Hep B, Dialysis 2019-07-29 Completed [facility] Dosage 00:00:00 [facility] Hep B, Dialysis 2019-03-23 Completed [facility] Dosage 00:00:00 [facility] Hep B, Dialysis 2019-03-23 Completed [facility] Dosage 00:00:00 [facility] Hep B, Dialysis 2019-03-23 Completed [facility] Dosage 00:00:00 [facility] Hep B, Dialysis 2019-03-23 Completed [facility] Dosage 00:00:00 [facility] Hep B, Dialysis 2019-03-23 Completed [facility] Dosage 00:00:00 [facility] Hep B, Dialysis 2019-03-23 Completed [facility] Dosage 00:00:00 [facility] Hep B, Dialysis 2019-03-23 Completed [facility] Dosage 00:00:00 [facility] Hep B, Dialysis 2019-03-23 Completed [facility] of Dosage 00:00:00 [facility] Hep B, Dialysis 2019-03-23 Completed [facility] Dosage 00:00:00 [facility] Hep B, Dialysis 2019-03-23 Completed [facility] Dosage 00:00:00 [facility] Hep B, Dialysis 2019-03-23 Completed [facility] Dosage 00:00:00 [facility] Hep B, Dialysis 2019-03-23 Completed [facility] Dosage 00:00:00 [facility] Hep B, Dialysis 2019-03-23 Completed [facility] of Dosage 00:00:00 [facility] Hep B, Dialysis 2019-03-23 Completed [facility] Dosage 00:00:00 [facility] Hep B, Dialysis 2019-03-23 Completed [facility] Dosage 00:00:00 [facility] Hep B, Dialysis 2019-03-23 Completed [facility] Dosage 00:00:00 [facility] Hep B, Dialysis 2019-03-23 Completed [facility] Dosage 00:00:00 [facility] Hep B, Dialysis 2019-03-23 Completed [facility] Dosage 00:00:00 [facility] Hep B, Dialysis 2019-03-23 Completed [facility] Dosage 00:00:00 [facility] Hep B, Dialysis 2019-03-23 Completed [facility] Dosage 00:00:00 [facility] Hep B, Dialysis 2019-03-23 Completed [facility] Dosage 00:00:00 [facility] Hep B, Dialysis 2019-03-23 Completed [facility] Dosage 00:00:00 [facility] Hep B, Dialysis 2019-02-23 Completed [facility] Dosage 00:00:00 [facility] Hep B, Dialysis 2019-02-23 Completed [facility] Dosage 00:00:00 [facility] Hep B, Dialysis 2019-02-23 Completed [facility] Dosage 00:00:00 [facility] Hep B, Dialysis 2019-02-23 Completed [facility] Dosage 00:00:00 [facility] Hep B, Dialysis 2019-02-23 Completed [facility] Dosage 00:00:00 [facility] Hep B, Dialysis 2019-02-23 Completed [facility] Dosage 00:00:00 [facility] Hep B, Dialysis 2019-02-23 Completed [facility] Dosage 00:00:00 [facility] Hep B, Dialysis 2019-02-23 Completed [facility] Dosage 00:00:00 [facility] Hep B, Dialysis 2019-02-23 Completed [facility] Dosage 00:00:00 [facility] Hep B, Dialysis 2019-02-23 Completed [facility] Dosage 00:00:00 [facility] Hep B, Dialysis 2019-02-23 Completed [facility] Dosage 00:00:00 [facility] Hep B, Dialysis 2019-02-23 Completed [facility] Dosage 00:00:00 [facility] Hep B, Dialysis 2019-02-23 Completed [facility] Dosage 00:00:00 [facility] Hep B, Dialysis 2019-02-23 Completed [facility] Dosage 00:00:00 [facility] Hep B, Dialysis 2019-02-23 Completed [facility] Dosage 00:00:00 [facility] Hep B, Dialysis 2019-02-23 Completed [facility] Dosage 00:00:00 [facility] Hep B, Dialysis 2019-02-23 Completed [facility] Dosage 00:00:00 [facility] Hep B, Dialysis 2019-02-23 Completed [facility] Dosage 00:00:00 [facility] Hep B, Dialysis 2019-02-23 Completed [facility] Dosage 00:00:00 [facility] Hep B, Dialysis 2019-02-23 Completed [facility] Dosage 00:00:00 [facility] Hep B, Dialysis 2019-02-23 Completed [facility] of Dosage 00:00:00 [facility] Hep B, Dialysis 2019-02-23 Completed [facility] Dosage 00:00:00 [facility] PPD (TB) 2019-01-28 Completed [facility] 00:00:00 [facility] PPD (TB) 2019-01-28 Completed [facility] 00:00:00 [facility] PPD (TB) 2019-01-28 Completed [facility] 00:00:00 [facility] PPD (TB) 2019-01-28 Completed [facility] 00:00:00 [facility] PPD (TB) 2019-01-28 Completed [facility] 00:00:00 [facility] PPD (TB) 2019-01-28 Completed [facility] 00:00:00 [facility] PPD (TB) 2019-01-28 Completed [facility] 00:00:00 [facility] PPD (TB) 2019-01-28 Completed [facility] 00:00:00 [facility] PPD (TB) 2019-01-28 Completed [facility] 00:00:00 [facility] PPD (TB) 2019-01-28 Completed [facility] 00:00:00 [facility] PPD (TB) 2019-01-28 Completed [facility] 00:00:00 [facility] PPD (TB) 2019-01-28 Completed [facility] 00:00:00 [facility] PPD (TB) 2019-01-28 Completed [facility] 00:00:00 [facility] PPD (TB) 2019-01-28 Completed [facility] 00:00:00 [facility] PPD (TB) 2019-01-28 Completed [facility] 00:00:00 [facility] PPD (TB) 2019-01-28 Completed [facility] 00:00:00 [facility] PPD (TB) 2019-01-28 Completed [facility] 00:00:00 [facility] PPD (TB) 2019-01-28 Completed [facility] 00:00:00 [facility] PPD (TB) 2019-01-28 Completed [facility] 00:00:00 [facility] PPD (TB) 2019-01-28 Completed [facility] 00:00:00 [facility] PPD (TB) 2019-01-28 Completed [facility] 00:00:00 [facility] PPD (TB) 2019-01-28 Completed [facility] 00:00:00 [facility] Hep B, Dialysis 2019-01-19 Completed [facility] Dosage 00:00:00 [facility] Hep B, Dialysis 2019-01-19 Completed [facility] Dosage 00:00:00 [facility] Hep B, Dialysis 2019-01-19 Completed [facility] Dosage 00:00:00 [facility] Hep B, Dialysis 2019-01-19 Completed [facility] Dosage 00:00:00 [facility] Hep B, Dialysis 2019-01-19 Completed [facility] Dosage 00:00:00 [facility] Hep B, Dialysis 2019-01-19 Completed [facility] Dosage 00:00:00 [facility] Hep B, Dialysis 2019-01-19 Completed [facility] Dosage 00:00:00 [facility] Hep B, Dialysis 2019-01-19 Completed [facility] Dosage 00:00:00 [facility] Hep B, Dialysis 2019-01-19 Completed [facility] Dosage 00:00:00 [facility] Hep B, Dialysis 2019-01-19 Completed [facility] of Dosage 00:00:00 [facility] Hep B, Dialysis 2019-01-19 Completed [facility] Dosage 00:00:00 [facility] Hep B, Dialysis 2019-01-19 Completed [facility] Dosage 00:00:00 [facility] Hep B, Dialysis 2019-01-19 Completed [facility] of Dosage 00:00:00 [facility] Hep B, Dialysis 2019-01-19 Completed [facility] of Dosage 00:00:00 [facility] Hep B, Dialysis 2019-01-19 Completed [facility] of Dosage 00:00:00 [facility] Hep B, Dialysis 2019-01-19 Completed [facility] Dosage 00:00:00 [facility] Hep B, Dialysis 2019-01-19 Completed [facility] of Dosage 00:00:00 [facility] Hep B, Dialysis 2019-01-19 Completed [facility] of Dosage 00:00:00 [facility] Hep B, Dialysis 2019-01-19 Completed [facility] Dosage 00:00:00 [facility] Hep B, Dialysis 2019-01-19 Completed [facility] Dosage 00:00:00 [facility] Hep B, Dialysis 2019-01-19 Completed [facility] of Dosage 00:00:00 [facility] Hep B, Dialysis 2019-01-19 Completed [facility] Dosage 00:00:00 [facility] Pneumococcal 13 2019-01-16 Completed [facility] y of Conjugate, PCV13 00:00:00 [facility] (Prevnar 13) [facility] Pneumococcal 13 2019-01-16 Completed [facility] Conjugate, PCV13 00:00:00 [facility] (Prevnar 13) [facility] Pneumococcal 13 2019-01-16 Completed [facility] Conjugate, PCV13 00:00:00 [facility] (Prevnar 13) [facility] Pneumococcal 13 2019-01-16 Completed [facility] of Conjugate, PCV13 00:00:00 [facility] (Prevnar 13) [facility] Pneumococcal 13 2019-01-16 Completed [facility] of Conjugate, PCV13 00:00:00 [facility] (Prevnar 13) [facility] Pneumococcal 13 2019-01-16 Completed [facility] of Conjugate, PCV13 00:00:00 [facility] (Prevnar 13) [facility] Pneumococcal 13 2019-01-16 Completed [facility] of Conjugate, PCV13 00:00:00 [facility] (Prevnar 13) [facility] Pneumococcal 13 2019-01-16 Completed [facility] of Conjugate, PCV13 00:00:00 [facility] (Prevnar 13) [facility] Pneumococcal 13 2019-01-16 Completed [facility] of Conjugate, PCV13 00:00:00 [facility] (Prevnar 13) [facility] Pneumococcal 13 2019-01-16 Completed [facility] of Conjugate, PCV13 00:00:00 [facility] (Prevnar 13) [facility] Pneumococcal 13 2019-01-16 Completed [facility] of Conjugate, PCV13 00:00:00 [facility] (Prevnar 13) [facility] Pneumococcal 13 2019-01-16 Completed [facility] of Conjugate, PCV13 00:00:00 [facility] (Prevnar 13) [facility] Pneumococcal 13 2019-01-16 Completed [facility] of Conjugate, PCV13 00:00:00 [facility] (Prevnar 13) [facility] Pneumococcal 13 2019-01-16 Completed [facility] of Conjugate, PCV13 00:00:00 [facility] (Prevnar 13) [facility] Pneumococcal 13 2019-01-16 Completed [facility] Conjugate, PCV13 00:00:00 [facility] (Prevnar 13) [facility] Pneumococcal 13 2019-01-16 Completed [facility] of Conjugate, PCV13 00:00:00 [facility] (Prevnar 13) [facility] Pneumococcal 13 2019-01-16 Completed [facility] Conjugate, PCV13 00:00:00 [facility] (Prevnar 13) [facility] Pneumococcal 13 2019-01-16 Completed [facility] Conjugate, PCV13 00:00:00 [facility] (Prevnar 13) [facility] Pneumococcal 13 2019-01-16 Completed [facility] of Conjugate, PCV13 00:00:00 [facility] (Prevnar 13) [facility] Pneumococcal 13 2019-01-16 Completed [facility] of Conjugate, PCV13 00:00:00 [facility] (Prevnar 13) [facility] Pneumococcal 13 2019-01-16 Completed [facility] Conjugate, PCV13 00:00:00 [facility] (Prevnar 13) [facility] Pneumococcal 13 2019-01-16 Completed [facility] of Conjugate, PCV13 00:00:00 [facility]ical (Prevnar 13) Branch PPD (TB) 2019-01-14 Completed [facility] 00:00:00 [facility] PPD (TB) 2019-01-14 Completed [facility] 00:00:00 [facility] PPD (TB) 2019-01-14 Completed [facility] 00:00:00 [facility] PPD (TB) 2019-01-14 Completed [facility] 00:00:00 [facility] PPD (TB) 2019-01-14 Completed [facility] 00:00:00 [facility] PPD (TB) 2019-01-14 Completed [facility] 00:00:00 [facility] PPD (TB) 2019-01-14 Completed [facility] 00:00:00 [facility] PPD (TB) 2019-01-14 Completed [facility] 00:00:00 [facility] PPD (TB) 2019-01-14 Completed [facility] 00:00:00 [facility] PPD (TB) 2019-01-14 Completed [facility] 00:00:00 [facility] PPD (TB) 2019-01-14 Completed [facility] 00:00:00 [facility] PPD (TB) 2019-01-14 Completed [facility] 00:00:00 [facility] PPD (TB) 2019-01-14 Completed [facility] 00:00:00 [facility] PPD (TB) 2019-01-14 Completed [facility] 00:00:00 [facility] PPD (TB) 2019-01-14 Completed [facility] 00:00:00 [facility] PPD (TB) 2019-01-14 Completed [facility] 00:00:00 [facility] PPD (TB) 2019-01-14 Completed [facility] 00:00:00 [facility] PPD (TB) 2019-01-14 Completed [facility] 00:00:00 [facility] PPD (TB) 2019-01-14 Completed [facility] 00:00:00 [facility] PPD (TB) 2019-01-14 Completed [facility] 00:00:00 [facility] PPD (TB) 2019-01-14 Completed [facility] 00:00:00 [facility] PPD (TB) 2019-01-14 Completed [facility] 00:00:00 [facility] Influenza Virus 2019-01-13 Completed [facility] y of Vaccine Quad .5 mL 00:00:00 [facility] 6+ [facility] Influenza Virus 2019-01-13 Completed [facility] y of Vaccine 00:00:00 [facility] Influenza Virus 2019-01-13 Completed [facility] of Vaccine Quad .5 mL 00:00:00 [facility] 6+ MO [place] Influenza Virus 2019-01-13 Completed [facility] y of Vaccine 00:00:00 [facility] Influenza Virus 2019-01-13 Completed [facility] of Vaccine Quad .5 mL 00:00:00 [facility] 6+ [place] Influenza Virus 2019-01-13 Completed [facility] y of Vaccine 00:00:00 [facility] Influenza Virus 2019-01-13 Completed [facility] of Vaccine Quad .5 mL 00:00:00 [facility] 6+ MO Branch Influenza Virus 2019-01-13 Completed [facility] y of Vaccine 00:00:00 [facility] Influenza Virus 2019-01-13 Completed [facility] of Vaccine Quad .5 mL 00:00:00 [facility] 6+ [facility] Influenza Virus 2019-01-13 Completed [facility] of Vaccine 00:00:00 [facility] Influenza Virus 2019-01-13 Completed [facility] of Vaccine Quad .5 mL 00:00:00 [facility] Influenza Virus 2019-01-13 Completed [facility] y of Vaccine 00:00:00 [facility] Influenza Virus 2019-01-13 Completed [facility] of Vaccine Quad .5 mL 00:00:00 [facility] 6+ MO Branch Influenza Virus 2019-01-13 Completed [facility] y of Vaccine 00:00:00 [facility] Influenza Virus 2019-01-13 Completed [facility] of Vaccine Quad .5 mL 00:00:00 [facility] 6+ MO Branch Influenza Virus 2019-01-13 Completed [facility] y of Vaccine 00:00:00 [facility] Influenza Virus 2019-01-13 Completed [facility] of Vaccine Quad .5 mL 00:00:00 [facility] 6 [place] Influenza Virus 2019-01-13 Completed [facility] y of Vaccine 00:00:00 [facility] Influenza Virus 2019-01-13 Completed [facility] of Vaccine Quad .5 mL 00:00:00 [facility] 6 [place] Influenza Virus 2019-01-13 Completed [facility] y of Vaccine 00:00:00 [facility] Influenza Virus 2019-01-13 Completed [facility] of Vaccine Quad .5 mL 00:00:[address] [place] Influenza Virus 2019-01-13 Completed [facility] of Vaccine 00:00:00 [facility] Influenza Virus 2019-01-13 Completed [facility] of Vaccine Quad .5 mL 00:00:[address] Influenza Virus 2019-01-13 Completed [facility] of Vaccine 00:00:00 [facility] Influenza Virus 2019-01-13 Completed [facility] of Vaccine Quad .5 mL 00:00:[address] [place] Influenza Virus 2019-01-13 Completed [facility] of Vaccine 00:00:00 [facility] Influenza Virus 2019-01-13 Completed [facility] of Vaccine Quad .5 mL 00:00:[address] [place] Influenza Virus 2019-01-13 Completed [facility] Vaccine 00:00:00 [facility] Influenza Virus 2019-01-13 Completed [facility] of Vaccine Quad .5 mL 00:00:00 [facility] 6 [place] Influenza Virus 2019-01-13 Completed [facility] of Vaccine 00:00:00 [facility] Influenza Virus 2019-01-13 Completed [facility] of Vaccine Quad .5 mL 00:00:00 [facility] 6 [place] Influenza Virus 2019-01-13 Completed Universit y of Vaccine 00:00:00 [facility] Influenza Virus 2019-01-13 Completed Universit y of Vaccine Quad .5 mL 00:00:[address] [place] Influenza Virus 2019-01-13 Completed Universit y of Vaccine 00:00:00 [facility] Influenza Virus 2019-01-13 Completed Universit y of Vaccine Quad .5 mL 00:00:00 [facility] 6+ [facility] Influenza Virus 2019-01-13 Completed Universit y of Vaccine 00:00:00 [facility] Influenza Virus 2019-01-13 Completed Universit y of Vaccine Quad .5 mL 00:00:00 [facility] 6+ MO Branch Influenza Virus 2019-01-13 Completed Universit y of Vaccine 00:00:00 [facility] Influenza Virus 2019-01-13 Completed Universit y of Vaccine Quad .5 mL 00:00:00 [facility] 6+ MO Branch Influenza Virus 2019-01-13 Completed Universit y of Vaccine 00:00:00 [facility] Influenza Virus 2019-01-13 Completed Universit y of Vaccine Quad .5 mL 00:00:00 [facility] 6+ MO Branch (FLUZONE/FLULAVAL/F LUARIX) Influenza Virus 2019-01-13 Completed Universit y of Vaccine 00:00:00 [facility] Influenza Virus 2019-01-13 Completed Universit y of Vaccine Quad .5 mL 00:00:00 [facility] 6+ MO Branch (FLUZONE/FLULAVAL/F LUARIX) Influenza Virus 2019-01-13 Completed Universit y of Vaccine 00:00:00 [facility] Influenza Virus Unknown Completed Universit y of Vaccine Quad .5 mL [facility] 6+ MO Branch (FLUZONE/FLULAVAL/F LUARIX) Influenza Virus Unknown Completed Universit y of Vaccine [facility] Influenza Virus Unknown Completed Universit y of Vaccine [facility] Pneumococcal 13 Unknown Completed Universit y of Conjugate, PCV13 [facility] (Prevnar 13) Branch PPD (TB) Unknown Completed [facility] PPD (TB) Unknown Completed [facility] PPD (TB) Unknown Completed [facility] Hep B, Dialysis Unknown Completed Universit y of Dosage [facility] Hep B, Dialysis Unknown Completed [facility]it [facility] of Dosage [facility] Hep B, Dialysis Unknown Completed [facility]it y of Dosage [facility] Hep B, Dialysis Unknown Completed [facility]it y of Dosage [facility] Influenza Virus Unknown Completed Universit y of Vaccine [facility] PPD (TB) Unknown Completed [facility] SARS-COV-2 COVID-19 Unknown Completed Unive rsity of PFIZER VACCINE [facility] SARS-COV-2 COVID-19 Unknown Completed Unive rsity of PFIZER VACCINE [facility] Influenza Virus Unknown Completed Universit y of Vaccine [facility] Influenza Virus Unknown Completed Universit y of Vaccine Quad .5 mL [facility] 6+ MO Branch (FLUZONE/FLULAVAL/F LUARIX) Influenza Virus Unknown Completed Universit y of Vaccine [facility] Influenza Virus Unknown Completed Universit y of Vaccine [facility] Pneumococcal 13 Unknown Completed Universit y of Conjugate, PCV13 [facility] (Prevnar 13) Branch PPD (TB) Unknown Completed [facility] PPD (TB) Unknown Completed [facility] PPD (TB) Unknown Completed [facility] Hep B, Dialysis Unknown Completed Universit y of Dosage [facility] Hep B, Dialysis Unknown Completed Universit y of Dosage [facility] Hep B, Dialysis Unknown Completed Universit y of Dosage [facility] Hep B, Dialysis Unknown Completed Universit y of Dosage [facility] Influenza Virus Unknown Completed Universit y of Vaccine [facility] PPD (TB) Unknown Completed [facility] SARS-COV-2 COVID-19 Unknown Completed Unive rsity of PFIZER VACCINE [facility] SARS-COV-2 COVID-19 Unknown Completed Unive rsity of PFIZER VACCINE [facility] Influenza Virus Unknown Completed Universit y of Vaccine [facility] Vital Signs Vital Name Observation Time Observation Value Comments Source Systolic blood 2022-11-29 05:05:00 132 mm[Hg] Univer sity of [facility] Diastolic blood 2022-11-29 05:05:00 68 mm[Hg] Unive rsity of [facility] Heart rate 2022-11-29 05:05:00 60 /min [facility] Body temperature 2022-11-29 05:05:00 36.67 Lizbeth [facility] Respiratory rate 2022-11-29 05:05:00 18 /min [facility] Oxygen saturation in 2022-11-29 05:05:00 100 /min [facility] Arterial blood by [facility] Pulse oximetry Branch Body weight 2022-11-29 01:00:00 81 kg [facility] BMI 2022-11-29 01:00:00 26.45 kg/m2 [facility] Body height 2022-11-21 08:36:00 175 cm [facility] Systolic blood 2022-11-23 13:00:00 135 mm[Hg] Univer sit of [facility] Medical Branch Diastolic blood 2022-11-23 13:00:00 79 mm[Hg] Unive rsity of [facility] Heart rate 2022-11-23 13:00:00 51 /min [facility] [place] [facility] Respiratory rate 2022-11-23 13:00:00 10 /min Univ ers[facility] [place] [facility] Oxygen saturation in 2022-11-23 13:00:00 97 /min University of Arterial blood by [place] [facility] Pulse oximetry Branch Body temperature 2022-11-23 10:00:00 36.33 Lizbeth [facility] [place] [facility] Body weight 2022-11-21 21:31:00 88.5 kg [facility] [place] [facility] BMI 2022-11-21 21:31:00 26.45 kg/m2 [facility] [place] [facility] Body height 2022-11-21 08:36:00 175 cm [facility] [place] [facility] Systolic blood 2021-12-14 14:09:00 124 mm[Hg] Univer sity of pressure [facility] Diastolic blood 2021-12-14 14:09:00 61 mm[Hg] Unive rsity of pressure [facility] Heart rate 2021-12-14 14:09:00 59 /min [facility] [place] [facility] Body temperature 2021-12-14 14:09:00 36.28 Lizbeth [facility] [place] [facility] Respiratory rate 2021-12-14 14:09:00 20 /min [facility] [place] [facility] Oxygen saturation in 2021-12-14 14:09:00 100 /min University of Arterial blood by [place] [facility] [facility] Pulse oximetry Branch Body weight 2021-12-13 19:05:00 79.5 kg [facility] [place] [facility] BMI 2021-12-13 19:05:00 24.44 kg/m2 [facility] [place] [facility] Body height 2021-12-08 17:03:00 180.3 cm [facility] [place] [facility] Systolic blood 2021-12-05 18:50:31 128 mm[Hg] Univer sity of [facility] [place] [facility] Diastolic blood 2021-12-05 18:50:31 38 mm[Hg] Unive rsity of pressure [facility] Respiratory rate 2021-12-05 18:50:31 18 /min [facility] [place] [facility] Oxygen saturation in 2021-12-05 18:50:31 100 /min [facility] Arterial blood by [facility] Pulse oximetry [place] Heart rate 2021-12-05 13:58:00 65 /min [facility] Body temperature 2021-12-05 13:58:00 36.39 Lizbeth [facility] Body height 2021-12-05 03:42:00 177.8 cm [facility] Body weight 2021-12-05 03:42:00 75.5 kg [facility] BMI 2021-12-05 03:42:00 23.21 kg/m2 [facility] Procedures Procedure Date / Time Performing Clinician Source Performed ASSIGNMENT OF BENEFITS 2023-01-03 [facility] POCT GLUCOSE (AUTOMATED) 2022-11-29 Jermaine Summers [facility] [place] 01:30:00 Medical Branch POCT GLUCOSE (AUTOMATED) 2022-11-29 Jermaine Summers [facility] [place] 01:30:00 Medical Branch POCT GLUCOSE (AUTOMATED) 2022-11-28 Jermaine Summers [facility] [place] 23:57:00 Medical Branch POCT GLUCOSE (AUTOMATED) 2022-11-28 Jermaine Summers [facility] [place] 23:57:00 Medical Branch COVID-19 (ID NOW RAPID 2022-11-28 Taya Estrdaa [facility] TESTING) 20:07:00 Medical Branch LAB ONLY COVID 2022-11-28 Taya Estrada [facility] INTERPRETATION 20:07:00 Medical Branch COVID-19 (ID NOW RAPID 2022-11-[address] [facility] TESTING) 20:07:00 Medical Branch LAB ONLY COVID 2022-11-28 Taya Estrada [facility] INTERPRETATION 20:07:00 Medical Branch POCT GLUCOSE (AUTOMATED) 2022-11-28 [facility] Branch POCT GLUCOSE (AUTOMATED) 2022-11-28 Melina, Jermaine Parker [facility] [place] 18:09:00 Medical Branch POCT GLUCOSE (AUTOMATED) 2022-11-28 Melina, Jermaine Parker [facility] [place] 15:17:00 Medical Branch POCT GLUCOSE (AUTOMATED) 2022-11-28 Melina, Jermaine Parker [facility] [place] 15:17:00 Medical Branch MAGNESIUM 2022-11-28 [facility], [facility] ex 09:55:00 Medical Branch BASIC METABOLIC PANEL (NA, 2022-11-28 [facility], [facility] K, CL, CO2, GLUCOSE, BUN, 09:55:00 Medica l Branch CREATININE, CA) CBC WITH DIFF 2022-11-28 [facility] ex 09:55:00 Medical Branch MAGNESIUM 2022-11-28 [facility] ex 09:55:00 Medical Branch BASIC METABOLIC PANEL (NA, 2022-11-28 [facility], [facility] K, CL, CO2, GLUCOSE, BUN, 09:55:00 Medica l Branch CREATININE, CA) CBC WITH DIFF 2022-11-28 [facility] ex 09:55:00 Medical Branch POCT GLUCOSE (AUTOMATED) 2022-11-28 Melina, Jermaine Parker [facility] [place] 02:07:00 Medical Branch POCT GLUCOSE (AUTOMATED) 2022-11-28 Melina, Jermaine Hurstwin [facility] [place] 02:07:00 Medical Branch POCT GLUCOSE (AUTOMATED) 2022-11-27 Melina, Jermaine Parker [facility] [place] 23:53:00 Medical Branch POCT GLUCOSE (AUTOMATED) 2022-11-27 Melina, Jermaine Parker [facility] [place] 23:53:00 Medical Branch POCT GLUCOSE (AUTOMATED) 2022-11-27 Melina, Jermaine Parker [facility] [place] 18:15:00 Medical Branch POCT GLUCOSE (AUTOMATED) 2022-11-27 Melina, Jermaine Hurstwin [facility] [place] 18:15:00 Medical Branch POCT GLUCOSE (AUTOMATED) 2022-11-27 MelinaJermaine [facility] [place] 14:45:00 Medical Branch POCT GLUCOSE (AUTOMATED) 2022-11-27 Melina, Jermaine Parker [facility] [place] 14:45:00 Medical Branch MAGNESIUM 2022-11-27 [facility] FERRITIN SERUM 2022-11-27 [facility] 10:00:00 [facility] BASIC METABOLIC PANEL (NA, 2022-11-[facility], CO2, GLUCOSE, BUN, 10:00:00 Medica [facility] CREATININE, CA) MAGNESIUM 2022-11-27 [facility]00 [facility] Branch FERRITIN SERUM 2022-11-27 [facility] 10:00:00 [facility] BASIC METABOLIC PANEL (NA, 2022-11-27 [facility], CL, CO2, GLUCOSE, BUN, 10:00[facility] CREATININE, CA) POCT GLUCOSE (AUTOMATED) 2022-11-27 Melina, Jermaine Parker [facility] [place] 03:26:00 Medical Branch POCT GLUCOSE (AUTOMATED) 2022-11-27 Melina, Jermaine Parker [facility] [place] 03:26:00 Medical Branch POCT GLUCOSE (AUTOMATED) 2022-11-27 MelinaJermaine [facility] [place] 00:24:00 Medical Branch POCT GLUCOSE (AUTOMATED) 2022-11-27 Melina, Jermaine Parker [facility] [place] 00:24:00 Medical Branch POCT GLUCOSE (AUTOMATED) 2022-11-26 Melina, Jermaine Parker [facility] [place] 21:26:00 Medical Branch POCT GLUCOSE (AUTOMATED) 2022-11-26 Melina, Jermaine Parker [facility] [place] 21:26:00 Medical Branch POCT GLUCOSE (AUTOMATED) 2022-11-26 Melina, Jermaine Parker [facility] [place] 18:20:00 Medical Branch POCT GLUCOSE (AUTOMATED) 2022-11-26 Melina, Jermaine Parker [facility] [place] 18:20:00 Medical Branch MAGNESIUM 2022-11-26 [facility], [facility] exas 10:35:00 Medical Branch BASIC METABOLIC PANEL (NA, 2022-11-26 [facility], [facility] K, CL, CO2, GLUCOSE, BUN, 10:35:00 Medica l Branch CREATININE, CA) CBC WITH DIFF 2022-11-26 [facility], [facility] ex 10:35:00 Medical Branch MAGNESIUM 2022-11-26 [facility], [facility] 10:35:00 Medical Branch BASIC METABOLIC PANEL (NA, 2022-11-26 [facility], [facility] K, CL, CO2, GLUCOSE, BUN, 10:35:00 Medica l Branch CREATININE, CA) CBC WITH DIFF 2022-11-26 [facility], [facility] 10:35:00 Medical Branch POCT GLUCOSE (AUTOMATED) 2022-11-26 MelinaJermaine [facility] [place] 02:54:00 Medical Branch POCT GLUCOSE (AUTOMATED) 2022-11-26 MelinaJermaine [facility] [place] 02:54:00 Medical Branch POCT GLUCOSE (AUTOMATED) 2022-11-25 Melina, Jeramine Parker [facility] [place] 22:30:00 Medical Branch POCT GLUCOSE (AUTOMATED) 2022-11-25 Melina, Jermaine Parker [facility] [place] 22:30:00 Medical Branch POCT GLUCOSE (AUTOMATED) 2022-11-25 Melina, Jermaine Parker [facility] [place] 18:40:00 Medical Branch POCT GLUCOSE (AUTOMATED) 2022-11-25 Melina, Jermaine Parker [facility] [place] 18:40:00 Medical Branch POCT GLUCOSE (AUTOMATED) 2022-11-25 Melina, Jermaine Parker [facility] [place] 15:04:00 Medical Branch POCT GLUCOSE (AUTOMATED) 2022-11-25 Melina, Jermaine Parker [facility] [place] 15:04:00 Medical Branch MAGNESIUM 2022-11-25 [facility] 10:49:00 Medical Branch BASIC METABOLIC PANEL (NA, 2022-11-25 [facility] K, CL, CO2, GLUCOSE, BUN, 10:49:00 Medica Branch CREATININE, CA) CBC WITH DIFF 2022-11-25 [facility] exas 10:49:00 Medical Branch MAGNESIUM 2022-11-25 [facility] ex 10:49:00 Medical Branch BASIC METABOLIC PANEL (NA, 2022-11-25 [facility] K, CL, CO2, GLUCOSE, BUN, 10:49:00 Medica l Branch CREATININE, CA) CBC WITH DIFF 2022-11-25 [facility] ex 10:49:00 Medical Branch POCT GLUCOSE (AUTOMATED) 2022-11-25 Melina, Jermaine Parker [facility] [place] 10:10:00 Medical Branch POCT GLUCOSE (AUTOMATED) 2022-11-25 Melina, Jermaine Parker [facility] [place] 10:10:00 Medical Branch POCT GLUCOSE (AUTOMATED) 2022-11-25 MelinaJermaine [facility] [place] 05:34:00 Medical Branch POCT GLUCOSE (AUTOMATED) 2022-11-25 MelinaJermaine [facility] [place] 05:34:00 Medical Branch POCT GLUCOSE (AUTOMATED) 2022-11-25 MelinaJermaine [facility] [place] 02:38:00 Medical Branch POCT GLUCOSE (AUTOMATED) 2022-11-25 Melina, Jermaine Parker [facility] [place] 02:38:00 Medical Branch POCT GLUCOSE (AUTOMATED) 2022-11-24 MelinaJermaine [facility] [place] 22:53:00 Medical Branch POCT GLUCOSE (AUTOMATED) 2022-11-24 MelinaJermaine [facility] [place] 22:53:00 Medical Branch POCT GLUCOSE (AUTOMATED) 2022-11-24 Melina, Jermaine Parker [facility] [place] 14:26:00 Medical Branch POCT GLUCOSE (AUTOMATED) 2022-11-24 MelinaJermaine [facility] [place] 14:26:00 Medical Branch XR CHEST 1 VW 2022-11-24 [facility] xas 10:45:00 Medical Branch XR CHEST 1 VW 2022-11-24 Angora, [facility] [place] 10:45:00 Medical Branch MAGNESIUM 2022-11-24 Shefali, [facility] [place] 10:18:00 Medical Branch BASIC METABOLIC PANEL (NA, 2022-11-24 Angora, [facility] K, CL, CO2, GLUCOSE, BUN, 10:18:[facility] CREATININE, CA) CBC WITHOUT DIFF 2022-11-24 [facility] exas 10:18:00 Medical Branch MAGNESIUM 2022-11-24 Shefali, [facility] [place] 10:18:00 Medical Branch BASIC METABOLIC PANEL (NA, 2022-11-24 Angora, [facility] K, CL, CO2, GLUCOSE, BUN, 10:18:[address] [facility] CREATININE, CA) CBC WITHOUT DIFF 2022-11-24 Angora, [facility] exas 10:18:00 Medical Branch POCT GLUCOSE (AUTOMATED) 2022-11-24 Melina, Jermaine Parker [facility] [place] 09:19:00 Medical Branch POCT GLUCOSE (AUTOMATED) 2022-11-24 Melina, Jermaine Parker [facility] [place] 09:19:00 Medical Branch POCT GLUCOSE (AUTOMATED) 2022-11-24 Melina, Jermaine Parker [facility] [place] 06:23:00 Medical Branch POCT GLUCOSE (AUTOMATED) 2022-11-24 Melina, Jermaine Parker [facility] [place] 06:23:00 Medical Branch POCT GLUCOSE (AUTOMATED) 2022-11-24 Melina, Jermaine Parker [facility] [place] 03:24:00 Medical Branch POCT GLUCOSE (AUTOMATED) 2022-11-24 Melina, Jermaine Parker [facility] [place] 03:24:00 Medical Branch POCT GLUCOSE (AUTOMATED) 2022-11-23 Bernardino Wolff [facility] 22:13:00 Medical Branch POCT GLUCOSE (AUTOMATED) 2022-11-23 [facility] 22:13:00 Medical Branch POCT GLUCOSE (AUTOMATED) 2022-11-23 Bernardino Wolff [facility] 17:47:00 Medical Branch POCT GLUCOSE (AUTOMATED) 2022-11-23 Bernardino Wolff [facility] 17:47:00 Medical Branch ELECTROPHYSIOLOGY PROCEDURE 2022-11-23 [facility] 15:27:55 [facility] ELECTROPHYSIOLOGY PROCEDURE 2022-11-23 [facility] 15:27:55 [facility]OM[facility]) 2022-11-23 Bernardino Wolff [facility] 14:10:00 Medical Branch POCT GLUCOSE (AUTOMATED) 2022-11-23 Bernardino Wolff [facility] 14:10:00 Medical Branch MAGNESIUM 2022-11-23 [facility] [place] 10:22:00 Medical Branch BASIC METABOLIC PANEL (NA, 2022-11-23 [facility] K, CL, CO2, GLUCOSE, BUN, 10:22:[facility] CREATININE, CA) CBC WITHOUT DIFF 2022-11-23 [facility] [place] 10:22:00 Medical Branch PROTHROMBIN TIME / INR 2022-11-23 [facility] 10:22:00 Medical Branch ACTIVATED PARTIAL THRMPLAS 2022-11-23 [facility] SEKOU 10:22:00 Medical Branch MAGNESIUM 2022-11-23 [facility] [place] 10:22:00 Medical Branch BASIC METABOLIC PANEL (NA, 2022-11-23 [facility], [facility], CO2, GLUCOSE, BUN, 10:22:00 Medica [facility] CREATININE, CA) IRON PANEL 2022-11-23 Ludwin Juan [facility] 10:22:00 Maciel [facility] CBC WITHOUT DIFF 2022-11-23 [facility] exas 10:22:00 Medical Branch PROTHROMBIN TIME / INR 2022-11-23 Angora, [facility] 10:22:00 Medical Branch ACTIVATED PARTIAL THRMPLAS 2022-11-23 [facility] SEKOU 10:22:00 Medical Branch IRON PANEL 2022-11-23 Ludwin Juan [facility] 10:22:00 [facility] Branch MAGNESIUM 2022-11-23 [facility] [place] 07:48:00 Medical Branch MAGNESIUM 2022-11-23 [facility] 07:48:00 Medical Branch POCT GLUCOSE (AUTOMATED) 2022-11-23 MelinaJermaine [facility] [place] 01:36:00 Medical Branch POCT GLUCOSE (AUTOMATED) 2022-11-23 MelinaJermaine [facility] [place] 01:36:00 Medical Branch POCT GLUCOSE (AUTOMATED) 2022-11-22 MelinaJermaine [facility] [place] 22:12:00 Medical Branch POCT GLUCOSE (AUTOMATED) 2022-11-22 MelinaJermaine [facility] [place] 22:12:00 Medical Branch NUNU AURIS SURVEILLANCE 2022-11-22 [facility] BY PCR (INFECTION CONTROL 21:32:00 Medica l Branch PURPOSES) NUNU AURIS SURVEILLANCE 2022-11-22 [facility] BY PCR (INFECTION CONTROL 21:32:00 Medica l Branch PURPOSES) ACTIVATED PARTIAL THRMPLAS 2022-11-22 [facility] 20:59:00 Medical Branch ACTIVATED PARTIAL THRMPLAS 2022-11-22 [facility] SEKOU 20:59:00 Medical Branch ACTIVATED PARTIAL THRMPLAS 2022-11-22 [facility] SEKOU 19:08:00 Medical Branch VITAMIN D, 25-[place] 2022-11-22 Ludwin Juan [facility] 19:08:00 [facility] ACTIVATED PARTIAL THRMPLAS 2022-11-22 [facility] 19:08:00 Medical Branch VITAMIN D, 25-[place] 2022-11-22 Ludwin Juan [facility] 19:08:00 [facility] Medical Branch POCT GLUCOSE (AUTOMATED) 2022-11-22 Melina, Jermaine Parker [facility] [place] 17:51:00 Medical Branch POCT GLUCOSE (AUTOMATED) 2022-11-22 Melina, Jermaine Parker [facility] [place] 17:51:00 Medical Branch POCT GLUCOSE (AUTOMATED) 2022-11-22 Melina, Jermaine Parker [facility] [place] 13:13:00 Medical Branch POCT GLUCOSE (AUTOMATED) 2022-11-22 Melina, Jermaine Parker [facility] [place] 13:13:00 Medical Branch POCT GLUCOSE (AUTOMATED) 2022-11-22 Melina, Jermaine Parker [facility] [place] 12:49:00 Medical Branch POCT GLUCOSE (AUTOMATED) 2022-11-22 Melina, Jermaine Parker [facility] [place] 12:49:00 Medical Branch MAGNESIUM 2022-11-22 [facility] 12:18:00 Medical Branch BASIC METABOLIC PANEL (NA, 2022-11-22 [facility] K, CL, CO2, GLUCOSE, BUN, 12:18:00 Medica l Branch CREATININE, CA) CBC WITH DIFF 2022-11-22 [facility] 12:18:00 Medical Branch ACTIVATED PARTIAL THRMPLAS 2022-11-22 [facility] SEKOU 12:18:00 Medical Branch MAGNESIUM 2022-11-22 [facility] 12:18:00 Medical Branch BASIC METABOLIC PANEL (NA, 2022-11-22 [facility] K, CL, CO2, GLUCOSE, BUN, 12:18:00 Medica l Branch CREATININE, CA) CBC WITH DIFF 2022-11-22 [facility] 12:18:00 Medical Branch ACTIVATED PARTIAL THRMPLAS 2022-11-22 [facility] SEKOU 12:18:00 Medical Branch ACTIVATED PARTIAL THRMPLAS 2022-11-22 [facility] SEK[facility] 04:40:00 Medical Branch MRSA / MSSA SCREEN BY PCR, 2022-11-22 [facility] NARES 04:40:00 Medical Branch ACTIVATED PARTIAL THRMPLAS 2022-11-22 [facility] 04:40:00 Medical Branch MRSA / MSSA SCREEN BY PCR, 2022-11-22 [facility] NARES 04:40:00 Medical Branch POCT GLUCOSE (AUTOMATED) 2022-11-22 Jermaine Summers [facility] [place] 02:13:00 Medical Branch POCT GLUCOSE (AUTOMATED) 2022-11-22 Jermaine Summers [facility] [place] 02:13:00 Medical Branch HB ECG ROUTINE & RHYTHM 2022-11-22 [facility] STRIP 02:01:17 Medical Branch HB ECG ROUTINE & RHYTHM 2022-11-22 [facility] STRIP 02:01:17 Medical Branch POCT GLUCOSE (AUTOMATED) 2022-11-21 [facility] 22[facility]00 Medical Branch POCT GLUCOSE (AUTOMATED) 2022-11-21 Arleen Kleinaled U niversity [facility] 22:43:00 Medical Branch TROPONIN I 2022-11-21 [facility] 19:47:00 Medical Branch NUNU AURIS SURVEILLANCE 2022-11-21 [facility] BY PCR (INFECTION CONTROL 19:47:00 Medica l Branch PURPOSES) TROPONIN I 2022-11-21 [facility] 19:47:00 Medical Branch NUNU AURIS SURVEILLANCE 2022-11-21 [facility] BY PCR (INFECTION CONTROL 19:47:00 Medica l Branch PURPOSES) POCT GLUCOSE (AUTOMATED) 2022-11-21 Arleen Kleinaled [facility] 19:02:00 Medical Branch POCT GLUCOSE (AUTOMATED) 2022-11-21 Arleen Kleinaled U niversity [facility] 19:02:00 Medical Branch TRANSTHORACIC ECHO (TTE) 2022-11-21 Queenie [facility] COMPLETE W/ CONTRAST 18:00:55 [facility] TRANSTHORACIC ECHO (TTE) 2022-11-21 [facility] W/ CONTRAST 18:00:55 [facility] ACTIVATED PARTIAL THRMPLAS 2022-11-21 Maticatie [facility] SEKOU 16:03:00 Medical [place] ACTIVATED PARTIAL THRMPLAS 2022-11-21 [facility] SEKOU 16:03:00 Medical [place] PHOSPHORUS 2022-11-21 [facility] [place] [facility] [place] 09[facility]04:00 [facility] MAGNESIUM 2022-11-21 [facility] [place] 09:04:00 [facility] VITAMIN B12, LEVEL 2022-11-21 [facility] [address] [facility] [place] 09:04:00 [facility] FOLATE 2022-11-21 [facility] [place] 09:04:00 [facility] TROPONIN I 2022-11-21 [facility] [place] 09:04:00 [facility] THYROID STIMULATING HORMONE 2022-11-21 [facility] 09:04:00 [facility] HEPATIC FUNCTION PANEL 2022-11-21 [facility] ([id number]) (ALB,T.PRO,BILI 09:04:00 [facility] T,BU/BC,ALT,AST,ALK PHOS) BASIC METABOLIC PANEL (NA, 2022-11-21 [facility] K, CL, CO2, GLUCOSE, BUN, 09:04:00 Medica l [place] CREATININE, CA) LIPID PANEL (06737)(TOTAL 2022-11-21 Health system CHOLESTEROL, TRIGLYCERIDES, 09:04:00 [facility] HDL) CBC WITH DIFF 2022-11-21 [facility] [place] 09:04:00 [facility] GLYCOSYLATED HEMOGLOBIN 2022-11-21 [facility] (A1C) 09:04:00 Medical [place] PROTHROMBIN TIME / INR 2022-11-21 [facility] 09:04:00 Medical Branch ACTIVATED PARTIAL THRMPLAS 2022-11-21 [facility] SEK[facility] 09:04:00 Medical Branch PHOSPHORUS 2022-11-21 [facility] [place] 09:04:00 Medical Branch MAGNESIUM 2022-11-21 [facility] [place] 09:04:00 [facility] VITAMIN B12, LEVEL 2022-11-21 [facility] [address] [facility] [place] 09:04:00 Medical Branch FOLATE 2022-11-21 [facility], [facility] [place] 09:04:00 [facility] TROPONIN I 2022-11-21 [facility], [facility] [place] 09:04:00 [facility] THYROID STIMULATING HORMONE 2022-11-21 [facility] 09:04:00 Medical Branch HEPATIC FUNCTION PANEL 2022-11-21 [facility] ([id number]) (ALB,T.PRO,BILI 09:04:00 [facility] T,BU/BC,ALT,AST,ALK PHOS) BASIC METABOLIC PANEL (NA, 2022-11-21 [facility] K, CL, CO2, GLUCOSE, BUN, 09:04:00 Medica Branch CREATININE, CA) LIPID PANEL (57733)(TOTAL 2022-11-21 Health system CHOLESTEROL, TRIGLYCERIDES, 09:04:00 [facility] HDL) CBC WITH DIFF 2022-11-21 [facility] [place] 09:04:00 [facility] GLYCOSYLATED HEMOGLOBIN 2022-11-21 [facility] (A1C) 09:04:00 [facility] PROTHROMBIN TIME / INR 2022-11-21 [facility] 09:04:00 Medical Branch ACTIVATED PARTIAL THRMPLAS 2022-11-21 [facility] SEKOU 09:04:00 Medical Branch HB ECG ROUTINE & RHYTHM 2022-11-21 [facility] 08:39:40 Medical Branch HB ECG ROUTINE & RHYTHM 2022-11-21 [facility] STRIP 08:39:40 Medical Branch HOSPITAL ADMISSION 2022-11-21 Doctor Unassigned, No [facility] [place] 06:01:00 Name Medical Branch EMERGENCY DEPARTMENT 2022-11-20 Doctor Unassigned, No [facility] [place] DOCUMENTS 06:01:00 Name Medical Branch EMERGENCY DEPARTMENT 2022-11-20 Doctor Unassigned, No [facility] [place] DOCUMENTS 06:01:00 Name Medical Branch HOME HEALTH - OTHER 2022-01-24 Doctor Unassigned, No [facility] [place] 05:01:00 Name Medical Branch HOME HEALTH - OTHER 2021-12-22 Doctor Unassigned, No [facility] [place] 06:01:00 [facility] Medical Branch POCT GLUCOSE (AUTOMATED) 2021-12-14 [facility] [place] 14:33:00 Julio Cesar Rodriguez Medical Bran ch MAGNESIUM 2021-12-14 Lilian [facility] [place] 10:56:00 [facility] BASIC METABOLIC PANEL (NA, 2021-12-14 Estrellita Quintana [facility] K, CL, CO2, GLUCOSE, BUN, 10:56:00 [facility] CREATININE, CA) POCT GLUCOSE (AUTOMATED) 2021-12-14 [facility] [place] 03:56:00 Julio Cesar Rodriguez Medical [facility] POCT GLUCOSE (AUTOMATED) 2021-12-13 [facility] sity [facility] 22:57:00 Julio Cesar Rodriguez Medical [facility] COVID-19 (ID NOW RAPID 2021-12-13 [facility] TESTING) 22:34:00 Medical Branch LAB ONLY COVID 2021-12-13 [facility] xa INTERPRETATION 22:34:00 Medical Branch POCT GLUCOSE (AUTOMATED) 2021-12-13 [facility] [place] 20:29:00 Julio Cesarjen Rodriguez [facility] POCT GLUCOSE (AUTOMATED) 2021-12-13 [facility] 13:42:00 Julio Cesar Rodriguez Medical Bran ch MAGNESIUM 2021-12-13 Laura Newsome [facility] [place] 09:33:00 Medical Branch BASIC METABOLIC PANEL (NA, 2021-12-13 [facility], CL, CO2, GLUCOSE, BUN, 09:33:00 Medica l Branch CREATININE, CA) CBC WITHOUT DIFF 2021-12-13 Jerod [facility] [place] 09:33:00 Medical Branch POCT GLUCOSE (AUTOMATED) 2021-12-13 Cynthia, [facility] [place] 02:32:00 Julio Cesar Ahmarisa Mohjeanie Medical Bran ch POCT GLUCOSE (AUTOMATED) 2021-12-12 Cynthia, [facility] [place] 22:46:00 Julio Cesarjen Rodriguez Medical Bran ch PHOSPHORUS 2021-12-12 [facility] xa 21:39:00 Medical Branch POCT GLUCOSE (AUTOMATED) 2021-12-12 Cynthia, [facility] [place] 17:36:00 Julio Cesar Ahmarisa Mohjeanie Medical Bran ch POCT GLUCOSE (AUTOMATED) 2021-12-12 Cynthia, [facility] [place] 13:44:00 Julio Cesarjen Logan Mohjeanie Medical Bran ch BASIC METABOLIC PANEL (NA, 2021-12-12 [facility] K, CL, CO2, GLUCOSE, BUN, 12:07:00 Medica l Branch CREATININE, CA) REFERRAL- REQUEST/RESPONSE 2021-12-12 Doctor Unassigned, [facility] 06:01:00 Name Medical Branch POCT GLUCOSE (AUTOMATED) 2021-12-12 Cynthia, [facility] [place] 03:31:00 Julio Cesar Ahmarisa Mohjeanie Medical Bran ch POCT GLUCOSE (AUTOMATED) 2021-12-11 Cynthia, [facility] [place] 22:19:00 Julio Cesar Ahmed Mohamed Medical Bran ch POCT GLUCOSE (AUTOMATED) 2021-12-11 Cynthia, [facility] [place] 18:50:00 Julio Cesar Ahmed Mohjeanie Medical Bran ch POCT GLUCOSE (AUTOMATED) 2021-12-11 Cynthia, [facility] [place] 18:50:00 Julio Cesarjen Rodriguez Medical Bran ch PHOSPHORUS 2021-12-11 [facility] [place] 10:34:00 Medical Branch MAGNESIUM 2021-12-11 Sunku, [facility] [place] 10:34:00 Medical Branch BASIC METABOLIC PANEL (NA, 2021-12-11 [facility] K, CL, CO2, GLUCOSE, BUN, 10:34:00 Medica l Branch CREATININE, CA) CBC WITH DIFF 2021-12-11 [facility], [facility] [place] 10:34:00 Medical Branch PHOSPHORUS 2021-12-11 Sunku, [facility] [place] 10:34:00 Medical Branch MAGNESIUM 2021-12-11 Sunku, [facility] [place] 10:34:00 Medical Branch BASIC METABOLIC PANEL (NA, 2021-12-11 [facility], [facility] K, CL, CO2, GLUCOSE, BUN, 10:34:00 Medica Branch CREATININE, CA) CBC WITH DIFF 2021-12-11 [facility], [facility] [place] 10:34:00 Medical Branch POCT GLUCOSE (AUTOMATED) 2021-12-11 [facility] 02:21:00 Julio Cesar Ahmed Mohamed Medical Bran ch POCT GLUCOSE (AUTOMATED) 2021-12-11 [facility] 02:21:00 Julio Cesar Ahmed Mohamed Medical Bran ch POCT GLUCOSE (AUTOMATED) 2021-12-10 [facility] 14:26:00 Julio Cesar Ahmed Mohamed Medical Bran ch POCT GLUCOSE (AUTOMATED) 2021-12-10 [facility] 14:26:00 Julio Cesar Ahmed Mohamed Medical Bran ch POCT GLUCOSE (AUTOMATED) 2021-12-10 [facility] 01:58:00 Julio Cesar Ahmed Mohamed Medical Bran ch POCT GLUCOSE (AUTOMATED) 2021-12-10 [facility] 01:58:00 Julio Cesar Ahmed Mohamed Medical Bran ch POCT GLUCOSE (AUTOMATED) 2021-12-09 [facility] 18:43:00 Julio Cesar Ahmed Mohamed Medical Bran ch POCT GLUCOSE (AUTOMATED) 2021-12-09 [facility] 18:43:00 Julio Cesarjen Rodriguez Medical Bran ch POCT GLUCOSE (AUTOMATED) 2021-12-09 [facility] 15:56:00 Julio Cesarjen Rodriguez Medical Bran ch POCT GLUCOSE (AUTOMATED) 2021-12-09 [facility] 15:56:00 Julio Cesarejn Rodriguez Medical Bran ch MAGNESIUM 2021-12-09 [facility] 11:10:00 Medical Branch BASIC METABOLIC PANEL (NA, 2021-12-09 [facility] K, CL, CO2, GLUCOSE, BUN, 11:10:00 [facility] CREATININE, CA) MAGNESIUM 2021-12-09 [facility] 11:10:00 Medical Branch BASIC METABOLIC PANEL (NA, 2021-12-09 [facility] K, CL, CO2, GLUCOSE, BUN, 11:10:00 [facility] CREATININE, CA) POCT GLUCOSE (AUTOMATED) 2021-12-09 [facility] 03:47:00 Julio Cesarjen Rodriguez Medical Bran ch POCT GLUCOSE (AUTOMATED) 2021-12-09 [facility] 03:47:00 Julio Cesar Rodriguez Medical Bran ch TRANSTHORACIC ECHO (TTE) 2021-12-08 Emiliano Christian [facility] COMPLETE W/ CONTRAST 16:57:00 Medical [facility] TRANSTHORACIC ECHO (TTE) 2021-12-08 Emiliano Christian [facility] COMPLETE W/ CONTRAST 16:57:00 [facility] POCT GLUCOSE (AUTOMATED) 2021-12-08 [facility] 15:31:00 Julio Cesarjen Rodriguez Medical Bran ch POCT GLUCOSE (AUTOMATED) 2021-12-08 [facility] 15:31:00 Julio Cesarjen Rodriguez Medical Bran ch PHOSPHORUS 2021-12-08 [facility] 10:32:00 Medical Branch MAGNESIUM 2021-12-08 Sunku, [facility] x[place] 10:32:00 Medical Branch BASIC METABOLIC PANEL (NA, 2021-12-08 [facility], [facility] [place] K, CL, CO2, GLUCOSE, BUN, 10:32:00 Medica l Branch CREATININE, CA) CBC WITH DIFF 2021-12-08 [facility], [facility] [place] 10:32:00 Medical Branch PHOSPHORUS 2021-12-08 [facility], [facility] [place] 10:32:00 Medical Branch MAGNESIUM 2021-12-08 Hovenku, [facility] x[place] 10:32:00 Medical Branch BASIC METABOLIC PANEL (NA, 2021-12-08 [facility], [facility] [place] K, CL, CO2, GLUCOSE, BUN, 10:32:00 Medica l Branch CREATININE, CA) CBC WITH DIFF 2021-12-08 [facility], [facility] xa 10:32:00 Medical Branch POCT GLUCOSE (AUTOMATED) 2021-12-08 [facility] 05:08:00 [facility] POCT GLUCOSE (AUTOMATED) 2021-12-08 [facility] 05:08:00 [facility] Medical Bran ch MAGNESIUM 2021-12-07 [facility], [facility] [place] 11:10:00 Medical Branch BASIC METABOLIC PANEL (NA, 2021-12-07 [facility], [facility] [place] K, CL, CO2, GLUCOSE, BUN, 11:10:00 Medica l Branch CREATININE, CA) INTACT PTH CALCIUM GROUP 2021-12-07 [facility], [facility] 11:10:00 Medical Branch CBC WITH DIFF 2021-12-07 [facility], [facility] [place] 11:10:00 Medical Branch MAGNESIUM 2021-12-07 [facility], [facility] [place] 11:10:00 Medical Branch BASIC METABOLIC PANEL (NA, 2021-12-07 [facility], [facility] [place] K, CL, CO2, GLUCOSE, BUN, 11:10:00 Medica Branch CREATININE, CA) INTACT PTH CALCIUM GROUP 2021-12-07 [facility] 11:10:00 Medical Branch CBC WITH DIFF 2021-12-07 [facility] [place] 11:10:00 Medical Branch POCT GLUCOSE (AUTOMATED) 2021-12-07 [facility] 06:28:00 Julio Cesar Rodriguez Medical Bran POCT GLUCOSE (AUTOMATED) 2021-12-07 [facility] 06:28:00 Julio Cesar Rodriguez Medical [facility] HOME HEALTH - OTHER 2021-12-07 Doctor Unassigned, [facility] 06:01:00 Name Medical Branch POCT GLUCOSE (AUTOMATED) 2021-12-07 [facility] 04:12:00 Julio Cesar Logan [facility] POCT GLUCOSE (AUTOMATED) 2021-12-07 [facility] 04:12:00 [facility] IRON PANEL 2021-12-06 [facility] [place] 19:54:00 Medical Branch IRON PANEL 2021-12-06 [facility] [place] 19:54:00 [facility] MRSA / MSSA SCREEN BY PCR, 2021-12-06 [facility] NARES 19:43:00 Medical Branch MRSA / MSSA SCREEN BY PCR, 2021-12-06 [facility] NARES 19:43:00 Medical Branch HB ECG ROUTINE & RHYTHM 2021-12-06 [facility] STRIP 13:31:14 [facility] HB ECG ROUTINE & RHYTHM 2021-12-06 [facility] STRIP 13:31:14 [facility] PHOSPHORUS 2021-12-06 Emiliano Christian [facility] [place] 10:40:00 Medical Branch MAGNESIUM 2021-12-06 Karthikeyan [facility] [place] 10:40:00 Medical Branch BASIC METABOLIC PANEL (NA, 2021-12-06 Karthikeyan [facility] K, CL, CO2, GLUCOSE, BUN, 10:40:00 Medica l [place] CREATININE, CA) INTACT PTH CALCIUM GROUP 2021-12-06 Naif [facility] 10:40:00 Medical Branch CBC WITHOUT DIFF 2021-12-06 Karthikeyan [facility] [place] 10:40:00 Medical Branch HEPATITIS B SURFACE 2021-12-06 [place] Ronit R [place] [facility] [place] ANTIBODY 10:40:00 Medical Branch HEPATITIS B SURFACE ANTIGEN 2021-12-06 Ronit Slade [facility] 10:40:00 Medical Branch PHOSPHORUS 2021-12-06 [facility] [place] 10:40:00 Medical Branch MAGNESIUM 2021-12-06 Karthikeyan [facility] [place] 10:40:00 Medical Branch BASIC METABOLIC PANEL (NA, 2021-12-06 Karthikeyan [facility] K, CL, CO2, GLUCOSE, BUN, 10:40:00 Medica [facility] CREATININE, CA) INTACT PTH CALCIUM GROUP 2021-12-06 Naif [facility] 10:40:00 Medical Branch CBC WITHOUT DIFF 2021-12-06 Karthikeyan [facility] [place] 10:40:00 Medical Branch HEPATITIS B SURFACE 2021-12-06 Ronit Slade [place] [facility] [place] ANTIBODY 10:40:00 Medical Branch HEPATITIS B SURFACE ANTIGEN 2021-12-06 Ronit Slade [facility] 10:40:00 Medical Branch POCT GLUCOSE (AUTOMATED) 2021-12-06 [facility] 01:48:00 Julio Cesarjen Logan [facility] Medical Bran POCT GLUCOSE (AUTOMATED) 2021-12-06 [facility] 01:48:00 Julio Cesar Ahmed Mohamed Medical Bran ch CARDIAC CATHETERIZATION 2021-12-05 [facility] 19:15:00 Julio Cesar Ahmed Mohamed Medical [facility] CARDIAC CATHETERIZATION 2021-12-05 [facility] 19:15:00 Julio Cesar Ahmed Mohamed Medical Bran ch CARDIAC CATHETERIZATION 2021-12-05 [facility] 19:15:00 Julio Cesar Rodriguez [facility] CARDIAC CATHETERIZATION 2021-12-05 [facility] 19:15:00 Julio Cesar Rodriguez [facility] PHOSPHORUS 2021-12-05 Karthikeyan [facility] [place] 12:14:00 Medical Branch MAGNESIUM 2021-12-05 Karthikeyan, [facility] [place] 12:14:00 Medical Branch TROPONIN I 2021-12-05 Karthikeyan, [facility] [place] 12:14:00 Medical Branch BASIC METABOLIC PANEL (NA, 2021-12-05 Karthikeyan [facility] K, CL, CO2, GLUCOSE, BUN, 12:14:00 Medica l Branch CREATININE, CA) ACTIVATED PARTIAL THRMPLAS 2021-12-05 Karthikeyan [facility] SEKOU 12:14:00 Medical Branch PHOSPHORUS 2021-12-05 Karthikeyan [facility] [place] 12:14:00 Medical Branch MAGNESIUM 2021-12-05 Karthikeyan, [facility] [place] 12:14:00 Medical Branch TROPONIN I 2021-12-05 Karthikeyan, [facility] [place] 12:14:00 Medical Branch BASIC METABOLIC PANEL (NA, 2021-12-05 Karthikeyan [facility] K, CL, CO2, GLUCOSE, BUN, 12:14:00 Medica l Branch CREATININE, CA) ACTIVATED PARTIAL THRMPLAS 2021-12-05 Karthikeyan [facility] SEKOU 12:14:00 Medical Branch CBC WITHOUT DIFF 2021-12-05 Karthikeyan [facility] [place] 12:13:00 Medical Branch CBC WITHOUT DIFF 2021-12-05 Karthikeyan [facility] [place] 12:13:00 Medical Branch PROTHROMBIN TIME / INR 2021-12-05 Karthikeyan [facility] 07:08:00 Medical Branch ACTIVATED PARTIAL THRMPLAS 2021-12-05 Karthikeyan [facility] 07:08:00 Medical Branch HEPARIN ANTI-XA, 2021-12-05 Karthikeyan [facility] UNFRACTIONATED HEPARIN 07:08:00 Medical B ranch PROTHROMBIN TIME / INR 2021-12-05 Karthikeyan [facility] 07:08:00 Medical Branch ACTIVATED PARTIAL THRMPLAS 2021-12-05 Karthikeyan [facility] SEKOU 07:08:00 Medical Branch HEPARIN ANTI-XA, 2021-12-05 Karthikeyan [facility] UNFRACTIONATED HEPARIN 07:08:00 Medical B ranch TROPONIN I 2021-12-05 Karthikeyan [facility] [place] 05:00:00 Medical Branch TROPONIN I 2021-12-05 Karthikeyan, [facility] [place] 05:00:00 Medical Branch HB ECG ROUTINE & RHYTHM 2021-12-05 Karthikeyan [facility] STRIP 04:53:21 Medical Branch HB ECG ROUTINE & RHYTHM 2021-12-05 Karthikeyan [facility] STRIP 04:53:21 Medical Branch XR CHEST 1 VW 2021-12-04 Pam Garcia [facility] 22:14:58 Medical Branch XR RIBS 4+ VW RIGHT 2021-12-04 [facility] 22:14:58 Medical Branch XR TIBIA FIBULA 2 VW LEFT 2021-12-04 Pam Garcia [facility] 22:14:58 Medical Branch XR CHEST 1 VW 2021-12-04 Pam Garcia [facility] 22:14:58 Medical Branch XR RIBS 4+ VW RIGHT 2021-12-04 Bessy Garciana Antione [facility] 22:14:58 Medical Branch XR TIBIA FIBULA 2 VW LEFT 2021-12-04 Pam Garcia [facility] 22:14:58 Medical Branch MAGNESIUM 2021-12-04 Karthikeyan [facility] [place] 22:12:00 Medical Branch TROPONIN I 2021-12-04 Pam Garcia [facility] 22:12:00 Medical Branch COMP. METABOLIC PANEL 2021-12-04 Pam Garcia [facility] ([id number]) 22:12:00 Medical Branch CBC WITH DIFF 2021-12-04 Cacace, [facility] ex 22:12:00 Medical Branch PROTHROMBIN TIME / INR 2021-12-04 Jose [facility] 22:12:00 Medical Branch N-TERMINAL PRO-BNP 2021-12-04 Jose [facility] 22:12:00 Medical Branch COVID-19 (ID NOW RAPID 2021-12-04 Jose [facility] TESTING) 22:12:00 Medical Branch LAB ONLY COVID 2021-12-04 Jose [facility] ex INTERPRETATION 22:12:00 Medical Branch MAGNESIUM 2021-12-04 [facility] 22:12[facility]00 [facility] TROPONIN I 2021-12-04 Jose [facility] ex 22:12:00 Medical Branch COMP. METABOLIC PANEL 2021-12-04 Jose [facility] ([id number]) 22:12:00 Medical Branch CBC WITH DIFF 2021-12-04 Jose [facility] ex 22:12:00 Medical Branch PROTHROMBIN TIME / INR 2021-12-04 Jose [facility] 22:12:00 Medical Branch N-TERMINAL PRO-BNP 2021-12-04 Jose [facility] 22:12:00 Medical Branch COVID-19 (ID NOW RAPID 2021-12-04 Jose [facility] TESTING) 22:12:00 Medical Branch LAB ONLY COVID 2021-12-04 Jose [facility] ex INTERPRETATION 22:12:00 Medical Branch HB ECG ROUTINE & RHYTHM 2021-12-04 Pam Garcia [facility] STRIP 21:36:05 [facility] HB ECG ROUTINE & RHYTHM 2021-12-04 Jose [facility] STRIP 21:36:05 [facility] EMERGENCY DEPARTMENT 2021-12-04 Doctor Unassigned, [facility] 06:01:00 Name Medical [place] EMERGENCY DEPARTMENT 2021-12-04 Doctor Unassigned, No Unive [facility] DOCUMENTS 06:01:00 Name Medical [place] HOME HEALTH - OTHER 2021-12-01 Doctor Unassigned, No [facility] [place] 06:01:00 Name [facility] HOME HEALTH 485 2021-11-06 Doctor Unassigned, No [facility] 06:01:00 [facility] Plan of Care Planned Activity Planned Date Details Comments Source Future Scheduled 2023-08-17 [facility] 22:07:27 malignant neoplasm of colon (procedure) [code = 021792078] Future Scheduled 2023-08-17 SHINGLES VACCINES (1 Met [facility] Test 22:07:27 of 2) [code = SHINGLES VACCINES (1 of 2)] Future Scheduled 2023-08-17 65+ [facility]AL [facility] 22:07:27 VACCINE (1 - PCV) [code = 65+ PNEUMOCOCCAL VACCINE (1 - PCV)] Future Scheduled 2023-08-17 INFLUENZA VACCINE (#1) [facility] Test 22:07:27 [code = INFLUENZA VACCINE (#1)] Future Scheduled 2023-08-17 [facility] Test 22:07:27 malignant neoplasm of colon (procedure) [code = 392769591] Future Scheduled 2023-08-17 [facility] 22:07:27 malignant neoplasm of colon (procedure) [code = 127341462] Future Scheduled 2023-08-17 [facility] 22:07:27 malignant neoplasm of colon (procedure) [code = 821083162] Future Scheduled 2023-08-17 COVID-19 VACCINE (#1) [facility] Test 22:07:27 [code = COVID-19 VACCINE (#1)] Future Scheduled 2023-08-17 [facility] Test 22:07:27 malignant neoplasm of colon (procedure) [code = 989072799] Future Scheduled 2023-01-21 COVID-19 VACCINE (#1) [facility] Test 15:54:41 [code = COVID-19 VACCINE (#1)] Future Scheduled 2023-01-21 COLONOSCOPY SCREENING [facility] Test 15:54:41 [code = COLONOSCOPY SCREENING] Future Scheduled 2023-01-21 SHINGLES VACCINES (1 Met [facility] Test 15:54:41 of 2) [code = SHINGLES VACCINES (1 of 2)] Future Scheduled 2023-01-21 65+ PNEUMOCOCCAL [facility] Hospital Test 15:54:41 VACCINE (1 - PCV) [code = 65+ PNEUMOCOCCAL VACCINE (1 - PCV)] Future Scheduled 2023-01-21 INFLUENZA VACCINE Method [facility] Hospital Test 15:54:41 [code = INFLUENZA VACCINE] Future Scheduled 2022-11-15 INFLUENZA VACCINE Method [facility] Hospital Test 03:07:42 [code = INFLUENZA VACCINE] Future Scheduled 2022-11-15 COVID-19 VACCINE (#1) [facility] Test 03:07:42 [code = COVID-19 VACCINE (#1)] Future Scheduled 2022-11-15 COLONOSCOPY SCREENING [facility] Test 03:07:42 [code = COLONOSCOPY SCREENING] Future Scheduled 2022-11-15 SHINGLES VACCINES (1 Met [facility] Test 03:07:42 of 2) [code = SHINGLES VACCINES (1 of 2)] Future Scheduled 2022-06-13 COVID-19 VACCINE (#1) [facility] Test 00:32:28 [code = COVID-19 VACCINE (#1)] Future Scheduled 2022-06-13 COLONOSCOPY SCREENING [facility] Test 00:32:28 [code = COLONOSCOPY SCREENING] Future Scheduled 2022-06-13 SHINGLES VACCINES (1 Met [facility] Test 00:32:28 of 2) [code = SHINGLES VACCINES (1 of 2)] Future Scheduled 2022-06-13 INFLUENZA VACCINE Method [facility] Test 00:32:28 [code = INFLUENZA VACCINE] Future Scheduled 2022-06-13 HEPATITIS B VACCINES Met [facility] Test 00:32:28 (1 of 3 - 3-dose series) [code = HEPATITIS B VACCINES (1 of 3 - 3-dose series)] Future Scheduled 2022-06-13 COVID-19 VACCINE (#1) [facility] Test 00:32:28 [code = COVID-19 VACCINE (#1)] Future Scheduled 2022-06-13 COLONOSCOPY SCREENING [facility] Test 00:32:28 [code = COLONOSCOPY SCREENING] Future Scheduled 2022-06-13 SHINGLES VACCINES (1 Met [facility] Test 00:32:28 of 2) [code = SHINGLES VACCINES (1 of 2)] Future Scheduled 2022-06-13 INFLUENZA VACCINE Method [facility] Test 00:32:28 [code = INFLUENZA VACCINE] Future Scheduled 2022-06-13 HEPATITIS B VACCINES Met [facility] Test 00:32:28 (1 of 3 - 3-dose series) [code = HEPATITIS B VACCINES (1 of 3 - 3-dose series)] Encounters Start End Encounter Admission Attending Care Care Encounter Source Date/Time Date/Time Type Type Clinicians Facility Department ID 2023-02-12 Outpatient [facility] [id number] [place] 14:17:17 [id number] Health 2023-02-07 Outpatient [facility] [id number] [place] 15:10:46 [id number] [facility] 2022-12-04 Outpatient [facility] [id number] [place] 12:57:26 [id number] [facility] 2021-08-21 Outpatient [facility] [id number] Univers 01:00:19 GUDELIA denny [facility] 2021-08-20 Emergency [facility] [id number] Univers 22:11:52 ity of [facility] 2021-08-19 Emergency [facility] [id number] Univers 18:20:13 ity of [facility] 2021-08-19 Emergency [facility] [id number] Univers 11:22:57 ity of [facility] 2021-08-19 Emergency [facility] [id number] Univers 02:23:05 ity of [facility] 2021-08-18 [facility] [id number] Univers 18:11:36 ity of [facility] 2021-08-18 Emergency [facility] [id number] Univers 15:52:13 ity of [facility] 2021-08-18 Outpatient R MIGUEL [facility] CLAUDIO [id number] Univers 11:51:53 GUDELIA denny [facility] 2021-08-17 Emergency [facility] [id number] Univers 18:38:42 ity of [facility] 2023-08-07 2023-08-07 Telephone Joao [facility] 1.2.840.114 [id number] Univers 00:00:00 00:00:00 Xavier PARISH 350.1.13.10 ity of jason CARLOS 4.2.7.2.686 [place] SANCHEZESSIO [phone] Nc dical NAL 059 [facility] 2023-07-04 2023-07-04 Outpatient R JOAO CAREN [facility] [id number] Univers 10:40:00 10:40:00 CAREN SHEPHERD ity [facility] 2023-06-19 2023-06-19 Telephone Joao [facility] 1.2.840.114 [id number] Univers 00:00:00 00:00:00 Xavier ANGLEBINA 350.1.13.10 ity of [facility] [place]2.7.[place] [phone] [place] dic[place] [id number] [facility] 2023-01-03 2023-01-03 Outpatient R CAREN SHEPHERD [facility] [id number] Univers 11:07:27 23:59:00 CAREN SHEPHERD ity [facility] 2023-01-03 2023-01-03 Hospital ROSSY Shepherd 1.2.840.114 [id number] Univers 11:00:00 23:59:00 Encounter Xavier LAW 350.1.13.10 ity of [facility] 4.2.7.2.686 [place] as [phone] [facility] [address] 2023-01-03 2023-01-03 Orders Doctor BESSY 1.2.840.114 [id number] Univers 00:00:00 00:00:00 Only Unassigned, BO 350.1.13.10 ity of [place] [facility] 4.2.7.2.686 [place] as [phone] [facility] [address] 2022-12-18 2022-12-18 Letter ROSSY Peralta 1.2.840.114 [id number] Univers 00:00:00 00:00:00 (Out) Germain LAW 350.1.13.10 it y of [facility] 4.2.7.2.686 [place] as [id number] [facility] [address] 2022-12-06 2022-12-06 Outpatient R CAREN SHEPHERD [facility] [id number] Univers 14:57:10 23:59:00 CAREN SHEPHERD ity of [facility] 2022-12-06 2022-12-06 Hospital Joao ROSSY 1.2.840.114 [id number] Univers 14:57:10 23:59:00 Encounter Xavier LAW 350.1.13.10 ity of [facility] 4.2.7.2.686 [place] as [phone] [facility] [address] 2022-11-29 2022-11-29 Transition JANICE Williamson 1.2.840.114 [id number] Univers 00:00:00 00:00:00 of Care Isabel TOPETE 350.1.13.10 it y of [place].2.7.2.[place] [id number] [facility] [address] 2022-11-21 2022-11-28 Inpatient U [facility] [id number] Univers 01:46:00 23:19:00 GERMAIN ity [facility] 2022-11-21 2022-11-28 [facility] SAM 1.2 .840.114 [id number] Univers 01:46:00 23:19:00 Encounter Jermaine Summers 350.1.1 3.10 ity of [facility] aleksandar [facility] 4.2.7.2.686 [facility] Germain [facility] [id number] Medical [address] 2022-11-23 2022-11-23 Surgery Joao ROSSY 1.2.840.114 [id number] Univers 07:30:00 08:30:00 Xavier MARSHY 350.1.13.10 ity of [facility] 4.2.7.2.686 [place] as [id number] [facility] [address] 2022-05-23 2022-05-23 Outpatient Margaret INFANTE [facility] [id number] Univers 14:40:00 14:40:00 JOSE CRUZ baldwin [facility] 2022-05-22 2022-05-22 Outpatient Margaret IFNANTE [facility] [id number] Univers 15:40:00 15:40:00 JOSE CRUZ bladwin [facility] 2022-05-10 2022-05-10 [facility] [id number] Univers 15:40:00 15:40:00 JOSE CRUZ baldwin [facility] 2022-05-10 2022-05-10 [facility] [id number] Univers 15:40:00 15:40:00 JOSE CRUZ baldwin [facility] 2022-05-10 2022-05-10 [facility] [id number] Univers 15:40:00 15:40:00 JOSE CRUZ baldwin [facility] 2022-01-24 2022-01-24 Orders Doctor BESSY 1.2.840.114 [id number] Univers 00:00:00 00:00:00 Only Unassigned, BO 350.1.13.10 ity of [place] [facility] 4.2.7.2.686 [place] as [id number] [facility] [address] 2022-01-23 2022-01-23 [facility] 1.2.840.114 [id number] Univers 00:00:00 00:00:00 Cruzito SPECIALTY 350.1.13.10 [place]2.[place] [id number] [facility] [address] 2021-12-27 2021-12-27 [facility] 1.2.840.114 [id number] Univers 00:00:00 00:00:00 Laura PRIMARY 350.1.13.10 it y of [place] 4[place]2.7.2.[place] [id number] Nc dical [address] 2021-12-22 2021-12-22 Orders Doctor BESSY 1.2.840.114 [id number] Univers 00:00:00 00:00:00 Only Unassigned, BO 350.1.13.10 ity of [place] [facility] 4.2.7.2.686 [place] as [id number] [facility] [address] 2021-12-15 2021-12-15 [facility] 1.2.840.114 [id number] Univers 00:00:00 00:00:00 Cruzito SPECIALTY 350.1.13.10 ity of [place] 4.2.7.2.[place] [id number] [facility] [address] 2021-12-04 2021-12-14 Inpatient X SHANE MCNEILL [facility] [id number] Univers 15:27:00 11:58:00 ity of [facility] 2021-12-04 2021-12-14 Hospital Pam Garcia 1.2.840. 114 [id number] Univers 15:27:00 11:58:00 Encounter Baljinder Marie 350.1.13.10 ity [facility] 4.2 .7.2.686 [place] Jermaine Summers [phone] Medical Shane Mcneill 089 Bra [facility] 2021-12-07 2021-12-07 Telephone [facility] 1.2.840.114 [id number] Univers 00:00:00 00:00:00 Jose Cruz PARISH 350.1.13.10 i ty of [place] [phone] Nc dical NAL 044 [facility] 2021-12-07 2021-12-07 Telephone [facility] 1.2.840.114 [id number] Univers 00:00:00 00:00:00 Jose Cruz PARISH 350.1.13.10 i ty of [place] 4.2.7.2.[place] [id number] Nc dical NAL 044 [facility] 2021-12-05 2021-12-05 Surgery ROSSY Tirado 1.2.679.241 [id number] Univers 11:54:00 12:54:00 Afez LAW 350.1.13.10 it y of [facility] 4.2.7.2.686 [place] as [id number] [facility] [address] 2021-12-05 2021-12-05 Telephone [facility] 1.2.840.114 [id number] Univers 00:00:00 00:00:00 Jose Cruz PARISH 350.1.13.10 i ty of [place] 4.2.7.2.[place] [id number] Nc dical NAL 044 [facility] 2021-12-04 2021-12-04 [facility] [id number] Univers 15:27:00 15:27:00 MOSTAFA ity [facility] 2021-12-04 2021-12-04 [facility] 1.2.840.114 [id number] Univers 00:00:00 00:00:00 Jose Cruz PARIHS 350.1.13.10 i ty of [place].2.[place] [phone] Nc dical NAL 044 [facility] 2021-12-01 2021-12-01 Transition JANICE Chou 1.2.840.114 [id number] Univers 00:00:00 00:00:00 of Care Jina TOPETE 350.1.13.10 i ty of [place] 4.2.7.2.[place] [phone] [facility] [address] 2021-12-01 2021-12-01 Orders Doctor BESSY 1.2.840.114 [id number] Univers 00:00:00 00:00:00 Only Unassigned, BO 350.1.13.10 ity of [place] [facility] 4.2.7.2.686 [place] as [id number] [facility] [address] 2021-11-29 2021-11-30 Outpatient U [facility] [id number] Univers 16:41:00 23:56:00 AFA ity [facility] 2021-11-29 2021-11-30 [facility] Kenna Thakkar 1.2.840.11 [id number] Univers 16:41:00 23:56:00 Encounter Baljinder Marie 350.1.13.10 ity of [facility] 4.2.7.2.686 [place] [phone] [facility] [address] 2021-11-29 2021-11-30 Outpatient U [facility] [id number] Univers 16:41:00 23:56:00 MOSTAFA ity [facility] 2021-11-29 2021-11-29 Telephone [facility] 1.2.840.114 [id number] Univers 00:00:00 00:00:00 Cruzito FLOWERS 350.1.13.10 ity [facility] 4.2.7.2.[place] [phone] [facility] [address] 2021-11-28 2021-11-28 Emergency X Enoch WOODS [facility] ERT [id number] Univers 16:38:00 20:42:00 ity [facility] 2021-11-28 2021-11-28 Emergency Enoch Woods [facility] 1.2.840.114 [id number] Univers 16:38:00 20:42:00 Melanie PARISH 350.1.13.10 i ty of [place] 4.2.7.2.[place] [id number] [facility] [address] 2021-11-28 2021-11-28 Outpatient [facility] [id number] Univers 16:00:00 16:00:00 [facility] 2021-11-28 2021-11-28 Outpatient Margaret [facility] [id number] Univers 16:00:00 16:00:00 [facility] 2021-11-23 2021-11-23 Telephone [facility] 1.2.840.114 [id number] Univers 00:00:00 00:00:00 Jose Cruz PARISH 350.1.13.10 i ty of [place] 4.2.7.2.[place] [phone] Nc dical NAL 044 [facility] 2021-11-23 2021-11-23 Telephone [facility] 1.2.840.114 [id number] Univers 00:00:00 00:00:00 Cruzito FLOWERS 350.1.13.10 ity [facility] 4.2.7.2.[place] [id number] [address] 2021-11-23 2021-11-23 Orders Doctor DOHERTY 1.2.840.114 [id number] Univers 00:00:00 00:00:00 Only Unassigned, BO 350.1.13.10 ity of [place] [facility] 4.2.7.2.686 [place] as [phone] [facility] [address] 2021-11-21 2021-11-21 Outpatient Margaret [facility] [id number] Univers 08:45:00 08:45:00 [facility] 2021-11-21 2021-11-21 Outpatient Margaret [facility] [id number] Univers 08:45:00 08:45:00 [facility] 2021-11-17 2021-11-17 [facility] 1.2.840.114 [id number] Univers 00:00:00 00:00:00 Cruzito SPECIALTY 350.1.13.10 ity of [place] 4.2.7.2.686 [place] [id number] [facility] [address] 2021-11-15 2021-11-15 [facility] 1.2.840.114 [id number] Univers 00:00:00 00:00:00 Cruzito SPECIALTY 350.1.13.10 ity of [place] 4.2.7.2.[place] [id number] [facility] [address] 2021-11-15 2021-11-15 [facility] 1.2.840.114 [id number] Univers 00:00:00 00:00:00 Cruzito SPECIALTY 350.1.13.10 ity of [place] 4.2.7.2.[place] [id number] [facility] [address] 2021-11-15 2021-11-15 [facility] 1.2.840.114 [id number] Univers 00:00:00 00:00:00 Cruzito SPECIALTY 350.1.13.10 ity of [place] 4.2.7.2.[place] [id number] [address] 2021-11-15 2021-11-15 Orders Doctor DOHERTY 1.2.840.114 [id number] Univers 00:00:00 00:00:00 Only Unassigned, BO 350.1.13.10 ity of [place] [facility] 4.2.7.2.686 [place] as [id number] [address] 2021-11-14 2021-11-14 Outpatient R ARELIS [facility] [id number] Univers 09:15:00 09:15:00 JOSE CRZU baldwin [facility] 2021-11-14 2021-11-14 Outpatient R ARELIS [facility] [id number] Univers 09:15:00 09:15:00 JOSE CRUZ denny [facility] 2021-11-14 2021-11-14 Directional Drill Operator 2, Adc Lab [facility] 1.2.840.114 [id number] Univers 09:15:00 09:15:00 Visit Jose Cruz Infante 350.1.13.10 ity of [place]2.7.2.[place] [id number] [facility] 353 [facility] 2021-11-10 2021-11-10 Telephone [facility] 1.2.840.114 [id number] Univers 00:00:00 00:00:00 Jose Cruz PARISH 350.1.13.10 i ty of [place] 4.2.7.2.[place] [id number] Nc dical NAL 044 [facility] 2021-11-09 2021-11-09 Office [facility] 1.2.840.114 [id number] Univers 15:20:00 16:28:16 Visit Jose Cruz PARISH 350.1.13.10 i ty of [place] 4.2.7.2.[place] [id number] Nc dical NAL [address] [place] [address] 2021-11-09 2021-11-09 Office [facility] 1.2.840.114 [id number] Univers 15:20:00 16:28:16 Visit Jose Cruz PARISH 350.1.13.10 i ty of [place] 4.2.7.2.[place] [id number] Nc dic[address] 2021-11-09 2021-11-09 Outpatient R ARELIS [facility] [id number] Univers 15:20:00 16:28:16 JOSE CRUZ baldwin [facility] 2021-11-09 2021-11-09 Outpatient R ARELIS [facility] [id number] Univers 15:20:00 15:20:00 JOSE CRUZ baldwin [facility] 2021-11-09 2021-11-09 Patient Martin [facility] 1.2.840.114 [id number] Univers 00:00:00 00:00:00 Outreach Michelle PARISH 350.1.13.10 ity of [facility] 4.2.7.2.[place] [phone] Nc dical NAL [address] [place] [address] 2021-11-09 2021-11-09 Telephone [facility] 1.2.840.114 [id number] Univers 00:00:00 00:00:00 Cruzito KRISTIE 350.1.13.10 ity of [place] 4.2.7.2.[place] [phone] [address] 2021-11-09 2021-11-09 [facility] 1.2.840.114 [id number] Univers 00:00:00 00:00:00 Jose Cruz PARISH 350.1.13.10 i ty of [facility] 4.2.7.2.[place] [id number] Nc dical NAL [address] [place] [address] 2021-11-09 2021-11-09 Patient Martin [facility] 1.2.840.114 [id number] Univers 00:00:00 00:00:00 Outreach Michelle PARISH 350.1.13.10 ity of [facility] 4.2.7.2.[place] [phone] Nc dical NAL [address] [place] [address] 2021-11-09 2021-11-09 Patient Martin [facility] 1.2.840.114 [id number] Univers 00:00:00 00:00:00 Outreach Michelle PARISH 350.1.13.10 ity of [facility] 4.2.7.2.[place] [phone] Nc dical NAL 044 [facility] 2021-11-06 2021-11-06 Orders Doctor DOHERTY 1.2.840.114 [id number] Univers 00:00:00 00:00:00 Only Unassigned, BO 350.1.13.10 ity of [place] [facility] 4.2.7.2.686 [place] as [id number] [facility] [address] 2021-11-02 2021-11-02 [facility] 1.2.840.114 [id number] Univers 00:00:00 00:00:00 Cruzito SPECIALTY 350.1.13.10 [place] of [place].2.[place] [id number] [facility] [address] 2021-10-30 2021-10-30 [facility] 1.2.840.114 [id number] Univers 00:00:00 00:00:00 Cruzito SPECIALTY 350.1.13.10 [place].2.[place] [id number] [facility] [address] 2021-10-12 2021-10-12 Orders Doctor DOHERTY 1.2.840.114 [id number] Univers 00:00:00 00:00:00 Only Unassigned, BO 350.1.13.10 ity of [place] [facility] 4.2.7.2.686 [place] as [id number] [address] 2021-10-11 2021-10-11 [facility] 1.2.840.114 [id number] Univers 00:00:00 00:00:00 Cruzito SPECIALTY 350.1.13.10 [place].2.[place] [id number] [address] 2021-10-03 2021-10-03 [facility] 1.2.840.114 [id number] Univers 00:00:00 00:00:00 Cruzito SPECIALTY 350.1.13.10 [place].2.[place] [id number] [address] 2021-10-03 2021-10-03 Orders Doctor DOHERTY 1.2.840.114 [id number] Univers 00:00:00 00:00:00 Only Unassigned, BO 350.1.13.10 ity of [place] [facility] 4.2.7.2.686 [place] as [id number] [facility] [address] 2021-09-21 2021-09-21 Outpatient R RODRIGUE AQUINO [facility] [id number] Univers 16:30:00 16:30:00 ity of [facility] 2021-09-21 2021-09-21 [facility] 1.2.840.114 [id number] Univers 00:00:00 00:00:00 Cruzito SPECIALTY 350.1.13.10 ity of [place] 4.2.7.2.[place] [id number] [facility] [address] 2021-09-20 2021-09-20 Orders Doctor BESSY 1.2.840.114 [id number] Univers 00:00:00 00:00:00 Only Unassigned, BO 350.1.13.10 ity of [place] [facility] 4.2.7.2.686 [place] as [id number] [address] 2021-09-13 2021-09-13 [facility] 1.2.840.114 [id number] Univers 00:00:00 00:00:00 Cruzito SPECIALTY 350.1.13.10 ity of [place] 4.2.7.2.[place] [id number] [facility] [address] 2021-09-12 2021-09-12 Orders Doctor BESSY 1.2.840.114 [id number] Univers 00:00:00 00:00:00 Only Unassigned, BO 350.1.13.10 ity of [place] [facility] 4.2.7.2.686 [place] as [id number] [address] 2021-09-11 2021-09-11 [facility] 1.2.840.114 [id number] Univers 00:00:00 00:00:00 Cruzito SPECIALTY 350.1.13.10 ity of [place] 4.2.7.2.[place] [id number] [facility] [address] 2021-08-31 2021-08-31 Outpatient R MODESTO SANDOVAL [facility] [id number] Univers 14:00:00 14:00:00 ity of [facility] 2021-08-31 2021-08-31 Outpatient R MODESTO SANDOVAL [facility] [id number] Univers 14:00:00 14:00:00 ity of [facility] 2021-08-31 2021-08-31 Office AlberModesto tsai [facility] 1.2.840.114 [id number] Univers 13:22:30 13:37:30 Visit Jose Y 350.1.13.10 it y of [facility] 4.2.7.2.686 [place] as BANK [id number] [facility] BLDG. [address] 2021-08-31 2021-08-31 Telephone [facility] 1.2.840.114 [id number] Univers 00:00:00 00:00:00 Cruzito SPECIALTY 350.1.13.10 ity of [place].2.[place] [id number] [facility] [address] 2021-08-24 2021-08-24 [facility] 1.2.840.[id number] [place] [address] 16:13:42 16:43:42 Visit Cruzito SPECIALTY 350.1.13.10 [place].2.[place] [id number] [address] 2021-08-24 2021-08-24 [facility] 1.2.840.114 [id number] Univers 16:13:42 16:43:42 Visit Cruzito SPECIALTY 350.1.13.10 ity of [place] 4.2.[place].2.[place] [id number] [address] 2021-08-24 2021-08-24 [facility] 1.2.840.114 [id number] Univers 16:13:42 16:43:42 Visit Cruzito SPECIALTY 350.1.13.10 ity of [place] 4.2.7.2.[place] [id number] [address] 2021-08-24 2021-08-24 Outpatient R [facility] [id number] Univers 16:30:00 16:30:00 CRUZITO itmarissa [facility] 2021-08-08 2021-08-08 Outpatient R [facility] [id number] Univers 16:00:00 16:00:00 CRUZITO ity of [facility] 2021-08-08 2021-08-08 Office [facility], [facility] 1.2.840.114 [id number] Univers 15:14:15 15:44:15 Visit Cruzito SPECIALTY 350.1.13.10 ity of [place] 4.2.[place].2.[place] [id number] [address] 2021-08-08 2021-08-08 Office [facility] 1.2.840.114 [id number] Univers 15:14:15 15:44:15 Visit Cruzito SPECIALTY 350.1.13.10 ity of [place] 4.2.[place].2.[place] [id number] [address] 2021-08-08 2021-08-08 Orders Doctor BESSY 1.2.840.114 [id number] Univers 00:00:00 00:00:00 Only Unassigned, BO 350.1.13.10 ity of [place] [facility] 4.2.7.2.686 Maritn as [phone] [facility] [address] [place] 2021-08-04 2021-08-04 [facility] 1.2.840.114 [id number] Univers 00:00:00 00:00:00 Outreach [place] [id number] [place] [phone] [place] [address] [place] [address] 2021-08-04 2021-08-04 Patient Martin [facility] 1.2.840.114 [id number] Univers 00:00:00 00:00:00 Outreach [place] 350.1.13.10 [place] [phone] [place] 044 [facility] 2021-08-04 2021-08-04 Patient Martin [facility] 1.2.840.114 [id number] Univers 00:00:00 00:00:00 Outreach [place] 350.1.13.10 [place] [phone] [place] [address] [place] [address] 2021-08-04 2021-08-04 Patient Martin, [facility] 1.2.840.114 [id number] Univers 00:00:00 00:00:00 Outreach Michelle [place] 350.1.13.10 [facility] [place] [phone] [facility] NAL [address] [place] [address] 2021-08-04 2021-08-04 Patient Martin [facility] 1.2.840.114 [id number] Univers 00:00:00 00:00:00 Outreach Michelle [place] 350.1.13.10 [facility] [place] [phone] [address] 2021-08-03 2021-08-03 [facility] 1.2.840.114 [id number] Univers 17:31:11 17:31:22 Visit Jose Cruz Xuan 350.1.13.10 i [place] [phone] [address] 2021-08-03 2021-08-03 Office [facility] 1.2.840.114 [id number] Univers 14:25:32 17:03:20 Visit Jose [place] 350.1.13.10 i [place] [phone] [address] 2021-08-03 2021-08-03 Outpatient R [facility] [id number] Univers 15:00:00 15:00:00 JOSE CRUZ [facility] 2021-07-20 2021-07-20 [facility] [id number] Univers 15:30:00 15:30:00 CRUZITO [facility] 2021-07-20 2021-07-20 [facility] 1.2.840.114 [id number] Univers 14:59:43 15:29:43 Visit Cruzito FLOWERS 350.1.13.10 ity of [place] [id number] [facility] [address] 2021-07-06 2021-07-06 Office Gudelia Rivera [facility] 1.2.84 0.114 [id number] Univers 09:50:51 10:20:51 Visit Jasmeet Panda [facility] 350.1.1 3.10 ity of CL[place] [id number] [facility] [address] 2021-07-06 2021-07-06 [facility] [id number] [facility] 10:00:00 10:00:00 JASMEET ity [facility] 2021-06-29 2021-06-29 Office [facility] 1.2.840.114 [id number] [facility] 14:50:24 15:20:24 Visit Cruzito SPECIALTY 350.1.13.10 it[place] of [place] [id number] [address] 2021-06-29 2021-06-29 Outpatient R [facility] [id number] [facility] 15:00:00 15:00:00 CRUZITO ity of [facility] 2021-06-16 2021-06-16 Orders Doctor DOHERTY 1.2.840.114 [id number] Univers 00:00:00 00:00:00 Only Unassigned, BO 350.1.13.10 ity of [place] [facility] 4.2.7.2.686 [place] [id number] [address] 2021-06-16 2021-06-16 Orders Doctor DOHERTY 1.2.840.114 [id number] Univers 00:00:00 00:00:00 Only Unassigned, BO 350.1.13.10 ity of [place] [facility] 4.2.7.2.686 [place] [phone] [address] 2021-06-15 2021-06-15 [facility] 1.2.840.114 [id number] Univers 16:06:23 16:36:23 Visit Cruzito SPECIALTY 350.1.13.10 it[place] of [place] [id number] [address] 2021-06-15 2021-06-15 Outpatient R KERMIT [facility] [id number] Univers 16:30:00 16:30:00 CRUZITO y [facility] 2021-06-01 2021-06-01 [facility] [id number] Univers 15:30:00 15:30:00 CRUZITO [facility] 2021-05-25 2021-05-25 Office KARISSA Panda 1.2.840.114 [id number] Univers 10:24:31 11:13:01 Visit [facility] 350.1.13.10 ity of [facility] 4.2.7.2.[place] [id number] [address] 2021-05-25 2021-05-25 Outpatient R TOM [facility] [id number] Univers 11:00:00 11:00:00 [facility] 2021-05-16 2021-05-16 Office Kenia Rodrigue [facility] 1.2.840.114 [id number] Univers 15:47:32 16:17:32 Visit SPECIALTY 350.1.13.10 it[place] of [place] [id number] [address] 2021-05-16 2021-05-16 Outpatient Margaret AQUINO RODRIGUE [facility] [id number] Univers 16:00:00 16:00:00 ity [facility] 2021-05-09 2021-05-09 Outpatient R KENIA RODRIGUE [facility] [id number] Univers 15:30:00 15:30:00 ity [facility] 2021-05-09 2021-05-[address] [facility] 1.2.840.114 [id number] Univers 14:47:10 15:17:10 Visit SPECIALTY 350.1.13.10 ity of [place] [id number] [address] 2021-05-03 2021-05-03 Office KARISSA Panda 1.2.840.114 [id number] Univers 11:20:07 11:50:29 Visit Jasmeet R Y HEALTH 350.1.13.10 ity of [facility] 4.2.7.2.[place] [id number] [facility] [address] 2021-05-03 2021-05-03 Outpatient R TOM [facility] [id number] Univers 11:30:00 11:30:00 JASMEET ity [facility] 2021-04-26 2021-04-26 Outpatient R TOM [facility] [id number] Univers 10:30:00 10:30:00 JASMEET ity [facility] 2021-04-25 2021-04-[address] [facility] 1.2.840.114 [id number] Univers 15:00:50 15:30:50 Visit SPECIALTY 350.1.13.10 ity of [place] [id number] [facility] [address] 2021-04-25 2021-04-25 Outpatient R RODIRGUE AQUINO [facility] [id number] Univers 15:30:00 15:30:00 ity [facility] 2021-04-19 2021-04-19 Outpatient R RANJIT [facility] [id number] Univers 14:20:00 14:20:00 ANAMARIA baldwin o f [facility] 2021-04-18 2021-04-18 Hospital Rossy Rivera 1.2.810.789 [id number] Univers 09:18:00 21:14:00 Encounter Gudelia Law 350.1.13.10 ity [facility] 4.2.7.2.686 [place] [phone] [facility] [address] 2021-04-18 2021-04-18 Surgery Rossy Rivera 1.2.840.114 [id number] Univers 11:42:00 16:30:00 Gudelia Law 350.1.13.10 i ty [facility] 4.2.7.2.686 [place] [phone] [facility] [address] 2021-04-18 2021-04-18 Orders Doctor DOHERTY 1.2.840.114 [id number] Univers 00:00:00 00:00:00 Only Unassigned, BO 350.1.13.10 ity of [place] [facility] 4.2.7.2.686 [place] [phone] [facility] [address] 2021-04-11 2021-04-11 Office Rodrigue Aquino [facility] 1.2.840.114 [id number] Univers 15:31:23 16:01:23 Visit SPECIALTY 350.1.13.10 it[place] of [place] [id number] [facility] [address] 2021-04-11 2021-04-11 Outpatient R RODRIGUE AQUINO [facility] [id number] Univers 15:30:00 15:30:00 ity of [facility] 2021-04-06 2021-04-06 Outpatient [facility] [id number] Univers 15:30:00 15:30:00 CRUZITO [facility] 2021-04-03 2021-04-03 Office Faculty, Vascular Surg [facility]ERSIT 1 .2.840.114 [id number] Univers 08:04:25 08:19:25 Visit Miguel, Gudelia [facility] 350.1.13.10 ity of [facility] 4.2.7.2.[place] [id number] [facility] [address] 2021-04-03 2021-04-03 Outpatient R [facility] [id number] Univers 08:00:00 08:00:00 ity of [facility] 2021-03-23 2021-03-23 Outpatient [facility] [id number] Univers 11:00:00 11:00:00 CRUZITO [facility] 2021-03-19 2021-03-20 Emergency [facility] 1.2.322.670 [id number] Univers 20:54:00 00:08:00 Paige Parish 350.1.13.10 ity of [place] [phone] [facility] [address] 2021-03-16 2021-03-16 Outpatient R SERA [facility] [id number] Univers 00:00:00 00:00:00 SENDIL ity [facility] 2021-03-092021-03-09 Outpatient Margaret CARMEN [facility] [id number] Univers 16:30:00 16:30:00 CRUZITO marissa [facility] 2021-02-28 2021-02-28 Outpatient RODRIGUE WOODSON [facility] [id number] Univers 14:00:00 14:00:00 ity [facility] 2021-02-28 2021-02-28 Office Rodrigue Aquino [facility] 1.2.840.114 [id number] Univers 12:59:54 13:29:54 Visit SPECIALTY 350.1.13.10 ity [facility] [place] [phone] [address] 2021-02-22 2021-02-22 Outpatient Margaret [facility] [id number] Univers 16:00:00 16:00:00 CRUZITO [facility] 2021-02-21 2021-02-21 Outpatient Margaret CHURCH [facility] [id number] Univers 13:00:00 13:00:00 ANAMARIA diaz [facility] 2021-02-17 2021-02-17 [facility] 1.2.840.114 [id number] Univers 09:36:23 10:50:50 Visit Gudelia Parish 350.1.13.10 ity [facility] [place].2.[place] [id number] [address] 2021-02-17 2021-02-17 Outpatient R MIGUEL [facility] [id number] Univers 09:45:00 09:45:00 GUDELIA diaz [facility] 2021-02-14 2021-02-14 Outpatient Margaret AQUINO RODRIGUE [facility] [id number] Univers 14:30:00 14:30:00 [facility] 2021-02-09 2021-02-09 Outpatient R KAITLYNN LUCERO [facility] [id number] Univers 11:30:00 11:30:00 EMILIANO baldwin [facility] 2021-02-02 2021-02-02 Outpatient Margaret CARMEN [facility] [id number] Univers 14:30:00 14:30:00 CRUZITO ity [facility] 2021-02-02 2021-02-02 Orders Doctor BESSY 1.2.840.114 [id number] Univers 00:00:00 00:00:00 Only Unassigned, BO 350.1.13.10 ity of [place] [facility] 4.2.7.2.686 [place] [phone] [address] 2021-01-24 2021-01-24 [facility] 1.2.840.114 [id number] Univers 00:00:00 00:00:00 (Out) Rajiv Parish 350.1.13.10 ity of [place] [phone] [place] dical [place]al 092 [facility] 2021-01-19 2021-01-19 Outpatient Margaret ARANDA [facility] [id number] [facility] 15:50:00 15:50:00 KEVIN ity [facility] 2021-01-17 2021-01-17 Telephone [facility] 1.2.840.114 [id number] Univers 00:00:00 00:00:00 Jose Cruz Parish 350.1.13.10 i ty of [place] [phone] [facility] 231 [facility] 2020-12-29 2020-12-29 Outpatient Margaret ARANDA [facility] [id number] Univers 17:50:00 17:50:00 KEVIN ity [facility] 2020-12-29 2020-12-29 Office [facility] 1.2.840.114 [id number] Univers 16:27:09 17:36:27 Visit Jose Cruz [place] 350.1.13.10 i ty of [place].2.[place] [phone] [place] dical nal 044 [facility] 2020-12-29 2020-12-29 Office [facility] 1.2.840.114 [id number] Univers 15:43:36 17:32:15 Visit Jose Cruz [place] 350.1.13.10 i ty of [place].2.[place] [phone] [place] dical nal 044 [facility] 2020-12-29 2020-12-29 Outpatient R LEJERRY [facility] [id number] Univers 16:20:00 16:20:00 JOSE CRUZ baldwin [facility] 2020-12-16 2020-12-16 Outpatient R LEJERRY [facility] [id number] Univers 15:20:00 15:20:00 JOSE CRUZ denny [facility] 2020-11-14 2020-11-14 Transition Janice Williamson 1.2.840.114 [id number] Univers 00:00:00 00:00:00 of Gege Topete 350.1.13.10 it y of [place].2.[place] [phone] [facility] [address] 2020-11-09 2020-11-12 [facility] Shashank Myrick [facility] 1.2.840.1 14 [id number] Univers 13:33:00 18:50:00 Encounter Mike Saxena 350.1.13.10 ity of [place] [phone] [facility] [address] 2020-11-10 2020-11-10 Outpatient R LEJERRY [facility] [id number] Univers 15:40:00 15:40:00 JOSE CRUZ denny [facility] 2020-11-01 2020-11-01 Office [facility] 1.2.840.114 [id number] Univers 08:55:27 10:04:58 Visit Anamaria Parish 350.1.13.10 [place] [phone] [place] dical nal 059 [facility] 2020-11-01 2020-11-01 Office Miguel [facility] 1.2.840.114 [id number] Univers 08:02:51 08:54:06 Visit Gudelia Parish 350.1.13.10 ity of [place].2.[place] [phone] [place] dical [place]al 205 [facility] 2020-11-01 2020-11-01 [facility] [id number] Univers 08:15:00 08:15:00 GUDELIA denny juanita diaz [facility] 2020-10-31 2020-10-31 Outpatient R RANJIT, [facility] [id number] Univers 11:40:00 11:40:00 ANAMARIA denny grant joe [facility] 2020-10-25 2020-10-25 Outpatient R VELEZ, [facility] [id number] Univers 15:00:00 15:00:00 ADDISON baldwin [facility] 2020-10-17 2020-10-17 [facility] [id number] Univers 09:00:00 09:00:00 [facility] 2020-10-11 2020-10-11 [facility] 1.2.840.114 [id number] Univers 16:08:07 23:59:00 Encounter Norberto Parish 350.1.13.10 ity of [place] 4.2.7.2.686 [facility] [phone] [facility] [address] 2020-10-11 2020-10-11 Outpatient [facility] [id number] Univers 00:00:00 00:00:00 NORBERTO baldwin [facility] 2020-10-06 2020-10-06 Transition Janice Williamson 1.2.840.114 [id number] Univers 00:00:00 00:00:00 of Gege Topete 350.1.13.10 it y of [place] 4.2.7.2.686 [place] [id number] [facility] [address] 2020-10-04 2020-10-05 Emergency Winsome Trevizo [facility] 1.2.8 40.114 [id number] Univers 11:41:00 18:41:00 Mike Saxena 350.1.13.10 ity of [place] 4.2.7.2.686 [place] [facility] [phone] [facility] [address] 2020-10-04 2020-10-04 Office [facility] 1.2.840.114 [id number] Univers 09:24:09 11:35:49 Visit Gudelia Parish 350.1.13.10 ity of [place] [phone] [address] 2020-10-04 2020-10-04 Outpatient R [facility] [id number] Univers 09:30:00 09:30:00 GUDELIA denny o f [facility] 2020-10-04 2020-10-04 Refill [facility] 1.2.840.114 [id number] Univers 00:00:00 00:00:00 Gudelia Parish 350.1.13.10 ity of [place] [phone] [address] 2020-09-30 2020-09-30 Office Raghavr, [facility] 1.2.884.858 [id number] Univers 08:14:02 08:29:02 Visit [facility] Y HEALTH 350.1.13.10 i ty of [place] [phone] [address] 2020-09-30 2020-09-30 Outpatient [facility] [id number] Univers 08:15:00 08:15:00 NORBERTO baldwin [facility] 2020-09-30 2020-09-30 Patient Lon, [facility] 1.2.413.787 [id number] Univers 00:00:00 00:00:00 Outreach Johanny Y HEALTH 350.1.13.10 ity [place] [phone] [address] 2020-08-23 2020-08-23 Office [facility] 1.2.840.114 [id number] Univers 15:48:57 16:24:09 Visit Anamaria Parish 350.1.13.10 ity of [place].2.[place] [phone] [facility] 059 [facility] 2020-08-23 2020-08-23 Out[facility] [id number] Univers 16:00:00 16:00:00 ANAMARIA acunamarissa o f [facility] 2020-08-22 2020-08-22 Emergency Winsome Trevizo [facility] 1.2.8 40.114 [id number] Univers 09:30:00 12:02:00 Winsome Trevizo 350.1.13.1 0 ity of [place] 4.2.7.2.686 [facility] [phone] [facility] [address] 2020-08-22 2020-08-22 Orders Doctor BESSY 1.2.840.114 [id number] Univers 00:00:00 00:00:00 Only Unassigned, BO 350.1.13.10 ity of [place] [facility] 4.2.7.2.686 [place] [phone] [facility] [address] 2020-08-16 2020-08-16 Outpatient [facility] [id number] Univers 08:40:00 08:40:00 MERARIODIN denny diaz [facility] 2020-08-11 2020-08-11 [facility] 1.2.840.114 [id number] Univers 08:50:01 23:59:00 Encounter Norberto Parihs 350.1.13.10 ity of [place] 4.2.7.2.686 [facility] [phone] [facility] [address] 2020-08-11 2020-08-11 Nurse Visit, [facility] Nurse [facility] 1.2.840.1 14 [id number] Univers 15:41:18 16:25:47 Visit Norberto Gtz 350.1.13.10 ity of Sybil Churchluciodin [place] 4.2.7.2.686 [facility] [phone] N[place] dical nal 059 [facility] 2020-08-11 2020-08-11 Outpatient [facility] [id number] Univers 00:00:00 00:00:00 NORBERTO baldwin of [facility] 2020-08-10 2020-08-10 Letter Neurology [facility] 1.2.840.114 [id number] Univers 00:00:00 00:00:00 (Out) Y HEALTH 350.1.13.10 i ty of CLINICS 4.2.7.2.686 [facility] [phone] [address] 2020-08-09 2020-08-09 Orders Doctor BESSY 1.2.840.114 [id number] Univers 00:00:00 00:00:00 Only Unassigned, BO 350.1.13.10 ity of [place] [facility] 4.2.7.2.686 [place] [phone] [address] 2020-08-05 2020-08-05 Office [facility] 1.2.840.114 [id number] Univers 08:47:30 09:54:47 Visit Gudelia Parish 350.1.13.10 ity of [place].2.[place] [phone] [facility] 205 [facility] 2020-08-05 2020-08-05 Outpatient R [facility] [id number] [facility] 09:30:00 09:30:00 GUDELIA baldwin o f [facility] 2020-08-01 2020-08-01 Orders Doctor BESSY 1.2.840.114 [id number] Univers 00:00:00 00:00:00 Only Unassigned, BO 350.1.13.10 ity of [place] [facility] 4.2.7.2.686 [place] [phone] [address] 2020-07-28 2020-07-28 [facility] 1.2.018.385 [id number] Univers 00:00:00 00:00:00 Anamaria Parish 350.1.13.10 ity of [place]2.7.2.[place] [phone] [place] dicks nal 059 [facility] 2020-07-12 2020-07-12 Office [facility] 1.2.840.114 [id number] Univers 12:51:23 13:11:23 Visit Anmol Parish 350.1.13.10 i ty of [place] 4.2.7.2.[place] [phone] [place] dicks nal 059 [facility] 2020-07-12 2020-07-12 Outpatient [facility] [id number] Univers 13:00:00 13:00:00 ANMOL ity of [facility] 2020-07-12 2020-07-12 Transition Janice Steele 1.2.840.114 [id number] Univers 00:00:00 00:00:00 of Care Taiwo Fraustoy 350.1.13.10 ity of [place] 4.2.7.2.[place] [phone] [facility] [address] 2020-07-07 2020-07-10 [facility] Gisele Avila 1.2.840. 114 [id number] Univers 20:05:00 17:52:00 Encounter Norberto Gtz 350.1.13.10 ity of [facility] 4.2.7.2.686 [place] [phone] [facility] [address] 2020-07-08 2020-07-08 Outpatient R [facility] [id number] Univers 09:00:00 09:00:00 GUDELIA diaz [facility] 2020-06-28 2020-06-28 Transition Yuridia Williamsondevyn 1.2.840.114 [id number] Univers 00:00:00 00:00:00 of Care Isabel Fraustoy 350.1.13.10 it y of [place].2.7.2.[place] [id number] [facility] [address] 2020-06-23 2020-06-24 [facility] Jenna Barone [facility] 1.2.840.1 14 [id number] Univers 17:21:00 17:40:00 Encounter Mike Saxena 350.1.13.10 ity of [place] 4[place].2.[place] [phone] [facility] [address] 2020-06-23 2020-06-23 Orders Doctor BESSY 1.2.840.114 [id number] Univers 00:00:00 00:00:00 Only Unassigned, BO 350.1.13.10 ity of [place] [facility] 4.2.7.2.686 [place] [id number] [facility] [address] 2020-06-10 2020-06-22 Office [facility] 1.2.840.114 [id number] Univers 10:47:38 09:00:38 Visit Gudelia Parish 350.1.13.10 it[place] of [place].2.[place] [phone] [facility] 205 [facility] 2020-06-16 2020-06-16 Outpatient Ajibade_O_A VFP VFP 799 [id number] [facility] 03:35:00 03:35:00 H [id number] Family Practic e 2020-06-14 2020-06-14 Out[facility] [id number] Univers 09:40:00 09:40:00 ANMOL ity of [facility] 2020-06-10 2020-06-10 Outpatient R [facility] [id number] Univers 11:00:00 11:00:00 GUDELIA baldwin o f [facility] 2020-06-06 2020-06-06 [facility] 1.2.840.114 [id number] Univers 00:00:00 00:00:00 Tim Parish 350.1.13.10 i ty [place].2.[place] [phone] [facility] 204 [facility] 2020-06-06 2020-06-06 [facility] 1.2.840.114 [id number] Univers 00:00:00 00:00:00 Outreach Capri Parish 350.1.13.10 ity of [place] 4.[place].2.[place] [phone] [facility] 231 [facility] 2020-06-02 2020-06-02 [facility] 1.2.283.926 [id number] Univers 11:16:00 15:30:00 Encounter Gudelia Xuan 350.1.13.10 ity of [place] 4.2.7.2.[place] Surgical [phone] [facility] [address] 2020-06-02 2020-06-02 Abstract [facility] 1.2.840.114 [id number] Univers 00:00:00 00:00:00 Alejandro Parish 350.1.13.10 i ty of [place] 4.[place].2.[place] [phone] [place] dical nal 205 [facility] 2020-06-02 2020-06-02 Orders Doctor BESSY 1.2.840.114 [id number] Univers 00:00:00 00:00:00 Only Unassigned, BO 350.1.13.10 ity of [place] [facility] 4.2.7.2.686 [place] [phone] [facility] [address] 2020-06-02 2020-06-02 Telephone Lab, Pcp BESSY 1.2.840.114 [id number] Univers 00:00:00 00:00:00 Covid BO 350.1.13.10 it y of HOSPITAL 4.2.7.2.686 [place] [phone] [facility] [address] 2020-06-01 2020-06-01 Laboratory Only, Adc Test [facility] 1.2.840. 114 [id number] Univers 11:47:10 12:02:10 Only Gudelia Rivera 350.1.13.10 ity of [place] 4[place].2.[place] [phone] [facility] [address] 2020-06-01 2020-06-01 Outpatient R [facility] [id number] Univers 12:00:00 12:00:00 ity of [facility] 2020-05-30 2020-05-30 Outpatient [facility] [id number] Univers 00:00:00 00:00:00 ity of [facility] 2020-05-27 2020-05-27 Office Miguel [facility] 1.2.840.114 [id number] Univers 10:51:37 12:05:38 Visit Gudelia Parish 350.1.13.10 ity [facility] 4.2.7.2.686 [place] [facility] [phone] [place] dical nal 205 [facility] 2020-05-27 2020-05-27 Outpatient R MIGUEL [facility] [id number] Univers 11:00:00 11:00:00 GUDELIA baldwin o f [facility] 2020-05-27 2020-05-27 Orders Doctor DOHERTY 1.2.840.114 [id number] Univers 00:00:00 00:00:00 Only Unassigned, BO 350.1.13.10 ity of [place] [facility] 4.2.7.2.686 [place] [phone] [facility] [address] 2020-05-12 2020-05-12 Office [facility] 1.2.840.114 [id number] Univers 08:03:15 08:39:23 Visit Gudelia Parish 350.1.13.10 ity of [place] 4.2.7.2.[place] ess[place] [phone] N[place] dical [facility] 205 [facility] 2020-05-12 2020-05-12 Outpatient R [facility] [id number] Univers 08:00:00 08:00:00 GUDELIA armandy o f [facility] 2020-05-10 2020-05-10 Outpatient [facility] [id number] Univers 00:00:00 00:00:00 ity of [facility] 2020-05-10 2020-05-10 Transition Janice Williamson 1.2.840.114 [id number] Univers 00:00:00 00:00:00 of Care Isabelbarbara Topete 350.1.13.10 [place] [phone] [facility] [address] 2020-05-03 2020-05-07 Hospital Rossy Rivera [id number] Univers 15:15:00 18:30:00 Encounter Gudelia Law 350.1.13.10 ity of [facility] 4.2.7.2.686 [place] as [phone] [facility] [address] 2020-05-03 2020-05-03 Office Faculty, Vascular Surg UNIVERSIT 1 .2.840.114 [id number] Univers 09:53:28 11:22:47 Visit David Underwood [facility] 350.1.13.1 0 ity of Jasmeet Panda R CLINICS 4.2.7.2.68 6 [place] [phone] [facility] [address] 2020-05-03 2020-05-03 Outpatient R [facility] [id number] Univers 10:30:00 10:30:00 ity of [facility] 2020-04-26 2020-04-26 [facility] 1.2.840.114 [id number] Univers 09:19:33 10:01:26 Visit [place] 350.1.13.10 [place] [phone] [place] [facility] [facility] 059 [facility] 2020-04-26 2020-04-26 Outpatient R RANJIT, [facility] [id number] Univers 09:20:00 09:20:00 ANAMARIA ity o f [facility] 2020-04-26 2020-04-26 Orders Doctor BESSY 1.2.840.114 [id number] Univers 00:00:00 00:00:00 Only Unassigned, BO 350.1.13.10 ity of [place] [facility] 4.2.7.2.686 [place] as [phone] [address] 2020-04-18 2020-04-18 Orders Doctor DOHERTY 1.2.840.114 [id number] Univers 00:00:00 00:00:00 Only Unassigned, BO 350.1.13.10 ity of [place] [facility] 4.2.7.2.686 [place] [phone] [address] 2020-04-12 2020-04-12 Office Faculty, Vascular Surg UNIVERSIT 1 .2.840.114 [id number] Univers 12:59:33 14:18:53 Visit Jasmeet Panda R HEALTH 350.1.1 3.10 ity of [place] [phone] [facility] 205 [place] 2020-04-12 2020-04-12 Outpatient R TOM, [facility] [id number] Univers 13:00:00 13:00:00 JASMEET ity of [facility] 2020-04-11 2020-04-11 Outpatient R [facility] [id number] Univers 16:30:00 16:30:00 ity of [facility] 2020-03-21 2020-03-21 Outpatient R [facility] [id number] Univers 10:15:00 10:15:00 ity of [facility] 2020-03-07 2020-03-15 Office Faculty, Vascular Surg UNIVERSIT 1 .2.840.114 [id number] Univers 10:18:59 09:36:29 Visit Gudelia Rivera Y HE[facility] 350.1.13.10 [place] [phone] [address] 2020-03-08 2020-03-08 Orders Doctor BESSY 1.2.840.114 [id number] Univers 00:00:00 00:00:00 Only Unassigned, BO 350.1.13.10 ity of [facility] 4.2.7.2.686 [place] as [id number] [address] 2020-03-07 2020-03-07 Outpatient R [facility] [id number] Univers 10:00:00 10:00:00 ity of [facility] 2020-03-01 2020-03-01 Telephone Miguel [facility] 1.2.840.114 [id number] Univers 00:00:00 00:00:00 Gudelia [place] 350.1.13.10 ity [place] Profess[place] [id number] [address] 2020-02-25 2020-02-25 Orders Doctor BESSY 1.2.840.114 [id number] Univers 00:00:00 00:00:00 Only Unassigned, BO 350.1.13.10 ity of [facility] 4.2.7.2.686 [place] [id number] [address] 2020-02-24 2020-02-24 Transition Janice Williamson 1.2.840.114 [id number] Univers 00:00:00 00:00:00 of Care Isabel Topete 350.1.13.10 it [place] [phone] [address] [address] 2020-02-23 2020-02-23 Telephone Unknown, UNIVERSIT 1.2.840.114 [id number] Univers 00:00:00 00:00:00 Attending Y HEALTH 350.1.13.10 [place] [id number] [address] 2020-02-09 2020-02-22 Inpatient [facility] [id number] Univers 22:42:04 18:36:00 [facility]-09 2020-02-22 Hospital Gisele Avilanie 1.2.840. 114 [id number] Univers 22:42:04 18:36:00 Encounter Alem Morrell 350.1.13 .10 ity [facility] 4.2.7.2.686 [place] Lynn Dsosza [id number] [place] [address] [place] 2020-02-11 2020-02-11 Anesthesia Yayo Fuentes Rossy 1.2.840.114 [id number] Univers 10:50:00 16:32:00 Johny Le 350.1.13.10 ity [facility] 4.2.7.2.686 [facility] [id number] [place] [address] [address] 2020-02-11 2020-02-11 Outpatient Margaret RIVERA [facility] [id number] Univers 08:00:00 08:00:00 GUDELIA diaz [facility] 2020-01-14 2020-01-14 Outpatient Margaret RIVERA [facility] [id number] Univers 08:00:00 08:00:00 GUDELIA diaz [facility] 2019-12-09 2019-12-09 [id number] [facility] 07:28:00 07:28:00 _J_AH 30571 Family Practic e 2019-09-10 2019-09-10 Outpatient Margaret RIVERA [facility] [id number] Univers 09:15:00 09:57:24 GUDELIA diaz [facility] 2019-08-07 2019-08-07 Outpatient Margaret RIVERA [facility] [id number] Univers 09:15:00 10:19:32 GUDELIA diaz [facility] 2019-07-21 2019-07-21 Outpatient Margaret CHURCH [facility] [id number] Univers 13:00:00 13:32:31 ANAMARIA diaz [facility] 2019-07-17 2019-07-17 Outpatient Margaret CHURCH [facility] [id number] Univers 13:00:00 13:00:00 ANAMARIA diaz [facility] 2019-07-14 2019-07-14 [facility] [id number] Univers 09:45:00 10:18:03 GUDELIA denny grant joe [facility] 2019-06-18 2019-06-18 Transition Janice Almazan 1.2.840.114 [id number] Univers 00:00:00 00:00:00 of Care Odalis Topete 350.1.13.10 it [place] [id number] [facility] [address] 2019-06-14 2019-06-17 Hospital Winsome Trevizo 1.2.84 0.114 [id number] Univers 22:07:45 16:00:00 Encounter NikkiEvelina lucio Avelino Law 350.1.1 3.10 ity of [facility] 4.2.7.2.686 [place] [phone] [facility] [address] 2019-06-02 2019-06-02 Transition Janice Almazan 1.2.840.114 [id number] Univers 00:00:00 00:00:00 of Care Odalis Topete 350.1.13.10 it y [place] [id number] [place] [address] [address] 2019-06-01 2019-06-01 Transition Janice Almazan 1.2.840.114 [id number] Univers 00:00:00 00:00:00 of Care Odalis Topete 350.1.13.10 it y [place] [id number] [facility] [address] 2019-05-15 2019-05-29 [facility] Shashank Myrick 1.2.840.1 [id number] Univers 09:20:43 22:00:00 Encounter Joseph Hanley 350.1.13. 10 ity of [facility] 4.2.7.2.686 [place] Curt Goodwin [id number] [place] [address] 2019-05-15 2019-05-15 Office [facility] 1.2.840.114 [id number] Univers 08:02:33 09:07:18 Visit Gudelia [place] 350.1.13.10 ity of [place] 4.2.7.2.686 [place] Professio [phone] N[place] dical nal [address] [facility] 2019-05-15 2019-05-15 Orders Doctor BESSY 1.2.840.114 [id number] Univers 00:00:00 00:00:00 Only Unassigned, BO 350.1.13.10 ity of [place] [facility] 4.2.7.2.686 [place] [id number] [address] Results Test Description Test Time Test Comments Results Result Comments Source POCT GLUCOSE (AUTOMATED) 2022-11-29 01:31:38 Test Item Value Reference Range Interpretation Comme nts POCT GLU (test code = 1932524251) 90 mg/dL 70-110 Lab Interpretation (test code = 53007-8) Normal [facility] GLUCOSE (AUTOMATED)2022-11-29 01:31:38 Test Item Value Reference Range Interpretation Comments POCT GLU (test code = 1779901940) 90 mg/dL 70-110 Lab Interpretation (test code = Normal 63469-4) [facility] GLUCOSE (AUTOMATED)2022-11-28 23:58:57 Test Item Value Reference Range Interpretation Comments POCT GLU (test code = 9556299628) 101 mg/dL 70-110 Lab Interpretation (test code = Normal 86611-6) [facility] GLUCOSE (AUTOMATED)2022-11-28 23:58:57 Test Item Value Reference Range Interpretation Comments POCT GLU (test code = 7158706169) 101 mg/dL 70-110 Lab Interpretation (test code = Normal 09576-2) [facility] GLUCOSE (AUTOMATED)2022-11-28 18:29:25 Test Item Value Reference Range Interpretation Comments POCT GLU (test code = 8985261084) 140 mg/dL 70-110 H Lab Interpretation (test code = Abnormal 63397-7) [facility] GLUCOSE (AUTOMATED)2022-11-28 18:29:25 Test Item Value Reference Range Interpretation Comments POCT GLU (test code = 9273666961) 140 mg/dL 70-110 H Lab Interpretation (test code = Abnormal 55165-9) [facility] GLUCOSE (AUTOMATED)2022-11-28 15:26:07 Test Item Value Reference Range Interpretation Comments POCT GLU (test code = 6983141271) 81 mg/dL 70-110 Lab Interpretation (test code = Normal 95954-8) [facility] GLUCOSE (AUTOMATED)2022-11-28 15:26:07 Test Item Value Reference Range Interpretation Comments POCT GLU (test code = 9963127040) 81 mg/dL 70-110 Lab Interpretation (test code = Normal 12147-5) [facility] [id number] 04:47:39 Test Item Value Reference Range Interpretation Comments IRON (test code = 4275517912) 67 ug/dL 50-160 TIBC (test code = 9152907690) 239 ug/dL 250-410 L % FE SAT (test code = 6259662916) 28 % 20-50 Lab Interpretation (test code = Abnormal 06624-8) [facility] [id number] 04:47:39 Test Item Value Reference Range Interpretation Comments IRON (test code = 9496909730) 67 ug/dL 50-160 TIBC (test code = 8041898209) 239 ug/dL 250-410 L % FE SAT (test code = 8162522952) 28 % 20-50 Lab Interpretation (test code = Abnormal 01310-4) [facility] GLUCOSE (AUTOMATED)2022-11-28 02:08:07 Test Item Value Reference Range Interpretation Comments POCT GLU (test code = 4089221620) 115 mg/dL 70-110 H Lab Interpretation (test code = Abnormal 05251-3) [facility] GLUCOSE (AUTOMATED)2022-11-28 02:08:07 Test Item Value Reference Range Interpretation Comments POCT GLU (test code = 1976629132) 115 mg/dL 70-110 H Lab Interpretation (test code = Abnormal 12074-3) [facility] GLUCOSE (AUTOMATED)2022-11-27 23:54:58 Test Item Value Reference Range Interpretation Comments POCT GLU (test code = 1120205131) 121 mg/dL 70-110 H Lab Interpretation (test code = Abnormal 32398-6) [facility] GLUCOSE (AUTOMATED)2022-11-27 23:54:58 Test Item Value Reference Range Interpretation Comments POCT GLU (test code = 3423311928) 121 mg/dL 70-110 H Lab Interpretation (test code = Abnormal 04624-7) [facility] GLUCOSE (AUTOMATED)2022-11-27 18:17:32 Test Item Value Reference Range Interpretation Comments POCT GLU (test code = 2490401971) 232 mg/dL 70-110 H Lab Interpretation (test code = Abnormal 10982-5) [facility] GLUCOSE (AUTOMATED)2022-11-27 18:17:32 Test Item Value Reference Range Interpretation Comments POCT GLU (test code = 0285755832) 232 mg/dL 70-110 H Lab Interpretation (test code = Abnormal 50897-6) [facility] GLUCOSE (AUTOMATED)2022-11-27 14:46:59 Test Item Value Reference Range Interpretation Comments POCT GLU (test code = 0459077037) 86 mg/dL 70-110 Lab Interpretation (test code = Normal 63201-7) [facility] GLUCOSE (AUTOMATED)2022-11-27 14:46:59 Test Item Value Reference Range Interpretation Comments POCT GLU (test code = 9440097099) 86 mg/dL 70-110 Lab Interpretation (test code = Normal 16400-3) [facility] GLUCOSE (AUTOMATED)2022-11-27 03:27:24 Test Item Value Reference Range Interpretation Comments POCT GLU (test code = 3457014540) 128 mg/dL 70-110 H Lab Interpretation (test code = Abnormal 29600-3) [facility] GLUCOSE (AUTOMATED)2022-11-27 03:27:24 Test Item Value Reference Range Interpretation Comments POCT GLU (test code = 5612529844) 128 mg/dL 70-110 H Lab Interpretation (test code = Abnormal 31056-3) [facility] GLUCOSE (AUTOMATED)2022-11-27 00:25:35 Test Item Value Reference Range Interpretation Comments POCT GLU (test code = 1409862322) 160 mg/dL 70-110 H Lab Interpretation (test code = Abnormal 84476-8) [facility] GLUCOSE (AUTOMATED)2022-11-27 00:25:35 Test Item Value Reference Range Interpretation Comments POCT GLU (test code = 6972084244) 160 mg/dL 70-110 H Lab Interpretation (test code = Abnormal 73275-7[facility] 21:46:20 Test Item Value Reference Range Interpretation Comments POCT GLU (test code = 0582509150) 76 mg/dL 70-110 Lab Interpretation (test code = Normal 41918-6) [facility] 21:46:20 Test Item Value Reference Range Interpretation Comments POCT GLU (test code = 0949788485) 76 mg/dL 70-110 Lab Interpretation (test code = Normal 96891-5) [facility]-26 18:21:34 Test Item Value Reference Range Interpretation Comments POCT GLU (test code = 4763260561) 86 mg/dL 70-110 Lab Interpretation (test code = Normal 77142-7) [facility] GLUCOSE (AUTOMATED)2022-11-26 18:21:34 Test Item Value Reference Range Interpretation Comments POCT GLU (test code = 1364428536) 86 mg/dL 70-110 Lab Interpretation (test code = Normal 34317-1) [facility] GLUCOSE (AUTOMATED)2022-11-26 18:21:34 Test Item Value Reference Range Interpretation Comments POCT GLU (test code = 8441626765) 86 mg/dL 70-110 Lab Interpretation (test code = Normal 93523-9) [facility]26 02:55:50 Test Item Value Reference Range Interpretation Comments POCT GLU (test code = 2873044868) 133 mg/dL 70-110 H Lab Interpretation (test code = Abnormal 31956-8) [facility]26 02:55:50 Test Item Value Reference Range Interpretation Comments POCT GLU (test code = 3619244370) 133 mg/dL 70-110 H Lab Interpretation (test code = Abnormal 90810-9) [facility]-26 02:55:50 Test Item Value Reference Range Interpretation Comments POCT GLU (test code = 1748925557) 133 mg/dL 70-110 H Lab Interpretation (test code = Abnormal 69616-2) [facility] GLUCOSE (AUTOMATED)2022-11-25 22:31:26 Test Item Value Reference Range Interpretation Comments POCT GLU (test code = 5313134677) 110 mg/dL 70-110 Lab Interpretation (test code = Normal 35105-1) [facility] GLUCOSE (AUTOMATED)2022-11-25 22:31:26 Test Item Value Reference Range Interpretation Comments POCT GLU (test code = 6557472767) 110 mg/dL 70-110 Lab Interpretation (test code = Normal 79050-6) [facility] GLUCOSE (AUTOMATED)2022-11-25 22:31:26 Test Item Value Reference Range Interpretation Comments POCT GLU (test code = 4921450214) 110 mg/dL 70-110 Lab Interpretation (test code = Normal 19465-3) [facility] GLUCOSE (AUTOMATED)2022-11-25 18:41:12 Test Item Value Reference Range Interpretation Comments POCT GLU (test code = 2879616190) 165 mg/dL 70-110 H Lab Interpretation (test code = Abnormal 36348-5) [facility] GLUCOSE (AUTOMATED)2022-11-25 18:41:12 Test Item Value Reference Range Interpretation Comments POCT GLU (test code = 7425106820) 165 mg/dL 70-110 H Lab Interpretation (test code = Abnormal 31200-8) [facility] GLUCOSE (AUTOMATED)2022-11-25 18:41:12 Test Item Value Reference Range Interpretation Comments POCT GLU (test code = 1917076657) 165 mg/dL 70-110 H Lab Interpretation (test code = Abnormal 19814-5) [facility] GLUCOSE (AUTOMATED)2022-11-25 15:04:59 Test Item Value Reference Range Interpretation Comments POCT GLU (test code = 0477111209) 83 mg/dL 70-110 Lab Interpretation (test code = Normal 21325-2) [facility] GLUCOSE (AUTOMATED)2022-11-25 15:04:59 Test Item Value Reference Range Interpretation Comments POCT GLU (test code = 9010460897) 83 mg/dL 70-110 Lab Interpretation (test code = Normal 52420-2) [facility] GLUCOSE (AUTOMATED)2022-11-25 15:04:59 Test Item Value Reference Range Interpretation Comments POCT GLU (test code = 9271415800) 83 mg/dL 70-110 Lab Interpretation (test code = Normal 01278-6) [facility] GLUCOSE (AUTOMATED)2022-11-25 10:29:15 Test Item Value Reference Range Interpretation Comments POCT GLU (test code = 1844928970) 78 mg/dL 70-110 Lab Interpretation (test code = Normal 84720-7) [facility] GLUCOSE (AUTOMATED)2022-11-25 10:29:15 Test Item Value Reference Range Interpretation Comments POCT GLU (test code = 5872587316) 78 mg/dL 70-110 Lab Interpretation (test code = Normal 54162-1) [facility] GLUCOSE (AUTOMATED)2022-11-25 10:29:15 Test Item Value Reference Range Interpretation Comments POCT GLU (test code = 5507813047) 78 mg/dL 70-110 Lab Interpretation (test code = Normal 53371-4) [facility] GLUCOSE (AUTOMATED)2022-11-25 05:39:37 Test Item Value Reference Range Interpretation Comments POCT GLU (test code = 6354997570) 79 mg/dL 70-110 Lab Interpretation (test code = Normal 29845-0) [facility] GLUCOSE (AUTOMATED)2022-11-25 05:39:37 Test Item Value Reference Range Interpretation Comments POCT GLU (test code = 6580418143) 79 mg/dL 70-110 Lab Interpretation (test code = Normal 85570-3) [facility] GLUCOSE (AUTOMATED)2022-11-25 05:39:37 Test Item Value Reference Range Interpretation Comments POCT GLU (test code = 3681109572) 79 mg/dL 70-110 Lab Interpretation (test code = Normal 60330-9) [facility] GLUCOSE (AUTOMATED)2022-11-25 02:40:31 Test Item Value Reference Range Interpretation Comments POCT GLU (test code = 6954962025) 115 mg/dL 70-110 H Lab Interpretation (test code = Abnormal 40903-7) [facility] GLUCOSE (AUTOMATED)2022-11-25 02:40:31 Test Item Value Reference Range Interpretation Comments POCT GLU (test code = 4575198652) 115 mg/dL 70-110 H Lab Interpretation (test code = Abnormal 41955-8) [facility] GLUCOSE (AUTOMATED)2022-11-25 02:40:31 Test Item Value Reference Range Interpretation Comments POCT GLU (test code = 4219807765) 115 mg/dL 70-110 H Lab Interpretation (test code = Abnormal 28247-7) [facility] GLUCOSE (AUTOMATED)2022-11-24 22:55:04 Test Item Value Reference Range Interpretation Comments POCT GLU (test code = 4551746198) 117 mg/dL 70-110 H Lab Interpretation (test code = Abnormal 32362-1) [facility] GLUCOSE (AUTOMATED)2022-11-24 22:55:04 Test Item Value Reference Range Interpretation Comments POCT GLU (test code = 6923025261) 117 mg/dL 70-110 H Lab Interpretation (test code = Abnormal 32919-5) [facility] GLUCOSE (AUTOMATED)2022-11-24 22:55:04 Test Item Value Reference Range Interpretation Comments POCT GLU (test code = 8605006768) 117 mg/dL 70-110 H Lab Interpretation (test code = Abnormal 91226-8) [facility] GLUCOSE (AUTOMATED)2022-11-24 14:28:07 Test Item Value Reference Range Interpretation Comments POCT GLU (test code = 0483060316) 139 mg/dL 70-110 H Lab Interpretation (test code = Abnormal 99910-5) [facility] GLUCOSE (AUTOMATED)2022-11-24 14:28:07 Test Item Value Reference Range Interpretation Comments POCT GLU (test code = 0506169058) 139 mg/dL 70-110 H Lab Interpretation (test code = Abnormal 45812-6) [facility] GLUCOSE (AUTOMATED)2022-11-24 14:28:07 Test Item Value Reference Range Interpretation Comments POCT GLU (test code = 7107923837) 139 mg/dL 70-110 H Lab Interpretation (test code = Abnormal 37588-9) [facility] GLUCOSE (AUTOMATED)2022-11-24 09:21:08 Test Item Value Reference Range Interpretation Comments POCT GLU (test code = 2209592097) 119 mg/dL 70-110 H Lab Interpretation (test code = Abnormal 75081-4) [facility] GLUCOSE (AUTOMATED)2022-11-24 09:21:08 Test Item Value Reference Range Interpretation Comments POCT GLU (test code = 5489870449) 119 mg/dL 70-110 H Lab Interpretation (test code = Abnormal 37931-0) [facility] GLUCOSE (AUTOMATED)2022-11-24 09:21:08 Test Item Value Reference Range Interpretation Comments POCT GLU (test code = 5759883112) 119 mg/dL 70-110 H Lab Interpretation (test code = Abnormal 02909-6) [facility] GLUCOSE (AUTOMATED)2022-11-24 06:25:38 Test Item Value Reference Range Interpretation Comments POCT GLU (test code = 2030159553) 123 mg/dL 70-110 H Lab Interpretation (test code = Abnormal 03445-5) [facility] GLUCOSE (AUTOMATED)2022-11-24 06:25:38 Test Item Value Reference Range Interpretation Comments POCT GLU (test code = 1969745372) 123 mg/dL 70-110 H Lab Interpretation (test code = Abnormal 05296-7) [facility] GLUCOSE (AUTOMATED)2022-11-24 06:25:38 Test Item Value Reference Range Interpretation Comments POCT GLU (test code = 5139910964) 123 mg/dL 70-110 H Lab Interpretation (test code = Abnormal 32188-1) [facility] GLUCOSE (AUTOMATED)2022-11-24 03:35:19 Test Item Value Reference Range Interpretation Comments POCT GLU (test code = 4071619946) 119 mg/dL 70-110 H Lab Interpretation (test code = Abnormal 92699-8) [facility] GLUCOSE (AUTOMATED)2022-11-24 03:35:19 Test Item Value Reference Range Interpretation Comments POCT GLU (test code = 9349683052) 119 mg/dL 70-110 H Lab Interpretation (test code = Abnormal 41474-8) [facility] GLUCOSE (AUTOMATED)2022-11-24 03:35:19 Test Item Value Reference Range Interpretation Comments POCT GLU (test code = 2548744660) 119 mg/dL 70-110 H Lab Interpretation (test code = Abnormal 07748-7) [facility] GLUCOSE (AUTOMATED)2022-11-23 22:20:39 Test Item Value Reference Range Interpretation Comments POCT GLU (test code = 1701277474) 164 mg/dL 70-110 H Lab Interpretation (test code = Abnormal 92726-6) [facility] GLUCOSE (AUTOMATED)2022-11-23 22:20:39 Test Item Value Reference Range Interpretation Comments POCT GLU (test code = 7664424988) 164 mg/dL 70-110 H Lab Interpretation (test code = Abnormal 53208-6) [facility] GLUCOSE (AUTOMATED)2022-11-23 22:20:39 Test Item Value Reference Range Interpretation Comments POCT GLU (test code = 3784284499) 164 mg/dL 70-110 H Lab Interpretation (test code = Abnormal 37095-2) [facility] GLUCOSE (AUTOMATED)2022-11-23 17:49:09 Test Item Value Reference Range Interpretation Comments POCT GLU (test code = 8269371410) 129 mg/dL 70-110 H Lab Interpretation (test code = Abnormal 90653-3) [facility] GLUCOSE (AUTOMATED)2022-11-23 17:49:09 Test Item Value Reference Range Interpretation Comments POCT GLU (test code = 7959613900) 129 mg/dL 70-110 H Lab Interpretation (test code = Abnormal 66208-4) [facility] GLUCOSE (AUTOMATED)2022-11-23 17:49:09 Test Item Value Reference Range Interpretation Comments POCT GLU (test code = 8697812714) 129 mg/dL 70-110 H Lab Interpretation (test code = Abnormal 80846-8) [facility] GLUCOSE (AUTOMATED)2022-11-23 14:10:46 Test Item Value Reference Range Interpretation Comments POCT GLU (test code = 7652098309) 100 mg/dL 70-110 Lab Interpretation (test code = Normal 13655-1) [facility] GLUCOSE (AUTOMATED)2022-11-23 14:10:46 Test Item Value Reference Range Interpretation Comments POCT GLU (test code = 9772523506) 100 mg/dL 70-110 Lab Interpretation (test code = Normal 64975-3) [facility] GLUCOSE (AUTOMATED)2022-11-23 14:10:46 Test Item Value Reference Range Interpretation Comments POCT GLU (test code = 4335083704) 100 mg/dL 70-110 Lab Interpretation (test code = Normal 03221-8) [facility] METABOLIC PANEL (NA, K, CL, CO2, GLUCOSE, BUN, CREATININE, CA)2022-11-23 12:22:55 Test Item Value Reference Range Interpretation Comments NA (test code = 132 mmol/L 135-145 L 8263093210) K (test code = 3.7 mmol/L 3.5-5.0 9789423686) CL (test code = 105 mmol/L 98-108 6901658598) CO2 TOTAL (test code = 21 mmol/L 23-31 L 0872398897) AGAP (test code = 6 2-16 0130992752) BUN (test code = 33 mg/dL 7-23 H 9593803805) GLUCOSE (test code = 128 mg/dL 70-110 H 6566269077) CREATININE (test code = 5.79 mg/dL 0.60-1.25 H 9809739875) CALCIUM (test code = 8.4 mg/dL 8.6-10.6 L 4589238573) eGFR (test code = 9.9 mL/min/1.73m2 7050811700) ALISHA (test code = ALISHA) Association of Glomerular Filtration Rate (GFR) and Staging of Kidney Disease* + --+ --+ ------+| GFR (mL/min/1.73 m2) ?| With Kidney Damage ?| ?Without Kidney Damage+ --------+ --------+ +| ?>90 ?| ?Stage one ?| ? Normal ?+ ---+ ---+ -------+| ?60-89 ?| ?Stage two ?| ? Decreased GFR ? + --+ --+ ------+| ?30-59 ?| ?Stage three ?| ? Stage three ? + --+ --+ ------+| ?15-29 ?| ?Stage four ? | ? Stage four ?+ ---+ ---+ -------+| ?<15 (or dialysis) ? ?| ?Stage five ? | ? Stage five ?+ ---+ ---+ -------+ *Each stage assumes the associated GFR level has been in effect for at least three months. ?Stages 1 to 5, with or without kidney disease, indicate chronic kidney disease. Notes: Determination of stages one and two (with eGFR >59mL/min/1.73 m2) requires estimation of kidney damage for at least three months as defined by structural or functional abnormalities of the kidney, manifested by either:Pathological abnormalities or Markers of kidney damage (including abnormalities in the composition of the blood or urine or abnormalities in imaging tests). Lab Interpretation Abnormal (test code = 87071-0) [facility] METABOLIC PANEL (NA, K, CL, CO2, GLUCOSE, BUN, CREATININE, CA)2022-11-23 12:22:55 Test Item Value Reference Range Interpretation Comments NA (test code = 132 mmol/L 135-145 L 1328607455) K (test code = 3.7 mmol/L 3.5-5.0 1841207170) CL (test code = 105 mmol/L 98-108 5848524650) CO2 TOTAL (test code = 21 mmol/L 23-31 L 1031047250) AGAP (test code = 6 2-16 0837061986) BUN (test code = 33 mg/dL 7-23 H 9998694989) GLUCOSE (test code = 128 mg/dL 70-110 H 7139767460) CREATININE (test code = 5.79 mg/dL 0.60-1.25 H 3861819699) CALCIUM (test code = 8.4 mg/dL 8.6-10.6 L 1227161196) eGFR (test code = 9.9 mL/min/1.73m2 2839434905) ALISHA (test code = ALISHA) Association of Glomerular Filtration Rate (GFR) and Staging of Kidney Disease* + --+ --+ ------+| GFR (mL/min/1.73 m2) ?| With Kidney Damage ?| ?Without Kidney Damage+ --------+ --------+ +| ?>90 ?| ?Stage one ?| ? Normal ?+ ---+ ---+ -------+| ?60-89 ?| ?Stage two ?| ? Decreased GFR ? + --+ --+ ------+| ?30-59 ?| ?Stage three ?| ? Stage three ? + --+ --+ ------+| ?15-29 ?| ?Stage four ? | ? Stage four ?+ ---+ ---+ -------+| ?<15 (or dialysis) ? ?| ?Stage five ? | ? Stage five ?+ ---+ ---+ -------+ *Each stage assumes the associated GFR level has been in effect for at least three months. ?Stages 1 to 5, with or without kidney disease, indicate chronic kidney disease. Notes: Determination of stages one and two (with eGFR >59mL/min/1.73 m2) requires estimation of kidney damage for at least three months as defined by structural or functional abnormalities of the kidney, manifested by either:Pathological abnormalities or Markers of kidney damage (including abnormalities in the composition of the blood or urine or abnormalities in imaging tests). Lab Interpretation Abnormal (test code = 98266-5) [facility] METABOLIC PANEL (NA, K, CL, CO2, GLUCOSE, BUN, CREATININE, CA)2022-11-23 12:22:55 Test Item Value Reference Range Interpretation Comments NA (test code = 132 mmol/L 135-145 L 8979446270) K (test code = 3.7 mmol/L 3.5-5.0 7000208801) CL (test code = 105 mmol/L 98-108 1380263039) CO2 TOTAL (test code = 21 mmol/L 23-31 L 9664814161) AGAP (test code = 6 2-16 0830452298) BUN (test code = 33 mg/dL 7-23 H 0285713530) GLUCOSE (test code = 128 mg/dL 70-110 H 3310147021) CREATININE (test code = 5.79 mg/dL 0.60-1.25 H 6182747150) CALCIUM (test code = 8.4 mg/dL 8.6-10.6 L 3845702724) eGFR (test code = 9.9 mL/min/1.73m2 2291008266) ALISHA (test code = ALISHA) Association of Glomerular Filtration Rate (GFR) and Staging of Kidney Disease* + --+ --+ ------+| GFR (mL/min/1.73 m2) ?| With Kidney Damage ?| ?Without Kidney Damage+ --------+ --------+ +| ?>90 ?| ?Stage one ?| ? Normal ?+ ---+ ---+ -------+| ?60-89 ?| ?Stage two ?| ? Decreased GFR ? + --+ --+ ------+| ?30-59 ?| ?Stage three ?| ? Stage three ? + --+ --+ ------+| ?15-29 ?| ?Stage four ? | ? Stage four ?+ ---+ ---+ -------+| ?<15 (or dialysis) ? ?| ?Stage five ? | ? Stage five ?+ ---+ ---+ -------+ *Each stage assumes the associated GFR level has been in effect for at least three months. ?Stages 1 to 5, with or without kidney disease, indicate chronic kidney disease. Notes: Determination of stages one and two (with eGFR >59mL/min/1.73 m2) requires estimation of kidney damage for at least three months as defined by structural or functional abnormalities of the kidney, manifested by either:Pathological abnormalities or Markers of kidney damage (including abnormalities in the composition of the blood or urine or abnormalities in imaging tests). Lab Interpretation Abnormal (test code = 52853-2) [facility]15 Test Item Value Reference Range Interpretation Comments MAGNESIUM (test code = 5340962952) 2.1 mg/dL 1.7-2.4 Lab Interpretation (test code = Normal 87194-4) [facility] Test Item Value Reference Range Interpretation Comments MAGNESIUM (test code = 4867646895) 2.1 mg/dL 1.7-2.4 Lab Interpretation (test code = Normal 93542-7) [facility] 11[facility]59:15 Test Item Value Reference Range Interpretation Comments MAGNESIUM (test code = 9427952870) 2.1 mg/dL 1.7-2.4 Lab Interpretation (test code = Normal 98657-1) [facility] / [id number] 10:42:08 Test Item Value Reference Range Interpretation Comments PROTIME PATIENT (test 12.7 See_Comment H [Auto mated message] code = 5964-2) The system [employer] generated this result transmitted ref erence range: 10.1 - 1 2.6 Seconds. The reference range was not used to int erpret this result as normal/abnormal . INR (test code = 6301-6) 1.1 Nor mal INR <1.1; Warfarin Therap eutic range 2.0 to 3. 0 or 2.5 to 3.5, dep ending upon the indica tions. Lab Interpretation (test Abnormal code = 31923-2) [facility]08 Test Item Value Reference Range Interpretation Comments APTT Patient (test code = 33 See_Comment [ Automated message] 3173-2) The system [employer] generated this result transmitted ref erence range: 26 - 36 Seconds. The re ference range was not u sed to interpret this result as normal/abnor mal. Lab Interpretation (test Normal code = 53848-7) [facility] / [id number] 10:42:08 Test Item Value Reference Range Interpretation Comments PROTIME PATIENT (test 12.7 See_Comment H [Auto mated message] code = 5964-2) The system [employer] generated this result transmitted ref erence range: 10.1 - 1 2.6 Seconds. The reference range was not used to int erpret this result as normal/abnormal . INR (test code = 6301-6) 1.1 Nor mal INR <1.1; Warfarin Therap eutic range 2.0 to 3. 0 or 2.5 to 3.5, dep ending upon the indica tions. Lab Interpretation (test Abnormal code = 85829-6) [facility] 10:42:08 Test Item Value Reference Range Interpretation Comments APTT Patient (test code = 33 See_Comment [ Automated message] 3173-2) The system [employer] generated this result transmitted ref erence range: 26 - 36 Seconds. The re ference range was not u sed to interpret this result as normal/abnor mal. Lab Interpretation (test Normal code = 80862-3) [facility] / [id number] 10:42:08 Test Item Value Reference Range Interpretation Comments PROTIME PATIENT (test 12.7 See_Comment H [Auto mated message] code = 5964-2) The system [employer] generated this result transmitted ref erence range: 10.1 - 1 2.6 Seconds. The reference range was not used to int erpret this result as normal/abnormal . INR (test code = 6301-6) 1.1 Nor mal INR <1.1; Warfarin Therap eutic range 2.0 to 3. 0 or 2.5 to 3.5, dep ending upon the indica tions. Lab Interpretation (test Abnormal code = 89581-2) [facility] 10:42:08 Test Item Value Reference Range Interpretation Comments APTT Patient (test code = 33 See_Comment [ Automated message] 5433-2) The system [employer] generated this result transmitted ref erence range: 26 - 36 Seconds. The re ference range was not u sed to interpret this result as normal/abnor mal. Lab Interpretation (test Normal code = 80392-6) [facility] WITHOUT [id number] 10:37:04 Test Item Value Reference Range Interpretation Comments WBC (test code = 6690-2) 9.03 See_Comment [A utomated message] The system [employer] generated this result transmit uriel reference range : 4.20 - 10.70 10*3/?L. The reference range was not used to interpret this result as normal/abnormal . RBC (test code = 789-8) 2.92 See_Comment L [Au tomated message] The system [employer] generated this result transmit uriel reference range : 4.26 - 5.52 10* 6/?L. The reference r erasto was not used to interpret this result as normal/abnormal . HGB (test code = 718-7) 9.3 g/dL 12.2-16.4 L HCT (test code = 4544-3) 30.0 % 38.4-49.3 L MCH (test code = 785-6) 31.8 pg 26.1-32.7 MCV (test code = 787-2) 102.7 fL 81.7-95.6 H MCHC (test code = 786-4) 31.0 g/dL 31.2-35.0 L PLT (test code = 777-3) 285 See_Comment [Au tomated message] The system [employer] generated this result transmit uriel reference range : 150 - 328 10*3/?L. The reference range was not used to interpret this result as normal/abnormal . MPV (test code = 9.8 fL 9.8-13.0 25887-8) RDW-CV (test code = 13.4 % 12.1-15.4 788-0) RDW-SD (test code = 50.2 fL 38.5-51.6 83544-5) NRBC x10^3 (test code = See_Comment [Au tomated message] 1483569947) The system [employer] generated this result transmit uriel reference range : 10*3/?L. The reference range was not used to interpret this result as normal/abnormal . NRBC/100 WBC (test code 0.0 See_Comment [Au tomated message] = 5279774712) The system [employer] generated this result transmit uriel reference range : 0.0 - 10.0 /100 WBC s. The reference r erasto was not used to interpret this result as normal/abnormal . IPF % (test code = 6907716525) Lab Interpretation (test Abnormal code = 92732-4) [facility] WITHOUT [id number] 10:37:04 Test Item Value Reference Range Interpretation Comments WBC (test code = 6690-2) 9.03 See_Comment [A utomated message] The system [employer] generated this result transmit uriel reference range : 4.20 - 10.70 10*3/?L. The reference range was not used to interpret this result as normal/abnormal . RBC (test code = 789-8) 2.92 See_Comment L [Au tomated message] The system [employer] generated this result transmit uriel reference range : 4.26 - 5.52 10* 6/?L. The reference r erasto was not used to interpret this result as normal/abnormal . HGB (test code = 718-7) 9.3 g/dL 12.2-16.4 L HCT (test code = 4544-3) 30.0 % 38.4-49.3 L MCH (test code = 785-6) 31.8 pg 26.1-32.7 MCV (test code = 787-2) 102.7 fL 81.7-95.6 H MCHC (test code = 786-4) 31.0 g/dL 31.2-35.0 L PLT (test code = 777-3) 285 See_Comment [Au tomated message] The system [employer] generated this result transmit uriel reference range : 150 - 328 10*3/?L. The reference range was not used to interpret this result as normal/abnormal . MPV (test code = 9.8 fL 9.8-13.0 19942-8) RDW-CV (test code = 13.4 % 12.1-15.4 788-0) RDW-SD (test code = 50.2 fL 38.5-51.6 91981-7) NRBC x10^3 (test code = See_Comment [Au tomated message] 1110228244) The system [employer] generated this result transmit uriel reference range : 10*3/?L. The reference range was not used to interpret this result as normal/abnormal . NRBC/100 WBC (test code 0.0 See_Comment [Au tomated message] = 9496037572) The system [employer] generated this result transmit uriel reference range : 0.0 - 10.0 /100 WBC s. The reference r erasto was not used to interpret this result as normal/abnormal . IPF % (test code = 4625404977) Lab Interpretation (test Abnormal code = 90738-4) [facility] WITHOUT [id number] 10:37:04 Test Item Value Reference Range Interpretation Comments WBC (test code = 6690-2) 9.03 See_Comment [A utomated message] The system [employer] generated this result transmit uriel reference range : 4.20 - 10.70 10*3/?L. The reference range was not used to interpret this result as normal/abnormal . RBC (test code = 789-8) 2.92 See_Comment L [Au tomated message] The system [employer] generated this result transmit uriel reference range : 4.26 - 5.52 10* 6/?L. The reference r erasto was not used to interpret this result as normal/abnormal . HGB (test code = 718-7) 9.3 g/dL 12.2-16.4 L HCT (test code = 4544-3) 30.0 % 38.4-49.3 L MCH (test code = 785-6) 31.8 pg 26.1-32.7 MCV (test code = 787-2) 102.7 fL 81.7-95.6 H MCHC (test code = 786-4) 31.0 g/dL 31.2-35.0 L PLT (test code = 777-3) 285 See_Comment [Au tomated message] The system [employer] generated this result transmit uriel reference range : 150 - 328 10*3/?L. The reference range was not used to interpret this result as normal/abnormal . MPV (test code = 9.8 fL 9.8-13.0 59677-7) RDW-CV (test code = 13.4 % 12.1-15.4 788-0) RDW-SD (test code = 50.2 fL 38.5-51.6 63053-7) NRBC x10^3 (test code = See_Comment [Au tomated message] 6517010880) The system [employer] generated this result transmit uriel reference range : 10*3/?L. The reference range was not used to interpret this result as normal/abnormal . NRBC/100 WBC (test code 0.0 See_Comment [Au tomated message] = 9401541526) The system [employer] generated this result transmit uriel reference range : 0.0 - 10.0 /100 WBC s. The reference r erasto was not used to interpret this result as normal/abnormal . IPF % (test code = 8221853659) Lab Interpretation (test Abnormal code = 42454-4) [facility] 09:43:20 GDNTQKAIB25/03/2023 3:43 AM [facility]2023-[facility]-03 09:43:87JNHZIYEPS99 3:43 AM [facility]OR[facility] SERVICESPark[facility]MAG[facility]UM2023-02-03 09:43:82QGQAORRJZ93 3:43 AM [facility] SERVICESUnFaith Community HospitalVITAMIN D, [id number] 07:01:45 Test Item Value Reference Range Interpretation Comments VIT D 25OH (test code = 40 ng/mL 25-80 79306-2) ALISHA (test code = ALISHA) Deficiency: <20 ng/mLInsufficiency : 20-24 ng/mLOptimal: 25-80 ng/mL Lab Interpretation (test Normal code = 41383-3) [facility], [id number] 07:01:45 Test Item Value Reference Range Interpretation Comments VIT D 25OH (test code = 40 ng/mL 25-80 14302-8) ALISHA (test code = ALISHA) Deficiency: <20 ng/mLInsufficiency : 20-24 ng/mLOptimal: 25-80 ng/mL Lab Interpretation (test Normal code = 20330-1) [facility], [id number] 07:01:45 Test Item Value Reference Range Interpretation Comments VIT D 25OH (test code = 40 ng/mL 25-80 16948-5) ALISHA (test code = ALISHA) Deficiency: <20 ng/mLInsufficiency : 20-24 ng/mLOptimal: 25-80 ng/mL Lab Interpretation (test Normal code = 51727-0) [facility] GLUCOSE (AUTOMATED)2022-11-23 01:38:02 Test Item Value Reference Range Interpretation Comments POCT GLU (test code = 6047286418) 167 mg/dL 70-110 H Lab Interpretation (test code = Abnormal 76662-2) [facility] GLUCOSE (AUTOMATED)2022-11-23 01:38:02 Test Item Value Reference Range Interpretation Comments POCT GLU (test code = 9062799516) 167 mg/dL 70-110 H Lab Interpretation (test code = Abnormal 98628-6) [facility] GLUCOSE (AUTOMATED)2022-11-23 01:38:02 Test Item Value Reference Range Interpretation Comments POCT GLU (test code = 9258573759) 167 mg/dL 70-110 H Lab Interpretation (test code = Abnormal 03752-7) [facility] GLUCOSE (AUTOMATED)2022-11-22 22:20:39 Test Item Value Reference Range Interpretation Comments POCT GLU (test code = 4490455991) 140 mg/dL 70-110 H Lab Interpretation (test code = Abnormal 70661-8) [facility] GLUCOSE (AUTOMATED)2022-11-22 22:20:39 Test Item Value Reference Range Interpretation Comments POCT GLU (test code = 1044131158) 140 mg/dL 70-110 H Lab Interpretation (test code = Abnormal 89029-4) [facility] GLUCOSE (AUTOMATED)2022-11-22 22:20:39 Test Item Value Reference Range Interpretation Comments POCT GLU (test code = 5999138943) 140 mg/dL 70-110 H Lab Interpretation (test code = Abnormal 79853-9) [address]02-02 21:45:37 Test Item Value Reference Range Interpretation Comments APTT Patient (test code 45 See_Comment H [Au tomated message] = 3173-2) The system [employer] generated this result transmitted ref erence range: 26 - 36 Seconds. The reference range was not used to int erpret this result as normal/abnormal . Lab Interpretation (test Abnormal code = 15396-8) [address]02-02 21:45:37 Test Item Value Reference Range Interpretation Comments APTT Patient (test code 45 See_Comment H [Au tomated message] = 3173-2) The system [employer] generated this result transmitted ref erence range: 26 - 36 Seconds. The reference range was not used to int erpret this result as normal/abnormal . Lab Interpretation (test Abnormal code = 70841-4) [place] [address]-02-02 21:45:37 Test Item Value Reference Range Interpretation Comments APTT Patient (test code 45 See_Comment H [Au tomated message] = 3173-2) The system [employer] generated this result transmitted ref erence range: 26 - 36 Seconds. The reference range was not used to int erpret this result as normal/abnormal . Lab Interpretation (test Abnormal code = 68096-3) [address]02-02 19:52:39 Test Item Value Reference Range Interpretation Comments APTT Patient (test code See_Comment HH [Au tomated message] = 3173-2) The system [employer] generated this result transmitted ref erence range: 26 - 36 Seconds. The reference range was not used to int erpret this result as normal/abnormal . Lab Interpretation (test Abnormal code = 67212-5) [place] [address]-02-02 19:52:39 Test Item Value Reference Range Interpretation Comments APTT Patient (test code See_Comment HH [Au tomated message] = 3173-2) The system [employer] generated this result transmitted ref erence range: 26 - 36 Seconds. The reference range was not used to int erpret this result as normal/abnormal . Lab Interpretation (test Abnormal code = 09215-6) [facility] 19:52:39 Test Item Value Reference Range Interpretation Comments APTT Patient (test code See_Comment HH [Au tomated message] = 3173-2) The system [employer] generated this result transmitted ref erence range: 26 - 36 Seconds. The reference range was not used to int erpret this result as normal/abnormal . Lab Interpretation (test Abnormal code = 11622-0) [facility] GLUCOSE (AUTOMATED)2022-11-22 17:52:51 Test Item Value Reference Range Interpretation Comments POCT GLU (test code = 1695356030) 108 mg/dL 70-110 Lab Interpretation (test code = Normal 96332-4) [facility] GLUCOSE (AUTOMATED)2022-11-22 17:52:51 Test Item Value Reference Range Interpretation Comments POCT GLU (test code = 8035624588) 108 mg/dL 70-110 Lab Interpretation (test code = Normal 27019-3) [facility] GLUCOSE (AUTOMATED)2022-11-22 17:52:51 Test Item Value Reference Range Interpretation Comments POCT GLU (test code = 8561945822) 108 mg/dL 70-110 Lab Interpretation (test code = Normal 29585-5) [facility] GLUCOSE (AUTOMATED)2022-11-22 13:14:06 Test Item Value Reference Range Interpretation Comments POCT GLU (test code = 7834053973) 141 mg/dL 70-110 H Lab Interpretation (test code = Abnormal 05412-4) [facility] GLUCOSE (AUTOMATED)2022-11-22 13:14:06 Test Item Value Reference Range Interpretation Comments POCT GLU (test code = 4082848008) 141 mg/dL 70-110 H Lab Interpretation (test code = Abnormal 13469-2) [facility] GLUCOSE (AUTOMATED)2022-11-22 13:14:06 Test Item Value Reference Range Interpretation Comments POCT GLU (test code = 3843828699) 141 mg/dL 70-110 H Lab Interpretation (test code = Abnormal 07819-7) [facility] GLUCOSE (AUTOMATED)2022-11-22 12:50:29 Test Item Value Reference Range Interpretation Comments POCT GLU (test code = 8299043349) 76 mg/dL 70-110 Lab Interpretation (test code = Normal 22350-7) [facility] GLUCOSE (AUTOMATED)2022-11-22 12:50:29 Test Item Value Reference Range Interpretation Comments POCT GLU (test code = 9076748547) 76 mg/dL 70-110 Lab Interpretation (test code = Normal 88427-8) [facility] GLUCOSE (AUTOMATED)2022-11-22 12:50:29 Test Item Value Reference Range Interpretation Comments POCT GLU (test code = 8832118049) 76 mg/dL 70-110 Lab Interpretation (test code = Normal 49844-6) [facility] METABOLIC PANEL (NA, K, CL, CO2, GLUCOSE, BUN, CREATININE, CA)2022-11-22 12:44:16 Test Item Value Reference Range Interpretation Comments NA (test code = 136 mmol/L 135-145 5546232316) K (test code = 3.4 mmol/L 3.5-5.0 L Slight 4967340660) hemolysis CL (test code = 115 mmol/L 98-108 H 3556597139) CO2 TOTAL (test code 19 mmol/L 23-31 L = 8004606225) AGAP (test code = 2 2-16 7033274748) BUN (test code = 42 mg/dL 7-23 H Slight 7460069315) hemolysis GLUCOSE (test code = 45 mg/dL 70-110 LL 0862971204) CREATININE (test code 5.98 mg/dL 0.60-1.25 H = 2521544648) CALCIUM (test code = 6.0 mg/dL 8.6-10.6 L 1315235549) eGFR (test code = 9.6 mL/min/1.73m2 1539498870) ALISHA (test code = ALISHA) Association of Glomerular Filtration Rate (GFR) and Staging of Kidney Disease* + -----+ --------+ +| GFR (mL/min/1.73 m2) ?| With Kidney Damage ?| ?Without Kidney Damage+ +------- +---- --+| ?>90 ?| ?Stage one ?| ? Normal ?+ ------+ ---------+--------- +| ?60-89 ?| ?Stage two ?| ? Decreased GFR ? + -----+ --------+ +| ?30-59 ?| ?Stage three ?| ? Stage three ? + -----+ --------+ +| ?15-29 ?| ?Stage four ? | ? Stage four ?+ ------+ ---------+--------- +| ?<15 (or dialysis) ? ?| ?Stage five ? | ? Stage five ?+ ------+ ---------+--------- + *Each stage assumes the associated GFR level has been in effect for at least three months. ?Stages 1 to 5, with or without kidney disease, indicate chronic kidney disease. Notes: Determination of stages one and two (with eGFR >59mL/min/1.73 m2) requires estimation of kidney damage for at least three months as defined by structural or functional abnormalities of the kidney, manifested by either:Pathological abnormalities or Markers of kidney damage (including abnormalities in the composition of the blood or urine or abnormalities in imaging tests). Lab Interpretation Abnormal (test code = 42517-9) [facility] METABOLIC PANEL (NA, K, CL, CO2, GLUCOSE, BUN, CREATININE, CA)2022-11-22 12:44:16 Test Item Value Reference Range Interpretation Comments NA (test code = 136 mmol/L 135-145 3716464233) K (test code = 3.4 mmol/L 3.5-5.0 L Slight 6012374810) hemolysis CL (test code = 115 mmol/L 98-108 H 1696480708) CO2 TOTAL (test code 19 mmol/L 23-31 L = 5193367959) AGAP (test code = 2 2-16 8130228076) BUN (test code = 42 mg/dL 7-23 H Slight 5592890468) hemolysis GLUCOSE (test code = 45 mg/dL 70-110 LL 6464858249) CREATININE (test code 5.98 mg/dL 0.60-1.25 H = 5578683277) CALCIUM (test code = 6.0 mg/dL 8.6-10.6 L 5464052134) eGFR (test code = 9.6 mL/min/1.73m2 0589445851) ALISHA (test code = ALISHA) Association of Glomerular Filtration Rate (GFR) and Staging of Kidney Disease* + -----+ --------+ +| GFR (mL/min/1.73 m2) ?| With Kidney Damage ?| ?Without Kidney Damage+ +------- +---- --+| ?>90 ?| ?Stage one ?| ? Normal ?+ ------+ ---------+--------- +| ?60-89 ?| ?Stage two ?| ? Decreased GFR ? + -----+ --------+ +| ?30-59 ?| ?Stage three ?| ? Stage three ? + -----+ --------+ +| ?15-29 ?| ?Stage four ? | ? Stage four ?+ ------+ ---------+--------- +| ?<15 (or dialysis) ? ?| ?Stage five ? | ? Stage five ?+ ------+ ---------+--------- + *Each stage assumes the associated GFR level has been in effect for at least three months. ?Stages 1 to 5, with or without kidney disease, indicate chronic kidney disease. Notes: Determination of stages one and two (with eGFR >59mL/min/1.73 m2) requires estimation of kidney damage for at least three months as defined by structural or functional abnormalities of the kidney, manifested by either:Pathological abnormalities or Markers of kidney damage (including abnormalities in the composition of the blood or urine or abnormalities in imaging tests). Lab Interpretation Abnormal (test code = 24706-2) [facility] METABOLIC PANEL (NA, K, CL, CO2, GLUCOSE, BUN, CREATININE, CA)2022-11-22 12:44:16 Test Item Value Reference Range Interpretation Comments NA (test code = 136 mmol/L 135-145 9352116625) K (test code = 3.4 mmol/L 3.5-5.0 L Slight 0147034327) hemolysis CL (test code = 115 mmol/L 98-108 H 6935630895) CO2 TOTAL (test code 19 mmol/L 23-31 L = 4271427866) AGAP (test code = 2 2-16 3222699933) BUN (test code = 42 mg/dL 7-23 H Slight 7863561051) hemolysis GLUCOSE (test code = 45 mg/dL 70-110 LL 5752609508) CREATININE (test code 5.98 mg/dL 0.60-1.25 H = 3348533235) CALCIUM (test code = 6.0 mg/dL 8.6-10.6 L 4095315406) eGFR (test code = 9.6 mL/min/1.73m2 8558265070) ALISHA (test code = ALISHA) Association of Glomerular Filtration Rate (GFR) and Staging of Kidney Disease* + -----+ --------+ +| GFR (mL/min/1.73 m2) ?| With Kidney Damage ?| ?Without Kidney Damage+ +------- +---- --+| ?>90 ?| ?Stage one ?| ? Normal ?+ ------+ ---------+--------- +| ?60-89 ?| ?Stage two ?| ? Decreased GFR ? + -----+ --------+ +| ?30-59 ?| ?Stage three ?| ? Stage three ? + -----+ --------+ +| ?15-29 ?| ?Stage four ? | ? Stage four ?+ ------+ ---------+--------- +| ?<15 (or dialysis) ? ?| ?Stage five ? | ? Stage five ?+ ------+ ---------+--------- + *Each stage assumes the associated GFR level has been in effect for at least three months. ?Stages 1 to 5, with or without kidney disease, indicate chronic kidney disease. Notes: Determination of stages one and two (with eGFR >59mL/min/1.73 m2) requires estimation of kidney damage for at least three months as defined by structural or functional abnormalities of the kidney, manifested by either:Pathological abnormalities or Markers of kidney damage (including abnormalities in the composition of the blood or urine or abnormalities in imaging tests). Lab Interpretation Abnormal (test code = 90350-0) [facility]2023-02-02 12:41:04 Test Item Value Reference Range Interpretation Comments MAGNESIUM (test code = 4986158579) 1.6 mg/dL 1.7-2.4 L Lab Interpretation (test code = Abnormal 24160-7) [facility]ly [facility]2023-02-02 12:41:04 Test Item Value Reference Range Interpretation Comments MAGNESIUM (test code = 3541075021) 1.6 mg/dL 1.7-2.4 L Lab Interpretation (test code = Abnormal 94439-1) [facility]2023-02-02 12:41:04 Test Item Value Reference Range Interpretation Comments MAGNESIUM (test code = 2861292298) 1.6 mg/dL 1.7-2.4 L Lab Interpretation (test code = Abnormal 81660-3[facility] Test Item Value Reference Range Interpretation Comments APTT Patient (test code 49 See_Comment H [Au tomated message] = 3173-2) The system [employer] generated this result transmitted ref erence range: 26 - 36 Seconds. The reference range was not used to int erpret this result as normal/abnormal . Lab Interpretation (test Abnormal code = 98944-2) [place] 65097023-02-02 12:34:25 Test Item Value Reference Range Interpretation Comments APTT Patient (test code 49 See_Comment H [Au tomated message] = 3173-2) The system [employer] generated this result transmitted ref erence range: 26 - 36 Seconds. The reference range was not used to int erpret this result as normal/abnormal . Lab Interpretation (test Abnormal code = 29865-0) [place] 65097023-02-02 12:34:25 Test Item Value Reference Range Interpretation Comments APTT Patient (test code 49 See_Comment H [Au tomated message] = 3173-2) The system [employer] generated this result transmitted ref erence range: 26 - 36 Seconds. The reference range was not used to int erpret this result as normal/abnormal . Lab Interpretation (test Abnormal code = 29355-6) [facility] WITH [id number] 12:27:19 Test Item Value Reference Range Interpretation Comments WBC (test code = 7.39 See_Comment [Automated 7990-2) message] The sy stem which generated this result transmitted reference range : 4.20 - 10.70 10*3/?L. The reference range was not used to interpret this result as normal/abnormal . RBC (test code = 2.39 See_Comment L [Automated 729-8) message] The sy stem which generated this result transmitted reference range : 4.26 - 5.52 10*6/?L. The reference range was not used to interpret this result as normal/abnormal . HGB (test code = 7.8 g/dL 12.2-16.4 L 718-7) HCT (test code = 24.9 % 38.4-49.3 L 4544-3) MCV (test code = 104.2 fL 81.7-95.6 H 787-2) MCH (test code = 32.6 pg 26.1-32.7 785-6) MCHC (test code = 31.3 g/dL 31.2-35.0 786-4) RDW-SD (test code = 51.1 fL 38.5-51.6 01706-4) RDW-CV (test code = 13.4 % 12.1-15.4 788-0) PLT (test code = 207 See_Comment [Automated 777-3) message] The sy stem which generated this result transmitted reference range : 150 - 328 10*3/ ?L. The reference r erasto was not used to interpret this result as normal/abnormal . MPV (test code = 9.9 fL 9.8-13.0 27081-8) NRBC/100 WBC (test 0.0 See_Comment [Automat ed code = 7840674935) message] The system which generated this result transmitted reference range : 0.0 - 10.0 /100 WBCs. The refer ence range was not u sed to interpret th is result as normal/abnormal . NRBC x10^3 (test code See_Comment [Auto mated = 2644208889) message] The s ystem which generated this result transmitted reference range : 10*3/?L. The reference range was not used to interpret this result as normal/abnormal . GRAN MAT (NEUT) % 62.9 % (test code = 770-8) IMM GRAN % (test code 0.30 % = 6358484246) LYMPH % (test code = 20.8 % 736-9) MONO % (test code = 9.5 % 5905-5) EOS % (test code = 6.1 % 713-8) BASO % (test code = 0.4 % 706-2) GRAN MAT x10^3(ANC) 4.65 10*3/uL 1.99-6.95 (test code = 7633863560) IMM GRAN x10^3 (test 0.00-0.06 code = 1389495561) LYMPH x10^3 (test code 1.54 10*3/uL 1.09-3.23 = 731-0) MONO x10^3 (test code 0.70 10*3/uL 0.36-1.02 = 742-7) EOS x10^3 (test code = 0.45 10*3/uL 0.06-0.53 711-2) BASO x10^3 (test code 0.03 10*3/uL 0.01-0.09 = 704-7) Lab Interpretation Abnormal (test code = 75121-1) [facility] WITH [id number] 12:27:19 Test Item Value Reference Range Interpretation Comments WBC (test code = 7.39 See_Comment [Automated 8390-2) message] The sy stem which generated this result transmitted reference range : 4.20 - 10.70 10*3/?L. The reference range was not used to interpret this result as normal/abnormal . RBC (test code = 2.39 See_Comment L [Automated 519-8) message] The sy stem which generated this result transmitted reference range : 4.26 - 5.52 10*6/?L. The reference range was not used to interpret this result as normal/abnormal . HGB (test code = 7.8 g/dL 12.2-16.4 L 718-7) HCT (test code = 24.9 % 38.4-49.3 L 4544-3) MCV (test code = 104.2 fL 81.7-95.6 H 787-2) MCH (test code = 32.6 pg 26.1-32.7 785-6) MCHC (test code = 31.3 g/dL 31.2-35.0 786-4) RDW-SD (test code = 51.1 fL 38.5-51.6 18762-7) RDW-CV (test code = 13.4 % 12.1-15.4 788-0) PLT (test code = 207 See_Comment [Automated 777-3) message] The sy stem which generated this result transmitted reference range : 150 - 328 10*3/ ?L. The reference r erasto was not used to interpret this result as normal/abnormal . MPV (test code = 9.9 fL 9.8-13.0 40546-2) NRBC/100 WBC (test 0.0 See_Comment [Automat ed code = 9700803094) message] The system which generated this result transmitted reference range : 0.0 - 10.0 /100 WBCs. The refer ence range was not u sed to interpret th is result as normal/abnormal . NRBC x10^3 (test code See_Comment [Auto mated = 6460043242) message] The s ystem which generated this result transmitted reference range : 10*3/?L. The reference range was not used to interpret this result as normal/abnormal . GRAN MAT (NEUT) % 62.9 % (test code = 770-8) IMM GRAN % (test code 0.30 % = 0431327183) LYMPH % (test code = 20.8 % 736-9) MONO % (test code = 9.5 % 5905-5) EOS % (test code = 6.1 % 713-8) BASO % (test code = 0.4 % 706-2) GRAN MAT x10^3(ANC) 4.65 10*3/uL 1.99-6.95 (test code = 7845174103) IMM GRAN x10^3 (test 0.00-0.06 code = 8214418835) LYMPH x10^3 (test code 1.54 10*3/uL 1.09-3.23 = 731-0) MONO x10^3 (test code 0.70 10*3/uL 0.36-1.02 = 742-7) EOS x10^3 (test code = 0.45 10*3/uL 0.06-0.53 711-2) BASO x10^3 (test code 0.03 10*3/uL 0.01-0.09 = 704-7) Lab Interpretation Abnormal (test code = 11488-6) [facility] WITH [id number] 12:27:19 Test Item Value Reference Range Interpretation Comments WBC (test code = 7.39 See_Comment [Automated 6690-2) message] The sy stem which generated this result transmitted reference range : 4.20 - 10.70 10*3/?L. The reference range was not used to interpret this result as normal/abnormal . RBC (test code = 2.39 See_Comment L [Automated 789-8) message] The sy stem which generated this result transmitted reference range : 4.26 - 5.52 10*6/?L. The reference range was not used to interpret this result as normal/abnormal . HGB (test code = 7.8 g/dL 12.2-16.4 L 718-7) HCT (test code = 24.9 % 38.4-49.3 L 4544-3) MCV (test code = 104.2 fL 81.7-95.6 H 787-2) MCH (test code = 32.6 pg 26.1-32.7 785-6) MCHC (test code = 31.3 g/dL 31.2-35.0 786-4) RDW-SD (test code = 51.1 fL 38.5-51.6 71466-3) RDW-CV (test code = 13.4 % 12.1-15.4 788-0) PLT (test code = 207 See_Comment [Automated 777-3) message] The sy stem which generated this result transmitted reference range : 150 - 328 10*3/ ?L. The reference r erasto was not used to interpret this result as normal/abnormal . MPV (test code = 9.9 fL 9.8-13.0 45342-6) NRBC/100 WBC (test 0.0 See_Comment [Automat ed code = 0293149819) message] The system which generated this result transmitted reference range : 0.0 - 10.0 /100 WBCs. The refer ence range was not u sed to interpret th is result as normal/abnormal . NRBC x10^3 (test code See_Comment [Auto mated = 5446208140) message] The s ystem which generated this result transmitted reference range : 10*3/?L. The reference range was not used to interpret this result as normal/abnormal . GRAN MAT (NEUT) % 62.9 % (test code = 770-8) IMM GRAN % (test code 0.30 % = 3755940023) LYMPH % (test code = 20.8 % 736-9) MONO % (test code = 9.5 % 5905-5) EOS % (test code = 6.1 % 713-8) BASO % (test code = 0.4 % 706-2) GRAN MAT x10^3(ANC) 4.65 10*3/uL 1.99-6.95 (test code = 2483591724) IMM GRAN x10^3 (test 0.00-0.06 code = 7839299069) LYMPH x10^3 (test code 1.54 10*3/uL 1.09-3.23 = 731-0) MONO x10^3 (test code 0.70 10*3/uL 0.36-1.02 = 742-7) EOS x10^3 (test code = 0.45 10*3/uL 0.06-0.53 711-2) BASO x10^3 (test code 0.03 10*3/uL 0.01-0.09 = 704-7) Lab Interpretation Abnormal (test code = 83492-6) [place] 65097023-02-02 05:21:57 Test Item Value Reference Range Interpretation Comments APTT Patient (test code See_Comment [Au tomated message] = 3173-2) The system [employer] generated this result transmitted ref erence range: 26 - 36 Seconds. The reference range was not used to int erpret this result as normal/abnormal . Lab Interpretation (test Abnormal code = 39734-5) [place] [id number] 05:21:57 Test Item Value Reference Range Interpretation Comments APTT Patient (test code See_Comment HH [Au tomated message] = 3173-2) The system [employer] generated this result transmitted ref erence range: 26 - 36 Seconds. The reference range was not used to int erpret this result as normal/abnormal . Lab Interpretation (test Abnormal code = 30342-5) [place] [id number] 05:21:57 Test Item Value Reference Range Interpretation Comments APTT Patient (test code See_Comment [Au tomated message] = 3173-2) The system [employer] generated this result transmitted ref erence range: 26 - 36 Seconds. The reference range was not used to int erpret this result as normal/abnormal . Lab Interpretation (test Abnormal code = 45348-2) [facility] GLUCOSE (AUTOMATED)2022-11-22 02:14:24 Test Item Value Reference Range Interpretation Comments POCT GLU (test code = 8303147351) 119 mg/dL 70-110 H Lab Interpretation (test code = Abnormal 42292-8) [facility] GLUCOSE (AUTOMATED)2022-11-22 02:14:24 Test Item Value Reference Range Interpretation Comments POCT GLU (test code = 4733118710) 119 mg/dL 70-110 H Lab Interpretation (test code = Abnormal 34526-0) [facility] GLUCOSE (AUTOMATED)2022-11-22 02:14:24 Test Item Value Reference Range Interpretation Comments POCT GLU (test code = 7444852839) 119 mg/dL 70-110 H Lab Interpretation (test code = Abnormal 14613-4) [facility] GLUCOSE (AUTOMATED)2022-11-21 23:04:18 Test Item Value Reference Range Interpretation Comments POCT GLU (test code = 7257220876) 81 mg/dL 70-110 Lab Interpretation (test code = Normal 18365-6) [facility] GLUCOSE (AUTOMATED)2022-11-21 23:04:18 Test Item Value Reference Range Interpretation Comments POCT GLU (test code = 5755392789) 81 mg/dL 70-110 Lab Interpretation (test code = Normal 03779-0) [facility] GLUCOSE (AUTOMATED)2022-11-21 23:04:18 Test Item Value Reference Range Interpretation Comments POCT GLU (test code = 3225894339) 81 mg/dL 70-110 Lab Interpretation (test code = Normal 97668-4) [id number] Test Item Value Reference Range Interpretation Comments TROPONIN I (test code = 1.060 ng/mL <=0.034 H 1352964017) ALISHA (test code = ALISHA) Reference (Normal) Range (defined by the 99th percentile reference limit): <= 0.034 ng/mL Note: Cardiac troponin begins to rise 3-4 hours after the onset of ischemia. Repeat in 4-6 hours if the sample was drawn within 3-4 hours of the onset of the symptom and found normal. Diagnosis of myocardial injury is made with acute changes in cTn concentrations with at least one serial sample above the 99th percentile upper reference limit (URL), taken together with the patient's clinical presentation. Biotin has been reported to cause a negative bias, interpret results relative to patient's use of biotin. Lab Interpretation Abnormal (test code = 65324-5) [facility] [id number] 20:44:22 Test Item Value Reference Range Interpretation Comments TROPONIN I (test code = 1.060 ng/mL <=0.034 H 9685377945) ALISHA (test code = ALISHA) Reference (Normal) Range (defined by the 99th percentile reference limit): <= 0.034 ng/mL Note: Cardiac troponin begins to rise 3-4 hours after the onset of ischemia. Repeat in 4-6 hours if the sample was drawn within 3-4 hours of the onset of the symptom and found normal. Diagnosis of myocardial injury is made with acute changes in cTn concentrations with at least one serial sample above the 99th percentile upper reference limit (URL), taken together with the patient's clinical presentation. Biotin has been reported to cause a negative bias, interpret results relative to patient's use of biotin. Lab Interpretation Abnormal (test code = 95530-3) [facility] [id number] 20:44:22 Test Item Value Reference Range Interpretation Comments TROPONIN I (test code = 1.060 ng/mL <=0.034 H 4186416852) ALISHA (test code = ALISHA) Reference (Normal) Range (defined by the 99th percentile reference limit): <= 0.034 ng/mL Note: Cardiac troponin begins to rise 3-4 hours after the onset of ischemia. Repeat in 4-6 hours if the sample was drawn within 3-4 hours of the onset of the symptom and found normal. Diagnosis of myocardial injury is made with acute changes in cTn concentrations with at least one serial sample above the 99th percentile upper reference limit (URL), taken together with the patient's clinical presentation. Biotin has been reported to cause a negative bias, interpret results relative to patient's use of biotin. Lab Interpretation Abnormal (test code = 02071-0) [facility] 19:22:53 Test Item Value Reference Range Interpretation Comments POCT GLU (test code = 5425330881) 67 mg/dL 70-110 L Lab Interpretation (test code = Abnormal 67340-1) [facility] GLUCOSE (AUTOMATED)2022-11-21 19:22:53 Test Item Value Reference Range Interpretation Comments POCT GLU (test code = 4695631790) 67 mg/dL 70-110 L Lab Interpretation (test code = Abnormal 81666-3) [facility] GLUCOSE (AUTOMATED)2022-11-21 19:22:53 Test Item Value Reference Range Interpretation Comments POCT GLU (test code = 7428098803) 67 mg/dL 70-110 L Lab Interpretation (test code = Abnormal 04813-6) [facility] GLUCOSE (AUTOMATED)2021-12-14 14:35:46 Test Item Value Reference Range Interpretation Comments POCT GLU (test code = 1735674112) 124 mg/dL 70-110 H Lab Interpretation (test code = Abnormal 98967-7) [facility] METABOLIC PANEL (NA, K, CL, CO2, GLUCOSE, BUN, CREATININE, CA)2021-12-14 11:49:57 Test Item Value Reference Range Interpretation Comments NA (test code = 134 mmol/L 135-145 L 1499543586) K (test code = 3.9 mmol/L 3.5-5.0 0290216721) CL (test code = 97 mmol/L 98-108 L 7002825470) CO2 TOTAL (test code = 28 mmol/L 23-31 0125151890) AGAP (test code = 2-16 3369404516) BUN (test code = 38 mg/dL 7-23 H 3613524324) GLUCOSE (test code = 65 mg/dL 70-110 L 9773265611) CREATININE (test code = 4.57 mg/dL 0.60-1.25 H 8518030973) CALCIUM (test code = 8.7 mg/dL 8.6-10.6 8201501881) eGFR (test code = mL/min/1.73m2 3205457341) ALISHA (test code = ALISHA) Association of Glomerular Filtration Rate (GFR) and Staging of Kidney Disease* + --+ --+ ------+| GFR (mL/min/1.73 m2) ?| With Kidney Damage ?| ?Without Kidney Damage+ --------+ --------+ +| ?>90 ?| ?Stage one ?| ? Normal ?+ ---+ ---+ -------+| ?60-89 ?| ?Stage two ?| ? Decreased GFR ? + --+ --+ ------+| ?30-59 ?| ?Stage three ?| ? Stage three ? + --+ --+ ------+| ?15-29 ?| ?Stage four ? | ? Stage four ?+ ---+ ---+ -------+| ?<15 (or dialysis) ? ?| ?Stage five ? | ? Stage five ?+ ---+ ---+ -------+ *Each stage assumes the associated GFR level has been in effect for at least three months. ?Stages 1 to 5, with or without kidney disease, indicate chronic kidney disease. Notes: Determination of stages one and two (with eGFR >59mL/min/1.73 m2) requires estimation of kidney damage for at least three months as defined by structural or functional abnormalities of the kidney, manifested by either:Pathological abnormalities or Markers of kidney damage (including abnormalities in the composition of the blood or urine or abnormalities in imaging tests). Lab Interpretation Abnormal (test code = 32597-1) [facility]57 Test Item Value Reference Range Interpretation Comments MAGNESIUM (test code = 6121140616) 2.0 mg/dL 1.7-2.4 Lab Interpretation (test code = Normal 21338-3) [facility] GLUCOSE (AUTOMATED)2021-12-14 03:57:50 Test Item Value Reference Range Interpretation Comments POCT GLU (test code = 4426206146) 165 mg/dL 70-110 H Lab Interpretation (test code = Abnormal 00690-4) [facility] GLUCOSE (AUTOMATED)2021-12-13 23:00:37 Test Item Value Reference Range Interpretation Comments POCT GLU (test code = 9517323888) 154 mg/dL 70-110 H Lab Interpretation (test code = Abnormal 15060-4) [facility] GLUCOSE (AUTOMATED)2021-12-13 20:30:09 Test Item Value Reference Range Interpretation Comments POCT GLU (test code = 3298477714) 100 mg/dL 70-110 Lab Interpretation (test code = Normal 72390-3) [facility] GLUCOSE (AUTOMATED)2021-12-13 13:43:47 Test Item Value Reference Range Interpretation Comments POCT GLU (test code = 6786784106) 127 mg/dL 70-110 H Lab Interpretation (test code = Abnormal 56093-0) [facility] METABOLIC PANEL (NA, K, CL, CO2, GLUCOSE, BUN, CREATININE, CA)2021-12-13 10:36:29 Test Item Value Reference Range Interpretation Comments NA (test code = 133 mmol/L 135-145 L 9516429709) K (test code = 4.8 mmol/L 3.5-5.0 1929228315) CL (test code = 98 mmol/L 98-108 3045644811) CO2 TOTAL (test code = 26 mmol/L 23-31 0199655689) AGAP (test code = 2-16 7582446437) BUN (test code = 56 mg/dL 7-23 H 6611307528) GLUCOSE (test code = 83 mg/dL 70-110 0020288049) CREATININE (test code = 6.30 mg/dL 0.60-1.25 H 3987325643) CALCIUM (test code = 8.7 mg/dL 8.6-10.6 8191631533) eGFR (test code = mL/min/1.73m2 6587297657) ALISHA (test code = ALISHA) Association of Glomerular Filtration Rate (GFR) and Staging of Kidney Disease* + --+ --+ ------+| GFR (mL/min/1.73 m2) ?| With Kidney Damage ?| ?Without Kidney Damage+ --------+ --------+ +| ?>90 ?| ?Stage one ?| ? Normal ?+ ---+ ---+ -------+| ?60-89 ?| ?Stage two ?| ? Decreased GFR ? + --+ --+ ------+| ?30-59 ?| ?Stage three ?| ? Stage three ? + --+ --+ ------+| ?15-29 ?| ?Stage four ? | ? Stage four ?+ ---+ ---+ -------+| ?<15 (or dialysis) ? ?| ?Stage five ? | ? Stage five ?+ ---+ ---+ -------+ *Each stage assumes the associated GFR level has been in effect for at least three months. ?Stages 1 to 5, with or without kidney disease, indicate chronic kidney disease. Notes: Determination of stages one and two (with eGFR >59mL/min/1.73 m2) requires estimation of kidney damage for at least three months as defined by structural or functional abnormalities of the kidney, manifested by either:Pathological abnormalities or Markers of kidney damage (including abnormalities in the composition of the blood or urine or abnormalities in imaging tests). Lab Interpretation Abnormal (test code = 29134-7) [facility]29 Test Item Value Reference Range Interpretation Comments MAGNESIUM (test code = 9992759015) 2.2 mg/dL 1.7-2.4 Lab Interpretation (test code = Normal 90143-3) [facility] [id number] 10:00:04 Test Item Value Reference Range Interpretation Comments WBC (test code = 6690-2) See_Comment [A utomated message] The system [employer] generated this result transmit uriel reference range : 4.20 - 10.70 10*3/?L. The reference range was not used to interpret this result as normal/abnormal . RBC (test code = 789-8) See_Comment L [Au tomated message] The system [employer] generated this result transmit uriel reference range : 4.26 - 5.52 10* 6/?L. The reference r erasto was not used to interpret this result as normal/abnormal . HGB (test code = 718-7) 9.4 g/dL 12.2-16.4 L HCT (test code = 4544-3) 29.1 % 38.4-49.3 L MCH (test code = 785-6) 31.3 pg 26.1-32.7 MCV (test code = 787-2) 97.0 fL 81.7-95.6 H MCHC (test code = 786-4) 32.3 g/dL 31.2-35.0 PLT (test code = 777-3) See_Comment [Au tomated message] The system [employer] generated this result transmit uriel reference range : 150 - 328 10*3/?L. The reference range was not used to interpret this result as normal/abnormal . MPV (test code = 10.2 fL 9.8-13.0 82496-3) RDW-CV (test code = 13.2 % 12.1-15.4 788-0) RDW-SD (test code = 46.9 fL 38.5-51.6 59184-9) NRBC x10^3 (test code = <0.01 See_Comment [Au tomated message] 1817667316) The system [employer] generated this result transmit uriel reference range : 10*3/?L. The reference range was not used to interpret this result as normal/abnormal . NRBC/100 WBC (test code See_Comment [Au tomated message] = 0093329844) The system [employer] generated this result transmit uriel reference range : 0.0 - 10.0 /100 WBC s. The reference r erasto was not used to interpret this result as normal/abnormal . IPF % (test code = 6406091954) Lab Interpretation (test Abnormal code = 23372-1) [facility] GLUCOSE (AUTOMATED)2021-12-13 02:38:30 Test Item Value Reference Range Interpretation Comments POCT GLU (test code = 8945579390) 113 mg/dL 70-110 H Lab Interpretation (test code = Abnormal 27528-4) [facility] GLUCOSE (AUTOMATED)2021-12-12 22:47:18 Test Item Value Reference Range Interpretation Comments POCT GLU (test code = 96 mg/dL 70-110 Notifi ed Provider [id number]) Lab Interpretation (test Normal code = 78988-5) [facility]:31:09 Test Item Value Reference Range Interpretation Comments PHOSPHORUS (test code = 5312247444) 3.7 mg/dL 2.5-5.0 Lab Interpretation (test code = Normal 61378-6) [facility] GLUCOSE (AUTOMATED)2021-12-12 17:38:08 Test Item Value Reference Range Interpretation Comments POCT GLU (test code = 129 mg/dL 70-110 H Notifi ed Provider [id number]) Lab Interpretation (test Abnormal code = 23970-9) [facility] GLUCOSE (AUTOMATED)2021-12-12 13:45:19 Test Item Value Reference Range Interpretation Comments POCT GLU (test code = 85 mg/dL 70-110 Notifi ed Provider [id number]) Lab Interpretation (test Normal code = 49229-8) [facility] METABOLIC PANEL (NA, K, CL, CO2, GLUCOSE, BUN, CREATININE, CA)2021-12-12 13:26:47 Test Item Value Reference Range Interpretation Comments NA (test code = 134 mmol/L 135-145 L 8502319435) K (test code = 4.2 mmol/L 3.5-5.0 3208523686) CL (test code = 103 mmol/L 98-108 7755854275) CO2 TOTAL (test code = 25 mmol/L 23-31 8756482258) AGAP (test code = 2-16 6650652200) BUN (test code = 43 mg/dL 7-23 H 2675725493) GLUCOSE (test code = 69 mg/dL 70-110 L 7073395695) CREATININE (test code = 4.60 mg/dL 0.60-1.25 H 5560880175) CALCIUM (test code = 8.4 mg/dL 8.6-10.6 L 2694088533) eGFR (test code = mL/min/1.73m2 3848246502) ALISHA (test code = ALISHA) Association of Glomerular Filtration Rate (GFR) and Staging of Kidney Disease* + --+ --+ ------+| GFR (mL/min/1.73 m2) ?| With Kidney Damage ?| ?Without Kidney Damage+ --------+ --------+ +| ?>90 ?| ?Stage one ?| ? Normal ?+ ---+ ---+ -------+| ?60-89 ?| ?Stage two ?| ? Decreased GFR ? + --+ --+ ------+| ?30-59 ?| ?Stage three ?| ? Stage three ? + --+ --+ ------+| ?15-29 ?| ?Stage four ? | ? Stage four ?+ ---+ ---+ -------+| ?<15 (or dialysis) ? ?| ?Stage five ? | ? Stage five ?+ ---+ ---+ -------+ *Each stage assumes the associated GFR level has been in effect for at least three months. ?Stages 1 to 5, with or without kidney disease, indicate chronic kidney disease. Notes: Determination of stages one and two (with eGFR >59mL/min/1.73 m2) requires estimation of kidney damage for at least three months as defined by structural or functional abnormalities of the kidney, manifested by either:Pathological abnormalities or Markers of kidney damage (including abnormalities in the composition of the blood or urine or abnormalities in imaging tests). Lab Interpretation Abnormal (test code = 04095-5) [facility] GLUCOSE (AUTOMATED)2021-12-12 03:35:59 Test Item Value Reference Range Interpretation Comments POCT GLU (test code = 6147386825) 115 mg/dL 70-110 H Lab Interpretation (test code = Abnormal 22535-0) [facility] GLUCOSE (AUTOMATED)2021-12-11 22:20:40 Test Item Value Reference Range Interpretation Comments POCT GLU (test code = 106 mg/dL 70-110 Notifi ed Provider [id number]) Lab Interpretation (test Normal code = 60704-0) [facility] GLUCOSE (AUTOMATED)2021-12-11 18:51:27 Test Item Value Reference Range Interpretation Comments POCT GLU (test code = 68 mg/dL 70-110 L Notifi ed Provider [id number]) Lab Interpretation (test Abnormal code = 01366-5) [facility] GLUCOSE (AUTOMATED)2021-12-11 18:51:27 Test Item Value Reference Range Interpretation Comments POCT GLU (test code = 68 mg/dL 70-110 L Notifi ed Provider [id number]) Lab Interpretation (test Abnormal code = 09177-6) [facility] METABOLIC PANEL (NA, K, CL, CO2, GLUCOSE, BUN, CREATININE, CA)2021-12-11 11:45:13 Test Item Value Reference Range Interpretation Comments NA (test code = 135 mmol/L 135-145 8447866712) K (test code = 4.3 mmol/L 3.5-5.0 3583474590) CL (test code = 98 mmol/L 98-108 8002674809) CO2 TOTAL (test code = 23 mmol/L 23-31 2073982871) AGAP (test code = 2-16 8522120225) BUN (test code = 82 mg/dL 7-23 H 2290092307) GLUCOSE (test code = 103 mg/dL 70-110 8880897710) CREATININE (test code = 7.74 mg/dL 0.60-1.25 H 6884886920) CALCIUM (test code = 8.5 mg/dL 8.6-10.6 L 4951749737) eGFR (test code = mL/min/1.73m2 2950489101) ALISHA (test code = ALISHA) Association of Glomerular Filtration Rate (GFR) and Staging of Kidney Disease* + --+ --+ ------+| GFR (mL/min/1.73 m2) ?| With Kidney Damage ?| ?Without Kidney Damage+ --------+ --------+ +| ?>90 ?| ?Stage one ?| ? Normal ?+ ---+ ---+ -------+| ?60-89 ?| ?Stage two ?| ? Decreased GFR ? + --+ --+ ------+| ?30-59 ?| ?Stage three ?| ? Stage three ? + --+ --+ ------+| ?15-29 ?| ?Stage four ? | ? Stage four ?+ ---+ ---+ -------+| ?<15 (or dialysis) ? ?| ?Stage five ? | ? Stage five ?+ ---+ ---+ -------+ *Each stage assumes the associated GFR level has been in effect for at least three months. ?Stages 1 to 5, with or without kidney disease, indicate chronic kidney disease. Notes: Determination of stages one and two (with eGFR >59mL/min/1.73 m2) requires estimation of kidney damage for at least three months as defined by structural or functional abnormalities of the kidney, manifested by either:Pathological abnormalities or Markers of kidney damage (including abnormalities in the composition of the blood or urine or abnormalities in imaging tests). Lab Interpretation Abnormal (test code = 18206-8) [facility] Test Item Value Reference Range Interpretation Comments MAGNESIUM (test code = 2120293754) 2.3 mg/dL 1.7-2.4 Lab Interpretation (test code = Normal 86778-7) [facility]13 Test Item Value Reference Range Interpretation Comments PHOSPHORUS (test code = 8490629139) 5.0 mg/dL 2.5-5.0 Lab Interpretation (test code = Normal 24610-2) [facility] METABOLIC PANEL (NA, K, CL, CO2, GLUCOSE, BUN, CREATININE, CA)2021-12-11 11:45:13 Test Item Value Reference Range Interpretation Comments NA (test code = 135 mmol/L 135-145 4366970736) K (test code = 4.3 mmol/L 3.5-5.0 0412968770) CL (test code = 98 mmol/L 98-108 8767642441) CO2 TOTAL (test code = 23 mmol/L 23-31 2332318934) AGAP (test code = 2-16 6627450170) BUN (test code = 82 mg/dL 7-23 H 1768185714) GLUCOSE (test code = 103 mg/dL 70-110 2157166376) CREATININE (test code = 7.74 mg/dL 0.60-1.25 H 7098331827) CALCIUM (test code = 8.5 mg/dL 8.6-10.6 L 7157727890) eGFR (test code = mL/min/1.73m2 2815248853) ALISHA (test code = ALISHA) Association of Glomerular Filtration Rate (GFR) and Staging of Kidney Disease* + --+ --+ ------+| GFR (mL/min/1.73 m2) ?| With Kidney Damage ?| ?Without Kidney Damage+ --------+ --------+ +| ?>90 ?| ?Stage one ?| ? Normal ?+ ---+ ---+ -------+| ?60-89 ?| ?Stage two ?| ? Decreased GFR ? + --+ --+ ------+| ?30-59 ?| ?Stage three ?| ? Stage three ? + --+ --+ ------+| ?15-29 ?| ?Stage four ? | ? Stage four ?+ ---+ ---+ -------+| ?<15 (or dialysis) ? ?| ?Stage five ? | ? Stage five ?+ ---+ ---+ -------+ *Each stage assumes the associated GFR level has been in effect for at least three months. ?Stages 1 to 5, with or without kidney disease, indicate chronic kidney disease. Notes: Determination of stages one and two (with eGFR >59mL/min/1.73 m2) requires estimation of kidney damage for at least three months as defined by structural or functional abnormalities of the kidney, manifested by either:Pathological abnormalities or Markers of kidney damage (including abnormalities in the composition of the blood or urine or abnormalities in imaging tests). Lab Interpretation Abnormal (test code = 43595-0) [facility] Test Item Value Reference Range Interpretation Comments MAGNESIUM (test code = 5083603949) 2.3 mg/dL 1.7-2.4 Lab Interpretation (test code = Normal 12180-3) [facility]13 Test Item Value Reference Range Interpretation Comments PHOSPHORUS (test code = 3743518892) 5.0 mg/dL 2.5-5.0 Lab Interpretation (test code = Normal 18243-2) [id number] 10:56:28 Test Item Value Reference Range Interpretation Comments WBC (test code = See_Comment [Automated 6690-2) message] The sy stem which generated this result transmitted reference range : 4.20 - 10.70 10*3/?L. The reference range was not used to interpret this result as normal/abnormal . RBC (test code = See_Comment L [Automated 789-8) message] The sy stem which generated this result transmitted reference range : 4.26 - 5.52 10*6/?L. The reference range was not used to interpret this result as normal/abnormal . HGB (test code = 9.6 g/dL 12.2-16.4 L 718-7) HCT (test code = 29.8 % 38.4-49.3 L 4544-3) MCV (test code = 99.0 fL 81.7-95.6 H 787-2) MCH (test code = 31.9 pg 26.1-32.7 785-6) MCHC (test code = 32.2 g/dL 31.2-35.0 786-4) RDW-SD (test code = 47.0 fL 38.5-51.6 63841-4) RDW-CV (test code = 13.1 % 12.1-15.4 788-0) PLT (test code = See_Comment [Automated 777-3) message] The sy stem which generated this result transmitted reference range : 150 - 328 10*3/ ?L. The reference r erasto was not used to interpret this result as normal/abnormal . MPV (test code = 10.1 fL 9.8-13.0 24603-7) NRBC/100 WBC (test See_Comment [Automat ed code = 3213306230) message] The system which generated this result transmitted reference range : 0.0 - 10.0 /100 WBCs. The refer ence range was not u sed to interpret th is result as normal/abnormal . NRBC x10^3 (test code <0.01 See_Comment [Auto mated = 7684163225) message] The s ystem which generated this result transmitted reference range : 10*3/?L. The reference range was not used to interpret this result as normal/abnormal . GRAN MAT (NEUT) % 63.9 % (test code = 770-8) IMM GRAN % (test code 0.40 % = 7378445716) LYMPH % (test code = 22.0 % 736-9) MONO % (test code = 9.3 % 5905-5) EOS % (test code = 3.8 % 713-8) BASO % (test code = 0.6 % 706-2) GRAN MAT x10^3(ANC) 5.33 10*3/uL 1.99-6.95 (test code = 1804747218) IMM GRAN x10^3 (test 0.03 10*3/uL 0.00-0.06 code = 6969686553) LYMPH x10^3 (test code 1.84 10*3/uL 1.09-3.23 = 731-0) MONO x10^3 (test code 0.78 10*3/uL 0.36-1.02 = 742-7) EOS x10^3 (test code = 0.32 10*3/uL 0.06-0.53 711-2) BASO x10^3 (test code 0.05 10*3/uL 0.01-0.09 = 704-7) Lab Interpretation Abnormal (test code = 86628-6) [facility] WITH [id number] 10:56:28 Test Item Value Reference Range Interpretation Comments WBC (test code = See_Comment [Automated 6690-2) message] The sy stem which generated this result transmitted reference range : 4.20 - 10.70 10*3/?L. The reference range was not used to interpret this result as normal/abnormal . RBC (test code = See_Comment L [Automated 789-8) message] The sy stem which generated this result transmitted reference range : 4.26 - 5.52 10*6/?L. The reference range was not used to interpret this result as normal/abnormal . HGB (test code = 9.6 g/dL 12.2-16.4 L 718-7) HCT (test code = 29.8 % 38.4-49.3 L 4544-3) MCV (test code = 99.0 fL 81.7-95.6 H 787-2) MCH (test code = 31.9 pg 26.1-32.7 785-6) MCHC (test code = 32.2 g/dL 31.2-35.0 786-4) RDW-SD (test code = 47.0 fL 38.5-51.6 69899-4) RDW-CV (test code = 13.1 % 12.1-15.4 788-0) PLT (test code = See_Comment [Automated 777-3) message] The sy stem which generated this result transmitted reference range : 150 - 328 10*3/ ?L. The reference r erasto was not used to interpret this result as normal/abnormal . MPV (test code = 10.1 fL 9.8-13.0 41744-6) NRBC/100 WBC (test See_Comment [Automat ed code = 1827523619) message] The system which generated this result transmitted reference range : 0.0 - 10.0 /100 WBCs. The refer ence range was not u sed to interpret th is result as normal/abnormal . NRBC x10^3 (test code <0.01 See_Comment [Auto mated = 9989368597) message] The s ystem which generated this result transmitted reference range : 10*3/?L. The reference range was not used to interpret this result as normal/abnormal . GRAN MAT (NEUT) % 63.9 % (test code = 770-8) IMM GRAN % (test code 0.40 % = 0458676827) LYMPH % (test code = 22.0 % 736-9) MONO % (test code = 9.3 % 5905-5) EOS % (test code = 3.8 % 713-8) BASO % (test code = 0.6 % 706-2) GRAN MAT x10^3(ANC) 5.33 10*3/uL 1.99-6.95 (test code = 4562777555) IMM GRAN x10^3 (test 0.03 10*3/uL 0.00-0.06 code = 9762861985) LYMPH x10^3 (test code 1.84 10*3/uL 1.09-3.23 = 731-0) MONO x10^3 (test code 0.78 10*3/uL 0.36-1.02 = 742-7) EOS x10^3 (test code = 0.32 10*3/uL 0.06-0.53 711-2) BASO x10^3 (test code 0.05 10*3/uL 0.01-0.09 = 704-7) Lab Interpretation Abnormal (test code = 63809-4) [facility] GLUCOSE (AUTOMATED)2021-12-11 02:22:58 Test Item Value Reference Range Interpretation Comments POCT GLU (test code = 107 mg/dL 70-110 Notifi ed Provider [id number]) Lab Interpretation (test Normal code = 47431-3) [facility] GLUCOSE (AUTOMATED)2021-12-11 02:22:58 Test Item Value Reference Range Interpretation Comments POCT GLU (test code = 107 mg/dL 70-110 Notifi ed Provider [id number]) Lab Interpretation (test Normal code = 37669-6) [facility] GLUCOSE (AUTOMATED)2021-12-10 14:27:22 Test Item Value Reference Range Interpretation Comments POCT GLU (test code = 95 mg/dL 70-110 Notifi ed Provider [id number]) Lab Interpretation (test Normal code = 73875-0) [facility] GLUCOSE (AUTOMATED)2021-12-10 14:27:22 Test Item Value Reference Range Interpretation Comments POCT GLU (test code = 95 mg/dL 70-110 Notifi ed Provider [id number]) Lab Interpretation (test Normal code = 88030-2) [facility] GLUCOSE (AUTOMATED)2021-12-10 01:59:39 Test Item Value Reference Range Interpretation Comments POCT GLU (test code = 0706956077) 106 mg/dL 70-110 Lab Interpretation (test code = Normal 58820-9) [facility] GLUCOSE (AUTOMATED)2021-12-10 01:59:39 Test Item Value Reference Range Interpretation Comments POCT GLU (test code = 2699890082) 106 mg/dL 70-110 Lab Interpretation (test code = Normal 88054-6) [facility] GLUCOSE (AUTOMATED)2021-12-09 18:44:29 Test Item Value Reference Range Interpretation Comments POCT GLU (test code = 116 mg/dL 70-110 H Notifi ed Provider [id number]) Lab Interpretation (test Abnormal code = 83300-0) [facility] GLUCOSE (AUTOMATED)2021-12-09 18:44:29 Test Item Value Reference Range Interpretation Comments POCT GLU (test code = 116 mg/dL 70-110 H Notifi ed Provider [id number]) Lab Interpretation (test Abnormal code = 77318-6) [facility] GLUCOSE (AUTOMATED)2021-12-09 15:57:32 Test Item Value Reference Range Interpretation Comments POCT GLU (test code = 87 mg/dL 70-110 Notifi ed Provider [id number]) Lab Interpretation (test Normal code = 62559-6) [facility] GLUCOSE (AUTOMATED)2021-12-09 15:57:32 Test Item Value Reference Range Interpretation Comments POCT GLU (test code = 87 mg/dL 70-110 Notifi ed Provider [id number]) Lab Interpretation (test Normal code = 69534-6) [facility] METABOLIC PANEL (NA, K, CL, CO2, GLUCOSE, BUN, CREATININE, CA)2021-12-09 12:27:00 Test Item Value Reference Range Interpretation Comments NA (test code = 137 mmol/L 135-145 1373978894) K (test code = 3.9 mmol/L 3.5-5.0 5093094747) CL (test code = 101 mmol/L 98-108 6413604092) CO2 TOTAL (test code = 25 mmol/L 23-31 3103534927) AGAP (test code = 2-16 4563368083) BUN (test code = 46 mg/dL 7-23 H 5732843428) GLUCOSE (test code = 82 mg/dL 70-110 3662963626) CREATININE (test code = 4.39 mg/dL 0.60-1.25 H 5134532574) CALCIUM (test code = 8.8 mg/dL 8.6-10.6 0483130799) eGFR (test code = mL/min/1.73m2 7790315389) ALISHA (test code = ALISHA) Association of Glomerular Filtration Rate (GFR) and Staging of Kidney Disease* + --+ --+ ------+| GFR (mL/min/1.73 m2) ?| With Kidney Damage ?| ?Without Kidney Damage+ --------+ --------+ +| ?>90 ?| ?Stage one ?| ? Normal ?+ ---+ ---+ -------+| ?60-89 ?| ?Stage two ?| ? Decreased GFR ? + --+ --+ ------+| ?30-59 ?| ?Stage three ?| ? Stage three ? + --+ --+ ------+| ?15-29 ?| ?Stage four ? | ? Stage four ?+ ---+ ---+ -------+| ?<15 (or dialysis) ? ?| ?Stage five ? | ? Stage five ?+ ---+ ---+ -------+ *Each stage assumes the associated GFR level has been in effect for at least three months. ?Stages 1 to 5, with or without kidney disease, indicate chronic kidney disease. Notes: Determination of stages one and two (with eGFR >59mL/min/1.73 m2) requires estimation of kidney damage for at least three months as defined by structural or functional abnormalities of the kidney, manifested by either:Pathological abnormalities or Markers of kidney damage (including abnormalities in the composition of the blood or urine or abnormalities in imaging tests). Lab Interpretation Abnormal (test code = 44488-2) [facility] Test Item Value Reference Range Interpretation Comments MAGNESIUM (test code = 9014911242) 2.1 mg/dL 1.7-2.4 Lab Interpretation (test code = Normal 48091-7) [facility] METABOLIC PANEL (NA, K, CL, CO2, GLUCOSE, BUN, CREATININE, CA)2021-12-09 12:27:00 Test Item Value Reference Range Interpretation Comments NA (test code = 137 mmol/L 135-145 5528153975) K (test code = 3.9 mmol/L 3.5-5.0 2234713312) CL (test code = 101 mmol/L 98-108 0723654146) CO2 TOTAL (test code = 25 mmol/L 23-31 6945632173) AGAP (test code = 2-16 4941691224) BUN (test code = 46 mg/dL 7-23 H 6842524075) GLUCOSE (test code = 82 mg/dL 70-110 7205793706) CREATININE (test code = 4.39 mg/dL 0.60-1.25 H 7217310116) CALCIUM (test code = 8.8 mg/dL 8.6-10.6 1852584562) eGFR (test code = mL/min/1.73m2 9652228366) ALSIHA (test code = ALISHA) Association of Glomerular Filtration Rate (GFR) and Staging of Kidney Disease* + --+ --+ ------+| GFR (mL/min/1.73 m2) ?| With Kidney Damage ?| ?Without Kidney Damage+ --------+ --------+ +| ?>90 ?| ?Stage one ?| ? Normal ?+ ---+ ---+ -------+| ?60-89 ?| ?Stage two ?| ? Decreased GFR ? + --+ --+ ------+| ?30-59 ?| ?Stage three ?| ? Stage three ? + --+ --+ ------+| ?15-29 ?| ?Stage four ? | ? Stage four ?+ ---+ ---+ -------+| ?<15 (or dialysis) ? ?| ?Stage five ? | ? Stage five ?+ ---+ ---+ -------+ *Each stage assumes the associated GFR level has been in effect for at least three months. ?Stages 1 to 5, with or without kidney disease, indicate chronic kidney disease. Notes: Determination of stages one and two (with eGFR >59mL/min/1.73 m2) requires estimation of kidney damage for at least three months as defined by structural or functional abnormalities of the kidney, manifested by either:Pathological abnormalities or Markers of kidney damage (including abnormalities in the composition of the blood or urine or abnormalities in imaging tests). Lab Interpretation Abnormal (test code = 64834-4) [facility]:27:[facility] Test Item Value Reference Range Interpretation Comments MAGNESIUM (test code = 9035363475) 2.1 mg/dL 1.7-2.4 Lab Interpretation (test code = Normal 35933-5) [facility] GLUCOSE (AUTOMATED)2021-12-09 03:48:39 Test Item Value Reference Range Interpretation Comments POCT GLU (test code = 127 mg/dL 70-110 H Notifi ed Provider [id number]) Lab Interpretation (test Abnormal code = 08174-8) [facility] GLUCOSE (AUTOMATED)2021-12-09 03:48:39 Test Item Value Reference Range Interpretation Comments POCT GLU (test code = 127 mg/dL 70-110 H Notifi ed Provider [id number]) Lab Interpretation (test Abnormal code = 34385-7) [facility] 19:02:55 Test Item Value Reference Range Interpretation Comments LVOT diameter (test code 2.24 cm = 8389635372) Ao root annulus (test 3.3 cm code = 3711184296) Ao root diam (test code 3.30 cm = 0922181896) Aortic root (test code = 3.3 cm 6516204841) LA size (test code = 4.3 cm 8943958744) LVIDD (test code = 5.40 cm 4608023916) IVS (test code = 1.37 cm 7053969789) Interventricular Septum 1.37 cm Diastolic Thickness by 2D (test code = 8784357) LVPWD (test code = 1.39 cm 6893141693) PW (test code = 1.39 cm 0.6-1.7 0525486789) EF(Teich) (test code = 57.30 % 4316750821) LVIDS (test code = 3.70 cm 7001448250) FS (test code = 30 % 4004804768) EF - 2D (test code = 57.30 % 14207859) E wave decelartion time 0.33 s (test code = 6537412913) MV Peak E Radha (test code 107.2 cm/s = 1345739020) MV Peak A Radha (test code 37.3 cm/s = 3373639681) E/A ratio (test code = ratio 2760669653) MV Prop V (test code = 42.70 cm/s 8063476504) LAV(MOD-sp4) (test code 77.70 mL = 0992799776) LVOT stroke volume (test 66.50 cm3 code = 6613495551) LVOT peak radha (test code 71.7 cm/s = 5056465775) LVOT mn grad (test code mmHg = 2944321377) AV LVOT peak gradient mmHg (test code = 4085835647) LVOT peak VTI (test code 16.9 cm = 7363133538) LV V1 mean (test code = 48.00 cm/s 7370331800) Tapse (test code = 1.61 cm 1031434278) LA volume (BP) (test 89.8 mL code = 8595192394) LAV(MOD-sp2) (test code 103.20 mL = 1806440231) Radiology Study observation (narrative) (test code = 28616-3) ALISHA (test code = ALISHA) ?Left?Ventricle: Left ventricle size is normal. Basal septal thickening. There is moderate concentric remodeling. See diagram for wall motion findings. Mildly reduced systolic function with a visually estimated EF of 40 - 50%. Diastolic function is grade III. Elevated left ventricular filling pressure. ?Right?Ventricle: Right ventricle is mildly dilated. Normal systolic function. ?Tricuspid?Valve: Tricuspid valve is normal size and function. Trace transvalvular regurgitation. Insufficient regurgant jet to estimate RVSP. ?RA pressure is 5-10 mmHg. VitalsHeight Weight BSA (Calculated - sq m) BP Pulse 5' 11" (1.803 m) 167 lb (75.8 kg) 1.95 sq meters 108/60 58 [facility] 19:02:55 Test Item Value Reference Range Interpretation Comments LVOT diameter (test code 2.24 cm = 4420066058) Ao root annulus (test 3.3 cm code = 4922913880) Ao root diam (test code 3.30 cm = 2465931465) Aortic root (test code = 3.3 cm 9186447936) LA size (test code = 4.3 cm 9019189444) LVIDD (test code = 5.40 cm 4940487127) IVS (test code = 1.37 cm 6775142987) Interventricular Septum 1.37 cm Diastolic Thickness by 2D (test code = 5222120) LVPWD (test code = 1.39 cm 3409502181) PW (test code = 1.39 cm 0.6-1.0 5262606904) EF(Teich) (test code = 57.30 % 2372055609) LVIDS (test code = 3.70 cm 0494740045) FS (test code = 30 % 2610738043) EF - 2D (test code = 57.30 % 14145136) E wave decelartion time 0.33 s (test code = 4269763469) MV Peak E Radha (test code 107.2 cm/s = 9243444386) MV Peak A Radha (test code 37.3 cm/s = 1281324065) E/A ratio (test code = ratio 1537438667) MV Prop V (test code = 42.70 cm/s 6366862366) LAV(MOD-sp4) (test code 77.70 mL = 5195603810) LVOT stroke volume (test 66.50 cm3 code = 1887128544) LVOT peak radha (test code 71.7 cm/s = 5511919054) LVOT mn grad (test code mmHg = 6348287260) AV LVOT peak gradient mmHg (test code = 8995171383) LVOT peak VTI (test code 16.9 cm = 8372323829) LV V1 mean (test code = 48.00 cm/s 1489812278) Tapse (test code = 1.61 cm 5148286554) LA volume (BP) (test 89.8 mL code = 9153176544) LAV(MOD-sp2) (test code 103.20 mL = 0524208230) Radiology Study observation (narrative) (test code = 58977-8) ALISHA (test code = ALISHA) ?Left?Ventricle: Left ventricle size is normal. Basal septal thickening. There is moderate concentric remodeling. See diagram for wall motion findings. Mildly reduced systolic function with a visually estimated EF of 40 - 50%. Diastolic function is grade III. Elevated left ventricular filling pressure. ?Right?Ventricle: Right ventricle is mildly dilated. Normal systolic function. ?Tricuspid?Valve: Tricuspid valve is normal size and function. Trace transvalvular regurgitation. Insufficient regurgant jet to estimate RVSP. ?RA pressure is 5-10 mmHg. VitalsHeight Weight BSA (Calculated - sq m) BP Pulse 5' 11" (1.803 m) 167 lb (75.8 kg) 1.95 sq meters 108/60 58 [facility] GLUCOSE (AUTOMATED)2021-12-08 15:32:48 Test Item Value Reference Range Interpretation Comments POCT GLU (test code = 3346834830) 88 mg/dL 70-110 Lab Interpretation (test code = Normal 96800-3) [facility] GLUCOSE (AUTOMATED)2021-12-08 15:32:48 Test Item Value Reference Range Interpretation Comments POCT GLU (test code = 1054567837) 88 mg/dL 70-110 Lab Interpretation (test code = Normal 26566-1) [facility] METABOLIC PANEL (NA, K, CL, CO2, GLUCOSE, BUN, CREATININE, CA)2021-12-08 11:29:36 Test Item Value Reference Range Interpretation Comments NA (test code = 134 mmol/L 135-145 L 2202864454) K (test code = 4.5 mmol/L 3.5-5.0 6614245162) CL (test code = 102 mmol/L 98-108 2604709884) CO2 TOTAL (test code = 24 mmol/L 23-31 9021131150) AGAP (test code = 2-16 2670507688) BUN (test code = 76 mg/dL 7-23 H 4677862702) GLUCOSE (test code = 84 mg/dL 70-110 2993152938) CREATININE (test code = 8.28 mg/dL 0.60-1.25 H 9068330783) CALCIUM (test code = 8.7 mg/dL 8.6-10.6 9286472420) eGFR (test code = mL/min/1.73m2 0980402500) ALISHA (test code = ALISHA) Association of Glomerular Filtration Rate (GFR) and Staging of Kidney Disease* + --+ --+ ------+| GFR (mL/min/1.73 m2) ?| With Kidney Damage ?| ?Without Kidney Damage+ --------+ --------+ +| ?>90 ?| ?Stage one ?| ? Normal ?+ ---+ ---+ -------+| ?60-89 ?| ?Stage two ?| ? Decreased GFR ? + --+ --+ ------+| ?30-59 ?| ?Stage three ?| ? Stage three ? + --+ --+ ------+| ?15-29 ?| ?Stage four ? | ? Stage four ?+ ---+ ---+ -------+| ?<15 (or dialysis) ? ?| ?Stage five ? | ? Stage five ?+ ---+ ---+ -------+ *Each stage assumes the associated GFR level has been in effect for at least three months. ?Stages 1 to 5, with or without kidney disease, indicate chronic kidney disease. Notes: Determination of stages one and two (with eGFR >59mL/min/1.73 m2) requires estimation of kidney damage for at least three months as defined by structural or functional abnormalities of the kidney, manifested by either:Pathological abnormalities or Markers of kidney damage (including abnormalities in the composition of the blood or urine or abnormalities in imaging tests). Lab Interpretation Abnormal (test code = 43325-8) [facility]:36 Test Item Value Reference Range Interpretation Comments MAGNESIUM (test code = [id number]) 2.2 mg/dL 1.7-2.4 Lab Interpretation (test code = Normal 18056-2) [facility] Test Item Value Reference Range Interpretation Comments PHOSPHORUS (test code = 6774959588) 5.6 mg/dL 2.5-5.0 H Lab Interpretation (test code = Abnormal 37241-2) [facility] (NA, K, CL, CO2, GLUCOSE, BUN, CREATININE, CA)2021-12-08 11:29:36 Test Item Value Reference Range Interpretation Comments NA (test code = 134 mmol/L 135-145 L 2043231885) K (test code = 4.5 mmol/L 3.5-5.0 8158151659) CL (test code = 102 mmol/L 98-108 2346152462) CO2 TOTAL (test code = 24 mmol/L 23-31 3170349951) AGAP (test code = 2-16 2761846420) BUN (test code = 76 mg/dL 7-23 H 7381890904) GLUCOSE (test code = 84 mg/dL 70-110 9009026846) CREATININE (test code = 8.28 mg/dL 0.60-1.25 H 2906839672) CALCIUM (test code = 8.7 mg/dL 8.6-10.6 6092963908) eGFR (test code = mL/min/1.73m2 3866479747) ALISHA (test code = ALISHA) Association of Glomerular Filtration Rate (GFR) and Staging of Kidney Disease* + --+ --+ ------+| GFR (mL/min/1.73 m2) ?| With Kidney Damage ?| ?Without Kidney Damage+ --------+ --------+ +| ?>90 ?| ?Stage one ?| ? Normal ?+ ---+ ---+ -------+| ?60-89 ?| ?Stage two ?| ? Decreased GFR ? + --+ --+ ------+| ?30-59 ?| ?Stage three ?| ? Stage three ? + --+ --+ ------+| ?15-29 ?| ?Stage four ? | ? Stage four ?+ ---+ ---+ -------+| ?<15 (or dialysis) ? ?| ?Stage five ? | ? Stage five ?+ ---+ ---+ -------+ *Each stage assumes the associated GFR level has been in effect for at least three months. ?Stages 1 to 5, with or without kidney disease, indicate chronic kidney disease. Notes: Determination of stages one and two (with eGFR >59mL/min/1.73 m2) requires estimation of kidney damage for at least three months as defined by structural or functional abnormalities of the kidney, manifested by either:Pathological abnormalities or Markers of kidney damage (including abnormalities in the composition of the blood or urine or abnormalities in imaging tests). Lab Interpretation Abnormal (test code = 91810-5) [facility]2022-02-18 11:29:36 Test Item Value Reference Range Interpretation Comments MAGNESIUM (test code = 7646242260) 2.2 mg/dL 1.7-2.4 Lab Interpretation (test code = Normal 11622-4) [facility]:29:36 Test Item Value Reference Range Interpretation Comments PHOSPHORUS (test code = 3650075440) 5.6 mg/dL 2.5-5.0 H Lab Interpretation (test code = Abnormal 37695-2) [facility] [id number] 10:58:14 Test Item Value Reference Range Interpretation Comments WBC (test code = See_Comment [Automated 6690-2) message] The sy stem which generated this result transmitted reference range : 4.20 - 10.70 10*3/?L. The reference range was not used to interpret this result as normal/abnormal . RBC (test code = See_Comment L [Automated 789-8) message] The sy stem which generated this result transmitted reference range : 4.26 - 5.52 10*6/?L. The reference range was not used to interpret this result as normal/abnormal . HGB (test code = 9.2 g/dL 12.2-16.4 L 718-7) HCT (test code = 28.5 % 38.4-49.3 L 4544-3) MCV (test code = 97.9 fL 81.7-95.6 H 787-2) MCH (test code = 31.6 pg 26.1-32.7 785-6) MCHC (test code = 32.3 g/dL 31.2-35.0 786-4) RDW-SD (test code = 47.8 fL 38.5-51.6 88520-7) RDW-CV (test code = 13.3 % 12.1-15.4 788-0) PLT (test code = See_Comment [Automated 777-3) message] The sy stem which generated this result transmitted reference range : 150 - 328 10*3/ ?L. The reference r erasto was not used to interpret this result as normal/abnormal . MPV (test code = 9.8 fL 9.8-13.0 16966-4) NRBC/100 WBC (test See_Comment [Automat ed code = 4658931619) message] The system which generated this result transmitted reference range : 0.0 - 10.0 /100 WBCs. The refer ence range was not u sed to interpret th is result as normal/abnormal . NRBC x10^3 (test code <0.01 See_Comment [Auto mated = 7644255340) message] The s ystem which generated this result transmitted reference range : 10*3/?L. The reference range was not used to interpret this result as normal/abnormal . GRAN MAT (NEUT) % 68.3 % (test code = 770-8) IMM GRAN % (test code 0.20 % = 2547828908) LYMPH % (test code = 18.7 % 736-9) MONO % (test code = 8.9 % 5905-5) EOS % (test code = 3.5 % 713-8) BASO % (test code = 0.4 % 706-2) GRAN MAT x10^3(ANC) 5.50 10*3/uL 1.99-6.95 (test code = 8589381914) IMM GRAN x10^3 (test <0.03 0.00-0.06 code = 1728255628) LYMPH x10^3 (test code 1.51 10*3/uL 1.09-3.23 = 731-0) MONO x10^3 (test code 0.72 10*3/uL 0.36-1.02 = 742-7) EOS x10^3 (test code = 0.28 10*3/uL 0.06-0.53 711-2) BASO x10^3 (test code 0.03 10*3/uL 0.01-0.09 = 704-7) Lab Interpretation Abnormal (test code = 36353-0) [facility] WITH [id number] 10:58:14 Test Item Value Reference Range Interpretation Comments WBC (test code = See_Comment [Automated 4290-2) message] The sy stem which generated this result transmitted reference range : 4.20 - 10.70 10*3/?L. The reference range was not used to interpret this result as normal/abnormal . RBC (test code = See_Comment L [Automated 789-8) message] The sy stem which generated this result transmitted reference range : 4.26 - 5.52 10*6/?L. The reference range was not used to interpret this result as normal/abnormal . HGB (test code = 9.2 g/dL 12.2-16.4 L 718-7) HCT (test code = 28.5 % 38.4-49.3 L 4544-3) MCV (test code = 97.9 fL 81.7-95.6 H 787-2) MCH (test code = 31.6 pg 26.1-32.7 785-6) MCHC (test code = 32.3 g/dL 31.2-35.0 786-4) RDW-SD (test code = 47.8 fL 38.5-51.6 49128-7) RDW-CV (test code = 13.3 % 12.1-15.4 788-0) PLT (test code = See_Comment [Automated 777-3) message] The sy stem which generated this result transmitted reference range : 150 - 328 10*3/ ?L. The reference r erasto was not used to interpret this result as normal/abnormal . MPV (test code = 9.8 fL 9.8-13.0 20142-6) NRBC/100 WBC (test See_Comment [Automat ed code = 1723501009) message] The system which generated this result transmitted reference range : 0.0 - 10.0 /100 WBCs. The refer ence range was not u sed to interpret th is result as normal/abnormal . NRBC x10^3 (test code <0.01 See_Comment [Auto mated = 9424065954) message] The s ystem which generated this result transmitted reference range : 10*3/?L. The reference range was not used to interpret this result as normal/abnormal . GRAN MAT (NEUT) % 68.3 % (test code = 770-8) IMM GRAN % (test code 0.20 % = 9569879792) LYMPH % (test code = 18.7 % 736-9) MONO % (test code = 8.9 % 5905-5) EOS % (test code = 3.5 % 713-8) BASO % (test code = 0.4 % 706-2) GRAN MAT x10^3(ANC) 5.50 10*3/uL 1.99-6.95 (test code = 3569963921) IMM GRAN x10^3 (test <0.03 0.00-0.06 code = 8851220784) LYMPH x10^3 (test code 1.51 10*3/uL 1.09-3.23 = 731-0) MONO x10^3 (test code 0.72 10*3/uL 0.36-1.02 = 742-7) EOS x10^3 (test code = 0.28 10*3/uL 0.06-0.53 711-2) BASO x10^3 (test code 0.03 10*3/uL 0.01-0.09 = 704-7) Lab Interpretation Abnormal (test code = 88460-5) [facility] GLUCOSE (AUTOMATED)2021-12-08 05:10:20 Test Item Value Reference Range Interpretation Comments POCT GLU (test code = 104 mg/dL 70-110 Notifi ed Provider [id number]) Lab Interpretation (test Normal code = 84424-7) [facility] GLUCOSE (AUTOMATED)2021-12-08 05:10:20 Test Item Value Reference Range Interpretation Comments POCT GLU (test code = 104 mg/dL 70-110 Notifi ed Provider [id number]) Lab Interpretation (test Normal code = 28403-0) [facility] PTH CALCIUM [id number] 13:36:05 Test Item Value Reference Range Interpretation Comments PTH-INTACT (test code = 231.0 pg/mL 12.0-88.0 H 2224930673) PTH-CA Interpretation Furthe r clinical (test code = 2368808038) susannah a needed for interpretation. CALCIUM (test code = 8.1 mg/dL 8.6-10.6 L 4272102567) Lab Interpretation (test Abnormal code = 13470-1) [facility] PTH CALCIUM [id number] 13:36:05 Test Item Value Reference Range Interpretation Comments PTH-INTACT (test code = 231.0 pg/mL 12.0-88.0 H 9250473180) PTH-CA Interpretation Furthe r clinical (test code = 8619075036) susannah a needed for interpretation. CALCIUM (test code = 8.1 mg/dL 8.6-10.6 L 5801524149) Lab Interpretation (test Abnormal code = 44471-1) [facility] METABOLIC PANEL (NA, K, CL, CO2, GLUCOSE, BUN, CREATININE, CA)2021-12-07 12:33:58 Test Item Value Reference Range Interpretation Comments NA (test code = 138 mmol/L 135-145 4724829585) K (test code = 4.0 mmol/L 3.5-5.0 5190733832) CL (test code = 104 mmol/L 98-108 1737366828) CO2 TOTAL (test code = 21 mmol/L 23-31 L 4668387435) AGAP (test code = 2-16 5474449853) BUN (test code = 62 mg/dL 7-23 H 0425164570) GLUCOSE (test code = 74 mg/dL 70-110 1647652571) CREATININE (test code = 5.95 mg/dL 0.60-1.25 H 9051509881) CALCIUM (test code = 8.3 mg/dL 8.6-10.6 L 7658872811) eGFR (test code = mL/min/1.73m2 9758629042) ALISHA (test code = ALISHA) Association of Glomerular Filtration Rate (GFR) and Staging of Kidney Disease* + --+ --+ ------+| GFR (mL/min/1.73 m2) ?| With Kidney Damage ?| ?Without Kidney Damage+ --------+ --------+ +| ?>90 ?| ?Stage one ?| ? Normal ?+ ---+ ---+ -------+| ?60-89 ?| ?Stage two ?| ? Decreased GFR ? + --+ --+ ------+| ?30-59 ?| ?Stage three ?| ? Stage three ? + --+ --+ ------+| ?15-29 ?| ?Stage four ? | ? Stage four ?+ ---+ ---+ -------+| ?<15 (or dialysis) ? ?| ?Stage five ? | ? Stage five ?+ ---+ ---+ -------+ *Each stage assumes the associated GFR level has been in effect for at least three months. ?Stages 1 to 5, with or without kidney disease, indicate chronic kidney disease. Notes: Determination of stages one and two (with eGFR >59mL/min/1.73 m2) requires estimation of kidney damage for at least three months as defined by structural or functional abnormalities of the kidney, manifested by either:Pathological abnormalities or Markers of kidney damage (including abnormalities in the composition of the blood or urine or abnormalities in imaging tests). Lab Interpretation Abnormal (test code = 22790-3) [facility] 12[facility]33:58 Test Item Value Reference Range Interpretation Comments MAGNESIUM (test code = 8173601053) 2.0 mg/dL 1.7-2.4 Lab Interpretation (test code = Normal 70394-2) [facility] (NA, K, CL, CO2, GLUCOSE, BUN, CREATININE, CA)2021-12-07 12:33:58 Test Item Value Reference Range Interpretation Comments NA (test code = 138 mmol/L 135-145 5151642464) K (test code = 4.0 mmol/L 3.5-5.0 0503749378) CL (test code = 104 mmol/L 98-108 2401103282) CO2 TOTAL (test code = 21 mmol/L 23-31 L 2178906462) AGAP (test code = 2-16 5081946283) BUN (test code = 62 mg/dL 7-23 H 7911648096) GLUCOSE (test code = 74 mg/dL 70-110 0923590434) CREATININE (test code = 5.95 mg/dL 0.60-1.25 H 2629272054) CALCIUM (test code = 8.3 mg/dL 8.6-10.6 L 2513763577) eGFR (test code = mL/min/1.73m2 9597120555) ALISHA (test code = ALISHA) Association of Glomerular Filtration Rate (GFR) and Staging of Kidney Disease* + --+ --+ ------+| GFR (mL/min/1.73 m2) ?| With Kidney Damage ?| ?Without Kidney Damage+ --------+ --------+ +| ?>90 ?| ?Stage one ?| ? Normal ?+ ---+ ---+ -------+| ?60-89 ?| ?Stage two ?| ? Decreased GFR ? + --+ --+ ------+| ?30-59 ?| ?Stage three ?| ? Stage three ? + --+ --+ ------+| ?15-29 ?| ?Stage four ? | ? Stage four ?+ ---+ ---+ -------+| ?<15 (or dialysis) ? ?| ?Stage five ? | ? Stage five ?+ ---+ ---+ -------+ *Each stage assumes the associated GFR level has been in effect for at least three months. ?Stages 1 to 5, with or without kidney disease, indicate chronic kidney disease. Notes: Determination of stages one and two (with eGFR >59mL/min/1.73 m2) requires estimation of kidney damage for at least three months as defined by structural or functional abnormalities of the kidney, manifested by either:Pathological abnormalities or Markers of kidney damage (including abnormalities in the composition of the blood or urine or abnormalities in imaging tests). Lab Interpretation Abnormal (test code = 63655-8) [facility] 12:33:58 Test Item Value Reference Range Interpretation Comments MAGNESIUM (test code = 9858374069) 2.0 mg/dL 1.7-2.4 Lab Interpretation (test code = Normal 47236-7) [facility] WITH [id number] 11:21:47 Test Item Value Reference Range Interpretation Comments WBC (test code = See_Comment [Automated 6690-2) message] The sy stem which generated this result transmitted reference range : 4.20 - 10.70 10*3/?L. The reference range was not used to interpret this result as normal/abnormal . RBC (test code = See_Comment L [Automated 339-8) message] The sy stem which generated this result transmitted reference range : 4.26 - 5.52 10*6/?L. The reference range was not used to interpret this result as normal/abnormal . HGB (test code = 9.7 g/dL 12.2-16.4 L 718-7) HCT (test code = 30.1 % 38.4-49.3 L 4544-3) MCV (test code = 98.7 fL 81.7-95.6 H 787-2) MCH (test code = 31.8 pg 26.1-32.7 785-6) MCHC (test code = 32.2 g/dL 31.2-35.0 786-4) RDW-SD (test code = 48.6 fL 38.5-51.6 71286-8) RDW-CV (test code = 13.6 % 12.1-15.4 788-0) PLT (test code = See_Comment [Automated 777-3) message] The sy stem which generated this result transmitted reference range : 150 - 328 10*3/ ?L. The reference r erasto was not used to interpret this result as normal/abnormal . MPV (test code = 9.6 fL 9.8-13.0 L 76054-7) NRBC/100 WBC (test See_Comment [Automat ed code = 1432569897) message] The system which generated this result transmitted reference range : 0.0 - 10.0 /100 WBCs. The refer ence range was not u sed to interpret th is result as normal/abnormal . NRBC x10^3 (test code <0.01 See_Comment [Auto mated = 4545846150) message] The s ystem which generated this result transmitted reference range : 10*3/?L. The reference range was not used to interpret this result as normal/abnormal . GRAN MAT (NEUT) % 69.8 % (test code = 770-8) IMM GRAN % (test code 0.20 % = 9729712898) LYMPH % (test code = 16.8 % 736-9) MONO % (test code = 9.7 % 5905-5) EOS % (test code = 3.2 % 713-8) BASO % (test code = 0.3 % 706-2) GRAN MAT x10^3(ANC) 6.03 10*3/uL 1.99-6.95 (test code = 4169321150) IMM GRAN x10^3 (test <0.03 0.00-0.06 code = 9613372817) LYMPH x10^3 (test code 1.45 10*3/uL 1.09-3.23 = 731-0) MONO x10^3 (test code 0.84 10*3/uL 0.36-1.02 = 742-7) EOS x10^3 (test code = 0.28 10*3/uL 0.06-0.53 711-2) BASO x10^3 (test code 0.03 10*3/uL 0.01-0.09 = 704-7) Lab Interpretation Abnormal (test code = 76131-3) [facility] WITH [id number] 11:21:47 Test Item Value Reference Range Interpretation Comments WBC (test code = See_Comment [Automated 6690-2) message] The sy stem which generated this result transmitted reference range : 4.20 - 10.70 10*3/?L. The reference range was not used to interpret this result as normal/abnormal . RBC (test code = See_Comment L [Automated 789-8) message] The sy stem which generated this result transmitted reference range : 4.26 - 5.52 10*6/?L. The reference range was not used to interpret this result as normal/abnormal . HGB (test code = 9.7 g/dL 12.2-16.4 L 718-7) HCT (test code = 30.1 % 38.4-49.3 L 4544-3) MCV (test code = 98.7 fL 81.7-95.6 H 787-2) MCH (test code = 31.8 pg 26.1-32.7 785-6) MCHC (test code = 32.2 g/dL 31.2-35.0 786-4) RDW-SD (test code = 48.6 fL 38.5-51.6 87606-3) RDW-CV (test code = 13.6 % 12.1-15.4 788-0) PLT (test code = See_Comment [Automated 777-3) message] The sy stem which generated this result transmitted reference range : 150 - 328 10*3/ ?L. The reference r erasto was not used to interpret this result as normal/abnormal . MPV (test code = 9.6 fL 9.8-13.0 L 09071-9) NRBC/100 WBC (test See_Comment [Automat ed code = 5877224788) message] The system which generated this result transmitted reference range : 0.0 - 10.0 /100 WBCs. The refer ence range was not u sed to interpret th is result as normal/abnormal . NRBC x10^3 (test code <0.01 See_Comment [Auto mated = 8277259034) message] The s ystem which generated this result transmitted reference range : 10*3/?L. The reference range was not used to interpret this result as normal/abnormal . GRAN MAT (NEUT) % 69.8 % (test code = 770-8) IMM GRAN % (test code 0.20 % = 7941565007) LYMPH % (test code = 16.8 % 736-9) MONO % (test code = 9.7 % 5905-5) EOS % (test code = 3.2 % 713-8) BASO % (test code = 0.3 % 706-2) GRAN MAT x10^3(ANC) 6.03 10*3/uL 1.99-6.95 (test code = 7255124242) IMM GRAN x10^3 (test <0.03 0.00-0.06 code = 2730848268) LYMPH x10^3 (test code 1.45 10*3/uL 1.09-3.23 = 731-0) MONO x10^3 (test code 0.84 10*3/uL 0.36-1.02 = 742-7) EOS x10^3 (test code = 0.28 10*3/uL 0.06-0.53 711-2) BASO x10^3 (test code 0.03 10*3/uL 0.01-0.09 = 704-7) Lab Interpretation Abnormal (test code = 26966-9) [facility] GLUCOSE (AUTOMATED)2021-12-07 06:31:17 Test Item Value Reference Range Interpretation Comments POCT GLU (test code = 7655861204) 159 mg/dL 70-110 H Lab Interpretation (test code = Abnormal 50726-2) [facility] GLUCOSE (AUTOMATED)2021-12-07 06:31:17 Test Item Value Reference Range Interpretation Comments POCT GLU (test code = 7811834264) 159 mg/dL 70-110 H Lab Interpretation (test code = Abnormal 50121-9) [facility] GLUCOSE (AUTOMATED)2021-12-07 04:13:48 Test Item Value Reference Range Interpretation Comments POCT GLU (test code = 7922985572) 193 mg/dL 70-110 H Lab Interpretation (test code = Abnormal 94396-4) [facility] GLUCOSE (AUTOMATED)2021-12-07 04:13:48 Test Item Value Reference Range Interpretation Comments POCT GLU (test code = 7955070623) 193 mg/dL 70-110 H Lab Interpretation (test code = Abnormal 84118-8) [facility] [id number] 21:31:42 Test Item Value Reference Range Interpretation Comments IRON (test code = 119 ug/dL 50-160 Slight hem olysis 8942319703) TIBC (test code = 227 ug/dL 250-410 L 3693082263) % FE SAT (test code = 52 % 20-50 H 4252105264) Lab Interpretation (test Abnormal code = 79561-8) [facility] [id number] 21:31:42 Test Item Value Reference Range Interpretation Comments IRON (test code = 119 ug/dL 50-160 Slight hem olysis 9197613389) TIBC (test code = 227 ug/dL 250-410 L 5259181162) % FE SAT (test code = 52 % 20-50 H 9787413931) Lab Interpretation (test Abnormal code = 92931-2) [facility] 16:59:11 Test Item Value Reference Range Interpretation Comments HBsAB (test code = Positive 4914187264) HBsAb mIU/mL Semi-Quantitative (test code = 6712208808) ALISHA (test code = Interpretation: ALISHA) ?Hepatitis B Surface Antibody ? Negative - Patient is considered to be not immune to infection with HBV. ? ? Positive - Anti-HBs detected at greater than or equal to 12 mIU/mL. ?Patient is considered to be immune to infection with HBV. ? [facility] 16:59:11 Test Item Value Reference Range Interpretation Comments HBsAB (test code = Positive 2105763032) HBsAb mIU/mL Semi-Quantitative (test code = 6852837592) ALISHA (test code = Interpretation: ALISHA) ?Hepatitis B Surface Antibody ? Negative - Patient is considered to be not immune to infection with HBV. ? ? Positive - Anti-HBs detected at greater than or equal to 12 mIU/mL. ?Patient is considered to be immune to infection with HBV. ? [facility] B Surface Antigen (HBsAg)2021-12-06 16:41:47 Test Item Value Reference Range Interpretation Comments HBsAg Semi-Quantitative (test code = Negative Negative 5195-3) [facility] B Surface Antigen (HBsAg)2021-12-06 16:41:47 Test Item Value Reference Range Interpretation Comments HBsAg Semi-Quantitative (test code = Negative Negative 5195-3) [facility] 13:[facility]:42 Test Item Value Reference Range Interpretation Comments PHOSPHORUS (test code = 3355809246) 8.4 mg/dL 2.5-5.0 H Lab Interpretation (test code = Abnormal 55944-7) [facility] 13:39:42 Test Item Value Reference Range Interpretation Comments PHOSPHORUS (test code = 9551285861) 8.4 mg/dL 2.5-5.0 H Lab Interpretation (test code = Abnormal 38313-9) [facility] PTH CALCIUM [id number] 13:00:42 Test Item Value Reference Range Interpretation Comments PTH-INTACT (test code = 452.0 pg/mL 12.0-88.0 H 1171743778) PTH-CA Interpretation Furthe r clinical (test code = 9462712302) susannah a needed for interpretation. CALCIUM (test code = 8.8 mg/dL 8.6-10.6 3101751506) Lab Interpretation (test Abnormal code = 69105-7) [facility] PTH CALCIUM [id number] 13:00:42 Test Item Value Reference Range Interpretation Comments PTH-INTACT (test code = 452.0 pg/mL 12.0-88.0 H 9075804238) PTH-CA Interpretation Furthe r clinical (test code = 4660902770) susannah a needed for interpretation. CALCIUM (test code = 8.8 mg/dL 8.6-10.6 7781644928) Lab Interpretation (test Abnormal code = 67626-9) [facility] (NA, K, CL, CO2, GLUCOSE, BUN, CREATININE, CA)2021-12-06 12:00:30 Test Item Value Reference Range Interpretation Comments NA (test code = 139 mmol/L 135-145 8583225593) K (test code = 4.4 mmol/L 3.5-5.0 7169774376) CL (test code = 106 mmol/L 98-108 6287020340) CO2 TOTAL (test code = 16 mmol/L 23-31 L 8823118323) AGAP (test code = 2-16 H 2721374554) BUN (test code = 120 mg/dL 7-23 H 7174757923) GLUCOSE (test code = 63 mg/dL 70-110 L 0591856301) CREATININE (test code = 10.74 mg/dL 0.60-1.25 H 6105929238) CALCIUM (test code = 8.8 mg/dL 8.6-10.6 4760508353) eGFR (test code = mL/min/1.73m2 1459244909) ALISHA (test code = ALISHA) Association of Glomerular Filtration Rate (GFR) and Staging of Kidney Disease* + --+ --+ ------+| GFR (mL/min/1.73 m2) ?| With Kidney Damage ?| ?Without Kidney Damage+ --------+ --------+ +| ?>90 ?| ?Stage one ?| ? Normal ?+ ---+ ---+ -------+| ?60-89 ?| ?Stage two ?| ? Decreased GFR ? + --+ --+ ------+| ?30-59 ?| ?Stage three ?| ? Stage three ? + --+ --+ ------+| ?15-29 ?| ?Stage four ? | ? Stage four ?+ ---+ ---+ -------+| ?<15 (or dialysis) ? ?| ?Stage five ? | ? Stage five ?+ ---+ ---+ -------+ *Each stage assumes the associated GFR level has been in effect for at least three months. ?Stages 1 to 5, with or without kidney disease, indicate chronic kidney disease. Notes: Determination of stages one and two (with eGFR >59mL/min/1.73 m2) requires estimation of kidney damage for at least three months as defined by structural or functional abnormalities of the kidney, manifested by either:Pathological abnormalities or Markers of kidney damage (including abnormalities in the composition of the blood or urine or abnormalities in imaging tests). Lab Interpretation Abnormal (test code = 50480-3) [facility] 12:00:30 Test Item Value Reference Range Interpretation Comments MAGNESIUM (test code = 6597886576) 2.5 mg/dL 1.7-2.4 H Lab Interpretation (test code = Abnormal 60811-7) [facility] (NA, K, CL, CO2, GLUCOSE, BUN, CREATININE, CA)2021-12-06 12:00:30 Test Item Value Reference Range Interpretation Comments NA (test code = 139 mmol/L 135-145 6364228891) K (test code = 4.4 mmol/L 3.5-5.0 9071650563) CL (test code = 106 mmol/L 98-108 5054398832) CO2 TOTAL (test code = 16 mmol/L 23-31 L 7361793018) AGAP (test code = 2-16 H 4118392155) BUN (test code = 120 mg/dL 7-23 H 4758238203) GLUCOSE (test code = 63 mg/dL 70-110 L 3432724866) CREATININE (test code = 10.74 mg/dL 0.60-1.25 H 5746712070) CALCIUM (test code = 8.8 mg/dL 8.6-10.6 9137912338) eGFR (test code = mL/min/1.73m2 1867731128) ALISHA (test code = ALISHA) Association of Glomerular Filtration Rate (GFR) and Staging of Kidney Disease* + --+ --+ ------+| GFR (mL/min/1.73 m2) ?| With Kidney Damage ?| ?Without Kidney Damage+ --------+ --------+ +| ?>90 ?| ?Stage one ?| ? Normal ?+ ---+ ---+ -------+| ?60-89 ?| ?Stage two ?| ? Decreased GFR ? + --+ --+ ------+| ?30-59 ?| ?Stage three ?| ? Stage three ? + --+ --+ ------+| ?15-29 ?| ?Stage four ? | ? Stage four ?+ ---+ ---+ -------+| ?<15 (or dialysis) ? ?| ?Stage five ? | ? Stage five ?+ ---+ ---+ -------+ *Each stage assumes the associated GFR level has been in effect for at least three months. ?Stages 1 to 5, with or without kidney disease, indicate chronic kidney disease. Notes: Determination of stages one and two (with eGFR >59mL/min/1.73 m2) requires estimation of kidney damage for at least three months as defined by structural or functional abnormalities of the kidney, manifested by either:Pathological abnormalities or Markers of kidney damage (including abnormalities in the composition of the blood or urine or abnormalities in imaging tests). Lab Interpretation Abnormal (test code = 64274-8) [facility]30 Test Item Value Reference Range Interpretation Comments MAGNESIUM (test code = 2736665550) 2.5 mg/dL 1.7-2.4 H Lab Interpretation (test code = Abnormal 85261-6) [facility] Without [id number] 10:52:41 Test Item Value Reference Range Interpretation Comments WBC (test code = 6690-2) See_Comment [A utomated message] The system [employer] generated this result transmit uriel reference range : 4.20 - 10.70 10*3/?L. The reference range was not used to interpret this result as normal/abnormal . RBC (test code = 789-8) See_Comment L [Au tomated message] The system [employer] generated this result transmit uriel reference range : 4.26 - 5.52 10* 6/?L. The reference r erasto was not used to interpret this result as normal/abnormal . HGB (test code = 718-7) 10.1 g/dL 12.2-16.4 L HCT (test code = 4544-3) 31.4 % 38.4-49.3 L MCH (test code = 785-6) 31.9 pg 26.1-32.7 MCV (test code = 787-2) 99.1 fL 81.7-95.6 H MCHC (test code = 786-4) 32.2 g/dL 31.2-35.0 PLT (test code = 777-3) See_Comment H [Au tomated message] The system [employer] generated this result transmit uriel reference range : 150 - 328 10*3/?L. The reference range was not used to interpret this result as normal/abnormal . MPV (test code = 9.5 fL 9.8-13.0 L 87377-6) RDW-CV (test code = 13.5 % 12.1-15.4 788-0) RDW-SD (test code = 49.4 fL 38.5-51.6 82431-5) NRBC x10^3 (test code = <0.01 See_Comment [Au tomated message] [id number]) The system [employer] generated this result transmit uriel reference range : 10*3/?L. The reference range was not used to interpret this result as normal/abnormal . NRBC/100 WBC (test code See_Comment [Au tomated message] = 9672011084) The system [facility] generated this result transmit uriel reference range : 0.0 - 10.0 /100 WBC s. The reference r erasto was not used to interpret this result as normal/abnormal . IPF % (test code = 7775546734) Lab Interpretation (test Abnormal code = 34117-9) [facility] [id number] 10:52:41 Test Item Value Reference Range Interpretation Comments WBC (test code = 6690-2) See_Comment [A utomated message] The system [employer] generated this result transmit uriel reference range : 4.20 - 10.70 10*3/?L. The reference range was not used to interpret this result as normal/abnormal . RBC (test code = 789-8) See_Comment L [Au tomated message] The system [employer] generated this result transmit uriel reference range : 4.26 - 5.52 10* 6/?L. The reference r erasto was not used to interpret this result as normal/abnormal . HGB (test code = 718-7) 10.1 g/dL 12.2-16.4 L HCT (test code = 4544-3) 31.4 % 38.4-49.3 L MCH (test code = 785-6) 31.9 pg 26.1-32.7 MCV (test code = 787-2) 99.1 fL 81.7-95.6 H MCHC (test code = 786-4) 32.2 g/dL 31.2-35.0 PLT (test code = 777-3) See_Comment H [Au tomated message] The system [employer] generated this result transmit uriel reference range : 150 - 328 10*3/?L. The reference range was not used to interpret this result as normal/abnormal . MPV (test code = 9.5 fL 9.8-13.0 L 08396-3) RDW-CV (test code = 13.5 % 12.1-15.4 788-0) RDW-SD (test code = 49.4 fL 38.5-51.6 05699-2) NRBC x10^3 (test code = <0.01 See_Comment [Au tomated message] [id number]) The system [employer] generated this result transmit uriel reference range : 10*3/?L. The reference range was not used to interpret this result as normal/abnormal . NRBC/100 WBC (test code See_Comment [Au tomated message] = 9767714196) The system [facility] generated this result transmit uriel reference range : 0.0 - 10.0 /100 WBC s. The reference r erasto was not used to interpret this result as normal/abnormal . IPF % (test code = 2679221553) Lab Interpretation (test Abnormal code = 37014-1) [facility] GLUCOSE (AUTOMATED)2021-12-06 01:52:15 Test Item Value Reference Range Interpretation Comments POCT GLU (test code = 7068426635) 213 mg/dL 70-110 H Lab Interpretation (test code = Abnormal 57769-6) [facility] GLUCOSE (AUTOMATED)2021-12-06 01:52:15 Test Item Value Reference Range Interpretation Comments POCT GLU (test code = 5946333384) 213 mg/dL 70-110 H Lab Interpretation (test code = Abnormal 80204-3) [id number] Test Item Value Reference Interpretation Comments Range TROPONIN I (test 1.930 ng/mL See_Comment H [Automated code = 3674434308) message] The system which generated this result transmitted reference range : <=0.034. The reference range was not used to interpret this result as normal/abnormal . ALISHA (test code = Reference (Normal) ALISHA) Range (defined by the 99th percentile reference limit): <= 0.034 ng/mL Note: Cardiac troponin begins to rise 3-4 hours after the onset of ischemia. Repeat in 4-6 hours if the sample was drawn within 3-4 hours of the onset of the symptom and found normal. Diagnosis of myocardial injury is made with acute changes in cTn concentrations with at least one serial sample above the 99th percentile upper reference limit (URL), taken together with the patient's clinical presentation. Biotin has been reported to cause a negative bias, interpret results relative to patient's use of biotin. Lab Interpretation Abnormal (test code = 18370-4) [facility] [id number] 13:28:33 Test Item Value Reference Interpretation Comments Range TROPONIN I (test 1.930 ng/mL See_Comment H [Automated code = 0082330147) message] The system which generated this result transmitted reference range : <=0.034. The reference range was not used to interpret this result as normal/abnormal . ALISHA (test code = Reference (Normal) ALISHA) Range (defined by the 99th percentile reference limit): <= 0.034 ng/mL Note: Cardiac troponin begins to rise 3-4 hours after the onset of ischemia. Repeat in 4-6 hours if the sample was drawn within 3-4 hours of the onset of the symptom and found normal. Diagnosis of myocardial injury is made with acute changes in cTn concentrations with at least one serial sample above the 99th percentile upper reference limit (URL), taken together with the patient's clinical presentation. Biotin has been reported to cause a negative bias, interpret results relative to patient's use of biotin. Lab Interpretation Abnormal (test code = 28318-2) [facility] (NA, K, CL, CO2, GLUCOSE, BUN, CREATININE, CA)2021-12-05 13:14:50 Test Item Value Reference Range Interpretation Comments NA (test code = 145 mmol/L 135-145 2848205933) K (test code = 4.1 mmol/L 3.5-5.0 9454330827) CL (test code = 109 mmol/L 98-108 H 2009004252) CO2 TOTAL (test code = 19 mmol/L 23-31 L 0563782016) AGAP (test code = 2-16 H 2530239458) BUN (test code = 106 mg/dL 7-23 H 0520623184) GLUCOSE (test code = 98 mg/dL 70-110 2693432874) CREATININE (test code = 10.48 mg/dL 0.60-1.25 H 8267816469) CALCIUM (test code = 8.8 mg/dL 8.6-10.6 8941117141) eGFR (test code = mL/min/1.73m2 0634038786) ALISHA (test code = ALISHA) Association of Glomerular Filtration Rate (GFR) and Staging of Kidney Disease* + --+ --+ ------+| GFR (mL/min/1.73 m2) ?| With Kidney Damage ?| ?Without Kidney Damage+ --------+ --------+ +| ?>90 ?| ?Stage one ?| ? Normal ?+ ---+ ---+ -------+| ?60-89 ?| ?Stage two ?| ? Decreased GFR ? + --+ --+ ------+| ?30-59 ?| ?Stage three ?| ? Stage three ? + --+ --+ ------+| ?15-29 ?| ?Stage four ? | ? Stage four ?+ ---+ ---+ -------+| ?<15 (or dialysis) ? ?| ?Stage five ? | ? Stage five ?+ ---+ ---+ -------+ *Each stage assumes the associated GFR level has been in effect for at least three months. ?Stages 1 to 5, with or without kidney disease, indicate chronic kidney disease. Notes: Determination of stages one and two (with eGFR >59mL/min/1.73 m2) requires estimation of kidney damage for at least three months as defined by structural or functional abnormalities of the kidney, manifested by either:Pathological abnormalities or Markers of kidney damage (including abnormalities in the composition of the blood or urine or abnormalities in imaging tests). Lab Interpretation Abnormal (test code = 70317-9) [facility] Test Item Value Reference Range Interpretation Comments MAGNESIUM (test code = 8881785843) 2.5 mg/dL 1.7-2.4 H Lab Interpretation (test code = Abnormal 05146-7) [facility] 13:14:50 Test Item Value Reference Range Interpretation Comments PHOSPHORUS (test code = 1461778325) 8.3 mg/dL 2.5-5.0 H Lab Interpretation (test code = Abnormal 09200-6) [facility] (NA, K, CL, CO2, GLUCOSE, BUN, CREATININE, CA)2021-12-05 13:14:50 Test Item Value Reference Range Interpretation Comments NA (test code = 145 mmol/L 135-145 1852215174) K (test code = 4.1 mmol/L 3.5-5.0 9258933845) CL (test code = 109 mmol/L 98-108 H 4586399453) CO2 TOTAL (test code = 19 mmol/L 23-31 L 7828269948) AGAP (test code = 2-16 H 4635975539) BUN (test code = 106 mg/dL 7-23 H 2684278173) GLUCOSE (test code = 98 mg/dL 70-110 8327914228) CREATININE (test code = 10.48 mg/dL 0.60-1.25 H 4160239803) CALCIUM (test code = 8.8 mg/dL 8.6-10.6 9488701762) eGFR (test code = mL/min/1.73m2 5833098911) ALISHA (test code = ALISHA) Association of Glomerular Filtration Rate (GFR) and Staging of Kidney Disease* + --+ --+ ------+| GFR (mL/min/1.73 m2) ?| With Kidney Damage ?| ?Without Kidney Damage+ --------+ --------+ +| ?>90 ?| ?Stage one ?| ? Normal ?+ ---+ ---+ -------+| ?60-89 ?| ?Stage two ?| ? Decreased GFR ? + --+ --+ ------+| ?30-59 ?| ?Stage three ?| ? Stage three ? + --+ --+ ------+| ?15-29 ?| ?Stage four ? | ? Stage four ?+ ---+ ---+ -------+| ?<15 (or dialysis) ? ?| ?Stage five ? | ? Stage five ?+ ---+ ---+ -------+ *Each stage assumes the associated GFR level has been in effect for at least three months. ?Stages 1 to 5, with or without kidney disease, indicate chronic kidney disease. Notes: Determination of stages one and two (with eGFR >59mL/min/1.73 m2) requires estimation of kidney damage for at least three months as defined by structural or functional abnormalities of the kidney, manifested by either:Pathological abnormalities or Markers of kidney damage (including abnormalities in the composition of the blood or urine or abnormalities in imaging tests). Lab Interpretation Abnormal (test code = 14578-2) [facility] 13:14:50 Test Item Value Reference Range Interpretation Comments MAGNESIUM (test code = 1137680902) 2.5 mg/dL 1.7-2.4 H Lab Interpretation (test code = Abnormal 61463-0) [facility] 13:14:50 Test Item Value Reference Range Interpretation Comments PHOSPHORUS (test code = 9015893830) 8.3 mg/dL 2.5-5.0 H Lab Interpretation (test code = Abnormal 90048-6) [facility]2021-12-05 12:56:28 Test Item Value Reference Range Interpretation Comments APTT Patient (test code See_Comment [Au tomated message] = 3173-2) The system [employer] generated this result transmitted ref erence range: 26 - 36 Seconds. The reference range was not used to int erpret this result as normal/abnormal . Lab Interpretation (test Abnormal code = 72598-6) [facility]2021-12-05 12:56:28 Test Item Value Reference Range Interpretation Comments APTT Patient (test code See_Comment HH [Au tomated message] = 3173-2) The system [employer] generated this result transmitted ref erence range: 26 - 36 Seconds. The reference range was not used to int erpret this result as normal/abnormal . Lab Interpretation (test Abnormal code = 11848-7) [facility] [id number] 12:36:43 Test Item Value Reference Range Interpretation Comments WBC (test code = 6690-2) See_Comment [A utomated message] The system [employer] generated this result transmit uriel reference range : 4.20 - 10.70 10*3/?L. The reference range was not used to interpret this result as normal/abnormal . RBC (test code = 789-8) See_Comment L [Au tomated message] The system [employer] generated this result transmit uriel reference range : 4.26 - 5.52 10* 6/?L. The reference r erasto was not used to interpret this result as normal/abnormal . HGB (test code = 718-7) 10.9 g/dL 12.2-16.4 L HCT (test code = 4544-3) 33.8 % 38.4-49.3 L MCH (test code = 785-6) 31.8 pg 26.1-32.7 MCV (test code = 787-2) 98.5 fL 81.7-95.6 H MCHC (test code = 786-4) 32.2 g/dL 31.2-35.0 PLT (test code = 777-3) See_Comment [Au tomated message] The system [employer] generated this result transmit uriel reference range : 150 - 328 10*3/?L. The reference range was not used to interpret this result as normal/abnormal . MPV (test code = 9.8 fL 9.8-13.0 17174-3) RDW-CV (test code = 13.6 % 12.1-15.4 788-0) RDW-SD (test code = 48.6 fL 38.5-51.6 73822-3) NRBC x10^3 (test code = <0.01 See_Comment [Au tomated message] 6048752583) The system [employer] generated this result transmit uriel reference range : 10*3/?L. The reference range was not used to interpret this result as normal/abnormal . NRBC/100 WBC (test code See_Comment [Au tomated message] = 4073199195) The system [facility] generated this result transmit uriel reference range : 0.0 - 10.0 /100 WBC s. The reference r erasto was not used to interpret this result as normal/abnormal . IPF % (test code = 3881473632) Lab Interpretation (test Abnormal code = 46008-8) [facility] [id number] 12:36:43 Test Item Value Reference Range Interpretation Comments WBC (test code = 6690-2) See_Comment [A utomated message] The system [employer] generated this result transmit uriel reference range : 4.20 - 10.70 10*3/?L. The reference range was not used to interpret this result as normal/abnormal . RBC (test code = 789-8) See_Comment L [Au tomated message] The system [employer] generated this result transmit uriel reference range : 4.26 - 5.52 10* 6/?L. The reference r erasto was not used to interpret this result as normal/abnormal . HGB (test code = 718-7) 10.9 g/dL 12.2-16.4 L HCT (test code = 4544-3) 33.8 % 38.4-49.3 L MCH (test code = 785-6) 31.8 pg 26.1-32.7 MCV (test code = 787-2) 98.5 fL 81.7-95.6 H MCHC (test code = 786-4) 32.2 g/dL 31.2-35.0 PLT (test code = 777-3) See_Comment [Au tomated message] The system [employer] generated this result transmit uriel reference range : 150 - 328 10*3/?L. The reference range was not used to interpret this result as normal/abnormal . MPV (test code = 9.8 fL 9.8-13.0 41399-1) RDW-CV (test code = 13.6 % 12.1-15.4 788-0) RDW-SD (test code = 48.6 fL 38.5-51.6 41862-3) NRBC x10^3 (test code = <0.01 See_Comment [Au tomated message] 7755085931) The system [employer] generated this result transmit uriel reference range : 10*3/?L. The reference range was not used to interpret this result as normal/abnormal . NRBC/100 WBC (test code See_Comment [Au tomated message] = 6179012280) The system [employer] generated this result transmit uriel reference range : 0.0 - 10.0 /100 WBC s. The reference r erasto was not used to interpret this result as normal/abnormal . IPF % (test code = 7291049912) Lab Interpretation (test Abnormal code = 46835-2) [facility] Unfractionated Heparin 2021-12-05 08:02:17 Test Item Value Reference Range Interpretation Comments Anti-Xa UFH (test code = <0.04 See_Comment L [A utomated message] 3274-8) The system [employer] generated this result transmitted ref erence range: 0.30 - 0 .70 IU/mL. The refe rence range was not u sed to interpret this result as normal/abnor mal. Lab Interpretation (test Abnormal code = 75905-2) [facility] Unfractionated Heparin 2021-12-05 08:02:17 Test Item Value Reference Range Interpretation Comments Anti-Xa UFH (test code = <0.04 See_Comment L [A utomated message] 3274-8) The system [employer] generated this result transmitted ref erence range: 0.30 - 0 .70 IU/mL. The refe rence range was not u sed to interpret this result as normal/abnor mal. Lab Interpretation (test Abnormal code = 67234-5) [facility] 08:01:22 Test Item Value Reference Range Interpretation Comments APTT Patient (test code = See_Comment [ Automated message] 3173-2) The system [employer] generated this result transmitted ref erence range: 26 - 36 Seconds. The re ference range was not u sed to interpret this result as normal/abnor mal. Lab Interpretation (test Normal code = 59316-3) [facility] ([facility] / [id number] 08:01:22 Test Item Value Reference Range Interpretation Comments PROTIME PATIENT (test See_Comment [Auto mated message] code = 5964-2) The system [facility] generated this result transmitted ref erence range: 10.1 - 1 2.6 Seconds. The re ference range was not u sed to interpret this result as normal/abnor mal. INR (test code = 6301-6) Nor mal INR <1.1; Warfarin Therap eutic range 2.0 to 3. 0 or 2.5 to 3.5, dep ending upon the indica tions. Lab Interpretation (test Normal code = 58909-7) [facility] 08:01:22 Test Item Value Reference Range Interpretation Comments APTT Patient (test code = See_Comment [ Automated message] 3173-2) The system [employer] generated this result transmitted ref erence range: 26 - 36 Seconds. The re ference range was not u sed to interpret this result as normal/abnor mal. Lab Interpretation (test Normal code = 56646-4) [facility] (PT[facility] / [id number] 08:01:22 Test Item Value Reference Range Interpretation Comments PROTIME PATIENT (test See_Comment [Auto mated message] code = 5964-2) The system [employer] generated this result transmitted ref erence range: 10.1 - 1 2.6 Seconds. The re ference range was not u sed to interpret this result as normal/abnor mal. INR (test code = 6301-6) Nor mal INR <1.1; Warfarin Therap eutic range 2.0 to 3. 0 or 2.5 to 3.5, dep ending upon the indica tions. Lab Interpretation (test Normal code = 53109-4) [facility] [id number] 05:59:43 Test Item Value Reference Interpretation Comments Range TROPONIN I (test 1.440 ng/mL See_Comment H [Automated code = 0251336346) message] The system which generated this result transmitted reference range : <=0.034. The reference range was not used to interpret this result as normal/abnormal . ALISHA (test code = Reference (Normal) ALISHA) Range (defined by the 99th percentile reference limit): <= 0.034 ng/mL Note: Cardiac troponin begins to rise 3-4 hours after the onset of ischemia. Repeat in 4-6 hours if the sample was drawn within 3-4 hours of the onset of the symptom and found normal. Diagnosis of myocardial injury is made with acute changes in cTn concentrations with at least one serial sample above the 99th percentile upper reference limit (URL), taken together with the patient's clinical presentation. Biotin has been reported to cause a negative bias, interpret results relative to patient's use of biotin. Lab Interpretation Abnormal (test code = 94471-3) [facility] [id number] 05:59:43 Test Item Value Reference Interpretation Comments Range TROPONIN I (test 1.440 ng/mL See_Comment H [Automated code = 8020685434) message] The system which generated this result transmitted reference range : <=0.034. The reference range was not used to interpret this result as normal/abnormal . ALISHA (test code = Reference (Normal) ALISHA) Range (defined by the 99th percentile reference limit): <= 0.034 ng/mL Note: Cardiac troponin begins to rise 3-4 hours after the onset of ischemia. Repeat in 4-6 hours if the sample was drawn within 3-4 hours of the onset of the symptom and found normal. Diagnosis of myocardial injury is made with acute changes in cTn concentrations with at least one serial sample above the 99th percentile upper reference limit (URL), taken together with the patient's clinical presentation. Biotin has been reported to cause a negative bias, interpret results relative to patient's use of biotin. Lab Interpretation Abnormal (test code = 87992-4) [facility] Test Item Value Reference Range Interpretation Comments MAGNESIUM (test code = 3995704765) 2.4 mg/dL 1.7-2.4 Lab Interpretation (test code = Normal 32251-5) [facility]2022-02-15 04:19:54 Test Item Value Reference Range Interpretation Comments MAGNESIUM (test code = 5022403204) 2.4 mg/dL 1.7-2.4 Lab Interpretation (test code = Normal 56642-5) [facility] [id number] 22:53:52 Test Item Value Reference Interpretation Comments Range TROPONIN I (test 3.120 ng/mL See_Comment H [Automated code = 7901961059) message] The system which generated this result transmitted reference range : <=0.034. The reference range was not used to interpret this result as normal/abnormal . ALISHA (test code = Reference (Normal) ALISHA) Range (defined by the 99th percentile reference limit): <= 0.034 ng/mL Note: Cardiac troponin begins to rise 3-4 hours after the onset of ischemia. Repeat in 4-6 hours if the sample was drawn within 3-4 hours of the onset of the symptom and found normal. Diagnosis of myocardial injury is made with acute changes in cTn concentrations with at least one serial sample above the 99th percentile upper reference limit (URL), taken together with the patient's clinical presentation. Biotin has been reported to cause a negative bias, interpret results relative to patient's use of biotin. Lab Interpretation Abnormal (test code = 25387-4) [facility] [id number] 22:53:52 Test Item Value Reference Interpretation Comments Range TROPONIN I (test 3.120 ng/mL See_Comment H [Automated code = 3365304864) message] The system which generated this result transmitted reference range : <=0.034. The reference range was not used to interpret this result as normal/abnormal . ALISHA (test code = Reference (Normal) ALISHA) Range (defined by the 99th percentile reference limit): <= 0.034 ng/mL Note: Cardiac troponin begins to rise 3-4 hours after the onset of ischemia. Repeat in 4-6 hours if the sample was drawn within 3-4 hours of the onset of the symptom and found normal. Diagnosis of myocardial injury is made with acute changes in cTn concentrations with at least one serial sample above the 99th percentile upper reference limit (URL), taken together with the patient's clinical presentation. Biotin has been reported to cause a negative bias, interpret results relative to patient's use of biotin. Lab Interpretation Abnormal (test code = 85120-4) [facility]AL [id number] 22:50:51 Test Item Value Reference Range Interpretation Comments NT-proBNP (test code 96469 pg/mL See_Comment H [Autom ated = 8788004195) message] The system which generated this result transmitted reference range : <=125. The reference range was not used to interpret this result as normal/abnormal . ALISHA (test code = ALISHA) Biotin has been reported to cause a negative bias, interpret results relative to patient's use of biotin. Lab Interpretation Abnormal (test code = 77780-9) [id number] 22:50:51 Test Item Value Reference Range Interpretation Comments NT-proBNP (test code 36192 pg/mL See_Comment H [Autom ated = 7506852296) message] The system which generated this result transmitted reference range : <=125. The reference range was not used to interpret this result as normal/abnormal . ALISHA (test code = ALISHA) Biotin has been reported to cause a negative bias, interpret results relative to patient's use of biotin. Lab Interpretation Abnormal (test code = 01342-9) [facility] [id number] 22:48:09 Test Item Value Reference Range Interpretation Comments PROTIME PATIENT (test See_Comment [Auto mated message] code = 5964-2) The system [employer] generated this result transmitted ref erence range: 12.0 - 1 4.7 Seconds. The re ference range was not u sed to interpret this result as normal/abnor mal. INR (test code = 6301-6) Nor mal INR <1.1; Warfarin Therap eutic range 2.0 to 3. 0 or 2.5 to 3.5, dep ending upon the indica tions. Lab Interpretation (test Normal code = 37085-9) [facility] [id number] 22:48:09 Test Item Value Reference Range Interpretation Comments PROTIME PATIENT (test See_Comment [Auto mated message] code = 5964-2) The system [employer]ec[employer] generated this result transmitted ref erence range: 12.0 - 1 4.7 Seconds. The re ference range was not u sed to interpret this result as normal/abnor mal. INR (test code = 6301-6) Nor mal INR <1.1; Warfarin Therap eutic range 2.0 to 3. 0 or 2.5 to 3.5, dep ending upon the indica tions. Lab Interpretation (test Normal code = 00772-7) [facility]. METABOLIC PANEL ([id number])2021-12-04 22:42:10 Test Item Value Reference Range Interpretation Comments NA (test code = 141 mmol/L 135-145 6339495491) K (test code = 3.6 mmol/L 3.5-5.0 5595676148) CL (test code = 107 mmol/L 98-108 9951050444) CO2 TOTAL (test code = 24 mmol/L 23-31 5932432923) AGAP (test code = 2-16 7087558946) BUN (test code = 100 mg/dL 7-23 H 8758826814) GLUCOSE (test code = 111 mg/dL 70-110 H 2589279997) CREATININE (test code = 9.42 mg/dL 0.60-1.25 H 0603675754) TOTAL BILI (test code = 0.7 mg/dL 0.1-1.4 5936165500) CALCIUM (test code = 9.1 mg/dL 8.6-10.6 1567175048) T PROTEIN (test code = 6.6 g/dL 6.3-8.2 8533131411) ALBUMIN (test code = 3.8 g/dL 3.5-5.0 9384941204) ALK PHOS (test code = 123 U/L 34-122 H 5276274005) ALTv (test code = 54 U/L 5-50 H 1742-6) AST(SGOT) (test code = 126 U/L 13-40 H 9714903083) eGFR (test code = mL/min/1.73m2 2212698433) ALISHA (test code = ALISHA) Association of Glomerular Filtration Rate (GFR) and Staging of Kidney Disease* + --+ --+ ------+| GFR (mL/min/1.73 m2) ?| With Kidney Damage ?| ?Without Kidney Damage+ --------+ --------+ +| ?>90 ?| ?Stage one ?| ? Normal ?+ ---+ ---+ -------+| ?60-89 ?| ?Stage two ?| ? Decreased GFR ? + --+ --+ ------+| ?30-59 ?| ?Stage three ?| ? Stage three ? + --+ --+ ------+| ?15-29 ?| ?Stage four ? | ? Stage four ?+ ---+ ---+ -------+| ?<15 (or dialysis) ? ?| ?Stage five ? | ? Stage five ?+ ---+ ---+ -------+ *Each stage assumes the associated GFR level has been in effect for at least three months. ?Stages 1 to 5, with or without kidney disease, indicate chronic kidney disease. Notes: Determination of stages one and two (with eGFR >59mL/min/1.73 m2) requires estimation of kidney damage for at least three months as defined by structural or functional abnormalities of the kidney, manifested by either:Pathological abnormalities or Markers of kidney damage (including abnormalities in the composition of the blood or urine or abnormalities in imaging tests). Lab Interpretation Abnormal (test code = 38006-9) [facility]. METABOLIC PANEL ([id number])2021-12-04 22:42:10 Test Item Value Reference Range Interpretation Comments NA (test code = 141 mmol/L 135-145 7894461447) K (test code = 3.6 mmol/L 3.5-5.0 8927552493) CL (test code = 107 mmol/L 98-108 6987040199) CO2 TOTAL (test code = 24 mmol/L 23-31 9868524499) AGAP (test code = 2-16 8248729849) BUN (test code = 100 mg/dL 7-23 H 4514681381) GLUCOSE (test code = 111 mg/dL 70-110 H 7535034784) CREATININE (test code = 9.42 mg/dL 0.60-1.25 H 7832425468) TOTAL BILI (test code = 0.7 mg/dL 0.1-1.4 2071468793) CALCIUM (test code = 9.1 mg/dL 8.6-10.6 1032284374) T PROTEIN (test code = 6.6 g/dL 6.3-8.2 8681890830) ALBUMIN (test code = 3.8 g/dL 3.5-5.0 1717459905) ALK PHOS (test code = 123 U/L 34-122 H 3654623490) ALTv (test code = 54 U/L 5-50 H 1742-6) AST(SGOT) (test code = 126 U/L 13-40 H 6842316566) eGFR (test code = mL/min/1.73m2 3671214736) ALISHA (test code = ALISHA) Association of Glomerular Filtration Rate (GFR) and Staging of Kidney Disease* + --+ --+ ------+| GFR (mL/min/1.73 m2) ?| With Kidney Damage ?| ?Without Kidney Damage+ --------+ --------+ +| ?>90 ?| ?Stage one ?| ? Normal ?+ ---+ ---+ -------+| ?60-89 ?| ?Stage two ?| ? Decreased GFR ? + --+ --+ ------+| ?30-59 ?| ?Stage three ?| ? Stage three ? + --+ --+ ------+| ?15-29 ?| ?Stage four ? | ? Stage four ?+ ---+ ---+ -------+| ?<15 (or dialysis) ? ?| ?Stage five ? | ? Stage five ?+ ---+ ---+ -------+ *Each stage assumes the associated GFR level has been in effect for at least three months. ?Stages 1 to 5, with or without kidney disease, indicate chronic kidney disease. Notes: Determination of stages one and two (with eGFR >59mL/min/1.73 m2) requires estimation of kidney damage for at least three months as defined by structural or functional abnormalities of the kidney, manifested by either:Pathological abnormalities or Markers of kidney damage (including abnormalities in the composition of the blood or urine or abnormalities in imaging tests). Lab Interpretation Abnormal (test code = 97024-2) [facility] WITH [id number] 22:29:09 Test Item Value Reference Range Interpretation Comments WBC (test code = See_Comment [Automated 8290-2) message] The sy stem which generated this result transmitted reference range : 4.20 - 10.70 10*3/?L. The reference range was not used to interpret this result as normal/abnormal . RBC (test code = See_Comment L [Automated 248-8) message] The sy stem which generated this result transmitted reference range : 4.26 - 5.52 10*6/?L. The reference range was not used to interpret this result as normal/abnormal . HGB (test code = 11.1 g/dL 12.2-16.4 L 718-7) HCT (test code = 34.2 % 38.4-49.3 L 4544-3) MCV (test code = 98.6 fL 81.7-95.6 H 787-2) MCH (test code = 32.0 pg 26.1-32.7 785-6) MCHC (test code = 32.5 g/dL 31.2-35.0 786-4) RDW-SD (test code = 48.1 fL 38.5-51.6 48980-2) RDW-CV (test code = 13.5 % 12.1-15.4 788-0) PLT (test code = See_Comment H [Automated 777-3) message] The sy stem which generated this result transmitted reference range : 150 - 328 10*3/ ?L. The reference r erasto was not used to interpret this result as normal/abnormal . MPV (test code = 9.6 fL 9.8-13.0 L 61049-2) NRBC/100 WBC (test See_Comment [Automat ed code = 7701786053) message] The system which generated this result transmitted reference range : 0.0 - 10.0 /100 WBCs. The refer ence range was not u sed to interpret th is result as normal/abnormal . NRBC x10^3 (test code <0.01 See_Comment [Auto mated = 2134082618) message] The s ystem which generated this result transmitted reference range : 10*3/?L. The reference range was not used to interpret this result as normal/abnormal . GRAN MAT (NEUT) % 68.8 % (test code = 770-8) IMM GRAN % (test code 0.40 % = 6286158931) LYMPH % (test code = 15.1 % 736-9) MONO % (test code = 11.6 % 5905-5) EOS % (test code = 3.7 % 713-8) BASO % (test code = 0.4 % 706-2) GRAN MAT x10^3(ANC) 6.21 10*3/uL 1.99-6.95 (test code = 9552076432) IMM GRAN x10^3 (test 0.04 10*3/uL 0.00-0.06 code = 8220758537) LYMPH x10^3 (test code 1.36 10*3/uL 1.09-3.23 = 731-0) MONO x10^3 (test code 1.05 10*3/uL 0.36-1.02 H = 742-7) EOS x10^3 (test code = 0.33 10*3/uL 0.06-0.53 711-2) BASO x10^3 (test code 0.04 10*3/uL 0.01-0.09 = 704-7) Lab Interpretation Abnormal (test code = 35520-5) [facility] WITH [id number] 22:29:09 Test Item Value Reference Range Interpretation Comments WBC (test code = See_Comment [Automated 6690-2) message] The sy stem which generated this result transmitted reference range : 4.20 - 10.70 10*3/?L. The reference range was not used to interpret this result as normal/abnormal . RBC (test code = See_Comment L [Automated 789-8) message] The sy stem which generated this result transmitted reference range : 4.26 - 5.52 10*6/?L. The reference range was not used to interpret this result as normal/abnormal . HGB (test code = 11.1 g/dL 12.2-16.4 L 718-7) HCT (test code = 34.2 % 38.4-49.3 L 4544-3) MCV (test code = 98.6 fL 81.7-95.6 H 787-2) MCH (test code = 32.0 pg 26.1-32.7 785-6) MCHC (test code = 32.5 g/dL 31.2-35.0 786-4) RDW-SD (test code = 48.1 fL 38.5-51.6 96754-6) RDW-CV (test code = 13.5 % 12.1-15.4 788-0) PLT (test code = See_Comment H [Automated 777-3) message] The sy stem which generated this result transmitted reference range : 150 - 328 10*3/ ?L. The reference r erasto was not used to interpret this result as normal/abnormal . MPV (test code = 9.6 fL 9.8-13.0 L 37743-3) NRBC/100 WBC (test See_Comment [Automat ed code = 1159160394) message] The system which generated this result transmitted reference range : 0.0 - 10.0 /100 WBCs. The refer ence range was not u sed to interpret th is result as normal/abnormal . NRBC x10^3 (test code <0.01 See_Comment [Auto mated = 5250469078) message] The s ystem which generated this result transmitted reference range : 10*3/?L. The reference range was not used to interpret this result as normal/abnormal . GRAN MAT (NEUT) % 68.8 % (test code = 770-8) IMM GRAN % (test code 0.40 % = 0657896598) LYMPH % (test code = 15.1 % 736-9) MONO % (test code = 11.6 % 5905-5) EOS % (test code = 3.7 % 713-8) BASO % (test code = 0.4 % 706-2) GRAN MAT x10^3(ANC) 6.21 10*3/uL 1.99-6.95 (test code = 5413773779) IMM GRAN x10^3 (test 0.04 10*3/uL 0.00-0.06 code = 2457750707) LYMPH x10^3 (test code 1.36 10*3/uL 1.09-3.23 = 731-0) MONO x10^3 (test code 1.05 10*3/uL 0.36-1.02 H = 742-7) EOS x10^3 (test code = 0.33 10*3/uL 0.06-0.53 711-2) BASO x10^3 (test code 0.04 10*3/uL 0.01-0.09 = 704-7) Lab Interpretation Abnormal (test code = 09574-0) [facility] Notes Date/Time Note Provider Source 2023-06-20 11:13:03 2549-38-01M46:13:03Formatting of Skylar silverman [facility] this note might be different from the original.Teresa Adams is a 63 year old maleStephanie calling to return call. Please reach out to assist with rescheduling [phone] signed by Skylar Hector at 06/20/2023 11:13 AM [id number] encounter UsyhPC3586-63-00V70:13:21Telepho ne encounter NoteTXT1.2.840.666795.1.13.104.2 .7.2.600006|[id number] e for patient wvem07153-6DvyuVB142488066Dvlnjq richard Gilbert [address]TX[address] 2418OOZVSWMMJYUZINEQDLFYUD5780-1 06-20T11:13:211.2.840.259063.1.72 .3.15|1.2.840.627723.1.13.104.2. 7.2.727879_[id number] 2023-06-20 10:36:52 6867-81-33X60:36:52Formatting of Jyoti murrell [facility] this note might be different from the original.Called 2x [facility] nobody answered called T: [phone]. Also tried to contact pt phone number on file and left a detailed voicemail to call us back to reschedule appt time and date. 54831-2Jflbproqk encounter WkxgRC2818-79-22X70:38:43Telepho ne encounter NoteTXT1.2.840.806167.1.13.104.2 .7.2.763989|[id number] e for patient hlrc04036-0JnvhPV013199084Csdfs L [address]TX[address] 5100TICGQBVUYNACNNOPGLUQCX2695-3 06-20T10:38:431.2.840.300007.1.72 .3.15|1.2.840.105449.1.13.104.2. 7.2.727879_1888083840 2023-06-19 17:00:33 5803-90-76M86:00:33Formatting of Skylar silverman [facility] this note might be different from the original.Teresa Adams is a 63 year old maleStephanie with [facility] calling requesting a later time for patient's device check or a different date. Please call to assist. T: [phone] signed by Skylar Hector at 06/19/2023 5:02 PM IUY64771-9Toyrnrrgp encounter UzodEM2229-70-78X14:02:01Telepho ne encounter NoteTXT1.2.840.189047.1.13.104.2 .7.2.025567|[id number] e for patient ggfz70045-8EhxiWV515847365Dwtxrf a S [address] OdygVtvvmkfdtSwsxttmyhYOPF068232 4537YWPLJUCNWAZHLGJYWLAUCE6736-3 :02:011.2.840.586945.1.72 .3.15|1.2.840.192149.1.13.104.2. 7.2.727879_[id number]
[2023-09-10] MEDS ORDERED: Meropenem 1000 MG/VIAL IV ONE (15:23)
[2023-09-10] MEDS ORDERED: ACETAMINOPHEN 325 MG TABLET ONE (15:23)
[2023-09-10] MEDS ORDERED: VANCOMYCIN 1 GM/VIAL ONE (15:23)
[2023-09-10] MEDS ORDERED: NA CHLORIDE 0.9% 0 ML ONE (15:24)
[2023-09-10] MEDS ORDERED: NA CHLORIDE 0.9% 100 ML ONE ×2 (15:24→15:54)
[2023-09-10] MEDS ORDERED: NA CHLORIDE 0.9% 1,000 ML ONE (15:24)
[2023-09-10 15:35] LABS: Absolute Lymphocytes (CBC) 0.4 K/uL (0.7-4.9); Platelets 392 thou/uL (152-406); Protime INR 1.12; RBC Red Blood Cell Count 3.48 M/uL (4.33-5.43)
--- NOTE | 2023-09-10 15:36 | RAD REPORT ---
EXAM DESCRIPTION: RAD - Chest Single View - 09/10/2023 3:24 pm CLINICAL HISTORY: COUGH COMPARISON: Chest Single View dated 05/02/2023; Chest Single View dated 11/17/2022; CHEST SINGLE VIEW dated 08/28/2014; CHEST SINGLE VIEW dated 08/21/2014 FINDINGS: Lines: Left subclavian approach pacemaker. Lungs: No evidence of edema or pneumonia. Pleural: No significant pleural effusions or pneumothorax. Cardiac: Similar size and configuration. Mediastinum: Within normal limits. Bones: No acute fractures. Other: None IMPRESSION: No acute cardiopulmonary disease.
--- NOTE | 2023-09-10 15:48 | EDPHYS ---
Physician Documentation [facility] Name: Gonzalez Adams Age: 63 yrs Sex: Male : 1960 Arrival Date: 09/10/2023 Time: 14:22 Bed 18 Private MD: ED Physician Rowdy Yaeñz HPI: 09/10 15:26 This 63 yrs old Male presents to ER via EMS with complaints of Shortness Of fatmata Breath. 15:26 The patient has shortness of breath at rest, with light activity. Onset: The fatmata symptoms/episode began/occurred 1 day(s) ago. Duration: The symptoms are continuous, and are steadily getting worse. The patient's shortness of breath has no apparent modifying factors. Associated signs and symptoms: Pertinent positives: non-productive cough, dizziness, fever. Severity of symptoms: in the emergency department the symptoms are unchanged. The patient has experienced similar episodes in the past, multiple times. Historical: - Allergies: 14:40 No Known Allergies; rs5 - PMHx: 14:39 atrial flutter; CHF; CKD stage 5; CVA; w/ L sided deficits; depressive disorder; aa5 diabetes mellitus; Hypercholesterolemia; Hypertensive disorder; PVD; - PSHx: 14:40 None; rs5 - Immunization history:: Adult Immunizations unknown. - Social history:: Smoking status: unknown. ROS: 15:30 MS/extremity: Positive for erythema, pain, swelling, tenderness, warmth, of the left fatmata fourth toe, 15:30 Constitutional: Positive for chills, fatigue, fever, malaise, 15:30 ENT: Positive for rhinorrhea, sinus congestion, 15:30 Cardiovascular: Positive for palpitations, 15:30 Respiratory: Positive for shortness of breath, on exertion. 15:30 Abdomen/GI: 15:30 MS/extremity: Positive for decreased range of motion, erythema, pain, swelling, tenderness, of the plantar aspect of left fourth toe, left fourth toe and Left fourth toenail, Exam: 15:30 Head/Face: Normocephalic, atraumatic. Eyes: Pupils equal round and reactive to light, fatmata extra-ocular motions intact. Lids and lashes normal. Conjunctiva and sclera are non-icteric and not injected. Cornea within normal limits. Periorbital areas with no swelling, redness, or edema. ENT: Nares patent. No nasal discharge, no septal abnormalities noted. Tympanic membranes are normal and external auditory canals are clear. Oropharynx with no redness, swelling, or masses, exudates, or evidence of obstruction, uvula midline. Mucous membranes moist. Neck: Trachea midline, no thyromegaly or masses palpated, and no cervical lymphadenopathy. Supple, full range of motion without nuchal rigidity, or vertebral point tenderness. No Meningismus. Chest/axilla: Normal chest wall appearance and motion. Nontender with no deformity. No lesions are appreciated. Cardiovascular: Regular rate and rhythm with a normal S1 and S2. No gallops, murmurs, or rubs. Normal PMI, no JVD. No pulse deficits. Abdomen/GI: Soft, non-tender, with normal bowel sounds. No distension or tympany. No guarding or rebound. No evidence of tenderness throughout. Back: No spinal tenderness. No costovertebral tenderness. Full range of motion. Male : Normal genitalia with no discharge or lesions. Skin: Warm, dry with normal turgor. Normal color with no rashes, no lesions, and no evidence of cellulitis. Neuro: Awake and alert, GCS 15, oriented to person, place, time, and situation. Cranial nerves II-XII grossly intact. Motor strength 5/5 in all extremities. Sensory grossly intact. Cerebellar exam normal. Normal gait. Psych: Awake, alert, with orientation to person, place and time. Behavior, mood, and affect are within normal limits. 15:30 Constitutional: The patient appears febrile, frail, 15:30 ECG was reviewed by the Attending Physician. Vital Signs: 14:30 BP 173 / 66; Pulse 80; Resp 20; Temp 101.2(O); Pulse Ox 99% on R/A; rs5 14:35 BP 165 / 70; Pulse 75; Resp 19; Pulse Ox 99% on R/A; rs5 15:10 Temp 103(A); rs5 15:10 BP 162 / 71; Pulse 86; Resp 18; Pulse Ox 98% on R/A; rs5 16:00 Temp 101.2(A); rs5 16:30 Temp 102(A); rs5 16:30 BP 166 / 75; Pulse 80; Resp 19; Pulse Ox 99% on R/A; rs5 17:30 Temp 100(A); rs5 20:18 BP 97 / 60; Pulse 74; Resp 16; Temp 98.2(O); Pulse Ox 99% ; nw1 MDM: 14:28 Patient medically screened. [facility] 15:32 Differential diagnosis: closed fracture, contusion, abrasion, tendonitis, fracture, fatmata sprain, penetrating trauma, arthritis, gout, cellulitis, Anemia Anxiety Reaction CHF exacerbation, Sepsis. Antibiotic administration: Merrem / vanco. Immunization status: Pneumococcal vaccine: within last 5 years. Influenza vaccine: within last 5 years. Data reviewed: vital signs, nurses notes, EMS record, lab test result(s), EKG, radiologic studies, plain films. Consideration of Admission/Observation Patient was admitted/placed on observation. Escalation of care including admission/observation considered. I considered the following discharge prescriptions or medication management in the emergency department Medications were administered in the Emergency Department. See MAR. Test considered but Not performed: MRI: no mri foot. Historians other than the Patient: EMS: ems, dialysis. Care significantly affected by the following chronic conditions: Diabetes, Hypertension, Congestive Heart Failure, Chronic Kidney Disease, a flutter, depression, high cholesterol. Counseling: I had a detailed discussion with the patient and/or guardian regarding the historical points, exam findings, and any diagnostic results supporting the discharge/admit diagnosis, lab results, radiology results, the need for further work-up and treatment in the hospital. 15:57 Independent interpretation of the following test(s) in the Emergency Department EKG: fatmata See my EKG interpretation above. 09/10 14:31 Order name: Basic Metabolic Panel; Complete Time: 16:27 [facility] 09/10 14:31 Order name: CBC with Diff; Complete Time: 17:15 [facility] 09/10 14:31 Order name: LFT's; Complete Time: 16:27 [facility] 09/10 14:31 Order name: Magnesium; Complete Time: 16:27 [facility] 09/10 14:31 Order name: NT PRO-BNP; Complete Time: 16:27 [facility] 09/10 14:31 Order name: PT-INR; Complete Time: 15:48 [facility] 09/10 14:31 Order name: Troponin HS; Complete Time: 16:27 [facility] 09/10 14:31 Order name: SARS RAPID; Complete Time: 15:56 [facility] 09/10 14:31 Order name: Flu; Complete Time: 16:27 [facility] 09/10 14:31 Order name: Blood Culture Adult (2) [facility] 09/10 14:31 Order name: Lactate w/ 2H reflex if indic.; Complete Time: 16:27 [facility] 09/10 16:33 Order name: Manual Differential; Complete Time: 17:15 [facility] 09/10 14:31 Order name: XRAY Chest (1 view); Complete Time: 15:48 [facility] 09/10 14:31 Order name: Foot Left 3 View XRAY; Complete Time: 15:56 [facility] 09/10 14:31 Order name: EKG; Complete Time: 14:32 [facility] 09/10 16:45 Order name: CONS Physician Consult [facility] 09/10 14:31 Order name: Cardiac monitoring; Complete Time: 15:06 [facility] 09/10 14:31 Order name: EKG - Nurse/Tech; Complete Time: 15:06 [facility] 09/10 14:31 Order name: IV Saline Lock; Complete Time: 15:06 [facility] 09/10 14:31 Order name: Labs collected and sent; Complete Time: 15:21 [facility] 09/10 14:31 Order name: O2 Per Protocol; Complete Time: 15:06 [facility] 09/10 14:31 Order name: O2 Sat Monitoring; Complete Time: 15:06 [facility] EC:30 Rate is 9 beats/min. Rhythm is regular. QRS Idabel is Normal. AK interval is normal. QRS fatmata interval is normal. QT interval is normal. No Q waves. T waves are Normal. No ST changes noted. Clinical impression: NSR w/ Non-specific ST/T Changes and No evidence of ischemia. Interpreted by me. Reviewed by me. Administered Medications: 15:05 Drug: NS 0.9% IV 1000 ml IV at 75 ml/hr continuous Route: IV; Rate: 75 ml/hr; Site: rs5 right forearm; 15:20 Follow up: Response: No adverse reaction rs5 15:10 Drug: Acetaminophen PO 650 mg PO once Route: PO; rs5 16:00 Follow up: Response: No adverse reaction; Temperature is decreased rs5 15:10 Drug: vancoMYCIN IVPB 1 grams IVPB once over 2 hrs Route: IVPB; Infused Over: 2 hrs; rs5 Site: right hand; 15:30 Follow up: Response: No adverse reaction rs5 15:10 Drug: Meropenem IV 1 grams IV at per protocol once; (mix in NS 100 mL) Route: IV; Rate: rs5 per protocol; Site: right hand; 15:30 Follow up: Response: No adverse reaction rs5 16:15 Drug: Oseltamivir PO 75 mg PO once Route: PO; rs5 17:00 Follow up: Response: No adverse reaction rs5 16:15 Drug: Aspirin PO Chewable Tablet 81 mg PO once Route: PO; rs5 17:00 Follow up: Response: No adverse reaction rs5 16:15 Drug: Famotidine IVP 20 mg IVP once; dilute with 10 mL 0.9% NaCl; give over 2 minutes rs5 Route: IVP; Site: right hand; 16:30 Follow up: Response: No adverse reaction rs5 16:45 Drug: Ibuprofen PO 600 mg PO once Route: PO; rs5 17:30 Follow up: Response: No adverse reaction; Temperature is decreased rs5 Disposition Summary: 09/10/23 15:47 Hospitalization Ordered Notes: Hospitalization Status: Inpatient Admission fatmata Provider: Jose Mejía cha [facility]ata Condition: Fair fatmata Problem: new fatmata Symptoms: have improved fatmata Bed/Room Type: Standard fatmata Room Assignment: 209(09/10/23 16:52) bd Diagnosis - Fever, unspecified fatmata - Weakness fatmata - Altered mental status, unspecified fatmata - Other specified diabetes mellitus with foot ulcer - left 4th toe fatmata - Influenza due to other identified influenza virus with other respiratory fatmata manifestations - End stage renal disease - on HD fatmata - Non ST elevation [place] fatmata - Sepsis, unspecified organism fatmata - Elevated white blood cell count fatmata - Osteomyelitis, unspecified - LEFT TOES/FOOT fatmata Forms: - Medication Reconciliation Form fatmata - SBAR form fatmata - Leadership Thank You Letter fatmata Signatures: Dispatcher [employer] Nargis Feldman Corey, MD MD cha Calderon, Audri RN RN aa5 Ralf Goodwin, UTILIZATION MANAGEMENT NURSE-C UTILIZATION MANAGEMENT NURSE-Jeannine1 Delon Valles RN RN rs5 Corrections: (The following items were deleted from the chart) 16:52 15:47 fatmata bd 16:59 14:39 PMHx: NSTEMI; aa5 rs5 16:59 14:39 PMHx: Seizure; aa5 rs5 16:59 14:40 PSHx: Seizures; rs5 rs5
--- NOTE | 2023-09-10 15:48 | ER ---
Nurse's Notes [facility] Name: Gonzalez Adams Age: 63 yrs Sex: Male : 1960 Arrival Date: 09/10/2023 Time: 14:22 Bed 18 Private MD: Diagnosis: Fever, unspecified;Weakness;Altered mental status, unspecified;Other specified diabetes mellitus with foot ulcer-left 4th toe;Influenza due to other identified influenza virus with other respiratory manifestations;End stage renal disease-on HD;Non ST elevation NC;Sepsis, unspecified organism;Elevated white blood cell count;Osteomyelitis, unspecified-LEFT TOES/FOOT Presentation: 09/10 14:30 Chief complaint: EMS states: Pt is from [facility], he was at [facility] for rs5 dialysis, nurses said he began feeling SOB one hour into dialysis, they checked his vitals and he had a temp 101.3. Coronavirus screen: cough unrelated to allergies, fever, shaking with chills, shortness of breath. Coronavirus screen: fever. Ebola Screen: No symptoms or risks identified at this time. Initial Sepsis Screen: Does the patient meet any 2 criteria? Temp <36.0*C (96.8*F)) or > 38.3*C (100.9*F). Yes Does the patient have a suspected source of infection? Yes: Productive cough/pneumonia. Risk Assessment: Do you want to hurt yourself or someone else? Patient reports no desire to harm self or others. Onset of symptoms was September 12, 2023. 14:30 Method Of Arrival: EMS: [facility] rs5 14:30 Acuity: ROSA 3 rs5 Historical: - Allergies: 14:40 No Known Allergies; rs5 - PMHx: 14:39 atrial flutter; CHF; CKD stage 5; CVA; w/ L sided deficits; depressive disorder; aa5 diabetes mellitus; Hypercholesterolemia; Hypertensive disorder; PVD; - PSHx: 14:40 None; rs5 - Immunization history:: Adult Immunizations unknown. - Social history:: Smoking status: unknown. Screenin:30 [facility] ED Fall Risk Assessment (Adult) History of falling in the last 3 months, rs5 including since admission No falls in past 3 months (0 pts) Confusion or Disorientation Yes (5 pts) Intoxicated or Sedated No (0 pts) Impaired Gait Yes (1 pt) Mobility Assist Device Used Yes (1 pt) Altered Elimination No (0 pt) Score/Fall Risk Level 3 or more points = High Risk Oriented to surroundings, Maintained a safe environment, Educated pt \T\ family on fall prevention, incl call for assistance when getting out of bed, Hourly rounding (assess needs \T\ fall precautionary measures) done. Abuse screen: Denies threats or abuse. Nutritional screening: No deficits noted. Tuberculosis screening: No symptoms or risk factors identified. Assessment: 14:30 General: Appears in no apparent distress. uncomfortable, Behavior is calm, cooperative. rs5 Pain: Denies pain. Neuro: Level of Consciousness is awake, alert, obeys commands, Oriented to person, place, time, Not oriented to situation. 14:30 Cardiovascular: Heart tones S1 S2 present Rhythm is regular. Respiratory: Airway is rs5 patent Respiratory effort is even, unlabored, Respiratory pattern is regular, symmetrical, Breath sounds with crackles bilaterally. GI: Abdomen is round non-distended, Bowel sounds present X 4 quads. Abd is soft and non tender X 4 quads. Patient currently denies nausea, vomiting. : No signs and/or symptoms were reported regarding the genitourinary system. EENT: No signs and/or symptoms were reported regarding the EENT system. Derm: Skin is intact, Skin is dry, Skin is normal, Skin temperature is warm. Musculoskeletal: Amputation of right second finger. Capillary refill < 3 seconds, is brisk, in bilateral fingers. toes. 15:15 Reassessment: Patient and/or family updated on plan of care and expected duration. Pain rs5 level reassessed. Neuro: Level of Consciousness is awake, alert, obeys commands, Oriented to person, place, time, Not oriented to situation. 15:15 Reassessment: Patient denies pain at this time. rs5 16:01 Reassessment: No changes from previously documented assessment. rs5 17:45 Reassessment: Two failed attempt to call report. rs5 18:00 Reassessment: Attempted to call report to admitting nurse, spoke to Taina and she aa5 states admitting nurse will not be able to take report before shift change (1900). . 18:10 Reassessment: at bedside. rs5 18:10 Reassessment: Patient and/or family updated on plan of care and expected duration. Pain rs5 level reassessed. Patient denies pain at this time. Cardiovascular: Rhythm is regular. Respiratory: Respiratory effort is even, unlabored, Respiratory pattern is regular, symmetrical. 18:40 Reassessment: No changes from previously documented assessment. rs5 Vital Signs: 14:30 BP 173 / 66; Pulse 80; Resp 20; Temp 101.2(O); Pulse Ox 99% on R/A; rs5 14:35 BP 165 / 70; Pulse 75; Resp 19; Pulse Ox 99% on R/A; rs5 15:10 Temp 103(A); rs5 15:10 BP 162 / 71; Pulse 86; Resp 18; Pulse Ox 98% on R/A; rs5 16:00 Temp 101.2(A); rs5 16:30 Temp 102(A); rs5 16:30 BP 166 / 75; Pulse 80; Resp 19; Pulse Ox 99% on R/A; rs5 17:30 Temp 100(A); rs5 20:18 BP 97 / 60; Pulse 74; Resp 16; Temp 98.2(O); Pulse Ox 99% ; nw1 ED Course: 14:28 Patient arrived in ED. fatmata 14:28 Rowdy Yañez MD is Attending Physician. fatmata 14:32 Tania Thompson, TERRI is Primary Nurse. aa5 14:39 Triage completed. aa5 14:40 Patient has correct armband on for positive identification. Placed in gown. Bed in low rs5 position. Call light in reach. Side rails up X2. 14:41 Delon Valles, TERRI is Primary Nurse. rs5 15:10 Inserted saline lock: 20 gauge in right hand, using aseptic technique. aa5 15:12 Initial lab(s) drawn, by me, sent to lab. First set of blood cultures drawn by me. aa5 15:26 XRAY Chest (1 view) In Process Unspecified. EDMS 15:26 Foot Left 3 View XRAY In Process Unspecified. EDMS 15:46 Jose Mejía MD is Hospitalizing Provider. fatmata 20:19 No provider procedures requiring assistance completed. Patient admitted, IV remains in nw1 place. 20:19 Provided Education on: POC. nw1 20:35 Patient none. nw1 Administered Medications: 15:05 Drug: NS 0.9% IV 1000 ml IV at 75 ml/hr continuous Route: IV; Rate: 75 ml/hr; Site: rs5 right forearm; 15:20 Follow up: Response: No adverse reaction rs5 15:10 Drug: Acetaminophen PO 650 mg PO once Route: PO; rs5 16:00 Follow up: Response: No adverse reaction; Temperature is decreased rs5 15:10 Drug: vancoMYCIN IVPB 1 grams IVPB once over 2 hrs Route: IVPB; Infused Over: 2 hrs; rs5 Site: right hand; 15:30 Follow up: Response: No adverse reaction rs5 15:10 Drug: Meropenem IV 1 grams IV at per protocol once; (mix in NS 100 mL) Route: IV; Rate: rs5 per protocol; Site: right hand; 15:30 Follow up: Response: No adverse reaction rs5 16:15 Drug: Oseltamivir PO 75 mg PO once Route: PO; rs5 17:00 Follow up: Response: No adverse reaction rs5 16:15 Drug: Aspirin PO Chewable Tablet 81 mg PO once Route: PO; rs5 17:00 Follow up: Response: No adverse reaction rs5 16:15 Drug: Famotidine IVP 20 mg IVP once; dilute with 10 mL 0.9% NaCl; give over 2 minutes rs5 Route: IVP; Site: right hand; 16:30 Follow up: Response: No adverse reaction rs5 16:45 Drug: Ibuprofen PO 600 mg PO once Route: PO; rs5 17:30 Follow up: Response: No adverse reaction; Temperature is decreased rs5 Medication: 19:36 VIS not applicable for this client. rs5 Outcome: 15:47 Decision to Hospitalize by Provider. fatmata 20:17 Admitted to Tele accompanied by tech, family with patient, via stretcher, room 209, nw1 Report called to TERRI Portillo 20:17 Condition: stable 20:17 Instructed on the need for admit, 20:36 Patient left the ED. nw1 Signatures: Dispatcher [employer] Rowdy Mims MD MD cha Calderon, Audri RN RN aa5 Delon Valles RN RN rs5 Shaniqua Trevizo RN RN nw1 Corrections: (The following items were deleted from the chart) 15:26 14:30 Chief complaint: EMS states: Pt is from [facility], he was at [place] [address] for dialysis, nurses said he began feeling SOB one hour into dialysis, they checked his vitals and he had a temp 101.3 [facility] 14:30 Coronavirus screen: At this time, the client does not indicate any symptoms rs5 associated with coronavirus-19. [facility] 14:30 Coronavirus screen: cough unrelated to allergies, fever, shaking with chills, rs5 shortness of breath, [facility] 14:30 Ebola Screen: No symptoms or risks identified at this time. [place] [id number] 14:30 Initial Sepsis Screen: Does the patient meet any 2 criteria? Temp <36.0*C rs5 (96.8*F)) or > 38.3*C (100.9*F). Yes Does the patient have a suspected source of infection? Yes: Productive cough/pneumonia [facility] 14:30 Risk Assessment: Do you want to hurt yourself or someone else? Patient reports no rs5 desire to harm self or others. [facility] 14:30 Onset of symptoms was September 12, 2023 [place] [address] 14:30 Method Of Arrival: EMS: [facility] [place] [address] 14:30 BP 173 / 66; Pulse 80bpm; Resp 20bpm; Pulse Ox 99% RA; Temp 101.2F Oral; [place] [address] 14:30 Acuity: ROSA 3 aa5 rs5 16:59 14:39 PMHx: NSTEMI; aa5 rs5 16:59 14:39 PMHx: Seizure; aa5 rs5 16:59 14:40 PSHx: Seizures; rs5 rs5 19:25 15:00 Temp 103F Axillary; rs5 rs5 19:25 16:45 Temp 100F Axillary; rs5 rs5
[2023-09-10 15:51] LABS: SARS-CoV-2 Antigen Rapid Res Negative (Negative)
[2023-09-10 15:55] LABS: Albumin 2.9 g/dL (3.4-5.0); Bilirubin Direct 0.3 mg/dL (0-0.2); Bilirubin Indirect, Calculated 0.5 mg/dL (0.2-0.8); Bilirubin Total 0.8 mg/dL (0.2-1.0); Magnesium 1.9 mg/dL (1.6-2.4); Potassium 4.3 mEq/L (3.5-5.1); Protein, Total 8.1 g/dL (6.4-8.2)
--- NOTE | 2023-09-10 15:55 | RAD REPORT ---
EXAM DESCRIPTION: RAD - Foot Left 3 View - 09/10/2023 3:24 pm CLINICAL HISTORY: Pain;Swelling COMPARISON: Foot Left 3 View dated 05/02/2023 FINDINGS/IMPRESSION: Interval partial amputation of the second digit with a chronically fractured sm all residual second proximal phalanx. There is loss of cortex at the fourth middle phalanx along the metaphysis. This could be from a fracture with displacement or osteomyelitis. Question partial amputa tion of the great toe phalangeal tuft. Loss of cortex along the fifth toe distal phalanx appears impr marjorie compared with prior. Peripheral vascular calcifications. MRI could better assess for acute osteo myelitis .
[2023-09-10 15:56] LABS: Troponin High Sensitivity 1423.3 pg/mL (<58.9)
[2023-09-10] MEDS ORDERED: FAMOTIDINE 20 MG/2 ML VIAL IV ONE (16:25)
[2023-09-10] MEDS ORDERED: ASPIRIN 81 MG CHEWABLE TABLET ONE (16:25)
[2023-09-10] MEDS ORDERED: OSELTAMIVIR 75 MG CAP PO ONE (16:25)
[2023-09-10 16:32] LABS: Blood Morphology Comment NOT SEEN (NOT SEEN); Platelet Estimate ADEQ
[2023-09-10] MEDS ORDERED: HYDROCODONE/APAP 5/325 MG TAB PO PRN (16:43)
[2023-09-10] MEDS ORDERED: ACETAMINOPHEN 325 MG TABLET PO PRN (16:43)
[2023-09-10] MEDS ORDERED: ONDANSETRON 4 MG/2 ML VIAL IV PRN (16:49)
--- NOTE | 2023-09-10 16:52 | P.HP ---
Certification for Inpatient Patient admitted to: Inpatient With expected LOS: >2 Midnights Patient will require the following post-hospital care: None Practitioner: I am a practitioner with admitting privileges, knowledge of patient current condition, hospital course, and medical plan of care. Services: Services provided to patient in accordance with Admission requirements found in Title 42 Section 412.3 of the Code of Federal Regulations Patient History Date of Service: 09/10/23 Reason for admission: Left 4th toe infection, sob History of Present Illness: Patient is a 63-year-old male with a past medical history significant for ESRD, CVA with left-sided weakness, depression, DM 2, hyperlipidemia, hypertension, PVD, CHF, atrial flutter who presented complaining of shortness of breath and left foot digit toe infection. Patient is a poor historian and unable to provide accurate history. Patient reported associated signs and symptoms of fever, dizziness and cough. Patient denies any other signs or symptoms. Symptoms are aggravated or relieved by nothing. Patient is bedbound. Patient was brought to the hospital for medical evaluation. Allergies No Known Allergies Allergy (Verified 05/03/23 03:10) Home Medications: Aspirin [Aspirin EC 81 MG] 81 mg PO DAILY 09/02/14 Atorvastatin Calcium [Lipitor*] 80 mg PO DAILY 06/09/19 Ergocalciferol (Vitamin D2) [Drisdol] 1,250 mcg PO SEECOM 11/17/22 Fluoxetine HCl 10 mg PO DAILY 11/17/22 Folic Acid/Vit B Complex and C [Renal Vitamin Tablet] 0.8 mg PO DAILY 11/17/22 Insulin Glargine,Hum.rec.anlog [Kay Zaman U-100] 10 unit SQ BEDTIME 11/17/22 Metoprolol Succinate 25 mg PO DAILY 11/17/22 Ondansetron HCl 4 mg PO Q6H PRN 11/17/22 Sevelamer Carbonate [Renvela] 1 tab PO TID 11/17/22 levETIRAcetam [Levetiracetam] 500 mg PO BID 11/17/22 Ammonium Lactate 1 jone TOP BID 05/03/23 Calcium Acetate [Phoslo*] 1 cap PO TID 05/03/23 Ciprofloxacin HCl [Cipro] 500 mg PO DAILY 05/03/23 Doxycycline Hyclate 100 mg PO BID 05/03/23 Protein Supplement [Promod] 30 ml PO DAILY 05/03/23 Sodium Zirconium Cyclosilicate [Lokelma] 1 pkt PO SEECOM 05/03/23 - Past Medical/Surgical History Diabetic: Yes -: HTN -: HLD -: HX OF CVA/stroke -: ESRD on HD followed by Dr. Zhang -: ANEMIA -: LYMPHOMA -: OBESITY -: DYSPHAGIA -: CHOLECYSTECTOMY -: PEG tube placement -: vascular surg. right leg -: hemodialysis - Family History Father -: Diabetes - Social History Smoking Status: Never smoker Alcohol use: No CD- Drugs: No Caffeine use: Yes Place of Residence: Home Review of Systems General: Fever Eyes: Unremarkable ENT: Unremarkable Respiratory: Cough, Shortness of Breath Cardiovascular: Unremarkable Gastrointestinal: Unremarkable Genitourinary: Unremarkable Musculoskeletal: Foot Pain Integumentary: Other (Left 4th toe Ulcer) Neurological: Other (dizziness ) Lymphatics: Unremarkable Physical Examination - Physical Exam General: Alert, In no apparent distress, Oriented x3 HEENT: Atraumatic, PERRLA, Mucous membr. moist/pink, EOMI, Sclerae nonicteric Neck: Supple, 2+ carotid pulse no bruit, No LAD, Without JVD or thyroid abnormality Respiratory: Clear to auscultation bilaterally, Normal air movement Cardiovascular: No edema, Regular rate/rhythm, Normal S1 S2 Capillary refill: <2 Seconds Gastrointestinal: Normal bowel sounds, Soft and benign, No tenderness Musculoskeletal: Erythema, Other (Left 4th toe Ulcer) Integumentary: No rashes, Diabetic ulcer Neurological: Normal speech, Normal tone, Normal affect, Other Lymphatics: No axilla or inguinal lymphadenopathy Urinary: Dialysis catheter - Studies Laboratory Data (last 24 hrs) 09/10/23 09/10/23 09/10/23 15:12 15:12 15:12 WBC 18.20 H Hgb 10.6 L Hct 33.0 L Plt Count 392 PT 12.3 INR 1.12 Sodium 133 L Potassium 4.3 BUN 42 H Creatinine 5.11 H Glucose 163 H Magnesium 1.9 Total Bilirubin 0.8 AST 23 ALT 22 Alkaline Phosphatase 151 H Microbiology Data (last 24 hrs): 09/10/23 15:10 Nasopharnyx Influenza Type A Antigen Screen - Final 09/10/23 15:10 Nasopharnyx Influenza Type B Antigen Screen - Final Assessment and Plan - Plan -- DM2 with left 4th ulcer. Foot x-ray indicates "Interval partial amputation of the second digit with a chronically fractured small residual second proximal phalanx. There is loss of cortex at the fourth middle phalanx along the metaphysis. This could be from a fracture with displacement or osteomyelitis. Question partial amputation of the great toe phalangeal tuft. Loss of cortex along the fifth toe distal phalanx appears improved compared with prior. Peripheral vascular calcifications". Unable to perform MRI due to pacemaker presence. BS monitoring with sliding scale insulin. Patient placed on antibiotics. --Left 4th toe infection. Continue antibiotics. Blood and wound cultures pending. Wound care consult initiated. --ESRD. Nephrology consulted. Will await further recommendations -- Acute on chronic diastolic CHF exacerbation. Patient on hemodialysis. Dialysis per associate team physician recommendation. Daily weight and strict I/O. -- Elevated troponin. Serial troponins trending down. Cardiology consulted. Telemetry to monitor for any significant arrhythmia. Will await further recommendation from nibbler operator. --DM2. BS monitoring with sliding scale insulin. -- Acute pain. We will manage pain with current pain medication regimen. --Hyperlipidemia. Continue statin. --Depression. Continue home medications. --Hypertension. Stable. Continue home medications. --History of CVA with left-sided weakness\\PVD. Continue aspirin and statin. -- DVT prophylaxis with heparin subQ. Discharge Plan: Home Plan to discharge in: Greater than 2 days - Advance Directives Does patient have a Living Will: No Does patient have a Durable POA for Healthcare: No - Code Status/Comfort Care Code Status Assessed: Yes Physician Review: Patient Assessed, Agree with Above Assessment and Plan Critical Care: No
[2023-09-10] MEDS ORDERED: IBUPROFEN 200 MG TAB PO ONE (17:03)
[2023-09-10] MEDS ORDERED: IBUPROFEN 400 MG TAB ONE (17:04)
[2023-09-10] MEDS: INSULIN REGULAR (HUMAN) 100 UNIT/ML SQ SCH (21:00)
[2023-09-10] MEDS: HEPARIN 5000 UNIT/ML 1 ML VIAL SQ SCH (21:04)
[2023-09-10] MEDS ORDERED: HYDRALAZINE HCL 20 MG/ML VIAL IV PRN (21:53)
[2023-09-10 22:22] LABS: Magnesium 2.1 mg/dL (1.6-2.4); Thyroid Stimulating Hormone 0.957 uIU/mL (0.358-3.740)
[2023-09-10] MEDS ORDERED: VANCOMYCIN 500 MG in NA CHLORIDE 0.9% 100 ML IVPB ONE (22:30)
[2023-09-11 02:05] LABS: Absolute Lymphocytes (CBC) 0.5 K/uL (0.7-4.9); Hematocrit 30.2 % (39.6-49.0); Lymphocytes % 3.2 % (15.3-44.8); MCV 93.6 fL (80-100); MPV 7.7 fL (7.6-11.3); Platelets 282 thou/uL (152-406); RBC Red Blood Cell Count 3.23 M/uL (4.33-5.43)
[2023-09-11 02:54] LABS: Phosphorus 2.3 mg/dL (2.5-4.9); Potassium 4.3 mEq/L (3.5-5.1)
[2023-09-11 02:56] LABS: Troponin High Sensitivity 1122.4 pg/mL (<58.9)
[2023-09-11] MEDS: INSULIN REGULAR (HUMAN) 100 UNIT/ML SQ SCH ×4 (07:30→20:19)
[2023-09-11] MEDS: HEPARIN 5000 UNIT/ML 1 ML VIAL SQ SCH ×2 (08:13→20:20)
[2023-09-11] MEDS: ASPIRIN 81 MG CHEWABLE TABLET PO SCH (08:13)
[2023-09-11] MEDS ORDERED: Meropenem 1,000 MG in NA CHLORIDE 0.9% 100 ML IV SCH (09:00)
--- NOTE | 2023-09-11 11:16 | P.CNS ---
Date of Consult: 09/11/23 Reason for Consult: ESRD, management of dialysis, BP and volume status Requesting Physician: Jose Mejía Chief Complaint: Left 4th toe infection, sob History of Present Illness: Pt is 63-year-old male with a past medical history of Type II diabetes complicated by ESRD and other, PAD, hx of diabetic foot wounds with Rt foot TMA, Lt toe amputation after prior ulcer/wound, also with hx of diastolic CHF, atrial flutter/fibrillation s/p dual lead PPM within the past year or so who presented yesterday to the emergency room after EMS was called by dialysis staff as on treatment pt was found to have chills/rigors and some shortness of breath without hypoxia. Pt on admission was febrile and did have leukocytosis. This AM he appears to be doing better and does not appear toxic or have on going signs of SIRS. G/s on BCx on prelim report showed GNR, foot wound g/s also positive. Pt placed on broad spectrum Abx by primary team. Allergies No Known Allergies Allergy (Verified 05/03/23 03:10) Home Medications: Aspirin [Aspirin EC 81 MG] 81 mg PO DAILY 09/02/14 Atorvastatin Calcium [Lipitor*] 80 mg PO DAILY 06/09/19 Ergocalciferol (Vitamin D2) [Drisdol] 1,250 mcg PO SEECOM 11/17/22 Fluoxetine HCl 10 mg PO DAILY 11/17/22 Folic Acid/Vit B Complex and C [Renal Vitamin Tablet] 0.8 mg PO DAILY 11/17/22 Insulin Glargine,Hum.rec.anlog [Kay Zaman U-100] 10 unit SQ BEDTIME 11/17/22 Metoprolol Succinate 25 mg PO DAILY 11/17/22 Ondansetron HCl 4 mg PO Q6H PRN 11/17/22 Sevelamer Carbonate [Renvela] 1 tab PO TID 11/17/22 levETIRAcetam [Levetiracetam] 500 mg PO BID 11/17/22 Ammonium Lactate 1 jone TOP BID 05/03/23 Calcium Acetate [Phoslo*] 1 cap PO TID 05/03/23 Ciprofloxacin HCl [Cipro] 500 mg PO DAILY 05/03/23 Doxycycline Hyclate 100 mg PO BID 05/03/23 Protein Supplement [Promod] 30 ml PO DAILY 05/03/23 Sodium Zirconium Cyclosilicate [Lokelma] 1 pkt PO SEECOM 05/03/23 - Past Medical/Surgical History Diabetic: Yes -: HTN -: HLD -: HX OF CVA/stroke -: ESRD on HD followed by Dr. Zhang -: ANEMIA -: LYMPHOMA -: OBESITY -: DYSPHAGIA -: CHOLECYSTECTOMY -: PEG tube placement -: vascular surg. right leg -: hemodialysis - Family History Father Medical History: Diabetes - Social History Smoking Status: Unknown if ever smoked Alcohol use: No CD- Drugs: No Caffeine use: Yes Place of Residence: Home Review of Systems General: Fever, As per HPI Eyes: Unremarkable ENT: Unremarkable Respiratory: As per HPI Cardiovascular: Other (Labile pressures) Gastrointestinal: Unremarkable Genitourinary: Unremarkable Musculoskeletal: As per HPI, Unremarkable Integumentary: As per HPI Neurological: Other (No reports of acute changes in mental status, appears at baseline) Lymphatics: As per HPI Physical Examination Temp Pulse Resp BP Pulse Ox 98.9 F 62 15 115/79 98 09/11/23 08:00 09/11/23 08:00 09/11/23 08:00 09/11/23 08:00 09/11/23 08:00 General: In no apparent distress, Cooperative, Other HEENT: Atraumatic, Normocephalic, Other (not needing O2), EOMI Neck: Supple Respiratory: Normal air movement, Other (non tachypnec) Cardiovascular: No edema, Regular rate/rhythm, Normal S1 S2 Gastrointestinal: Soft and benign, Non-distended, No tenderness, No rebound Musculoskeletal: No swelling, No tenderness, Other (Rt foot TMA, lt foot 2nd toe amputation, foot warm to touch. Lt UE AVG) Integumentary: Other (Lt foot with wound between 4th and 5th toes) Neurological: Other (Awake, responds slowly/briefly, no tremors or myoclonus) Laboratory Data (last 24 hrs) 09/10/23 09/10/23 09/10/23 15:12 15:12 15:12 WBC 18.20 H Hgb 10.6 L Hct 33.0 L Plt Count 392 PT 12.3 INR 1.12 Sodium 133 L Potassium 4.3 BUN 42 H Creatinine 5.11 H Glucose 163 H Magnesium 1.9 Total Bilirubin 0.8 AST 23 ALT 22 Alkaline Phosphatase 151 H Conclusions/Impression: A/P) 1. ESRD 2nd to DM/HTN, on iHD at [facility], partial HD performed yesterday. Will dialyze today for metab clearance 2. Azotemia -will clear with dialysis 3. Hypertensive CKD, Stage V/ESRD with transient hypotension in the setting of sepsis -BP meds held, will limit UF on HD, will give IV Albumin on HD, will bolus crystalloids as needed 4. Sepsis unspecified organism. Fevers, leukocytosis on admissiom. Suspected source is Lt foot DFU with possibility of osteomyelitis -pt on broad spectrum Abx, pt to get maintenance Vanc dose post HD, will monitor levels. Cont gram neg coverage as well based on BCx g/s 5. Chronic diastolic CHF -compensated, CXR did not show pulm edema Kailash Weeks MD, FLORENTIN
[2023-09-11] MEDS ORDERED: ALBUMIN HUMAN 25% 100 ML IV ONE (15:00)
[2023-09-11 15:44] LABS: Hepatitis B Surface Ab - Quant 141.48 mIU/mL (<8.0); Hepatitis B surface AG Interp. Nonreactive (Nonreactive)
[2023-09-11] MEDS ORDERED: POTASS/SODIUM PHOSPHATE 1 PKT POWD.PACK PO ONE (16:00)
--- NOTE | 2023-09-11 16:24 | P.PN ---
Subjective Date of Service: 09/11/23 Chief Complaint: Left 4th toe infection, sob Subjective: No new changes, Improving Physical Examination - Vital Signs Temperature: 99.6 F Blood Pressure: 121/65 Pulse: 63 Respirations: 16 Pulse Ox (%): 99 - Physical Exam General: Alert, Oriented x3 HEENT: Atraumatic, Normocephalic Neck: Supple Respiratory: Clear to auscultation bilaterally Cardiovascular: Regular rate/rhythm, Normal S1 S2 Gastrointestinal: Soft and benign Musculoskeletal: Other (left foot wounds and deformities noted.) - Studies Laboratory Data (last 24 hrs) 09/10/23 15:12 WBC 18.20 H Hgb 10.6 L Hct 33.0 L Plt Count 392 Microbiology Data (last 24 hrs): 09/10/23 15:12 Blood - Blood Blood Culture Gram Stain - Final 09/10/23 15:12 Blood - Blood Gram Stain - Final 09/10/23 15:10 Nasopharnyx Influenza Type A Antigen Screen - Final 09/10/23 15:10 Nasopharnyx Influenza Type B Antigen Screen - Final Assessment And Plan - Plan Assessment and Plan - Plan -- DM2 with left 4th ulcer. Empiric antibiotic therapy with vancomycin and meropenem to be continued. Blood culture growing gram-negative james, with consider ID consultation for further management recommendation. --Bacteremia: Gram-negative james growing in blood culture. Will continue meropenem and vancomycin pending culture finalization. --Left 4th toe infection. Continue antibiotics. Wound care consult initiated. --ESRD. Nephrology consulted. Hemodialysis as per nephrology service -- Acute on chronic diastolic CHF exacerbation. Patient on hemodialysis. Dialysis per maintenance electrician recommendation. Daily weight and strict I/O. -- Elevated troponin. Serial troponins trending down. Cardiology consulted. Telemetry to monitor for any significant arrhythmia. Will await further recommendation from instructor private. --DM2. BS monitoring with sliding scale insulin. -- Acute pain. We will manage pain with current pain medication regimen. --Hyperlipidemia. Continue statin. --Depression. Continue home medications. --Hypertension. Stable. Continue home medications. --History of CVA with left-sided weakness\PVD. Continue aspirin and statin. -- DVT prophylaxis with heparin subQ. Discharge Plan: Home Plan to discharge in: Greater than 2 days Physician Review: Patient Assessed, Agree with Above Assessment and Plan
--- NOTE | 2023-09-11 16:51 | EKG ---
Test Date: 2023-09-10 Test Time: 14:58:34 Helper Marble Finisher: RADHA MEASUREMENT RESULTS: Intervals: Rate: 79 [place]: QRSD: 90 QT: 388 QTc: 444 [place]: P: [place]: QRS: 14 T: 92 INTERPRETIVE STATEMENTS: Sinus rhythm ST & T wave abnormality, consider lateral ischemia Abnormal ECG Compared to ECG 05/02/2023 18:09:10 ST (T wave) deviation now present Possible ischemia now present Ventricular-paced complex(es) or rhythm no longer present Atrial-sensed ventricular-paced complex(es) or rhythm no longer present Electronically Signed On 09-11-23 16:49:32 PHYSIOGNOMIST by Gonzalo Rolle
[2023-09-11] MEDS ORDERED: VANCOMYCIN 1 GM in NA CHLORIDE 0.9% 250 ML IVPB SCH (18:00)
[2023-09-11] MEDS: Meropenem 500 MG in NA CHLORIDE 0.9% 100 ML IV SCH (18:32)
[2023-09-12 06:06] LABS: Phosphorus 2.5 mg/dL (2.5-4.9); Potassium 3.8 mEq/L (3.5-5.1)
[2023-09-12] MEDS: INSULIN REGULAR (HUMAN) 100 UNIT/ML SQ SCH ×4 (07:30→19:54)
[2023-09-12] MEDS: HEPARIN 5000 UNIT/ML 1 ML VIAL SQ SCH ×2 (08:57→19:47)
[2023-09-12] MEDS: POTASS/SODIUM PHOSPHATE 1 PKT POWD.PACK PO SCH ×3 (08:58→11:08)
[2023-09-12] MEDS: ASPIRIN 81 MG CHEWABLE TABLET PO SCH (08:59)
[2023-09-12] MEDS ORDERED: POTASSIUM CL SA 10 MEQ TAB PO ONE (09:00)
--- NOTE | 2023-09-12 12:43 | P.PN ---
Subjective Date of Service: 09/12/23 Chief Complaint: Left 4th toe infection, sob Subjective: No new changes, Improving Physical Examination - Vital Signs Temperature: 97.2 F Blood Pressure: 104/58 Pulse: 60 Respirations: 18 Pulse Ox (%): 97 - Physical Exam HEENT: Atraumatic Neck: Supple Respiratory: Normal air movement Cardiovascular: Regular rate/rhythm, Normal S1 S2 Gastrointestinal: Soft and benign Musculoskeletal: Other (wound on the left foot.) Neurological: Normal speech - Studies Microbiology Data (last 24 hrs): 09/10/23 15:12 Blood - Blood Aerobic Blood Culture - Final Gram Neg Phi Escherichia Coli Esbl 09/10/23 15:12 Blood - Blood Blood Culture Gram Stain - Final 09/10/23 15:12 Blood - Blood Anaerobic Blood Culture - Final Gram Neg Phi Escherichia Coli Esbl 09/10/23 15:12 Blood - Blood Gram Stain - Final Assessment And Plan - Plan Assessment and Plan - Plan -- DM2 with left 4th ulcer. Empiric antibiotic therapy with vancomycin and meropenem to be continued. Blood culture grew ESBL E. coli, with consider ID consultation for further management recommendation. --Bacteremia: ESBL E. coli growing in blood culture. Will continue meropenem and vancomycin pending culture finalization. --Left 4th toe infection. Continue antibiotics. Wound care consult initiated. --ESRD. Nephrology consulted. Hemodialysis as per nephrology service -- Acute on chronic diastolic CHF exacerbation. Patient on hemodialysis. Dialysis per vp analytics recommendation. Daily weight and strict I/O. -- Elevated troponin. Serial troponins trending down. Cardiology consulted. Telemetry to monitor for any significant arrhythmia. Will await further r ecommendation from loans officer. --DM2. BS monitoring with sliding scale insulin. -- Acute pain. We will manage pain with current pain medication regimen. --Hyperlipidemia. Continue statin. --Depression. Continue home medications. --Hypertension. Stable. Continue home medications. --History of CVA with left-sided weakness\PVD. Continue aspirin and statin. -- DVT prophylaxis with heparin subQ. Discharge Plan: Home Plan to discharge in: Greater than 2 days Physician Review: Patient Assessed, Agree with Above Assessment and Plan
--- NOTE | 2023-09-12 13:42 | P.PN ---
(S) Pt's condition remains stable, denies CP or dyspnea, ate lunch, no N/V (O) vitals reviewed in the EMR General: In no apparent distress, Cooperative, Other HEENT: Atraumatic, Normocephalic, Other (not needing O2), EOMI Neck: Supple Respiratory: Normal air movement, Other (non tachypnec) Cardiovascular: No edema, Regular rate/rhythm, Normal S1 S2 Gastrointestinal: Soft and benign, Non-distended, No tenderness, No rebound Musculoskeletal: No swelling, No tenderness, Other (Rt foot TMA, lt foot 2nd toe amputation, foot warm to touch. Lt UE AVG) Integumentary: Other (Lt foot with wound between 4th and 5th toes) Neurological: Other (Awake, responds slowly/briefly, no tremors or myoclonus) Conclusions/Impression: A/P) 1. ESRD 2nd to DM/HTN, on iHD at [facility], partial HD performed . Did dialyze yesterday for metab clearance 2. Next HD tmrw. 3. Hypertensive CKD, Stage V/ESRD with transient hypotension in the setting of sepsis -BP meds held, did limit UF on HD. Currently SBP holding > 100 mmhg, will defer beta randall therapy to Cardiology 4. Sepsis 2nd to EColi. Fevers, leukocytosis on admission. Suspected source initially was Lt foot DFU with possibility of osteomyelitis, however in light of Ecoli, it may be other. Pt is appropriately on Meropenem, renally dosed 5. Chronic diastolic CHF -compensated, CXR did not show pulm edema. NSTEMI present on admission, sig troponin leak but trend was flat. Await Cardiology input Kailash Weeks MD, FLORENT[place]
[2023-09-12] MEDS: Meropenem 500 MG in NA CHLORIDE 0.9% 100 ML IV SCH (17:08)
[2023-09-13] MEDS: INSULIN REGULAR (HUMAN) 100 UNIT/ML SQ SCH ×4 (07:30→21:00)
[2023-09-13] MEDS: ASPIRIN 81 MG CHEWABLE TABLET PO SCH (08:29)
[2023-09-13] MEDS: HEPARIN 5000 UNIT/ML 1 ML VIAL SQ SCH ×2 (08:29→21:35)
[2023-09-13] MEDS ORDERED: NA CHLORIDE 0.9% 250 ML ONE (09:26)
--- NOTE | 2023-09-13 14:48 | P.PN ---
(S) Family at bedside and they reports pt stating that he feels worse today, reduced appetite, has had some cough and congestion. Denies acute CP or dyspnea though (O) vitals reviewed in the EMR General: In no apparent distress, chronically ill appearing HEENT: Atraumatic, Normocephalic, Other (not needing O2), EOMI Neck: Supple Respiratory: Normal air movement, Other (non tachypnec) Cardiovascular: No edema, Regular rate/rhythm, Normal S1 S2 Gastrointestinal: Soft and benign, Non-distended, No tenderness, No rebound Musculoskeletal: No swelling, No tenderness, Other (Rt foot TMA, lt foot 2nd toe amputation, foot warm to touch. Lt UE AVG) Integumentary: Other (Lt foot with wound between 4th and 5th toes) Neurological: Other (Awake, responds slowly/briefly, no tremors or myoclonus) Conclusions/Impression: A/P) 1. ESRD 2nd to DM/HTN, on iHD at [facility], partial HD performed Tu. Did dialyze Wed primarily for metab clearance 2. Will perform HD today, see orders for detail 3. Hypertensive CKD, Stage V/ESRD with transient hypotension in the setting of sepsis -BP meds held, did limit UF on HD Wed but will increase today as pt has some cough, congestion. Will check CXR 4. Sepsis 2nd to EColi. Fevers, leukocytosis on admission. Suspected source initially was Lt foot DFU with possibility of osteomyelitis, however in light of Ecoli, it may be other. Pt is appropriately on Meropenem, renally dosed 5. Chronic diastolic CHF CXR did not show pulm edema on admission but will recheck. NSTEMI present on admission, sig troponin leak but trend was flat. Await Cardiology input. Will target increased UF goal today on HD Kailash Weeks MD, FLORENTIN
--- NOTE | 2023-09-13 15:38 | P.PN ---
Subjective Date of Service: 09/13/23 Chief Complaint: Left 4th toe infection, sob Subjective: Worsening (had tachycardia this am.) Physical Examination - Vital Signs Temperature: 98.4 F Blood Pressure: 160/70 Pulse: 106 Respirations: 24 Pulse Ox (%): 98 - Physical Exam General: Alert HEENT: Atraumatic Neck: Supple Respiratory: Normal air movement Cardiovascular: Irregular heart rate/rhythm Gastrointestinal: Soft and benign Musculoskeletal: No swelling Neurological: Normal speech Assessment And Plan - Plan Assessment and Plan - Plan -- DM2 with left 4th ulcer. Empiric antibiotic therapy with vancomycin and meropenem to be continued. Blood culture grew ESBL E. coli, with consider ID consultation for further management recommendation. --Bacteremia: ESBL E. coli growing in blood culture. Will continue meropenem and vancomycin pending culture finalization. --Left 4th toe infection. Continue antibiotics. Wound care consult initiated. --ESRD. Nephrology consulted. Hemodialysis as per nephrology service -- Acute on chronic diastolic CHF exacerbation. Patient on hemodialysis. Dialysis per residential appraiser recommendation. Daily weight and strict I/O. -- Elevated troponin. Serial troponins trending down. Cardiology consulted. Telemetry to monitor for any significant arrhythmia. Will await further recommendation from double spindle shaper operator. --DM2. BS monitoring with sliding scale insulin. -- Acute pain. We will manage pain with current pain medication regimen. --Hyperlipidemia. Continue statin. --Depression. Continue home medications. --Hypertension. Stable. Continue home medications. --History of CVA with left-sided weakness\PVD. Continue aspirin and statin. -- DVT prophylaxis with heparin subQ. Discharge Plan: Home Plan to discharge in: Greater than 2 days Physician Review: Patient Assessed, Agree with Above Assessment and Plan
--- NOTE | 2023-09-13 15:50 | RAD REPORT ---
EXAM DESCRIPTION: RAD - Abdomen 1 View (KUB) - 09/13/2023 3:15 pm CLINICAL HISTORY: Abdomen pain FINDINGS: The bowel gas pattern is unremarkable. The rectum is mildly distended with stool. No significant abnormal calcifications seen
--- NOTE | 2023-09-13 15:51 | RAD REPORT ---
EXAM DESCRIPTION: Herminia Single View09/13/2023 3:15 pm CLINICAL HISTORY: Shortness of breath COMPARISON: September 10, 2023 FINDINGS: Mild bilateral pulmonary opacities Heart is mildly enlarged Pacemaker leads in place IMPRESSION: These findings probably represent mild CHF
[2023-09-13] MEDS ORDERED: ACETAMINOPHEN 650MG/RECT SUPP PR ONE (16:39)
[2023-09-13] MEDS ORDERED: ALBUMIN HUMAN 25% 100 ML IV ONE ×2 (17:11→17:30)
[2023-09-13] MEDS: Meropenem 500 MG in NA CHLORIDE 0.9% 100 ML IV SCH (21:34)
[2023-09-14 04:20] VITALS: BMI 27.4
[2023-09-14] MEDS: INSULIN REGULAR (HUMAN) 100 UNIT/ML SQ SCH ×4 (07:30→20:59)
[2023-09-14] MEDS: ASPIRIN 81 MG CHEWABLE TABLET PO SCH (08:35)
[2023-09-14] MEDS: HEPARIN 5000 UNIT/ML 1 ML VIAL SQ SCH ×2 (08:35→19:58)
--- NOTE | 2023-09-14 13:41 | P.PN ---
(S) Pt spiked sig temp yesterday afternoon and had Afib with RVR, pt did dialyze but BP remained low through treatment. UF limited. Repeat blood culture ordered through dialyzer line has come back positive on g/s. Pt afebrile this AM. However, examination of graft reveals no thrill or bruit (O) vitals reviewed in the EMR General: In no apparent distress, chronically ill appearing HEENT: Atraumatic, Normocephalic, Other (not needing O2), EOMI Neck: Supple Respiratory: Normal air movement, Other (non tachypnec) Cardiovascular: No edema, non tachy, irregular, no loud murmur Gastrointestinal: Soft and benign, Non-distended, No tenderness, No rebound Musculoskeletal: No swelling, No tenderness, Other (Rt foot TMA, lt foot 2nd toe amputation, foot warm to touch. Lt UE AVG, loop graft in the forearm, absent thrill or bruit, no swelling or obv infection externally Integumentary: Other (Lt foot with wound between 4th and 5th toes) Neurological: Other (Awake, responds slowly/briefly, no tremors or myoclonus) Conclusions/Impression: A/P) 1. ESRD 2nd to DM/HTN, on iHD at [facility], partial HD performed . Did dialyze Wed primarily for metab clearance 2. Did repeat HD yesterday but in the setting of low BP and other, AVG now appears clotted and pt will need eval and intervention by vascular team. Pt remains septic so would like to avoid any lines. Will recommend initiating transfer 3. Hypertensive CKD, Stage V/ESRD with transient hypotension in the setting of sepsis -BP meds remain held, did again limit UF on HD 4. Sepsis 2nd to EColi. Fevers, recurrent, leukocytosis on admission. Suspected source initially was Lt foot DFU with possibility of osteomyelitis, however in light of Ecoli, it may be other. Pt is appropriately on Meropenem, renally dosed however BCx remains positive it appears. AVG does not appear obv infected. Ecoli rarely causes IE. MRI foot has not been done. Pt needs ID consult. 5. Chronic diastolic CHF CXR did not show pulm edema on admission on on repeat check yesterday. NSTEMI present on admission, sig troponin leak but trend was flat. Afib, unspecified in the setting of this and illness. Awaiting Cardiology input. Kailash Weeks MD, [place]OR[place]
[2023-09-14 14:04] LABS: Absolute Lymphocytes (CBC) 0.9 K/uL (0.7-4.9); Hematocrit 27.9 % (39.6-49.0); Lymphocytes % 4.3 % (15.3-44.8); MCV 93.9 fL (80-100); Platelets 306 thou/uL (152-406); RBC Red Blood Cell Count 2.97 M/uL (4.33-5.43)
--- NOTE | 2023-09-14 15:36 | P.DS ---
Admission Date: 09/10/23 Discharge Date: 09/14/23 Disposition: TRANSFER TO [facility] Discharge Condition: FAIR Reason for Admission: Left 4th toe infection, sob Brief History of Present Illness: Patient is a 63-year-old male with a past medical history significant for ESRD, CVA with left-sided weakness, depression, DM 2, hyperlipidemia, hypertension, PVD, CHF, atrial flutter who presented complaining of shortness of breath and left foot digit toe infection. Patient is a poor historian and unable to provide accurate history. Patient reported associated signs and symptoms of fever, dizziness and cough. Patient denies any other signs or symptoms. Symptoms are aggravated or relieved by nothing. Patient is bedbound. Patient was brought to the hospital for medical evaluation. Hospital Course: Patient was admitted to inpatient service secondary to infected left fifth toe and was worked up with sepsis cultures. He began to have worsening hemodynamic symptoms despite being on meropenem and vancomycin and final blood culture grew ESBL E. coli. Because of concerns of worsening hemodynamics he had review yesterday and repeat blood cultures that showed persistent E. coli to be growing again in the blood cultures . He had such significant hemodynamic shift warranting a thrombosis of the AV graft and because of this new development he is transferred to outside hospital for higher level of care because he has a thrombosed AV graft and worsening sepsis despite being on appropriate antibiotics. ID consultation was placed to assist with management recommendation since patient began to get more unstable post antibiotic exposure and may need intervention in terms of infection in the left foot. Other workup for suspected source of infection other than the left foot is being entertained at this point. [facility] level [facility] for vascular surgeon intervention and for workup of his persistent bacteremia. Vital Signs/Physical Exam: Temp Pulse Resp BP Pulse Ox 97.1 F 62 17 118/59 L 99 09/14/23 12:00 09/14/23 12:00 09/14/23 12:00 09/14/23 12:00 09/14/23 12:00 General: Alert HEENT: Atraumatic, Normocephalic Neck: Supple Respiratory: Normal air movement Cardiovascular: Regular rate/rhythm, Normal S1 S2 Gastrointestinal: Hypoactive Musculoskeletal: No swelling Neurological: Normal speech Laboratory Data at Discharge: WBC 20.20 thou/uL (4.3-10.9) H 09/14/23 10:00 Hgb 9.0 g/dL (13.6-17.9) L 09/14/23 10:00 Hct 27.9 % (39.6-49.0) L 09/14/23 10:00 Plt Count 306 thou/uL (152-406) 09/14/23 10:00 PT 12.3 SECONDS (9.5-12.5) 09/10/23 15:12 INR 1.12 09/10/23 15:12 Sodium Cancelled 09/12/23 05:18 Potassium Cancelled 09/12/23 05:18 BUN Cancelled 09/12/23 05:18 Creatinine Cancelled 09/12/23 05:18 Glucose Cancelled 09/12/23 05:18 Phosphorus 2.5 mg/dL (2.5-4.9) 09/12/23 04:26 Magnesium 2.1 mg/dL (1.6-2.4) 09/10/23 21:46 Total Bilirubin 0.8 mg/dL (0.2-1.0) 09/10/23 15:12 AST 23 U/L (15-37) 09/10/23 15:12 ALT 22 U/L (16-61) 09/10/23 15:12 Alkaline Phosphatase 151 U/L (45-117) H 09/10/23 15:12 Triglycerides 135 mg/dL (<150) 09/11/23 01:48 Cholesterol 60 mg/dL (<200) 09/11/23 01:48 HDL Cholesterol 22 mg/dL (40-60) L 09/11/23 01:48 Cholesterol/HDL Ratio 2.73 09/11/23 01:48 Home Medications: Aspirin [Aspirin EC 81 MG] 81 mg PO DAILY 09/02/14 Atorvastatin Calcium [Lipitor*] 40 mg PO BEDTIME 06/09/19 Fluoxetine HCl 20 mg PO DAILY 11/17/22 Insulin Glargine,Hum.rec.anlog [Basaglar Kwikpen U-100] 10 unit SQ BEDTIME 11/17/22 Calcium Acetate [Phoslo*] 2,001 mg PO TID 05/03/23 Acetaminophen [8 Hour Acetaminophen] 1 tab PO Q4H PRN 09/12/23 Calcitrol [Rocaltrol*] 1 mcg PO SEECOM 09/12/23 Cinacalcet HCl 1 tab PO SEECOM 09/12/23 Diphenhydramine [Benadryl*] 1 tab PO Q4H PRN 09/12/23 Loperamide HCl [Loperamide] 4 mg PO SEECOM PRN 09/12/23 Nitroglycerin [Nitrostat*] 1 tab SL SEECOM PRN 09/12/23 cloNIDine HCL [Clonidine HCl] 1 tab PO Q4H PRN 09/12/23 Acetaminophen [Tylenol*] 650 mg PO Q6H PRN tab 09/14/23 Aspirin Chewable [Aspirin Chewable*] 81 mg PO DAILY tab.chew 09/14/23 Heparin [Heparin Sodium*] 5,000 unit SQ Q12HR vial 09/14/23 Hydralazine [Apresoline*] 10 mg IV Q6HP PRN vial 09/14/23 Hydrocodone 5/APAP 325 [Lomira 5/325*] 1 tab PO Q6H PRN tab 09/14/23 Insulin -Regular Human [Novolin -R*] See Protocol SQ ACHS ml 09/14/23 Ondansetron [Zofran*] 4 mg IV Q6HP PRN vial 09/14/23 Pharmacy Consult 1 ea XX DAILYPRN PRN ea 09/14/23 Diet: Renal Activity: Ad lisbet Followup: NONE,NONE [Primary Care Provider] -
[2023-09-14 17:53] LABS: Blood Morphology Comment NOT SEEN (NOT SEEN); Platelet Estimate ADEQ; White Blood Cell Scan OK (OK)
[2023-09-14] MEDS: Meropenem 500 MG in NA CHLORIDE 0.9% 100 ML IV SCH (17:56)
[2023-09-15] MEDS: INSULIN REGULAR (HUMAN) 100 UNIT/ML SQ SCH ×3 (07:30→16:30)
[2023-09-15] MEDS: ASPIRIN 81 MG CHEWABLE TABLET PO SCH (09:28)
[2023-09-15] MEDS: HEPARIN 5000 UNIT/ML 1 ML VIAL SQ SCH (09:28)
[2023-09-15 09:47] VITALS: O2SAT 99
--- NOTE | 2023-09-15 09:53 | P.PN ---
Subjective Date of Service: 09/15/23 Chief Complaint: Left 4th toe infection, sob Subjective: No new changes, Improving Physical Examination - Vital Signs Temperature: 98.4 F Blood Pressure: 146/85 Pulse: 74 Respirations: 15 Pulse Ox (%): 99 - Physical Exam General: Alert HEENT: Atraumatic Neck: Supple Respiratory: Normal air movement Cardiovascular: Regular rate/rhythm, Normal S1 S2 Gastrointestinal: Soft and benign Integumentary: Erythema, Other (chronic wounds on the left foot.) Neurological: Normal speech Assessment And Plan - Plan Assessment and Plan -- DM2 with left 4th ulcer. Empiric antibiotic therapy with vancomycin and meropenem to be continued. Blood culture grew ESBL E. coli, ID consultation placed for further management recommendation. --Bacteremia: ESBL E. coli grew on blood culture. Will continue meropenem and vancomycin for now. --Left 4th toe infection. Wound culture finally grew Proteus mirabilis and E. coli. Empiric antibiotic therapy with meropenem and vancomycin to be continued. Wound care consult initiated. --ESRD. Nephrology consulted. Hemodialysis as per nephrology service. AV graft got thrombosed after hypotensive episode. Nephrology following for management recommendation. Plans to have patient transferred to outside hospital for management of AV graft complication in pipeline. -- Acute on chronic diastolic CHF exacerbation. Patient on hemodialysis. Dialysis per log marker recommendation. Daily weight and strict I/O. -- Elevated troponin. Serial troponins trending down. Cardiology consulted. Telemetry to monitor for any significant arrhythmia. Will await further recommendation from glaze supervisor. --DM2. BS monitoring with sliding scale insulin. -- Acute pain. We will manage pain with current pain medication regimen. --Hyperlipidemia. Continue statin. --Depression. Continue home medications. --Hypertension. Stable. Continue home medications. --History of CVA with left-sided weakness\PVD. Continue aspirin and statin. -- DVT prophylaxis with heparin subQ. Discharge Plan: Home Plan to discharge in: For transfer to higher level of care secondary to complication of thrombosed AV graft Physician Review: Patient Assessed, Agree with Above Assessment and Plan
--- NOTE | 2023-09-15 12:01 | P.PN ---
Subjective Date of Service: 09/14/23 Chief Complaint: Left 4th toe infection, sob Subjective: No new changes Physical Examination - Vital Signs Temperature: 98.4 F Blood Pressure: 146/85 Pulse: 74 Respirations: 15 Pulse Ox (%): 99 - Physical Exam General: Alert HEENT: Atraumatic Neck: Supple Respiratory: Normal air movement Cardiovascular: Regular rate/rhythm, Normal S1 S2 Gastrointestinal: Soft and benign Musculoskeletal: Other (wounds on the foot.) Neurological: Normal speech Assessment And Plan - Plan Assessment and Plan -- DM2 with left 4th ulcer. Empiric antibiotic therapy with vancomycin and meropenem to be continued. Blood culture grew ESBL E. coli, ID consultation placed for further management recommendation. --Bacteremia: ESBL E. coli grew on blood culture. Will continue meropenem and vancomycin for now. --Left 4th toe infection. Wound culture finally grew Proteus mirabilis and E. coli. Empiric antibiotic therapy with meropenem and vancomycin to be continued. Wound care consult initiated. --ESRD. Nephrology consulted. Hemodialysis as per nephrology service. AV graft got thrombosed after hypotensive episode. Nephrology following for management recommendation. Plans to have patient transferred to outside hospital for management of AV graft complication in pipeline. -- Acute on chronic diastolic CHF exacerbation. Patient on hemodialysis. Dialysis per unix architect recommendation. Daily weight and strict I/O. -- Elevated troponin. Serial troponins trending down. Cardiology consulted. Telemetry to monitor for any significant arrhythmia. Will await further recommendation from costume draper. --DM2. BS monitoring with sliding scale insulin. -- Acute pain. We will manage pain with current pain medication regimen. --Hyperlipidemia. Continue statin. --Depression. Continue home medications. --Hypertension. Stable. Continue home medications. --History of CVA with left-sided weakness\PVD. Continue aspirin and statin. -- DVT prophylaxis with heparin subQ. Discharge Plan: Home. Plan to discharge in: For transfer to higher level of care secondary to complication of thrombosed AV graft Physician Review: Patient Assessed, Agree with Above Assessment and Plan
--- NOTE | 2023-09-15 14:35 | P.PN ---
(S) Pt spiked sig temp yesterday afternoon and had Afib with RVR, pt did dialyze but BP remained low through treatment. UF limited. Repeat blood culture ordered through dialyzer line has come back positive on g/s. Pt afebrile this AM. However, examination of graft reveals no thrill or bruit 09/15: Afebrile currently, no acute complaints, denies CP, not needing O2, WBC higher on repeat CBC yesterday. Still awaiting transfer to [facility] (O) vitals reviewed in the EMR General: In no apparent distress, chronically ill appearing HEENT: Atraumatic, Normocephalic, Other (not needing O2), EOMI Neck: Supple Respiratory: Normal air movement, Other (non tachypnec) Cardiovascular: No edema, non tachy, irregular, no loud murmur Gastrointestinal: Soft and benign, Non-distended, No tenderness, No rebound Musculoskeletal: No swelling, No tenderness, Other (Rt foot TMA, lt foot 2nd toe amputation, foot warm to touch. Lt UE AVG, loop graft in the forearm, absent thrill or bruit, no swelling or obv infection externally Integumentary: Other (Lt foot with wound between 4th and 5th toes) Neurological: Other (Awake, responds slowly/briefly, no tremors or myoclonus) Conclusions/Impression: A/P) 1. ESRD 2nd to DM/HTN, on iHD at [facility], partial HD performed . Did dialyze Wed primarily for metab clearance 2. Did repeat HD Fri but in the setting of low BP and other, AVG now appears clotted on eval Sat and pt will need eval and intervention by vascular team. Pt remains septic so would like to avoid any lines. Did recommend initiating transfer, pt pending bed avail 3. Hypertensive CKD, Stage V/ESRD with transient hypotension in the setting of sepsis -BP meds remain held, did again limit UF on HD Fri. Currently BP holding 4. Sepsis 2nd to EColi. Fevers, recurrent, leukocytosis on admission. Suspected source initially was Lt foot DFU with possibility of osteomyelitis, however in light of Ecoli, it may be other although final wound cultures show ecoli and proteuus. Pt is appropriately on Meropenem, renally dosed however BCx remained positive it appeared given positive g/s on culture drawn 09/13. AVG does not appear obv infected. Ecoli rarely causes IE. MRI foot has not been done because pt has PPM but CT scan can be done alternatively or other bone scan. Pt needs ID consult. 5. Chronic diastolic CHF CXR did not show pulm edema on admission on on repeat check Sat. NSTEMI present on admission, sig troponin leak but trend was flat. Afib, unspecified in the setting of this and illness. Awaiting Cardiology input. Kailash Weeks MD, [place]OR[place]
[2023-09-15 16:31] VITALS: BP 157/88; TEMP 97.4
[2023-09-15] MEDS: Meropenem 500 MG in NA CHLORIDE 0.9% 100 ML IV SCH ×2 (17:43→18:00)
== END 2023-09-15 18:59 | disposition short-term general hospital (02) | DRG 871 ==
LOC: ER 14:22 → ERHOLD 16:48 → 2ND 20:09
PROVIDERS: ADMIT Internal Medicine Nephrology; ATTEND Internal Medicine Nephrology
PROC: 5A1D70Z Performance of Urinary Filtration, Intermittent, Less than 6 Hours Per Day (ICD-10-PCS; principal; 2023-09-11)
DX: A41.51 Sepsis due to Escherichia coli [E. coli] (principal); I21.4 Non-ST elevation (NSTEMI) myocardial infarction; N18.6 End stage renal disease; M86.8X7 Other osteomyelitis, ankle and foot; I13.2 Hypertensive heart and chronic kidney disease with heart failure and with stage 5 chronic kidney disease, or end stage renal disease; I69.354 Hemiplegia and hemiparesis following cerebral infarction affecting left non-dominant side; I48.92 Unspecified atrial flutter; Z16.12 Extended spectrum beta lactamase (ESBL) resistance; I50.32 Chronic diastolic (congestive) heart failure; T82.868A Thrombosis due to vascular prosthetic devices, implants and grafts, initial encounter; E11.22 Type 2 diabetes mellitus with diabetic chronic kidney disease; E11.69 Type 2 diabetes mellitus with other specified complication; E11.51 Type 2 diabetes mellitus with diabetic peripheral angiopathy without gangrene; E11.621 Type 2 diabetes mellitus with foot ulcer; L97.529 Non-pressure chronic ulcer of other part of left foot with unspecified severity; J10.1 Influenza due to other identified influenza virus with other respiratory manifestations; I48.91 Unspecified atrial fibrillation; F32.A Depression, unspecified; E78.00 Pure hypercholesterolemia, unspecified; Z79.4 Long term (current) use of insulin; Z99.2 Dependence on renal dialysis; Z74.01 Bed confinement status; Z79.82 Long term (current) use of aspirin; Z11.52 Encounter for screening for COVID-19; Z90.49 Acquired absence of other specified parts of digestive tract; Z79.899 Other long term (current) drug therapy; Y84.8 Other medical procedures as the cause of abnormal reaction of the patient, or of later complication, without mention of misadventure at the time of the procedure
CPT/HCPCS: 36415; 71045; 74018; 80048; 80061; 80076; 80202; 82947; 83605; 83735; 83880; 84100; 84439; 84443; 84484; 85025; 85610; 86706; 87040; 87070; 87077; 87186; 87205; 87340; 87804; 87811; 90935; 93005; 96374; 96375; 99285; J1644; J2185; J2405; J7030; J7050; P9047

== ENCOUNTER 2023-10-16 15:42 | Inpatient (IN) | payer OTHER ==
[2023-10-16 16:25] LABS: Absolute Lymphocytes (CBC) 0.5 K/uL (0.7-4.9); Hematocrit 31.5 % (39.6-49.0); Lymphocytes % 2.2 % (15.3-44.8); MPV 7.4 fL (7.6-11.3); Platelets 361 thou/uL (152-406); RBC Red Blood Cell Count 3.39 M/uL (4.33-5.43)
[2023-10-16 16:37] LABS: Protime INR 1.22
[2023-10-16 16:43] LABS: Albumin 3.3 g/dL (3.4-5.0); Bilirubin Total 0.8 mg/dL (0.2-1.0); Potassium 4.4 mEq/L (3.5-5.1); Protein, Total 8.9 g/dL (6.4-8.2)
[2023-10-16 16:46] LABS: Blood Morphology Comment NOT SEEN (NOT SEEN); Platelet Estimate ADEQ; White Blood Cell Scan OK (OK)
[2023-10-16 17:05] LABS: SARS-COV-2 RT PCR POSITIVE (NEGATIVE)
--- NOTE | 2023-10-16 17:10 | RAD REPORT ---
EXAM DESCRIPTION: CT - Abdomen Pelvis Wo Contrast - 10/16/2023 4:59 pm CLINICAL HISTORY: Abdominal pain. fever;Abd pain COMPARISON: CT ABD PELVIS W CONTRAST dated 08/30/2014 TECHNIQUE: CT imaging of the abdomen and pelvis was performed without contrast. Solid organ, bowel a nd vascular assessment is limited due to lack of IV and oral contrast. All CT scans are performed using dose optimization technique as appropriate and may include automated exposure control or mA/KV adjustment according to patient size. FINDINGS: The lower lung freire are clear.Pacer wires. The liver, spleen, pancreas, adrenal glands are within normal limits for a limited non-contrast exami nation.Cholecystectomy clips. Bilateral renal cysts, including rim calcified cyst on the left measuri ng 7 cm. No bowel obstruction, free air, free fluid or abscess. Moderate fat containing umbilical hernia. The appendix is normal. There is a large amount of stool in the rectal vault. Sigmoid diverticulosis coli without diverticulitis. The osseous structures are within normal limits. IMPRESSION: No acute intra-abdominal or pelvic findings. Significant stool retention in the rectum. A limited non-contrast examination was performed as detailed.
[2023-10-16] MEDS ORDERED: NA CHLORIDE 0.9% 250 ML ONE (17:20)
--- NOTE | 2023-10-16 17:25 | RAD REPORT ---
EXAM DESCRIPTION: RAD - Chest Single View - 10/16/2023 5:16 pm CLINICAL HISTORY: fever, chest pain Chest pain. COMPARISON: Chest Single View dated 09/13/2023; Abdomen 1 View (KUB) dated 09/13/2023; Chest Single View dated 09/10/2023; Chest Single View dated 05/02/2023 FINDINGS: Portable technique limits examination quality. The lungs are grossly clear. The heart is mildly enlarged in size. No displaced fractures.Multi lead pacer device is present. IMPRESSION: No acute intrathoracic process suspected.
--- NOTE | 2023-10-16 17:40 | ER ---
Nurse's Notes [facility] Name: Gonzalez Adams Age: 63 yrs Sex: Male : 1960 Arrival Date: 10/16/2023 Time: 15:42 Bed 17 Private MD: Diagnosis: SARS-associated coronavirus as the cause of diseases classified elsewhere;Hypotension, unspecified;Chest pain, unspecified Presentation: 10/16 15:50 Chief complaint: EMS states: pt is from [facility], [place]. pt was picked up at [address] [facility] for chest pain and hypothermia. pt was given 1gm of Tylenol, 324 of aspirin and 0.4 nitro en route. EMS states pt finished his dialysis session and with an extra 2L taken off. Coronavirus screen: At this time, the client does not indicate any symptoms associated with coronavirus-19. Ebola Screen: No symptoms or risks identified at this time. Initial Sepsis Screen: Does the patient meet any 2 criteria? Temp <36.0*C (96.8*F)) or > 38.3*C (100.9*F). Does the patient have a suspected source of infection? No. Patient's initial sepsis screen is negative. Risk Assessment: Do you want to hurt yourself or someone else? Patient reports no desire to harm self or others. Onset of symptoms was October 16, 2023. 15:50 Method Of Arrival: EMS: [place] [id number] 15:50 Acuity: ROSA 3 [facility] Triage Assessment: 15:52 General: Appears in no apparent distress. comfortable, well groomed, well developed, [facility] Behavior is calm, cooperative, appropriate for age. Pain: Denies pain. EENT: No signs and/or symptoms were reported regarding the EENT system. Neuro: Level of Consciousness is awake, alert, obeys commands, Oriented to person, place, time, situation, Appropriate for age. Cardiovascular: Denies chest pain, Heart tones S1 S2 present Capillary refill < 3 seconds. Respiratory: Airway is patent Trachea midline Respiratory effort is even, unlabored, Respiratory pattern is regular, symmetrical. GI: No signs and/or symptoms were reported involving the gastrointestinal system. : No signs and/or symptoms were reported regarding the genitourinary system. Derm: No signs and/or symptoms reported regarding the dermatologic system. Skin is pink, warm \T\ dry. Musculoskeletal: No signs and/or symptoms reported regarding the musculoskeletal system. Circulation, motion, and sensation intact. Capillary refill < 3 seconds, Range of motion: intact in all extremities. Historical: - Allergies: 15:52 No Known Allergies; kc6 - PMHx: 15:52 atrial flutter; CHF; CKD stage 5; CVA; w/ L sided deficits; depressive disorder; kc6 diabetes mellitus; Hypercholesterolemia; Hypertensive disorder; PVD; Myocardial infarction; dialysis MWF; - Immunization history:: Adult Immunizations unknown. - Social history:: Smoking status: unknown. - Family history:: not pertinent. - Hospitalizations: : The patient was recently seen at [facility]. Screenin:54 [facility] ED Fall Risk Assessment (Adult) History of falling in the last 3 months, kc6 including since admission No falls in past 3 months (0 pts) Confusion or Disorientation No (0 pts) Intoxicated or Sedated No (0 pts) Impaired Gait Yes (1 pt) Mobility Assist Device Used Yes (1 pt) Altered Elimination Yes (1 pt) Score/Fall Risk Level 3 or more points = High Risk. Abuse screen: Denies threats or abuse. Denies injuries from another. Nutritional screening: No deficits noted. Tuberculosis screening: No symptoms or risk factors identified. Assessment: 15:55 Reassessment: please see triage assessment. [facility] 16:58 Reassessment: Patient appears in no apparent distress at this time. No changes from [facility] previously documented assessment. Patient and/or family updated on plan of care and expected duration. Pain level reassessed. Patient is alert, oriented x 3, equal unlabored respirations, skin warm/dry/pink. 17:43 Reassessment: Patient appears in no apparent distress at this time. No changes from [facility] previously documented assessment. Patient and/or family updated on plan of care and expected duration. Pain level reassessed. Patient is alert, oriented x 3, equal unlabored respirations, skin warm/dry/pink. 17:51 Reassessment: spoke with pts nurse from [facility], Jennifer Rojas RN. informed that the [facility] pt is being admitted. 19:34 Reassessment: No changes from previously documented assessment. Patient and/or family vc1 updated on plan of care and expected duration. Pain level reassessed. Patient is alert, oriented x 3, equal unlabored respirations, skin warm/dry/pink. Vital Signs: 15:50 BP 119 / 75; Pulse 81; Resp 16 S; Temp 102.4(A); Pulse Ox 100% on R/A; Weight 85.73 kg kc6 (M); Pain 0/10; 16:58 BP 96 / 57; Pulse 78; Resp 17 S; Temp 101.5(A); Pulse Ox 100% on R/A; kc6 17:43 BP 101 / 61; Pulse 74; Resp 16 S; Pulse Ox 98% on R/A; kc6 18:04 Temp 99.2(A); kc6 19:00 BP 117 / 67; Pulse 72; Resp 12; Pulse Ox 97% ; vc1 15:50 Pain Scale: Adult kc6 ED Course: 15:47 Patient arrived in ED. rn 15:47 Florin Woo MD is Attending Physician. rn 15:52 Triage completed. kc6 15:52 Arm band placed on. kc6 15:54 Patient maintains SpO2 saturation greater than 95% on room air. kc6 15:55 Shantal Draper, TERRI is Primary Nurse. kc6 15:55 Patient has correct armband on for positive identification. Placed in gown. Bed in low kc6 position. Call light in reach. Side rails up X2. Client placed on continuous cardiac and pulse oximetry monitoring. NIBP monitoring applied. hospital monitor on. 16:15 Missed attempt(s): 22 gauge in right forearm. kc6 17:01 CT Abd/Pelvis - Without Contrast In Process Unspecified. EDMS 17:18 Chest Single View XRAY In Process Unspecified. EDMS 17:39 Brenda Noland FNP-C is Hospitalizing Provider. rn 19:59 No provider procedures requiring assistance completed. Patient admitted, IV remains in vc1 place. Administered Medications: 17:26 Drug: NS 0.9% IV 250 ml IV at bolus once Route: IV; Rate: bolus; Site: right kc antecubital; Medication: 20:43 VIS not applicable for this client. vc1 Outcome: 17:40 Decision to Hospitalize by Provider. rn 19:59 Admitted to Tele accompanied by tech, via stretcher, room 417, Report called to kirby Villarreal RN 19:59 Condition: good 20:43 Patient left the ED. vc1 Signatures: Dispatcher [employer] EDFlorin Malik MD MD rn Calcote, Vanessa, RN RN vc1 Shantal Draper RN RN kc6 Corrections: (The following items were deleted from the chart) 18:58 15:50 Chief complaint: EMS states: pt is from [facility], [place]. pt was picked up kc6 at [facility] for chest pain and hypothermia. pt was given 1gm of Tylenol, 324 of aspirin and 0.4 nitro en route kc6
--- NOTE | 2023-10-16 17:40 | EDPHYS ---
Physician Documentation [facility] Name: Gonzalez Adams Age: 63 yrs Sex: Male : 1960 Arrival Date: 10/16/2023 Time: 15:42 Bed 17 Private MD: ED Physician Florin Woo HPI: 10/16 16:21 This 63 yrs old Male presents to ER via EMS with complaints of Fever. rn 16:21 The patient reports fever, that was measured at 102.4 degrees Fahrenheit. Onset: The rn symptoms/episode began/occurred at an unknown time. Modifying factors: there are no obvious modifying factors. Associated signs and symptoms: Pertinent positives:. 16:22 Severity of symptoms: At their worst the symptoms were mild in the emergency department rn the symptoms are unchanged. It is unknown whether or not the patient has had similar symptoms in the past. EMS brings patient in from dialysis session for fever and chest pain. Patient reports feeling ill for the last 2 days but cannot describe exactly what he means. Denies any productive cough or shortness of breath. Reports mild abdominal pain but no vomiting or diarrhea. No known sick contacts. Patient had 2 L taken off today per EMS report. Patient had 102.4 temperature with EMS. Patient given Tylenol/aspirin/nitro x 1 with resolution of chest pain. No trauma or fall. Currently denies any chest pain. Recent admission for osteomyelitis and wounds of the left foot.. Historical: - Allergies: 15:52 No Known Allergies; kc6 - PMHx: 15:52 atrial flutter; CHF; CKD stage 5; CVA; w/ L sided deficits; depressive disorder; kc6 diabetes mellitus; Hypercholesterolemia; Hypertensive disorder; PVD; Myocardial infarction; dialysis MWF; - Immunization history:: Adult Immunizations unknown. - Social history:: Smoking status: unknown. - Family history:: not pertinent. - Hospitalizations: : The patient was recently seen at [facility]. 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, ENT: Negative for injury, pain, and discharge, Neck: Negative for injury, pain, and swelling, Cardiovascular: Negative for chest pain, palpitations, and edema, Respiratory: Negative for shortness of breath, cough, wheezing, and pleuritic chest pain, Abdomen/GI: Positive for abdominal pain, negative for vomiting or diarrhea Back: Negative for injury and pain, MS/Extremity: Negative for injury and deformity, Skin: Wounds to left foot Neuro: Positive for generalized weakness Exam: 16:22 Constitutional: This is a well developed, well nourished patient who is awake, alert, rn and in no acute distress. Head/Face: Normocephalic, atraumatic. ENT: Dry mucous membranes, no stridor, no oral lesions Neck: Trachea midline, no masses palpated, and no cervical lymphadenopathy. Supple, full range of motion without nuchal rigidity, or vertebral point tenderness. No Meningismus. Cardiovascular: Regular rate and rhythm. No pulse deficits. Respiratory: No increased work of breathing, no retractions or nasal flaring. Abdomen/GI: Soft, mid abdominal tenderness without guarding or rebound. No distention. Skin: Warm, dry MS/ Extremity: No cyanosis. Wounds to left foot without purulence or signs of acute infection. No foul smell. Neuro: Awake and alert, GCS 15 Vital Signs: 15:50 BP 119 / 75; Pulse 81; Resp 16 S; Temp 102.4(A); Pulse Ox 100% on R/A; Weight 85.73 kg kc6 (M); Pain 0/10; 16:58 BP 96 / 57; Pulse 78; Resp 17 S; Temp 101.5(A); Pulse Ox 100% on R/A; kc6 17:43 BP 101 / 61; Pulse 74; Resp 16 S; Pulse Ox 98% on R/A; kc6 18:04 Temp 99.2(A); kc6 19:00 BP 117 / 67; Pulse 72; Resp 12; Pulse Ox 97% ; vc1 15:50 Pain Scale: Adult kc6 MDM: 15:47 Patient medically screened. rn 17:38 Differential diagnosis: viral Infection, bacterial infection, URI, pneumonia. Data rn reviewed: vital signs, nurses notes, lab test result(s), radiologic studies, CT scan, plain films, and as a result, I will admit patient. Consideration of Admission/Observation Patient was admitted/placed on observation. Escalation of care including admission/observation considered. Independent interpretation of the following test(s) in the Emergency Department X-Ray: My interpretation is Chest x-ray images negative for pneumothorax or focal pneumonia per my interpretation. Care significantly affected by the following chronic conditions: Hypertension, Chronic Kidney Disease. Counseling: I had a detailed discussion with the patient and/or guardian regarding the historical points, exam findings, and any diagnostic results supporting the discharge/admit diagnosis, lab results, radiology results, the need for further work-up and treatment in the hospital. ED course: Patient COVID-positive, febrile, borderline blood pressure, 20,000 white blood cell count, malaise. Lactic acid 2.0. Will admit to hospitalist for further care. 10/16 15:47 Order name: Blood Culture Adult (2) rn 10/16 15:47 Order name: CBC with Diff; Complete Time: 17:03 10/16 15:47 Order name: CMP; Complete Time: 17:03 10/16 15:47 Order name: Lactate w/ 2H reflex if indic.; Complete Time: 17:06 10/16 15:47 Order name: Protime (+inr); Complete Time: 17:03 10/16 15:47 Order name: Ptt, Activated; Complete Time: 17:03 10/16 15:48 Order name: COVID-19/FLU A+B/RSV; Complete Time: 17:06 10/16 16:29 Order name: CBC Smear Scan; Complete Time: 17:03 [facility] 10/16 17:23 Order name: BNP; Complete Time: 19:59 10/16 17:23 Order name: Troponin High Sensitivity; Complete Time: 19:59 10/16 19:03 Order name: Lactate w/ 2H reflex if indic. [facility]DE 10/16 19:03 Order name: NT PRO-BNP [facility] 10/16 19:03 Order name: Urinalysis w/ reflexes [facility] 10/16 19:03 Order name: CBC with Automated Diff [facility] 10/16 19:03 Order name: CBC with Automated Diff [facility] 10/16 19:03 Order name: Comprehensive Metabolic Panel [facility] 10/16 19:03 Order name: Comprehensive Metabolic Panel [facility] 10/16 19:03 Order name: Magnesium [facility] 10/16 19:03 Order name: Magnesium EDDE 10/16 19:03 Order name: Phosphorus [facility] 10/16 19:03 Order name: Phosphorus [facility] 10/16 19:03 Order name: Protime (+INR) [facility] 10/16 19:03 Order name: Protime (+INR) [facility] 10/16 19:03 Order name: PTT, Activated Partial Thromb [facility] 10/16 19:03 Order name: PTT, Activated Partial Thromb [facility] 10/16 19:03 Order name: Troponin High Sensitivity [facility] 10/16 19:03 Order name: Troponin High Sensitivity [facility] 10/16 19:03 Order name: Troponin High Sensitivity [facility] 10/16 15:47 Order name: Chest Single View XRAY; Complete Time: 17:26 rn 10/16 16:22 Order name: CT Abd/Pelvis - Without Contrast; Complete Time: 17:22 rn 10/16 19:03 Order name: Extremity Venous Uni Ltd EDDE 10/16 19:03 Order name: Lower Extremity Artery Uni Ltd [facility] 10/16 15:47 Order name: EKG; Complete Time: 15:48 rn 10/16 19:03 Order name: Patient Safety Orders [facility] 10/16 19:03 Order name: CONS Physician Consult [facility] 10/16 19:03 Order name: CONS [facility] Cons [facility] 10/16 19:03 Order name: EKG Electrocardiogram [facility] 10/16 15:47 Order name: Accucheck; Complete Time: 16:14 rn 10/16 15:47 Order name: Cardiac monitoring; Complete Time: 15:55 rn 10/16 15:47 Order name: EKG - Nurse/Tech; Complete Time: 15:55 rn 10/16 15:47 Order name: IV Saline Lock - Large Bore; Complete Time: 16:43 rn 10/16 15:47 Order name: Labs collected and sent; Complete Time: 16:43 rn 10/16 15:47 Order name: O2 Per Protocol; Complete Time: 15:55 rn 10/16 15:47 Order name: O2 Sat Monitoring; Complete Time: 15:55 rn 10/16 15:47 Order name: Vital Signs; Complete Time: 15:55 rn Administered Medications: 17:26 Drug: NS 0.9% IV 250 ml IV at bolus once Route: IV; Rate: bolus; Site: right kc6 antecubital; Disposition Summary: 10/16/23 17:40 Hospitalization Ordered Notes: Hospitalization Status: Observation rn Provider: Brenda Noland rn Location: Telemetry/MedSurg (observation) rn Condition: Stable rn Problem: new rn Symptoms: are unchanged rn Bed/Room Type: Standard rn Room Assignment: 417(10/16/23 19:17) [id number] Diagnosis - SARS-associated coronavirus as the cause of diseases classified elsewhere rn - Hypotension, unspecified rn - Chest pain, unspecified rn Forms: - Medication Reconciliation Form rn - SBAR form rn - Leadership Thank You Letter rn Signatures: Dispatcher [employer] Florin Husain MD MD rn Campbell, Kaitlyn, RN RN kc6 Florian Bhatia MD MD 2 Belen Dupont [email or web address] Corrections: (The following items were deleted from the chart) : 17:40 charles [email or web address]
[2023-10-16 17:48] LABS: Troponin High Sensitivity 72.1 pg/mL (<58.9)
--- NOTE | 2023-10-16 19:17 | P.HP ---
Certification for Inpatient Patient admitted to: Inpatient With expected LOS: >2 Midnights Patient will require the following post-hospital care: Alf Practitioner: I am a practitioner with admitting privileges, knowledge of patient current condition, hospital course, and medical plan of care. Services: Services provided to patient in accordance with Admission requirements found in Title 42 Section 412.3 of the Code of Federal Regulations Patient History Date of Service: 10/17/23 Primary Care Provider: Lives at [place], [facility]/Dr. Zhang Reason for admission: Fever, Leukocytosis, CoVid positive, Chest pain History of Present Illness: Mr. Johns is a 63yo with a past medical history of IDDM, CKD on Hemodialysis, CVA, Hypertension who lives at [facility]. He was taken to dialysis today and was noted to have fever >102. He says he did not receive dialysis. EMS states he did have 3L of dialysis exchange. He was brought per EMS to the ED and was found to be CoVid positive. He apparently had a recent admission for a left foot wound. His white count in the emergency department was 20,000 with left shift and his Troponin is bumped at 72. He apparently complained of some chest pain in route to the ED and was given Nitro 0.4mg SL x 1 per EMS. No complaints of chest pain since but blood pressure is soft with SBP 95-116. Mr. Johns lives at [facility] but on my assessment states he lives at home with his family in a house in [place]. He states he was in [place] for dialysis. Most of the history is per the medical record. Allergies No Known Allergies Allergy (Verified 05/03/23 03:10) Home medications list reviewed: Yes - Past Medical/Surgical History Diabetic: Yes -: HTN -: HLD -: HX OF CVA/stroke -: ESRD on HD followed by Dr. Zhang -: ANEMIA -: LYMPHOMA -: OBESITY -: DYSPHAGIA -: CHOLECYSTECTOMY -: PEG tube placement -: vascular surg. right leg -: hemodialysis -: Pacemaker Psychosocial/ Personal History: Lives at [facility] - Family History Father -: Diabetes - Social History Smoking Status: Unknown if ever smoked Alcohol use: No CD- Drugs: No Caffeine use: Yes Place of Residence: [facility] Review of Systems 10-point ROS is otherwise unremarkable General: Fever, Weakness, Malaise Eyes: Unremarkable ENT: Unremarkable Respiratory: Other (denies SOB, cough) Cardiovascular: Other (currently denies chest pain) Gastrointestinal: Other (denies) Genitourinary: Unremarkable Musculoskeletal: Unremarkable Neurological: Confusion Physical Examination - Physical Exam General: In no apparent distress, Oriented x1 HEENT: Atraumatic, Normocephalic, Other (exopthalmus/blindness) Neck: Supple, 2+ carotid pulse no bruit Respiratory: Normal air movement Cardiovascular: No edema, Regular rate/rhythm Capillary refill: >2 Seconds Gastrointestinal: Normal bowel sounds, Soft and benign Musculoskeletal: No clubbing Integumentary: Skin lesion, Venous stasis ulcer Neurological: Abnormal tone Lymphatics: No axilla or inguinal lymphadenopathy Urinary: Other (brief) External genitalia: Deferred Rectal: Deferred - Studies Laboratory Data (last 24 hrs) 10/16/23 10/16/23 10/16/23 16:11 16:11 16:11 WBC 20.70 H Hgb 10.2 L Hct 31.5 L Plt Count 361 PT 13.3 H INR 1.22 APTT 31.8 Sodium 133 L Potassium 4.4 BUN 30 H Creatinine 4.38 H Glucose 141 H Total Bilirubin 0.8 AST 10 L ALT 11 L Alkaline Phosphatase 167 H Assessment and Plan - Problems (Diagnosis) (1) COVID Current Visit: Yes Status: Acute Plan: T,C,DB q 4h, O2 per protocol, Acetylcysteine 600mg po BID, antipyretics, monitor vs and electrolytes (2) Chest pain, rule out acute myocardial infarction Current Visit: No Status: Acute Plan: telemetry, trend troponin, likely demand ischemia (3) DM2 (diabetes mellitus, type 2) Current Visit: No Status: Acute Plan: Consult nephrology for dialysis, electrolyte management Monitor electrolytes, replace as needed Blood sugar AC and HS, Insulin sliding scale Home/NH medication reconciliation and restart as appropriate (4) Ulcer of left foot due to type 2 diabetes mellitus Current Visit: No Status: Acute Plan: Ultrasound venous and arterial to assess flow, Clindamycin 600mg IVPB TID with pharmacy consult for renal dosing. Consult wound care. (5) AV fistula thrombosis Current Visit: Yes Status: Acute Plan: Ultrasound of AV fistula in left arm without thrill, US shows "diminished flow velocity and likely thrombus within the fistula." Appreciate Nephrology input Plan to discharge in: 72 Hours - Advance Directives Does patient have a Living Will: No Does patient have a Durable POA for Healthcare: No - Code Status/Comfort Care Code Status Assessed: Yes (Full code)
[2023-10-16] MEDS ORDERED: ACETAMINOPHEN 325 MG TABLET PO PRN (19:21)
[2023-10-16] MEDS: INSULIN REGULAR (HUMAN) 100 UNIT/ML SQ SCH (21:00)
[2023-10-16] MEDS: ACETYLCYST 20% 800 MG/4 ML VIAL PO SCH (22:39)
[2023-10-16 22:43] VITALS: BMI 28.9
[2023-10-17] MEDS: HEPARIN 5000 UNIT/ML 1 ML VIAL SQ SCH ×4 (00:21→21:47)
[2023-10-17] MEDS: CLINDAMYCIN 600MG/D5W 50 ML IV SCH ×2 (00:21→09:00)
[2023-10-17] MEDS ORDERED: CLINDAMYCIN PHOSPHATE 600 MG in NA CHLORIDE 0.9% 50 ML IV SCH (01:00)
[2023-10-17] MEDS: INSULIN REGULAR (HUMAN) 100 UNIT/ML SQ SCH ×4 (07:30→21:00)
[2023-10-17 07:51] LABS: Absolute Lymphocytes (CBC) 0.6 K/uL (0.7-4.9); Hematocrit 29.2 % (39.6-49.0); Lymphocytes % 4.1 % (15.3-44.8); MCV 92.8 fL (80-100); MPV 7.7 fL (7.6-11.3); Platelets 300 thou/uL (152-406); RBC Red Blood Cell Count 3.15 M/uL (4.33-5.43)
[2023-10-17 08:00] LABS: Protime INR 1.23
[2023-10-17 08:18] LABS: AST/SGOT 9 U/L (15-37); Albumin 2.8 g/dL (3.4-5.0); Alkaline Phosphatase 137 U/L (45-117); BUN Blood Urea Nitrogen 43 mg/dL (7-18); Bicarbonate 30 mEq/L (21-32); Bilirubin Total 0.7 mg/dL (0.2-1.0); Glomerular Filtration Rate 11 ml/min (=/>90); Glucose Level 94 mg/dL (74-106); Magnesium 2.1 mg/dL (1.6-2.4); Phosphorus 3.6 mg/dL (2.5-4.9); Protein, Total 7.6 g/dL (6.4-8.2); Sodium Level 134 mEq/L (136-145)
[2023-10-17 08:19] LABS: ALT/SGPT < 10 U/L (16-61)
[2023-10-17 08:20] LABS: Troponin High Sensitivity 64.7 pg/mL (<58.9)
--- NOTE | 2023-10-17 08:23 | RAD REPORT ---
EXAM DESCRIPTION: US - Extremity Venous Uni Ltd - 10/16/2023 11:51 pm CLINICAL HISTORY: Diabetic wound, PAD COMPARISON: None. TECHNIQUE: Real-time sonographic evaluation of the left lower extremity deep venous system was perfo rmed. FINDINGS: Normal compressibility, flow augmentation, phasic flow and spontaneous flow is identified in the left lower extremity deep venous system. No intraluminal filling defects seen. IMPRESSION: No evidence of DVT in the left lower extremity.
--- NOTE | 2023-10-17 08:53 | RAD REPORT ---
EXAM DESCRIPTION: US - Lower Extremity Artery Uni Ltd - 10/16/2023 11:51 pm CLINICAL HISTORY: diabetic wound, PAD COMPARISON: No comparisons TECHNIQUE: Left lower extremity arterial Doppler examination was performed with waveform tracing. FINDINGS: Biphasic waveforms are seen along the left common femoral through mid superficial femoral arteries an d the popliteal artery. Monophasic waveforms seen along the distal left superficial femoral artery, p osterior tibial, and dorsalis pedis arteries, with markedly blunted upstroke along the dorsalis pedis artery. Multiphase moderate burden of atherosclerotic plaque noted. IMPRESSION: Moderate left lower extremity peripheral vascular disease.
[2023-10-17] MEDS ORDERED: CEFEPIME 1 GM in NA CHLORIDE 0.9% 100 ML IV SCH (09:15)
[2023-10-17] MEDS: ACETYLCYST 20% 800 MG/4 ML VIAL PO SCH ×2 (09:59→21:33)
[2023-10-17] MEDS: FOLIC ACID 1 MG in NA CHLORIDE 0.9% 50 ML IV SCH (09:59)
--- NOTE | 2023-10-17 10:56 | P.CNS ---
Date of Consult: 10/17/23 Reason for Consult: ESRD, fever, malfunction of AV access Requesting Physician: gregg shelton Primary Care Provider: [facility] at [facility]/Dr. Zhang Chief Complaint: Fever, Leukocytosis, CoVid positive, Chest pain History of Present Illness: Pt is a 63 yo male with a past medical history of IDDM, prior CVA, hx of cardiac disease with dual lead PPM insertion within the past year, chronic HT N, ESRD on iHD MWF at [facility] who was recently hospitalized last mo with fever, Lt foot DFU/wound, ESBL Ecoli bacteremia, NSTEMI, clotted AV access during admission and was transferred to tertiary center for higher level of care. Yesterday presented from the dialysis unit as developed chills/rigors/CP at the end of HD and was found to be febrile here. Pt was positive for COVID-19. BCx obtained. On exam his lt AVG appears to have clotted off again. Pt was several kg above his EDW yesterday at the unit but denies active current dyspnea or CP. Allergies No Known Allergies Allergy (Verified 05/03/23 03:10) Home Medications: Amino Acids/Protein Hydrolys [Pro-Stat Awc Liquid] 30 ml PO BID 10/17/23 Ammonium Lactate 1 appl TOP BID 10/17/23 Ascorbic Acid 500 mg PO BID 10/17/23 Aspirin [Aspirin EC] 81 mg PO DAILY 10/17/23 Atorvastatin Calcium [Lipitor] 80 mg PO BEDTIME 10/17/23 Calcium Acetate 667 mg PO TID 10/17/23 Clopidogrel Bisulfate [Plavix*] 75 mg PO DAILY 10/17/23 Epoetin Kurt [Epogen] 4,000 unit SQ SEECOM 10/17/23 Fluoxetine HCl [Prozac*] 10 mg PO DAILY 10/17/23 Folic Acid 1 mg PO DAILY 10/17/23 Levetiracetam [Keppra Xr] 500 mg PO BEDTIME 10/17/23 Metoprolol Succinate 12.5 mg PO BID 10/17/23 Midodrine HCl [Proamatine*] 5 mg PO SEECOM 10/17/23 Multivitamin 1 tab PO DAILY 10/17/23 Ondansetron [Zofran (Odt)*] 4 mg PO Q6H PRN 10/17/23 Sevelamer Carbonate [Renvela*] 800 mg PO TID 10/17/23 Sevelamer HCl [Renagel] 800 mg PO TID 10/17/23 Zinc Amino Acid Chelate [Zinc] 1 cap PO DAILY 10/17/23 - Past Medical/Surgical History Diabetic: Yes -: HTN -: HLD -: HX OF CVA/stroke -: ESRD on HD followed by Dr. Zhang -: ANEMIA -: LYMPHOMA -: OBESITY -: DYSPHAGIA -: CHOLECYSTECTOMY -: PEG tube placement -: vascular surg. right leg -: hemodialysis -: Pacemaker Psychosocial/ Personal History: Lives at [facility] - Family History Father Medical History: Diabetes - Social History Smoking Status: Unknown if ever smoked Alcohol use: No CD- Drugs: No Caffeine use: Yes Place of Residence: [facility] Review of Systems General: Fever, Malaise Eyes: Unremarkable ENT: Unremarkable Respiratory: Shortness of Breath, As per HPI Cardiovascular: Chest Pain, As per HPI Gastrointestinal: Unremarkable Genitourinary: Unremarkable Musculoskeletal: As per HPI Integumentary: As per HPI Neurological: As per HPI Physical Examination Temp Pulse Resp BP Pulse Ox 98.7 F 73 16 160/68 H 98 10/17/23 08:00 10/17/23 08:00 10/17/23 08:00 10/17/23 08:00 10/17/23 08:00 General: In no apparent distress, Cooperative HEENT: Atraumatic, Normocephalic, Other (Not currently on O2) Neck: Supple Respiratory: Normal air movement, Other (No sig rhonchi or wheezing) Cardiovascular: No edema, Other (Non tachy, mostly regular, upper chest PPM) Gastrointestinal: Soft and benign, Non-distended, No tenderness Musculoskeletal: No swelling, No contractures, No warmth, Other (Lt foot toe amputations, foot warm to touch, muscle mass loss. Lt forearm loop AVG with absent thrill and bruit) Neurological: Other (Chronic speech dysarthria, at baseline in terms of alertness and communication. No tremors) Laboratory Data (last 24 hrs) 10/16/23 10/16/23 10/16/23 16:11 16:11 16:11 WBC 20.70 H Hgb 10.2 L Hct 31.5 L Plt Count 361 PT 13.3 H INR 1.22 APTT 31.8 Sodium 133 L Potassium 4.4 BUN 30 H Creatinine 4.38 H Glucose 141 H Total Bilirubin 0.8 AST 10 L ALT 11 L Alkaline Phosphatase 167 H Conclusions/Impression: Conclusions/Impression: A/P) 1. ESRD 2nd to DM/HTN, on iHD at [facility], partial HD performed yesterday at the unit. Labs stable for the moment 2. Repeat malfunction of AV access, initial -AVG again appears to be clotted after declot end of last mo at tertiary center. Will explore if transfer is feasible as vascular surgery, interventional IR not avail here. With recurrent fever, recent bacteremia, pending cultures, would like to avoid TDC. 3. Hypertensive CKD, Stage V/ESRD with transient relative hypotension in the setting of dialysis, possible sepsis -BP not currently low 4. Sepsis 2nd to ESBL EColi last mo. Fevers, recurrent, leukocytosis on admission. Suspected source last mo was Lt foot DFU with possibility of osteomyelitis, then with final wound cultures show ecoli and proteus. Pt also COVID positive currently. Follow up cultures, dose Meropenem for reduced CrCl 5. Chronic diastolic CHF. Recurrent NSTEMI. No gross fluid overload signs currently. Monitor closely Kailash Weeks MD, [place]
[2023-10-17] MEDS ORDERED: CLINDAMYCIN 600MG/D5W 50 ML IV SCH (11:00)
[2023-10-17] MEDS ORDERED: Meropenem 500 MG in NA CHLORIDE 0.9% 100 ML IV ONE (11:30)
--- NOTE | 2023-10-17 13:21 | EKG ---
Test Date: 2023-10-16 Test Time: 15:52:34 Duck Farmer: UDAY MEASUREMENT RESULTS: Intervals: Rate: 87 LA: QRSD: 96 QT: 404 QTc: 486 [place]: P: LA: QRS: 10 T: 95 INTERPRETIVE STATEMENTS: Atrial flutter with variable AV block ST & T wave abnormality, consider lateral ischemia Prolonged QT Abnormal ECG Electronically Signed On 10-17-23 13:18:57 PLC PROGRAMMER by Gonzalo Rolle
--- NOTE | 2023-10-17 14:07 | RAD REPORT ---
EXAM DESCRIPTION: US - UPPER EXTREMITY VENOUS UNILATE - 10/17/2023 2:23 am CLINICAL HISTORY: Evaluation of AV fistula COMPARISON: None. TECHNIQUE: Grayscale, color Doppler, and spectral Doppler imaging of the left extremity venous syste m. FINDINGS: Normal compressibility and/or flow identified in the left internal jugular, subclavian, ax illary, brachial, basilic, radial, and ulnar veins. Left cephalic vein not visualized. Left upper e xtremity AV fistula is patent however flow velocity is diminished. Echogenic material seen in the fis [place]. The fistula is incompletely compressible. No soft tissue abnormalities. IMPRESSION: 1. No evidence of left upper extremity DVT. 2. Left upper extremity AV fistula is patent however there is diminished flow velocity and likely t hrombus within the fistula. Findings may indicate stenosis. Dedicated fistulogram with provide more c omplete characterization. Electronically signed by: Gigi Vincent DO 10/17/2023 04:23 AM CLARIFICATION OPERATOR M Due to temporary technical issues with the PACS/Fluency reporting system, reports are being signed by the in house radiologists without review as a courtesy to insure prompt reporting. The interpreting radiologist is fully responsible for the content of the report.
--- NOTE | 2023-10-17 15:46 | P.PN ---
Subjective Date of Service: 10/17/23 Primary Care Provider: Lives at [place], Dialysis/Dr. Zhang Chief Complaint: Fever, Leukocytosis, CoVid positive, Chest pain Patient states he feels much better. He denies any chest pain. No recorded fever. He is tolerating diet. Physical Examination - Vital Signs Temperature: 98.7 F Blood Pressure: 160/68 Pulse: 73 Respirations: 16 Pulse Ox (%): 98 - Studies Laboratory Data (last 24 hrs) 10/16/23 10/16/23 10/16/23 16:11 16:11 16:11 WBC 20.70 H Hgb 10.2 L Hct 31.5 L Plt Count 361 PT 13.3 H INR 1.22 APTT 31.8 Sodium 133 L Potassium 4.4 BUN 30 H Creatinine 4.38 H Glucose 141 H Total Bilirubin 0.8 AST 10 L ALT 11 L Alkaline Phosphatase 167 H Assessment And Plan - Plan Physical Exam General: In no apparent distress, Oriented x1 Neck: Supple, no elevated JVD Respiratory: Clear to auscultation bilaterally, good breath sounds bilaterally. Cardiovascular: No edema, Regular rate/rhythm Gastrointestinal: Normal bowel sounds, Soft and benign, nontender. Musculoskeletal: Toe amputations on left foot Integumentary: Ulcer on the dorsum of the left foot. Neurological: Patient moves all extremities Plan: Chest pain/elevated troponin Elevated troponin likely secondary to decreased renal clearance given ESRD. Patient is currently chest pain-free. Troponin trended flat. End-stage renal disease on hemodialysis Patient seen by nephrology-Dr. Weeks. Case discussed with Dr. Weeks. Ultrasound suggest clot in the AV graft. Dr. Bond requirement vascular surgery evaluation for clot removal. Initiating transfer to [facility] for vascular surgery eval. COVID-19 infection Patient is currently asymptomatic and stable Gram-negative bacteremia Prior history of E. coli bacteremia. Source of bacteremia is unclear, left foot ulcer implicated. Started on IV meropenem. Follow blood cultures. Patient will require outpatient IV antibiotics. Diabetes mellitus type 2 Insulin sliding scale for glucose management. DVT prophylaxis Heparin subQ.
[2023-10-18] MEDS: INSULIN REGULAR (HUMAN) 100 UNIT/ML SQ SCH ×2 (07:30→11:30)
[2023-10-18] MEDS: ACETYLCYST 20% 800 MG/4 ML VIAL PO SCH (09:13)
[2023-10-18] MEDS: HEPARIN 5000 UNIT/ML 1 ML VIAL SQ SCH (09:14)
[2023-10-18] MEDS: FOLIC ACID 1 MG in NA CHLORIDE 0.9% 50 ML IV SCH (09:14)
[2023-10-18] MEDS ORDERED: ALBUMIN HUMAN 25% 100 ML IV ONE (10:00)
[2023-10-18 11:27] VITALS: O2SAT 97
--- NOTE | 2023-10-18 11:35 | P.PN ---
(S) Afebrile this AM but had fever of 101 yesterday afternoon, denies CP or dyspnea currently, not needing O2. BCx neg for growth on prelim. Plan for AVG declot discussed with vascular surgeon at [facility] and plan for transfer discussed with Dr. العلي and pt (O) Vitals reviewed in the EMR General: In no apparent distress, Cooperative HEENT: Atraumatic, Normocephalic, Other (Not currently on O2) Neck: Supple Respiratory: Normal air movement, Other (No sig rhonchi or wheezing) Cardiovascular: No edema, Other (Non tachy, mostly regular, upper chest PPM) Gastrointestinal: Soft and benign, Non-distended, No tenderness Musculoskeletal: No swelling, No contractures, No warmth, Other (Lt foot toe amputations, foot warm to touch, muscle mass loss. Lt forearm loop AVG with absent thrill and bruit) Neurological: Other (Chronic speech dysarthria, at baseline in terms of alertness and communication. No tremors) Conclusions/Impression: A/P) 1. ESRD 2nd to DM/HTN, on iHD at [facility], partial HD performed Sat. Labs stable yesterday, pending today. 2. Repeat malfunction of AV access, initial -AVG again appears to be clotted after declot end of last mo at tertiary center. Pursuing transfer as vascular surgery, interventional IR not avail here. With recurrent fever, recent bacteremia, would like to avoid TDC and attempt declot as successful prev. 3. Hypertensive CKD, Stage V/ESRD with transient relative hypotension in the setting of dialysis, possible sepsis -BP not currently low 4. Sepsis 2nd to ESBL EColi last mo. Fevers, recurrent, leukocytosis on admission. Suspected source last mo was Lt foot DFU with possibility of osteomyelitis, then with final wound cultures showing back then ecoli and proteus. Follow up final cultures here. Pt also COVID positive currently. Dosing Meropenem for reduced CrCl 5. Chronic diastolic CHF. Recurrent NSTEMI. No gross fluid overload signs currently. Monitor closely Kailash Weeks MD, [place]
[2023-10-18 14:20] VITALS: BP 139/78; TEMP 97.1
--- NOTE | 2023-10-18 17:56 | P.DS ---
Admission Date: 10/16/23 Discharge Date: 10/18/23 Primary Care Provider: Lives at [place], Dialysis/Dr. Zhang Disposition: TRANSFER TO [facility] Discharge Condition: FAIR Reason for Admission: Fever, Leukocytosis, CoVid positive, Chest pain Brief History of Present Illness: Mr. Johns is a 63yo with a past medical history of IDDM, CKD on Hemodialysis, CVA, Hypertension who lives at [facility]. He was taken to dialysis and was noted to have fever >102. He did not complete dialysis. EMS states he did have 3L of dialysis exchange. He was brought per EMS to the ED and was found to be CoVid positive. He apparently had a recent admission for a left foot wound, bacteremia and clotted AV graft and had to be transferred to [facility] for intervention. His white count in the emergency department was 20,000 with left shift and his Troponin elevated to 72. He apparently complained of some chest pain in route to the ED and was given Nitro 0.4mg SL x 1 per EMS. No complaints of chest pain since but blood pressure was soft with SBP 95-116. His left AV graft was noted to be clotted prompting US Doppler studies which adjusted possible thrombus in the AV graft. Patient was hospitalized for further manageme nt. Hospital Course: This admitted to the medical floor and the following medical problems addressed: Chest pain/elevated troponin Elevated troponin likely secondary to decreased renal clearance given ESRD. Patient has been chest pain-free. Troponin trended flat. End-stage renal disease on hemodialysis Patient seen by nephrology-Dr. Weeks. Case discussed with Dr. Weeks. Ultrasound suggest clot in the AV graft. Dr. Bond recommended vascular surgery evaluation for clot removal. Initiating transfer to [facility] for vascular surgery eval. I spoke to Dr. Newman and Dr. Bermudez. Patient has been accepted for transfer he is clinically stable for transfer. COVID-19 infection Patient is currently asymptomatic and stable Gram-negative bacteremia Prior history of E. coli bacteremia. Source of bacteremia is unclear, left foot ulcer implicated. Started on IV meropenem. Follow blood cultures. Patient will require outpatient IV antibiotics. Diabetes mellitus type 2 Insulin sliding scale used for glucose management. Vital Signs/Physical Exam: Temp Pulse Resp BP Pulse Ox 97.1 F 58 16 139/78 96 10/18/23 12:00 10/18/23 12:00 10/18/23 12:00 10/18/23 12:00 10/18/23 12:00 Laboratory Data at Discharge: WBC 15.60 thou/uL (4.3-10.9) H 10/17/23 07:32 Hgb 9.6 g/dL (13.6-17.9) L 10/17/23 07:32 Hct 29.2 % (39.6-49.0) L 10/17/23 07:32 Plt Count 300 thou/uL (152-406) 10/17/23 07:32 PT 13.4 SECONDS (9.5-12.5) H 10/17/23 07:32 INR 1.23 10/17/23 07:32 APTT 32.6 SECONDS (24.3-36.9) 10/17/23 07:32 Sodium 134 mEq/L (136-145) L 10/17/23 07:32 Potassium 5.0 mEq/L (3.5-5.1) D 10/17/23 07:32 BUN 43 mg/dL (7-18) H 10/17/23 07:32 Creatinine 5.61 mg/dL (0.70-1.30) H 10/17/23 07:32 Glucose 94 mg/dL (74-106) 10/17/23 07:32 Phosphorus 3.6 mg/dL (2.5-4.9) 10/17/23 07:32 Magnesium 2.1 mg/dL (1.6-2.4) 10/17/23 07:32 Total Bilirubin 0.7 mg/dL (0.2-1.0) 10/17/23 07:32 AST 9 U/L (15-37) L 10/17/23 07:32 ALT < 10 U/L (16-61) L 10/17/23 07:32 Alkaline Phosphatase 137 U/L (45-117) H 10/17/23 07:32 Home Medications: Amino Acids/Protein Hydrolys [Pro-Stat Awc Liquid] 30 ml PO BID 10/17/23 Ammonium Lactate 1 appl TOP BID 10/17/23 Ascorbic Acid 500 mg PO BID 10/17/23 Aspirin [Aspirin EC] 81 mg PO DAILY 10/17/23 Atorvastatin Calcium [Lipitor] 80 mg PO BEDTIME 10/17/23 Calcium Acetate 667 mg PO TID 10/17/23 Clopidogrel Bisulfate [Plavix*] 75 mg PO DAILY 10/17/23 Epoetin Kurt [Epogen] 4,000 unit SQ SEECOM 10/17/23 Fluoxetine HCl [Prozac*] 10 mg PO DAILY 10/17/23 Folic Acid 1 mg PO DAILY 10/17/23 Levetiracetam [Keppra Xr] 500 mg PO BEDTIME 10/17/23 Metoprolol Succinate 12.5 mg PO BID 10/17/23 Midodrine HCl [Proamatine*] 5 mg PO SEECOM 10/17/23 Multivitamin 1 tab PO DAILY 10/17/23 Ondansetron [Zofran (Odt)*] 4 mg PO Q6H PRN 10/17/23 Sevelamer Carbonate [Renvela*] 800 mg PO TID 10/17/23 Sevelamer HCl [Renagel] 800 mg PO TID 10/17/23 Zinc Amino Acid Chelate [Zinc] 1 cap PO DAILY 10/17/23 Diet: Renal Followup: NONE,NONE [Primary Care Provider] - Time spent managing pt's care (in minutes): 36
[2023-10-18] MEDS ORDERED: Meropenem 500 MG in NA CHLORIDE 0.9% 100 ML IV SCH (18:00)
== END 2023-10-18 17:11 | disposition short-term general hospital (02) | DRG 177 ==
LOC: ER 15:42 → ERHOLD 18:48 → 4TH 19:41
PROVIDERS: ADMIT Internal Medicine; ATTEND Internal Medicine
PROC: 5A1D70Z Performance of Urinary Filtration, Intermittent, Less than 6 Hours Per Day (ICD-10-PCS; principal; 2023-10-16)
DX: U07.1 COVID-19 (principal); N18.6 End stage renal disease; T82.41XA Breakdown (mechanical) of vascular dialysis catheter, initial encounter; I50.32 Chronic diastolic (congestive) heart failure; I13.2 Hypertensive heart and chronic kidney disease with heart failure and with stage 5 chronic kidney disease, or end stage renal disease; T82.868A Thrombosis due to vascular prosthetic devices, implants and grafts, initial encounter; E11.22 Type 2 diabetes mellitus with diabetic chronic kidney disease; E11.51 Type 2 diabetes mellitus with diabetic peripheral angiopathy without gangrene; E11.621 Type 2 diabetes mellitus with foot ulcer; I95.3 Hypotension of hemodialysis; E66.9 Obesity, unspecified; I25.2 Old myocardial infarction; Y84.8 Other medical procedures as the cause of abnormal reaction of the patient, or of later complication, without mention of misadventure at the time of the procedure; Z95.0 Presence of cardiac pacemaker; Z99.2 Dependence on renal dialysis; Z86.73 Personal history of transient ischemic attack (TIA), and cerebral infarction without residual deficits; Z90.49 Acquired absence of other specified parts of digestive tract; Z79.82 Long term (current) use of aspirin; Z79.02 Long term (current) use of antithrombotics/antiplatelets; Z79.899 Other long term (current) drug therapy; Z68.28 Body mass index [BMI] 28.0-28.9, adult
CPT/HCPCS: 0241U; 36415; 71045; 74176; 80053; 82947; 83605; 83735; 83880; 84100; 84484; 85025; 85610; 85730; 87040; 87077; 87186; 87205; 93005; 93926; 93971; 94760; 96374; 99285; J0692; J1644; J7050; P9047